=== PATIENT | male | born 1960 | race Caucasian/White ===

== ENCOUNTER 2017-02-09 10:07 | Outpatient (RCR) | payer MEDICARE, OTHER ==
[~2017-02-09 10:07] MED LIST: ABACAVIR300 MG PO; ACETAMINOPHN-B1 EACH PO; AMITIZA24 MCG PO; AMOXICILLIN500 MG PO; ASPIRIN81 M3 PO; ATARAX 25MG25 MG PO; ATORVASTATIN CA20 MG PO; ATRIPLA TABLET1 TAB PO; BENTYL10 MG PO; BUTALB-ACETAMI1 EACH; CIPRO500 MG PO; CLONAZEPAM PO; CLONAZEPAM0.5 MG PO; CLONAZEPAM1 MG PO; DICYCLOMINE HCL20 MG PO; DOCUSATE CALCI240 MG PO; DOXYCYCLINE HY100 MG PO; ECOTRIN81 MG PO; FLEXERIL; FUROSEMIDE20 MG PO; GABAPENTIN600 MG PO; GENVOYA PO; HYDROCODONE AP PO; HYDROXIZINE; KRISTALOSE10 GM PO; L-THYROXINE PO; LAMIVUDINE150 MG PO; LEVOTHYROXINE50 MCG PO; LEXAPRO PO; LEXAPRO20 MG PO; LINZESS PO; LISINOPRIL PO; LISINOPRIL40 MG PO; LYRICA100 MG PO; LYRICA25 MG PO; MAGNESIUM400 MG PO; NEUROTIN; NEXIUM PO; NEXIUM40 MG PO; NORCO 5-325 TA1 EACH PO; NORTRIPTYLINE H10 MG PO; NORVIR100 M1 PO; NORVIR100 MG PO; OMEGA 3 KRILL OIL PO; ONDANSETRON HCL4 MG PO; PANTOPRAZOLE SO40 MG PO; POTASSIUM CHLO10 ME1 PO; PROMETHAZINE HC25 M1 PO; PROPANOL; PROTONIX40 M1 PO; RANITIDINE HCL300 MG PO; REYATAZ300 MG PO; STRIBILD TABLE1 EACH PO; SUCRALFATE1 GM PO; SUMATRIPTAN SUC25 MG PO; TOPIRAMATE100 MG PO; TOPROL PO; ULTRAM 50MG50 MG PO; VICODIN; VYTORIN 10-201 EACH PO; Z.0.BENTYL20 MG PO; Z.0.COLACE100 MG PO; Z.0.FUROSEMIDE20 MG PO; Z.0.GABAPENTIN300 MG PO; Z.0.IMITREX100 MG PO; Z.0.LOMOTIL TABLET1 PO; Z.0.PHENERGAN25 M1 PO; Z.0.PROPRANOLOL HCL1 PO; Z.0.VYTORIN 10-201 E PO; Z.1.TIZANIDINE HCL4 PO; ZOFRAN ODT4 MG PO; [UNRECOGNIZED DRUG - OTHER]; [UNRECOGNIZED DRUG - OTHER]; [UNRECOGNIZED DRUG - OTHER] PO; [UNRECOGNIZED DRUG - OTHER] PO; [UNRECOGNIZED DRUG - OTHER] PO; [UNRECOGNIZED DRUG - OTHER] PO; [UNRECOGNIZED DRUG - OTHER] TOP; movantik PO
[2017-02-09] MEDS ORDERED: LIDOCAINE VISC 2% SOLN 15 ML UDC ONE (11:15)
== END 2017-02-20 ==
LOC: WCC 10:07
PROVIDERS: ATTEND Family Medicine
DX: L89.223 Pressure ulcer of left hip, stage 3 (principal); L89.322 Pressure ulcer of left buttock, stage 2; L89.312 Pressure ulcer of right buttock, stage 2; L89.152 Pressure ulcer of sacral region, stage 2; L89.151 Pressure ulcer of sacral region, stage 1; S31.829A Unspecified open wound of left buttock, initial encounter; B20 Human immunodeficiency virus [HIV] disease; B95.2 Enterococcus as the cause of diseases classified elsewhere; B95.62 Methicillin resistant Staphylococcus aureus infection as the cause of diseases classified elsewhere; B96.5 Pseudomonas (aeruginosa) (mallei) (pseudomallei) as the cause of diseases classified elsewhere; G35 Multiple sclerosis; X58.XXXA Exposure to other specified factors, initial encounter; Z74.01 Bed confinement status
CPT/HCPCS: 17250 ×2; G0463

== ENCOUNTER 2017-02-18 13:27 | Emergency (ER) | payer MEDICARE, OTHER ==
[~2017-02-18] VITALS: Ht 170.2 cm; Wt 68.9 kg
[2017-02-18] MEDS ORDERED: SODIUM CHLORIDE 0.9% 1000ML 1,000 ML IV STA (14:09)
[2017-02-18 14:16] LABS: BASOPHILS % 0.4 % (0.0-1.0); EOSINOPHILS % 0.2 % (0.0-6.0); HEMATOCRIT 43.1 % (38.2-49.6); LYMPHOCYTES # (AUTO) 1.7 (1.0-3.2); LYMPHOCYTES % 30.8 % (18.0-39.1); MEAN CORPUSCULAR HEMOGLOBIN 31.6 pg (28-32); MEAN CORPUSCULAR HGB CONC 32.5 g/dL (31-35); MEAN CORPUSCULAR VOLUME 97.3 fL (81-99); MONOCYTES # (AUTO) 0.7 (0.2-0.8); NEUTROPHILS # (AUTO) 3.2 (2.1-6.9); NEUTROPHILS % 56.4 % (38.7-80.0); PLATELET COUNT 211 x10e3/uL (140-360); RED BLOOD COUNT 4.43 x10e6/uL (4.3-5.7); RED CELL DISTRIBUTION WIDTH 15.5 % (11.7-14.4)
[2017-02-18 14:30] LABS: ALANINE AMINOTRANSFERASE 20 IU/L (0-55); ALBUMIN 3.3 g/dL (3.5-5.0); ALBUMIN/GLOBULIN RATIO 0.7 (0.8-2.0); ALKALINE PHOSPHATASE 213 IU/L (40-150); ANION GAP 15.9 mmol/L (8-16); BLOOD UREA NITROGEN 14 mg/dL (7-26); BUN/CREATININE RATIO 12 (6-25); CALCIUM 9.7 mg/dL (8.4-10.2); CARBON DIOXIDE 26 mmol/L (22-29); CHLORIDE 104 mmol/L (98-107); EST GLOMERULAR FILTRATION RATE > 60 ML/MIN (60-); GLUCOSE 151 mg/dL (74-118); POTASSIUM 3.9 mmol/L (3.5-5.1); SODIUM 142 mmol/L (136-145)
--- NOTE | 2017-02-18 15:09 | Diagnostic Imaging Report ---
PROCEDURE: CHEST SINGLE (PORTABLE) COMPARISON: Chest x-ray 01/11/17 and 01/06/17 INDICATIONS: COUGH FINDINGS: Portable image obtained at 1230 hrs. LUNGS: The lung volumes are persistently low. New linear band of subsegmental atelectasis has developed in the left lung. The left diaphragm is poorly visualized. PLEURA: No large effusions or pneumothorax. HEART \T\ MEDIASTINUM: The heart is within normal size-limits. Calcified right mediastinal and hilar lymph nodes are stable. BONES \T\ SOFT TISSUES: Multiple healed left rib fractures are stable. No new focal osseous lesions. CONCLUSION: Chronic low lung volumes. Subsegmental atelectasis and poor visualization of the left diaphragm suggestive of atelectasis. Infiltrate cannot be excluded. Recommend correlation with PA and lateral chest x-ray when clinically feasible. Dictated by: Jeet Villarreal M.D. on 02/18/2017 at 15:18 Electronically approved by: Jeet Villarreal M.D. on 02/18/2017 at 15:18
[2017-02-18 16:30] LABS: BILIRUBIN,URINE NEGATIVE (NEGATIVE); KETONES,URINE NEGATIVE (NEGATIVE); LEUKOCYTE ESTERASE ,URINE NEGATIVE (NEGATIVE); NITRITE,URINE NEGATIVE (NEGATIVE); URINE UROBILINOGEN 0.2 mg/dL (0.2 - 1)
[2017-02-18 16:32] LABS: PROTEIN,URINE DIPSTICK 1+ (NEGATIVE)
[2017-02-18 16:33] LABS: CLARITY,URINE CLEAR (CLEAR); COLOR,URINE YELLOW (YELLOW)
== END 2017-02-18 18:44 | disposition home or self-care (01) ==
LOC: ER 13:27
DX: R50.9 Fever, unspecified (principal); R05 Cough; J20.9 Acute bronchitis, unspecified; I10 Essential (primary) hypertension; E11.9 Type 2 diabetes mellitus without complications; G80.9 Cerebral palsy, unspecified; B20 Human immunodeficiency virus [HIV] disease
CPT/HCPCS: 36415; 71010; 80053; 81001; 85025; 87040; 87071; 87086; 87205; 87400; 93005; 99284; J7030

== ENCOUNTER 2017-03-03 17:54 | Emergency (ER) | payer MEDICARE, OTHER ==
[~2017-03-03] VITALS: Ht 170.2 cm; Wt 68.9 kg
[2017-03-04] MEDS ORDERED: ONDANSETRON HCL INJ 2 MG/ML VIAL IV STA (00:05)
[2017-03-04] MEDS ORDERED: SODIUM CHLORIDE 0.9% 1000ML 1,000 ML IV SCH (00:15)
[2017-03-04 00:31] LABS: BASOPHILS % 0.6 % (0.0-1.0); EOSINOPHILS % 0.3 % (0.0-6.0); HEMATOCRIT 46.6 % (38.2-49.6); HEMOGLOBIN 15.2 g/dL (14.0-18.0); LYMPHOCYTES # (AUTO) 1.6 (1.0-3.2); LYMPHOCYTES % 24.7 % (18.0-39.1); MEAN CORPUSCULAR HEMOGLOBIN 31.5 pg (28-32); MEAN CORPUSCULAR HGB CONC 32.6 g/dL (31-35); MEAN CORPUSCULAR VOLUME 96.5 fL (81-99); MONOCYTES # (AUTO) 0.7 (0.2-0.8); MONOCYTES % 11.1 % (4.4-11.3); NEUTROPHILS # (AUTO) 4.1 (2.1-6.9); NEUTROPHILS % 62.8 % (38.7-80.0); PLATELET COUNT 241 x10e3/uL (140-360); RED BLOOD COUNT 4.83 x10e6/uL (4.3-5.7); RED CELL DISTRIBUTION WIDTH 15.9 % (11.7-14.4)
[2017-03-04 00:52] LABS: ALANINE AMINOTRANSFERASE 23 IU/L (0-55); ALBUMIN 3.6 g/dL (3.5-5.0); ALBUMIN/GLOBULIN RATIO 0.9 (0.8-2.0); ALKALINE PHOSPHATASE 190 IU/L (40-150); ANION GAP 16.1 mmol/L (8-16); BLOOD UREA NITROGEN 22 mg/dL (7-26); BUN/CREATININE RATIO 20 (6-25); CALCIUM 9.9 mg/dL (8.4-10.2); CARBON DIOXIDE 23 mmol/L (22-29); CHLORIDE 102 mmol/L (98-107); CREATININE, SERUM 1.09 mg/dL (0.72-1.25); EST GLOMERULAR FILTRATION RATE > 60 ML/MIN (60-); GLUCOSE 104 mg/dL (74-118); LIPASE 7 U/L (8-78); POTASSIUM 4.1 mmol/L (3.5-5.1); SODIUM 137 mmol/L (136-145)
[2017-03-04] MEDS ORDERED: DIATRIZOATE MEGL/DIATRIZOA SOD 30 ML BTL PO ONE (01:18)
[2017-03-04] MEDS ORDERED: SODIUM CHLORIDE 0.9% 50ML 50 ML ONE (02:24)
[2017-03-04] MEDS ORDERED: IOPAMIDOL 370 MG/ML 200 ML INFUS..BTL INJ ONE (02:24)
[2017-03-04 02:42] LABS: BILIRUBIN,URINE NEGATIVE (NEGATIVE); KETONES,URINE NEGATIVE (NEGATIVE); LEUKOCYTE ESTERASE ,URINE NEGATIVE (NEGATIVE); NITRITE,URINE NEGATIVE (NEGATIVE); URINE UROBILINOGEN 0.2 mg/dL (0.2 - 1)
[2017-03-04 02:44] LABS: CLARITY,URINE CLEAR (CLEAR); COLOR,URINE YELLOW (YELLOW); PROTEIN,URINE DIPSTICK 1+ (NEGATIVE)
[2017-03-04 02:54] LABS: BACTERIA,URINE FEW /HPF; EPITHELIAL CELLS,URINE FEW /LPF; RBC,URINE 0-5 /HPF (0-5); WBC,URINE (MAN) 0-5 /HPF (0-5)
--- NOTE | 2017-03-04 03:05 | Diagnostic Imaging Report ---
EXAM: CT ABDOMEN AND PELVIS with IV CONTRAST DATE: 03/04/2017 12:05 AM Time stamp on Exam: 0227 hours INDICATION: Right lower quadrant pain COMPARISON: CT of the abdomen and pelvis June 14, 2016 TECHNIQUE: The abdomen and pelvis were scanned using a multidetector helical scanner. Coronal and sagittal reformations were obtained. Routine protocol performed. IV Contrast: 100 cc Isovue-370 Oral Contrast: Gastrografin CTDIvol has been reviewed. It is below the limits set by the Radiation Protocol Committee (RPC). FINDINGS: LOWER THORAX: Bibasilar atelectasis. LIVER: No masses BILIARY: Cholecystectomy. No ductal dilation. SPLEEN: No masses PANCREAS: No masses ADRENALS: No nodules KIDNEYS: Symmetric perfusion. No enhancing masses. No hydronephrosis. Simple cyst right kidney. GI TRACT: Large amount of retained stool within the rectosigmoid colon . No bowel obstruction. Normal appendix. VESSELS: Unremarkable PERITONEUM/RETROPERITONEUM: No free air or fluid LYMPH NODES: No lymphadenopathy REPRODUCTIVE ORGANS: Unremarkable BLADDER: Nonspecific circumferential bladder wall thickening SOFT TISSUES: Left pelvic subcutaneous tissues generator with neurostimulator device. BONES: No suspicious bone lesions. IMPRESSION: Large amount of retained stool predominantly in the rectosigmoid colon without bowel obstruction. Circumferential bladder wall thickening, possibly secondary to neurogenic bladder. Signed by: Dr. Mayelin Jovel M.D. on 03/04/2017 3:01 AM
[2017-03-04 03:43] VITALS: BP 126/71
== END 2017-03-04 04:20 | disposition home or self-care (01) ==
LOC: ER 17:54
DX: R10.33 Periumbilical pain (principal); R11.2 Nausea with vomiting, unspecified; K59.00 Constipation, unspecified; I10 Essential (primary) hypertension; G80.9 Cerebral palsy, unspecified; G35 Multiple sclerosis; B20 Human immunodeficiency virus [HIV] disease
CPT/HCPCS: 36415; 74177; 80053; 81001; 83690; 85025; 87086; 87186; 93005; 99284; J2405; J7030; Q9967

== ENCOUNTER 2017-03-16 09:40 | Outpatient (RCR) | payer MEDICARE, OTHER | END 2017-03-23 | LOC: WCC 09:40 | PROVIDERS: ATTEND Family Medicine | DX: L89.223 Pressure ulcer of left hip, stage 3 (principal); L89.152 Pressure ulcer of sacral region, stage 2; L89.322 Pressure ulcer of left buttock, stage 2; L89.312 Pressure ulcer of right buttock, stage 2; L89.151 Pressure ulcer of sacral region, stage 1; S31.829A Unspecified open wound of left buttock, initial encounter; X58.XXXA Exposure to other specified factors, initial encounter; B20 Human immunodeficiency virus [HIV] disease; G35 Multiple sclerosis; B95.2 Enterococcus as the cause of diseases classified elsewhere; B95.62 Methicillin resistant Staphylococcus aureus infection as the cause of diseases classified elsewhere; B96.5 Pseudomonas (aeruginosa) (mallei) (pseudomallei) as the cause of diseases classified elsewhere; B96.89 Other specified bacterial agents as the cause of diseases classified elsewhere; Z74.01 Bed confinement status | CPT/HCPCS: 17250; G0463 ==

== ENCOUNTER 2017-04-05 11:53 | Inpatient (IN) | payer MEDICARE, OTHER ==
[~2017-04-05] VITALS: Ht 170.2 cm; Wt 68.9 kg
--- OUTSIDE RECORDS SUMMARY | 2017-04-05 11:57 | XMS REPORT | Continuity of Care Document ---
Author Author [facility] Organization [facility] Address [address] [place] [address] Phone Unavailable Care Team Providers Care Fan Blade Truer Name Role Phone NESTOR BENSON MD PCP Insurance Providers Guarantor Elisha Gracia Address [address] [place] [address] Email [email or web address] Payer [facility] [employer] [facility] Policy Number [id number] Subscriber's Name Elisha Gracia Relationship 18 Self / Same As Patient Group Number [id number] Group Name UNEMPLOYED Effective Date 16 Payer Medicare A & B Policy Number [id number] Subscriber's Name Elisha Gracia Relationship 18 Self / Same As Patient Group Name UNEMPLOYED Effective Date 97 Advance Directives Directive Response Recorded Date/Time Does the patient have an advance directive? Yes 01/11/17 6:25pm If yes, is advance directive on file with [facility]? No 01/11/17 6:25pm If not on file with [facility] will patient provide a copy? Yes 01/11/17 6:25pm Do you have a Directive to Physician? No 03/03/17 7:32pm Do you have a Medical Power of Civilian Technician? No 03/03/17 7:32pm Do you have an out of hospital Do Not Resuscitate Order? No 03/03/17 7:32pm Do you have any special needs we should be aware of? No 03/03/17 7:32pm Do you have a support person here with you today? Yes 03/03/17 7:32pm Did patient receive Notice of Privacy Practices? Yes 03/03/17 7:32pm Did patient receive patient rights and responsibilities? Yes 03/03/17 7:32pm Problems Medical Problem Onset Date Status Acute renal failure Unknown Altered mental status Unknown Back pain 05/21/2014 Acute Confusion Unknown Decubitus skin ulcer Unknown Dehydration Unknown Diarrhea Unknown Fever Unknown HIV (human immunodeficiency virus infection) 05/21/2014 Acute HIV (human immunodeficiency virus infection) Unknown Hypokalemia 08/06/2015 Acute Hypokalemia Unknown Pneumonia 05/21/2014 Acute Sepsis 05/21/2014 Acute UTI (urinary tract infection) 08/06/2015 Acute Vomiting Unknown Medications Current Home Medications Medication Dose Units Route Directions Days Qty Instructions Start Date Atorvastatin Calcium 20 Mg Tablet 40 Mg Oral Bedtime 30 Tab Butalb/Acetaminophen/Caffeine (Tewssg-Iideoyba-Ahne 50-325-40) 1 Each Tablet Every 4 Hours as needed for Pain Clonazepam 1 Mg Tablet 2 Tab Oral At Bedtime Dicyclomine Hcl 20 Mg Tablet 20 Mg Oral Three Times A Day Doxycycline Hyclate 100 Mg Capsule 100 Mg Oral Twice A Day Furosemide 20 Mg Tablet 20 Mg Oral Daily Genvoya 1 Tab Oral Daily Levothyroxine Sodium 50 Mcg Tablet 50 Mcg Oral Daily Nortriptyline Hcl 10 Mg Cap 20 Mg Oral At Bedtime Pantoprazole Sodium (Protonix) 40 Mg Tablet.dr 40 Mg Oral Twice A Day Potassium Chloride 10 Meq Tab.er.prt 10 Meq Oral Daily Pregabalin (Lyrica) 100 Mg Capsule 150 Mg Oral Three Times A Day Ranitidine Hcl 300 Mg Tablet 300 Mg Oral Bedtime Sucralfate 1 Gm Tablet 1 Gm Oral Before Meals And At Bedtime Sumatriptan Succinate 25 Mg Tablet 100 Mg Oral Every 12 Hours as needed for Migraine 30 Tab Topiramate 100 Mg Tablet 100 Mg Oral Bedtime 30 Tab Tramadol Hcl (Ultram 50MG*) 50 Mg Tab 50 Mg Oral Every 4 Hours as needed for Pain Past Home Medications Medication Directions Ordered Status Abacavir Sulfate (Abacavir) 300 Mg Tablet, 300 Mg Oral Twice A Day Discontinued Amoxicillin 500 Mg Capsule, 500 Mg Oral Q6hr Prn Dental Work Discontinued Aspirin (Ecotrin) 81 Mg Tablet.dr, 81 Mg Oral Daily Discontinued Atazanavir Sulfate (Reyataz) 300 Mg Capsule, 300 Mg Oral As Needed Discontinued Atripila , 600 Mg Oral Daily Discontinued Butalbital/Acetaminophen (Acetaminophn-Butalbital 325-50) 1 Each Tablet, 1 Oral Every 4 Hours as needed for Pain Discontinued Ciprofloxacin Hcl (Cipro) 500 Mg Tablet, 500 Mg Oral Every 12 Hours Discontinued Clonazepam 0.5 Mg Tablet, 0.5 Mg Oral Twice A Day Discontinued Clonazepam , 1 Mg Oral Bedtime Discontinued Dicyclomine Hcl (Bentyl) 10 Mg Capsule, 20 Mg Oral Three Times A Day Discontinued Dicyclomine Hcl (Bentyl) 20 Mg Tablet, 20 Mg Oral Three Times A Day Discontinued Diphenoxylate Hcl/Atrop Sulf (Lomotil Tablet) 1 Each Tablet, 1 Each Oral Every 4 Hours as needed Discontinued Docusate Calcium 240 Mg Capsule, 200 Mg Oral Daily Discontinued Efavirenz (Atripla Tablet) 1 Tab Tab, 1 Tab Oral Daily Discontinued Elvitegr/Cobicist/Emtric/Tenof (Stribild Tablet) 1 Each Tablet, 600 Mg Oral Daily Discontinued Elvitegr/Cobicist/Emtric/Tenof (Stribild Tablet) 1 Each Tablet, 1 Tab Oral Daily Discontinued Ezetimibe/Simvastatin (Vytorin 10-20 Mg Tablet) 1 Each Tablet, 1 Tab Oral Daily Discontinued Ezetimibe/Simvastatin (Vytorin 10-20 Mg Tablet) 1 Each Tablet, 1 Tab Oral Daily Discontinued Ezetimibe/Simvastatin (Vytorin 10-20 Mg Tablet) 1 Each Tablet, 1 Each Oral Bedtime Discontinued Furosemide 20 Mg Tablet, 20 Mg Oral Daily Discontinued Gabapentin 600 Mg Tablet, 600 Mg Oral Three Times A Day Discontinued Genvoya , 150 Mg Oral Daily Discontinued Hydrocodone Bit/Acetaminophen (Grapevine 5-325 Tablet) 1 Each Tablet, 1 Tab Oral Q6 Hrs Prn Discontinued Hydrocodone Bit/Acetaminophen (Hydrocodone-Apap 7.5-750 Tab) 1 Each Tablet, 1 Each Oral Every 6 Hours as needed Discontinued Hydroxyzine Hcl (Atarax 25MG) 25 Mg Tab, 10 Mg Oral Every 6 Hours as needed Discontinued Krill/[place]-3/Dha/Epa/Lipids ([place]-3 Krill Oil 500 Mg Sfgl) 1 Each Capsule, 300 Mg Oral Daily Discontinued Lactulose (Kristalose) 10 Gm Packet, 10 Gm Oral Daily Discontinued Lamivudine 150 Mg Tablet, 150 Mg Oral Daily Discontinued Lexapro , 20 Mg Oral Daily Discontinued Linzess , 290 Mcg Oral Daily Discontinued Lisinopril 40 Mg Tablet, 40 Mg Oral Daily Discontinued Lisinopril , 20 Mg Oral Twice A Day Discontinued Lubiprostone (Amitiza) 24 Mcg Capsule, 24 Mcg Oral Twice A Day Discontinued Magnesium Oxide (Magnesium) 400 Mg Capsule, 400 Mg Oral Daily Discontinued Movantik , 25 Mg Oral Daily Discontinued Nexium , 40 Mg Oral Daily Discontinued [place]-3 Krill Oil 300 Sfgl 1 Each Capsule, 1 Cap Oral Daily Discontinued Ondansetron (Zofran Odt) 4 Mg Tab.rapdis, 8 Mg Oral Twice A Day Discontinued Ondansetron Hcl 4 Mg Tablet, 4 Mg Oral Q6 Hr Prn Discontinued Pantoprazole Sodium (Protonix) 40 Mg Suspdr.pkt, 40 Mg Oral Daily Discontinued Pregabalin (Lyrica) 25 Mg Cap, 150 Mg Oral Three Times A Day Discontinued Promethazine Hcl 25 Mg Tablet, 25 Mg Oral Q6hrs Prn Discontinued Propranolol Hcl 10 Mg Tablet, 10 Mg Oral Twice A Day Discontinued Ritonavir (Norvir) 100 Mg Tablet, 100 Mg Oral Daily Discontinued Solar Pain , Topically As Needed Discontinued Stridild , 600 Mg Oral Daily Discontinued Sucralfate 1 Gm Tablet, 1 Gm Oral Four Times Daily Discontinued Toprol , 25 Mg Oral Daily Discontinued Social History Social History Problem Response Recorded Date/Time Onset Date Status Hx Psychiatric Problems No 01/11/2017 6:25pm Not Applicable Not Applicable Hx Eating Disorder No 01/11/2017 6:25pm Not Applicable Not Applicable Hx Substance Use Disorder No 01/11/2017 6:25pm Not Applicable Not Applicable Hx Depression No 01/11/2017 6:25pm Not Applicable Not Applicable Hx Alcohol Use No 01/11/2017 6:25pm Not Applicable Not Applicable Hx Substance Use Treatment No 01/11/2017 6:25pm Not Applicable Not Applicable Hx Physical Abuse No 01/11/2017 6:25pm Not Applicable Not Applicable Smoking Status Start Date Stop Date Never Smoker Hospital Discharge Instructions No hospital discharge instruction information available. Plan of Care Discharge Date 03/04/17 4:20am Disposition HOME, SELF-CARE Condition at Discharge Stable Instructions/Education Provided Abdominal Pain - Adult Constipation - Adult Prescriptions See Medication Section Referrals NESTOR BENSON MD Address: [address] [place] [address] [place] [phone] Additional Instructions/Education REST; DRINK PLENTY OF WATER; FOLLOW UP WITH YOUR PCP; TAKE MEDICATIONS PRESCRIBED; Functional Status No functional status information available. Allergies, Adverse Reactions, Alerts Allergen Type Severity Reaction Status Last Updated dextromethorphan HBr Allergy Intermediate itchy Active 02/18/17 Guaifenesin Allergy Intermediate itchy Active 02/18/17 Immunizations No immunization information available. Vital Signs Acute Vital Signs Vital Response Date/Time Temperature (Fahrenheit) 98.9 degrees F (97.6 - 99.5) 03/04/2017 3:43am Pulse Pulse Rate (adult) 74 bpm (60 - 90) 03/04/2017 3:43am Respiratory Rate 16 bpm (12 - 24) 03/04/2017 3:43am Blood Pressure 126/71 mm Hg 03/04/2017 3:43am Height 5 ft 7 in 03/03/2017 6:51pm Weight 152 lb 03/03/2017 6:51pm Body Mass Index 23.8 kg/m^2 03/03/2017 6:51pm Results Laboratory Results Test Name Result Units Flags Reference Collection Date/Time Result Date/ Time Comments Differential Total Cells Counted 100 08/16/2016 5:40am 08/16/2016 7 :42am Neutrophils % (Manual) 46 % 40-74 08/16/2016 5:40am 08/16/2016 7:42am Lymphocytes % (Manual) 25 % 19-48 08/16/2016 5:40am 08/16/2016 7:42am Monocytes % (Manual) 12 % H 3.4-9.0 08/16/2016 5:40am 08/16/2016 7:42am Eosinophils % (Manual) 5 % 0-7 08/16/2016 5:40am 08/16/2016 7:42am Reactive Lymphocytes 12 08/16/2016 5:40am 08/16/2016 7:42am Platelet Estimate ADEQUATE 08/16/2016 5:40am 08/16/2016 7:42am Platelet Morphology Comment NORMAL 08/16/2016 5:40am 08/16/2016 7: 42am Polychromasia G 08/16/2016 5:40am 08/16/2016 7:42am Hypochromasia SLIGHT 08/16/2016 5:40am 08/16/2016 7:42am Anisocytosis SLIGHT 08/16/2016 5:40am 08/16/2016 7:42am Macrocytosis SLIGHT 08/16/2016 5:40am 08/16/2016 7:42am Red Cell Morphology Comment NORMAL 08/16/2016 5:40am 08/16/2016 7: 42am Erythrocyte Sedimentation Rate 37 mm/hr H 0-13 08/09/2016 9:00pm 2016 10:18pm Prothrombin Time 12.9 seconds 11.9-14.5 08/09/2016 11:20am 08/09/2016 12:00pm Prothromb Time International Ratio 0.93 08/09/2016 11:20am 2016 12:00pm Oral Anticoagulant Therapy INR Values: 1. Low Intensity Therapy 1.5 - 2.0 2. Moderate Intensity Therapy 2.0 - 3.0 3. High Intensity Therapy(1) 2.5 - 3.5 4. High Intensity Therapy(2) 3.0 - 4.0 5. Panic Value INR > 5.0 Activated Partial Thromboplast Time 44.7 seconds H 23.8-35.5 08/09/2016 11:20am 08/09/2016 12:00pm Lactic Acid Level 10.2 MG/DL 4.5-19.8 08/09/2016 11:20am 08/09/2016 11: 59am Magnesium Level 1.7 MG/DL 1.3-2.1 08/09/2016 11:20am 08/09/2016 12: 07pm B-Type Natriuretic Peptide 152.9 pg/mL H 0-100 08/09/2016 11:20am 2016 12:22pm Vancomycin Level Trough 30.0 ug/mL *H 5.0-10.0 08/11/2016 3:00pm 2016 4:03pm Results called to AYSHA JACKSONRN at 1602 on 08/11/16 by Luna Virgen. RB OK. C-Reactive Protein 47.0 mg/L H 0.0-4.9 08/09/2016 11:20am 08/10/2016 6: 34am Performed at: - [facility] [address] [id number] Gauge Machine Operator: Bright Escudero MD, Phone: [phone] Urine Mucus MODERATE H RARE 01/12/2017 2:05pm 01/12/2017 2:56pm Bedside Glucose 101 mg/dL 70-120 01/13/2017 11:09am 01/13/2017 11:37am Meter ID: [id number] Direct Bilirubin 0.2 mg/dL 0.0-5.0 01/16/2017 9:40am 01/16/2017 10: 35am Creatine Kinase 21 IU/L L 30-200 01/12/2017 6:33am 01/12/2017 7:47am Creatine Kinase MB 1.10 ng/mL 0.00-5.00 01/12/2017 6:33am 01/12/2017 7: 53am Troponin I < 0.001 ng/mL 0-0.300 01/12/2017 6:33am 01/12/2017 7:53am Amylase Level 17 U/L L 25-125 01/16/2017 9:40am 01/16/2017 10:35am Stool Occult Blood POSITIVE H NEGATIVE 01/14/2017 9:35am 01/14/2017 11 :09am Clostridium Difficile Toxin A & B NEGATIVE NEGATIVE 01/14/2017 9:35am 01/14/2017 1:20pm Testing on stool aspirate specimens is outside scene shifter claims since specimen type not validated on this assay. Influenza Virus Types A,B Antigen NEGATIVE NEGATIVE 02/18/2017 4:18pm 02/18/2017 5:10pm White Blood Count 6.47 x10e3/uL 4.8-10.8 03/04/2017 12:00am 03/04/2017 12:34am Red Blood Count 4.83 x10e6/uL 4.3-5.7 03/04/2017 12:00am 03/04/2017 12: 34am Hemoglobin 15.2 g/dL 14.0-18.0 03/04/2017 12:00am 03/04/2017 12:34am Hematocrit 46.6 % 38.2-49.6 03/04/2017 12:00am 03/04/2017 12:34am Mean Corpuscular Volume 96.5 fL 81-99 03/04/2017 12:0003/04/2017 12: 34am Mean Corpuscular Hemoglobin 31.5 pg 28-32 03/04/2017 12:002017 12:34am Mean Corpuscular Hemoglobin Concent 32.6 g/dL 31-35 03/04/2017 12:0003/04/2017 12:34am Red Cell Distribution Width 15.9 % H 11.7-14.4 03/04/2017 12:002017 12:34am Platelet Count 241 x10e3/uL 140-360 03/04/2017 12:0003/04/2017 12: 34am Neutrophils (%) (Auto) 62.8 % 38.7-80.0 03/04/2017 12:0003/04/2017 12:34am Lymphocytes (%) (Auto) 24.7 % 18.0-39.1 03/04/2017 12:0003/04/2017 12:34am Monocytes (%) (Auto) 11.1 % 4.4-11.3 03/04/2017 12:0003/04/2017 12: 34am Eosinophils (%) (Auto) 0.3 % 0.0-6.0 03/04/2017 12:0003/04/2017 12: 34am Basophils (%) (Auto) 0.6 % 0.0-1.0 03/04/2017 12:0003/04/2017 12: 34am IM GRANULOCYTES % 0.5 % 0.0-1.0 03/04/2017 12:0003/04/2017 12:34am Neutrophils # (Auto) 4.1 2.1-6.9 03/04/2017 12:0003/04/2017 12: 34am Lymphocytes # (Auto) 1.6 1.0-3.2 03/04/2017 12:0003/04/2017 12: 34am Monocytes # (Auto) 0.7 0.2-0.8 03/04/2017 12:00am 03/04/2017 12:34am Eosinophils # (Auto) 0.0 0.0-0.4 03/04/2017 12:00am 03/04/2017 12: 34am Basophils # (Auto) 0.0 0.0-0.1 03/04/2017 12:00am 03/04/2017 12:34am Absolute Immature Granulocyte (auto 0.03 x10e3/uL 0-0.1 03/04/2017 12: 00am 03/04/2017 12:34am Urine Color YELLOW YELLOW 03/04/2017 2:30am 03/04/2017 2:44am Urine Clarity CLEAR CLEAR 03/04/2017 2:30am 03/04/2017 2:44am Urine Specific [place] 1.015 1.010-1.025 03/04/2017 2:30am 2017 2:44am Urine pH 8 H 5 - 7 03/04/2017 2:30am 03/04/2017 2:44am Urine Leukocyte Esterase NEGATIVE NEGATIVE 03/04/2017 2:30am 2017 2:44am Urine Nitrite NEGATIVE NEGATIVE 03/04/2017 2:30am 03/04/2017 2:44am Urine Protein 1+ H NEGATIVE 03/04/2017 2:30am 03/04/2017 2:44am Urine Glucose (UA) TRACE H NEGATIVE 03/04/2017 2:30am 03/04/2017 2: 44am Urine Ketones NEGATIVE NEGATIVE 03/04/2017 2:30am 03/04/2017 2:44am Urine Urobilinogen 0.2 mg/dL 0.2 - 1 03/04/2017 2:30am 03/04/2017 2: 44am Urine Bilirubin NEGATIVE NEGATIVE 03/04/2017 2:30am 03/04/2017 2: 44am Urine Blood NEGATIVE NEGATIVE 03/04/2017 2:30am 03/04/2017 2:44am Urine WBC 0-5 /HPF 0-5 03/04/2017 2:30am 03/04/2017 2:54am Urine RBC 0-5 /HPF 0-5 03/04/2017 2:30am 03/04/2017 2:54am Urine Bacteria FEW /HPF NONE 03/04/2017 2:30am 03/04/2017 2:54am Urine Epithelial Cells FEW /LPF NONE 03/04/2017 2:30am 03/04/2017 2: 54am Sodium Level 137 mmol/L 136-145 03/04/2017 12:00am 03/04/2017 12:54am Potassium Level 4.1 mmol/L 3.5-5.1 03/04/2017 12:00am 03/04/2017 12: 54am Chloride Level 102 mmol/L 98-107 03/04/2017 12:00am 03/04/2017 12:54am Carbon Dioxide Level 23 mmol/L 22-29 03/04/2017 12:00am 03/04/2017 12: 54am Anion Gap 16.1 mmol/L H 8-16 03/04/2017 12:00am 03/04/2017 12:54am Blood Urea Nitrogen 22 mg/dL 7-26 03/04/2017 12:00am 03/04/2017 12: 54am Creatinine 1.09 mg/dL 0.72-1.25 03/04/2017 12:00am 03/04/2017 12:54am BUN/Creatinine Ratio 20 6-25 03/04/2017 12:00am 03/04/2017 12:54am Estimat Glomerular Filtration Rate > 60 ML/MIN 60- 03/04/2017 12:00am 03/04/2017 12:54am Ranges were taken from the National Kidney Disease Education Program and the National Kidney Foundation literature. Reference ranges: 60 or greater: Normal 16-59 (for 3 consecutive months): Chronic kidney disease 15 or less: Kidney failure Glucose Level 104 mg/dL 74-118 03/04/2017 12:00am 03/04/2017 12:54am Calcium Level 9.9 mg/dL 8.4-10.2 03/04/2017 12:00am 03/04/2017 12:54am Total Bilirubin 0.8 mg/dL 0.2-1.2 03/04/2017 12:00am 03/04/2017 12: 54am Aspartate Amino Transf (AST/SGOT) 21 IU/L 5-34 03/04/2017 12:00am 03/04 12:54am Alanine Aminotransferase (ALT/SGPT) 23 IU/L 0-55 03/04/2017 12:00am 01/2018 12:54am Total Protein 7.8 g/dL 6.5-8.1 03/04/2017 12:00am 03/04/2017 12:54am Albumin 3.6 g/dL 3.5-5.0 03/04/2017 12:00am 03/04/2017 12:54am Globulin 4.2 g/dL H 2.3-3.5 03/04/2017 12:00am 03/04/2017 12:54am Albumin/Globulin Ratio 0.9 0.8-2.0 03/04/2017 12:00am 03/04/2017 12: 54am Alkaline Phosphatase 190 IU/L H 40-150 03/04/2017 12:00am 03/04/2017 12: 54am Lipase 7 U/L L 8-78 03/04/2017 12:00am 03/04/2017 12:54am Microbiology Results Procedure Source Organism/Result Collection Date/Time Result Date/Time Result Status Anaerobic Culture Hip, Left PEPTOSTREPTOCOCCUS SPECIES 06/09/2016 10:00am 06/20/2016 9:53am Final Wound Culture Hip, Left ENTEROCOCCUS FAECALIS 12/08/2016 10:00am 2016 12:48pm Final PSEUDOMONAS AERUGINOSA 12/08/2016 10:00am 12/12/2016 12:48pm Final STREP AGALACTIAE GROUP B 12/08/2016 10:00am 12/12/2016 12:48pm Final Blood Culture Blood STAPHYLOCOCCUS SP COAG NEG 02/18/2017 1:42pm 2016 8:36am Final Blood Culture Blood NO GROWTH AFTER 5 DAYS, FINAL REPORT 02/18/2017 1:42pm 02/23/2017 2:12pm Final Urine Culture Urine,Clean Catch PSEUDOMONAS AERUGINOSA 03/04/2017 2:30am 03/06/2017 8:40am Final Procedures Procedure Status Date Provider(s) EXCISION OF LEFT HIP MUSCLE, OPEN APPROACH Completed 06/17/16 DARÍO JULIO MD INSERTION OF INFUSION DEV INTO SUP VENA CAVA, PERC APPROACH Completed REGINALDO JERRY MD Computed tomography of abdomen and pelvis with contrast Active 06/14/16 ELIZABETH INMAN MD X-ray of chest, two views Active 06/14/16 NESTOR BENSON MD Computed tomography of brain without radiopaque contrast Active 08/09/16 REGINALDO JERRY MD X-ray of chest, two views Active 09/20/16 NESTOR BENSON MD X-ray of chest, two views Active 01/06/17 NESTOR BENSON MD Computed tomography of abdomen and pelvis with contrast Active 03/04/17 CHRISTINA MCDANIEL MD Encounters Encounter Location Arrival/Admit Date Discharge/Depart Date Attending Provider Discharged Recurring [facility] 03/16/17 9:40am 03/23/17 11:59pm ERNESTO BEEBE MD Departed Emergency Room [facility] 03/03/17 5:54pm 4:20am CHRISTINA MCDANIEL MD Departed Emergency Room [facility] 02/18/17 1:27pm 6:44pm ELIZABETH INMAN MD Discharged Recurring [facility] 02/02/17 9:25am 02/20/17 11:59pm ERNESTO BEEBE MD Discharged Inpatient [facility] 01/11/17 4:05pm 01/17/17 5:06pm NESTOR BENSON MD Registered Clinic [facility] 01/06/17 1:03pm NESTOR BENSON MD Discharged Recurring [facility] 12/22/16 9:29am 01/20/17 11:59pm ERNESTO BEEBE MD Discharged Recurring [facility] 11/24/16 9:44am 12/21/16 11:59pm ERNESTO BEEBE MD Discharged Recurring [facility] 10/27/16 10:33am 11:59pm ERNESTO BEEBE MD Discharged Recurring [facility] 09/22/16 10:12am 11:59pm ERNESTO BEEBE MD Registered Clinic [facility] 09/20/16 12:48pm NESTOR BENSON MD Discharged Recurring [facility] 08/25/16 8:58am 09/20/16 11:59pm ERNESTO BEEBE MD Discharged Inpatient [facility] 08/09/16 7:03pm 08/17/16 12:46pm NESTOR BENSON MD Discharged Recurring [facility] 07/28/16 9:38am 08/20/16 11:59pm ERNESTO BEEBE MD Discharged Recurring [facility] 07/21/16 9:13am 07/21/16 11:59pm ERNESTO BEEBE MD Discharged Inpatient [facility] 06/18/16 10:52am 3:39pm NESTOR BENSON MD Discharged [facility]urring [facility] 06/09/16 9:24am 06/20/16 11:59pm ERNESTO BEEBE MD
--- OUTSIDE RECORDS SUMMARY | 2017-04-05 11:57 | XMS REPORT ---
Demographics Address [address] [place] [id number] Preferred Language Unknown Marital Status Unknown Judaism Affiliation Unknown Race Unknown Ethnic Group Unknown Author Author [facility] Address Unknown Phone Unavailable Care Team Providers Care Acquisition Analyst Name Role Phone CHRISTINA MCDANIEL Unavailable Unavailable ELIZABETH INMAN Unavailable Unavailable BENSON SOUCHRISTIANO Unavailable Unavailable Problems This patient has no known problems. Allergies, Adverse Reactions, Alerts This patient has no known allergies or adverse reactions. Medications This patient has no known medications. Results Test Description Test Time Test Comments Text Results Atomic Results Result Comments CT ABDOMEN/PELVIS W [place] [address] Patient Name: BRADEN GRACIA MR #: [id number] : 1960 Age/Sex: 56/M Req # : [id number] Adm Physician: Ordered by: CHRISTINA MCDANIEL MD Report #: [id number] Location: ER Room/Bed: Procedure: [id number] CT/CT ABDOMEN/PELVIS W Exam Date: Exam Time: REPORT STATUS: Signed EXAM: CT ABDOMEN AND PELVIS with IV CONTRAST DATE: 03/04/2017 12:05 AM Time stamp on Exam: 0227 hours INDICATION: Right lower quadrant pain COMPARISON: CT of the abdomen and pelvis June 14, 2016 TECHNIQUE: The abdomen and pelvis were scanned using a multidetector helical scanner. Coronal and sagittal reformations were obtained. Routine protocol performed. IV Contrast: 100 cc Isovue-370 Oral Contrast: Gastrografin CTDIvol has been reviewed. It is below the limits set by the Radiation Protocol Committee (RPC). FINDINGS: LOWER THORAX: Bibasilar atelectasis. LIVER: No masses BILIARY: Cholecystectomy. No ductal dilation. SPLEEN: No masses PANCREAS: No masses ADRENALS: No nodules KIDNEYS: Symmetric perfusion. No enhancing masses. No hydronephrosis. Simple cyst right kidney. GI TRACT: Large amount of retained stool within the rectosigmoid colon . No bowel obstruction. Normal appendix. VESSELS: Unremarkable PERITONEUM /RETROPERITONEUM: No free air or fluid LYMPH NODES: No lymphadenopathy REPRODUCTIVE ORGANS: Unremarkable BLADDER: Nonspecific circumferential bladder wall thickening SOFT TISSUES: Left pelvic subcutaneous tissues generator with neurostimulator device. BONES: No suspicious bone lesions. IMPRESSION: Large amount of retained stool predominantly in the rectosigmoid colon without bowel obstruction. Circumferential bladder wall thickening, possibly secondary to neurogenic bladder. Signed by: Dr. Ajith Jovel M.D. on 03/04/2017 3:01 AM Dictated By: AJITH JOVEL MD 0 Transcribed By: CAITIE on 03/04/17300 COPY TO: CHRISTINA MCDANIEL MD CHEST SINGLE (PORTABLE) [place] [address] Patient Name: BRADEN GRACIA MR #: [id number] : 1960 Age/Sex: 56/M Req #: [id number] Adm Physician: Ordered by: ELIZAEBTH INMAN MD Report #: [id number] Location: ER Room/Bed: Procedure: [id number] DX/CHEST SINGLE (PORTABLE) Exam Date: 02/18/17 Exam Time: 1455 REPORT STATUS: Signed PROCEDURE: CHEST SINGLE (PORTABLE) COMPARISON: Chest x-ray 01/11/17 and 01/06/17 INDICATIONS: COUGH FINDINGS: Portable image obtained at 1230 hrs. LUNGS: The lung volumes are persistently low. New linear band of subsegmental atelectasis has developed in the left lung. The left diaphragm is poorly visualized. PLEURA: No large effusions or pneumothorax. HEART T MEDIASTINUM: The heart is within normal size- limits. Calcified right mediastinal and hilar lymph nodes are stable. BONES T SOFT TISSUES: Multiple healed left rib fractures are stable. No new focal osseous lesions. CONCLUSION: Chronic low lung volumes. Subsegmental atelectasis and poor visualization of the left diaphragm suggestive of atelectasis. Infiltrate cannot be excluded. Recommend correlation with PA and lateral chest x-ray when clinically feasible. Dictated by: Nathan Villarreal M.D. on 02/18/2017 at 15:18 Electronically approved by: Nathan Villarreal M.D. on 02/18/2017 at 15:18 Dictated By: NATHAN VILLARREAL MD 1518 Transcribed By: ANNY on 02/18/178 COPY TO: ELIZABETH INMAN MD CHEST SINGLE (PORTABLE) [place] [address] Patient Name: BRADEN GRACIA MR #: [id number] : 1960 Age/Sex: 56/M Req #: [id number] Adm Physician: Ordered by: ELIZABETH INMAN MD Report #: [id number] Location: ER Room/Bed: Procedure: [id number] DX/CHEST SINGLE (PORTABLE) Exam Date: 01/11/17 Exam Time: 1444 REPORT STATUS: Signed PROCEDURE: A single AP view of the chest. COMPARISON: Chest radiograph 01/06/2017 and INDICATIONS: WET COUGH FINDINGS: Exam limited by patient rotation and portable AP technique. Lines/tubes: None. Lungs: The lungs are poorly inflated. Increasing left perihilar and infrahilar opacities. Stable calcified granuloma in the left lung base. Pleura: There is no pleural effusion or pneumothorax. Heart and mediastinum: The heart and the mediastinum are unremarkable. Bones: No acute bony abnormality. IMPRESSION: Exam limited by patient rotation, portable AP technique, and low lung volumes. Increasing left perihilar and infrahilar opacities may represent developing pneumonia in the appropriate clinical context. Dictated by: Dung Diamond M.D. on 2016 at 15:20 Electronically approved by: Dung Diamond M.D. on 2016 at 15:20 Dictated By: DUNG DIAMOND MD 1520 Transcribed By: ANNY on 01/11/17 1520 COPY TO: ELIZABETH INMAN MD CHEST 2 VIEWS [place] [address] Patient Name: BRADEN GRACIA MR #: [id number] : 1960 Age/Sex: 56/M Req #: [id number] Adm Physician: Ordered by: NESTOR BENSON MD Report #: [id number] Location: [facility] Room/Bed: Procedure: [id number] DX/CHEST 2 VIEWS Exam Date: 01/06/17 Exam Time: 1320 REPORT STATUS: Signed PROCEDURE: Frontal and lateral views of the chest. COMPARISON: [facility], DX, CHEST 2 VIEWS, 2016, 12:50. INDICATIONS: CONGESTION, SHORTNESS OF BREATH FINDINGS: Exam limited by patient rotation. Lines/tubes: None. Lungs: Lungs are hypoinflated. Stable left lower lobe and retrosternal space calcified granulomas. Mild perihilar interstitial opacities. No consolidation. Linear opacities in the left lower lung, likely reflect subsegmental atelectasis. Pleura: There is no pleural effusion or pneumothorax. Heart and mediastinum: Central vascular crowding due to low lung volumes. Cardiac silhouette is unremarkable. Bones: No acute bony abnormality. IMPRESSION: 1. Exam limited by low lung volumes and rotation. Findings may represent reactive airway disease versus viral infection. No consolidative pneumonia. Janell Hu M.D. Dictated by: Janell Hu M.D. on 01/06/2017 at 14:30 Electronically approved by: Janell Hu M.D. on 01/06/2017 at 14:30 Dictated By: JANELL HU MD 1430 Transcribed By: ANNY on 01/06/17 1430 COPY TO: NESTOR BENSON MD
[2017-04-05] MEDS ORDERED: SODIUM CHLORIDE 0.9% 1000ML 1,000 ML IV STA (12:04)
[2017-04-05] MEDS ORDERED: VANCOMYCIN 1GM/NS 250 ML 250 ML IV ONE (12:15)
[2017-04-05] MEDS ORDERED: ASPIRIN 81 MG CHEW TAB PO ONE (12:15)
[2017-04-05 12:38] LABS: ABG HCO3 25 mmol/L (23-28); ABG PCO2 38 mmHg (41-51); ABG PH 7.42 (7.31-7.41); ABG PO2 174 mmHg (80-105)
[2017-04-05 12:50] LABS: INR 1.25; PROTHROMBIN TIME 14.8 seconds (11.9-14.5)
[2017-04-05 12:51] LABS: BASOPHILS % 0.4 % (0.0-1.0); HEMOGLOBIN 14.3 g/dL (14.0-18.0); LYMPHOCYTES % 13.4 % (18.0-39.1); MEAN CORPUSCULAR HEMOGLOBIN 31.2 pg (28-32); MEAN CORPUSCULAR HGB CONC 31.8 g/dL (31-35); MEAN CORPUSCULAR VOLUME 98.3 fL (81-99); MONOCYTES # (AUTO) 0.7 (0.2-0.8); MONOCYTES % 9.9 % (4.4-11.3); NEUTROPHILS # (AUTO) 5.4 (2.1-6.9); NEUTROPHILS % 75.6 % (38.7-80.0); PARTIAL THROMBOPLASTIN TIME 45.6 seconds (23.8-35.5); PLATELET COUNT 160 x10e3/uL (140-360); RED BLOOD COUNT 4.58 x10e6/uL (4.3-5.7); RED CELL DISTRIBUTION WIDTH 16.7 % (11.7-14.4)
[2017-04-05 12:58] LABS: BILIRUBIN,URINE NEGATIVE (NEGATIVE); KETONES,URINE NEGATIVE (NEGATIVE); LEUKOCYTE ESTERASE ,URINE NEGATIVE (NEGATIVE); NITRITE,URINE NEGATIVE (NEGATIVE); URINE UROBILINOGEN 0.2 mg/dL (0.2 - 1)
[2017-04-05] MEDS ORDERED: SODIUM CHLORIDE 0.9% 1000ML 2,000 ML IV ONE (13:00)
[2017-04-05] MEDS ORDERED: ALBUTEROL SULF 0.083% NEB SOLN 3 ML NEB NEB ONE (13:00)
[2017-04-05] MEDS ORDERED: IPRATROPIUM BROMIDE 0.02% 2.5 ML NEB NEB ONE (13:00)
[2017-04-05] MEDS ORDERED: CEFEPIME HCL 1 GM VIAL IV ONE (13:00)
[2017-04-05 13:03] LABS: PROTEIN,URINE DIPSTICK TRACE (NEGATIVE)
[2017-04-05 13:05] LABS: ALANINE AMINOTRANSFERASE 19 IU/L (0-55); ALBUMIN 3.4 g/dL (3.5-5.0); ALBUMIN/GLOBULIN RATIO 0.8 (0.8-2.0); ALKALINE PHOSPHATASE 143 IU/L (40-150); ANION GAP 15.5 mmol/L (8-16); BLOOD UREA NITROGEN 22 mg/dL (7-26); BUN/CREATININE RATIO 16 (6-25); CALCIUM 9.1 mg/dL (8.4-10.2); CARBON DIOXIDE 21 mmol/L (22-29); CHLORIDE 105 mmol/L (98-107); CREATINE KINASE 52 IU/L (30-200); CREATININE, SERUM 1.39 mg/dL (0.72-1.25); EST GLOMERULAR FILTRATION RATE 53 ML/MIN (60-); GLUCOSE 93 mg/dL (74-118); MAGNESIUM 2.3 MG/DL (1.3-2.1); POTASSIUM 4.5 mmol/L (3.5-5.1); SODIUM 137 mmol/L (136-145)
--- NOTE | 2017-04-05 13:07 | Diagnostic Imaging Report ---
PROCEDURE: A single AP view of the chest. COMPARISON: Patients [facility], , CHEST SINGLE (PORTABLE), 02/18/2017, 12:38. INDICATIONS: SHORTNESS OF BREATH FINDINGS: Exam limited by patient positioning/marked rotation Lines/tubes: None. Lungs: Lungs are hypoinflated. Mild bibasilar atelectatic changes. Pleura: There is no pleural effusion or pneumothorax. Heart and mediastinum: Cardiac silhouette is stable. Central pulmonary venous congestion with probably mild perihilar interstitial edema Bones: No acute bony abnormality. IMPRESSION: 1. hypoinflated lungs. central pulmonary venous congestion and probably mild perihilar interstitial edema. No consolidation or effusion. Bo Hu M.D. Dictated by: Bo Hu M.D. on 04/05/2017 at 13:17 Electronically approved by: Bo Hu M.D. on 04/05/2017 at 13:17
[2017-04-05 13:15] LABS: LIPASE < 4 U/L (8-78)
[2017-04-05 13:25] LABS: THYROID STIMULATING HORMONE 17.011 uIU/mL (0.350-4.940)
[2017-04-05 14:00] LABS: B-TYPE NATRIURETIC PEPTIDE2 90.5 pg/mL (0-100)
[2017-04-05 14:08] LABS: CLARITY,URINE CLEAR (CLEAR); COLOR,URINE YELLOW (YELLOW)
[2017-04-05 14:11] LABS: WBC,URINE (MAN) 0-5 /HPF (0-5)
[2017-04-05 14:12] LABS: BACTERIA,URINE FEW /HPF; EPITHELIAL CELLS,URINE FEW /LPF
[2017-04-05 14:13] LABS: MUCUS,URINE FEW (RARE)
[2017-04-05] MEDS: ALBUTEROL SULF 0.083% NEB SOLN 3 ML NEB NEB SCH ×3 (15:00→22:50)
[2017-04-05] MEDS: SODIUM CHLORIDE 0.9% 1000ML 1,000 ML IV SCH (15:20)
[2017-04-05 18:08] VITALS: BP 80/47
[2017-04-05] MEDS: IPRATROPIUM BROMIDE 0.02% 2.5 ML NEB NEB SCH (18:40)
[2017-04-05 18:50] VITALS: BP 96/58
[2017-04-05 18:56] VITALS: BP 102/62
[2017-04-05 19:03] VITALS: BP 85/50
[2017-04-05 20:55] VITALS: BP 99/54
[2017-04-05 20:56] VITALS: BP 99/54
[2017-04-05 21:16] LABS: CREATINE KINASE MB 1.1 ng/mL (0.00-5.00)
[2017-04-05] MEDS ORDERED: HYDROMORPHONE 1MG/1ML INJ IV PRN (22:45)
[2017-04-06] VITALS (7 sets, daily range): BP systolic 88–132; BP diastolic 59–74
[2017-04-06] MEDS: ALBUTEROL SULF 0.083% NEB SOLN 3 ML NEB NEB SCH ×5 (02:50→20:48)
[2017-04-06] MEDS: IPRATROPIUM BROMIDE 0.02% 2.5 ML NEB NEB SCH ×4 (02:50→20:48)
[2017-04-06] MEDS: SODIUM CHLORIDE 0.9% 1000ML 1,000 ML IV SCH ×3 (03:31→19:30)
[2017-04-06] MEDS: LEVOTHYROXINE SODIUM 100 MCG TAB PO SCH (05:20)
--- NOTE | 2017-04-06 06:05 | Diagnostic Imaging Report ---
CHEST SINGLE (PORTABLE), 04/06/2017 5:00 AM Technique: CHEST SINGLE (PORTABLE) Comparison: 04/05/2017 Clinical history: Pneumonia Findings: See Impression. Healing bilateral rib deformities/ Impression: 1. Grossly stable cardiomediastinal silhouette. 2. Bibasilar opacities in keeping with pneumonia/aspiration. 3. No significant effusion. Signed by: Dr Susan Parrish MD on 04/06/2017 6:02 AM
[2017-04-06 06:37] LABS: BASOPHILS % 0.2 % (0.0-1.0); EOSINOPHILS % 0.2 % (0.0-6.0); HEMATOCRIT 37.9 % (38.2-49.6); HEMOGLOBIN 11.8 g/dL (14.0-18.0); LYMPHOCYTES # (AUTO) 0.9 (1.0-3.2); LYMPHOCYTES % 13.7 % (18.0-39.1); MEAN CORPUSCULAR HEMOGLOBIN 31.6 pg (28-32); MEAN CORPUSCULAR HGB CONC 31.1 g/dL (31-35); MEAN CORPUSCULAR VOLUME 101.3 fL (81-99); MONOCYTES # (AUTO) 0.7 (0.2-0.8); MONOCYTES % 11.2 % (4.4-11.3); NEUTROPHILS # (AUTO) 4.6 (2.1-6.9); NEUTROPHILS % 74.1 % (38.7-80.0); PLATELET COUNT 124 x10e3/uL (140-360); RED BLOOD COUNT 3.74 x10e6/uL (4.3-5.7); RED CELL DISTRIBUTION WIDTH 16.4 % (11.7-14.4)
[2017-04-06 06:59] LABS: ANION GAP 12.6 mmol/L (8-16); BLOOD UREA NITROGEN 23 mg/dL (7-26); BUN/CREATININE RATIO 22 (6-25); CALCIUM 8.9 mg/dL (8.4-10.2); CARBON DIOXIDE 21 mmol/L (22-29); CHLORIDE 110 mmol/L (98-107); CREATINE KINASE 46 IU/L (30-200); CREATININE, SERUM 1.03 mg/dL (0.72-1.25); EST GLOMERULAR FILTRATION RATE > 60 ML/MIN (60-); GLUCOSE 106 mg/dL (74-118); POTASSIUM 3.6 mmol/L (3.5-5.1); SODIUM 140 mmol/L (136-145)
[2017-04-06 08:19] LABS: BAND NEUTROPHILS % (MANUAL) 2 %; LYMPHOCYTES % (MANUAL) 21 % (19-48); MONOCYTES % (MANUAL) 8 % (3.4-9.0); NEUTROPHILS % (MANUAL) 69 % (40-74)
[2017-04-06 08:20] LABS: ANISOCYTOSIS SLIGHT; PLATELET ESTIMATE SLIGHTLY DECREASED; PLATELET MORPHOLOGY COMMENT FEW LARGE; RBC MORPHOLOGY COMMENT NORMAL
[2017-04-06] MEDS: CEFEPIME HCL 1 GM VIAL IV SCH (08:30)
[2017-04-06] MEDS ORDERED: CLONAZEPAM1 MG PO (09:50)
[2017-04-06] MEDS ORDERED: SUCRALFATE1 GM PO (09:54)
[2017-04-06] MEDS ORDERED: BENZONATATE200 MG PO (09:55)
[2017-04-06] MEDS ORDERED: PANTOPRAZOLE SO40 MG PO (09:56)
[2017-04-06] MEDS ORDERED: ACETAMIN/BUTALBITAL/CAFFEINE TAB PO PRN (11:45)
[2017-04-06] MEDS: VANCOMYCIN 1GM/NS 250 ML 250 ML IV SCH (11:57)
--- NOTE | 2017-04-06 16:02 | Consultation ---
DATE OF CONSULTATION: April 06, 2017 INFECTIOUS DISEASE CONSULTATION REASON FOR CONSULTATION: Pneumonia. HISTORY OF PRESENT ILLNESS: This patient, who is well known to me, a very pleasant 56-year-old who has history of cerebral palsy, history of HIV and AIDS, is taking his home medication and his HIV is well controlled. History of ATN before. The patient also has history of aspiration. He is coming to the emergency room on the with shortness of breath and cough. The patient was evaluated in the emergency room. He was diagnosed with pneumonia, and I was contacted. He was started on vancomycin and cefepime. The patient is feeling better today. He is more alert, not as short of breath, comfortable. PAST MEDICAL HISTORY: Cerebral palsy, HIV, ATN/chronic kidney disease before but seems to be stable. PAST SURGICAL HISTORY: Denies. ALLERGIES: NKA. SOCIAL HISTORY: There is no smoking, drug abuse, alcohol abuse. FAMILY HISTORY: Noncontributory. REVIEW OF SYSTEMS: At the present time HEENT: There is no headache, visual changes, hearing changes. GI: There is no nausea, no vomiting, no diarrhea. CARDIAC: There is no arrhythmia. NEURO: No seizure activity. SKIN: There is no rash. ALL OTHER SYSTEMS: Seem to be within normal limits. PHYSICAL EXAMINATION GENERAL: He is currently alert, oriented, does not seem to be in acute distress. VITAL SIGNS: Stable. Currently afebrile. HEENT: He does not appear icteric. NECK: Supple. CHEST: Clear. HEART: S1 and S2. No S3 or S4, no murmur. ABDOMEN: Soft. Bowel sounds present. No tenderness. EXTREMITIES: No edema. SKIN: No rash. IMPRESSION 1. Pneumonia, community-acquired. Seems to be getting better. He was started on vancomycin and cefepime, clinically getting better. Probably can increase the dose to 1 g q.12 since his kidney function seems to be doing well. 2. Human immunodeficiency virus. Continue with the antiretroviral medication. 3. Cerebral palsy. 4. History of aspiration. Will have Speech to see him again to reevaluate if he aspirates. Still, the last time we did that he was doing good. 5. Other medical problems per Dr. Yossi Cheung. Discussed with the patient. I have reviewed his medication list, reviewed his laboratory data, reviewed his medications at home. Time spent around 60 minutes. Thank you for asking me to see this patient. Job#: [id number] EV
[2017-04-06] MEDS: SUCRALFATE 1 GM TAB PO SCH ×2 (16:39→21:36)
[2017-04-06] MEDS: DICYCLOMINE HCL 20 MG TAB PO SCH ×2 (16:39→21:36)
[2017-04-06] MEDS: BALSAM PERU/CASTOR OIL 60 GM OINT...G. TP SCH (16:39)
[2017-04-06] MEDS: ATORVASTATIN 40 MG TAB PO SCH (21:36)
[2017-04-06] MEDS: NORTRIPTYLINE HCL 10 MG CAP PO SCH (21:36)
[2017-04-06] MEDS: CLONAZEPAM 1 MG TAB PO SCH (21:36)
[2017-04-07] MEDS: SODIUM CHLORIDE 0.9% 1000ML 1,000 ML IV SCH (00:13)
[2017-04-07] MEDS: ALBUTEROL SULF 0.083% NEB SOLN 3 ML NEB NEB SCH ×6 (00:25→19:30)
[2017-04-07] MEDS: IPRATROPIUM BROMIDE 0.02% 2.5 ML NEB NEB SCH ×4 (00:25→19:30)
[2017-04-07 04:58] VITALS: BP 84/48
[2017-04-07] MEDS: LEVOTHYROXINE SODIUM 100 MCG TAB PO SCH (05:46)
[2017-04-07 06:52] VITALS: BP 93/57
[2017-04-07 09:00] VITALS: BP 99/62
[2017-04-07] MEDS: SUCRALFATE 1 GM TAB PO SCH ×3 (09:33→16:50)
[2017-04-07] MEDS: DICYCLOMINE HCL 20 MG TAB PO SCH ×3 (09:33→21:41)
[2017-04-07] MEDS: PANTOPRAZOLE SOD 40 MG TABEC PO SCH (09:33)
[2017-04-07] MEDS: CEFEPIME HCL 1 GM VIAL IV SCH (09:33)
[2017-04-07] MEDS: BALSAM PERU/CASTOR OIL 60 GM OINT...G. TP SCH ×2 (09:33→16:50)
[2017-04-07 10:46] LABS: ALANINE AMINOTRANSFERASE 17 IU/L (0-55); ALBUMIN 2.4 g/dL (3.5-5.0); ALBUMIN/GLOBULIN RATIO 0.7 (0.8-2.0); ALKALINE PHOSPHATASE 100 IU/L (40-150); ANION GAP 11.4 mmol/L (8-16); BLOOD UREA NITROGEN 18 mg/dL (7-26); BUN/CREATININE RATIO 18 (6-25); CALCIUM 9.1 mg/dL (8.4-10.2); CARBON DIOXIDE 22 mmol/L (22-29); CHLORIDE 112 mmol/L (98-107); CREATININE, SERUM 0.98 mg/dL (0.72-1.25); EST GLOMERULAR FILTRATION RATE > 60 ML/MIN (60-); GLUCOSE 93 mg/dL (74-118); POTASSIUM 3.4 mmol/L (3.5-5.1); SODIUM 142 mmol/L (136-145)
[2017-04-07] MEDS: POTASSIUM CHLORIDE 10 MEQ TABCR PO SCH (12:00)
[2017-04-07 12:30] VITALS: BP 99/52
[2017-04-07] MEDS: VANCOMYCIN 1GM/NS 250 ML 250 ML IV SCH (12:30)
[2017-04-07 19:00] VITALS: BP 99/52
[2017-04-07 20:00] VITALS: BP 92/50
[2017-04-07] MEDS: CLONAZEPAM 1 MG TAB PO SCH (21:41)
[2017-04-07] MEDS: ATORVASTATIN 40 MG TAB PO SCH (21:41)
[2017-04-07] MEDS: NORTRIPTYLINE HCL 10 MG CAP PO SCH (21:41)
[2017-04-08] VITALS (7 sets, daily range): BP systolic 85–117; BP diastolic 49–75
[2017-04-08] MEDS: ALBUTEROL SULF 0.083% NEB SOLN 3 ML NEB NEB SCH ×4 (00:24→11:55)
[2017-04-08] MEDS: IPRATROPIUM BROMIDE 0.02% 2.5 ML NEB NEB SCH ×3 (00:24→11:55)
[2017-04-08] MEDS: LEVOTHYROXINE SODIUM 100 MCG TAB PO SCH (05:27)
[2017-04-08] MEDS: SUCRALFATE 1 GM TAB PO SCH ×2 (07:23→11:58)
[2017-04-08] MEDS: BALSAM PERU/CASTOR OIL 60 GM OINT...G. TP SCH (09:15)
[2017-04-08] MEDS: CEFEPIME HCL 1 GM VIAL IV SCH (09:22)
[2017-04-08] MEDS: DICYCLOMINE HCL 20 MG TAB PO SCH (09:23)
[2017-04-08] MEDS: POTASSIUM CHLORIDE 10 MEQ TABCR PO SCH (09:24)
[2017-04-08] MEDS: PANTOPRAZOLE SOD 40 MG TABEC PO SCH (09:25)
[2017-04-08] MEDS: VANCOMYCIN 1GM/NS 250 ML 250 ML IV SCH (11:58)
== END 2017-04-08 14:12 | DRG 974 ==
LOC: ER 11:53 → ERHOLD 15:28 → IMCU 15:32
DX: J18.9 Pneumonia, unspecified organism (principal); J96.01 Acute respiratory failure with hypoxia; B20 Human immunodeficiency virus [HIV] disease; I50.9 Heart failure, unspecified; L89.152 Pressure ulcer of sacral region, stage 2; E03.9 Hypothyroidism, unspecified; G80.9 Cerebral palsy, unspecified; I10 Essential (primary) hypertension
CPT/HCPCS: 36415; 36600; 71045; 80048; 80053; 81001; 82550; 82553; 82805; 83605; 83690; 83735; 83880; 84443; 84484; 85025; 85610; 85730; 87040; 87086; 87400; 93005; 94640; 94660; 99284; J0692; J3370; J7030

== ENCOUNTER → 2017-04-11 | Outpatient (CLI) | payer OTHER ==
[~2017-04-11] MED LIST changes: +BENZONATATE200 MG PO
[2017-04-11 18:24] LABS: ANION GAP 15.3 mmol/L (8-16); BLOOD UREA NITROGEN 15 mg/dL (7-26); BUN/CREATININE RATIO 12 (6-25); CARBON DIOXIDE 22 mmol/L (22-29); CHLORIDE 105 mmol/L (98-107); CREATININE, SERUM 1.21 mg/dL (0.72-1.25); EST GLOMERULAR FILTRATION RATE > 60 ML/MIN (60-); POTASSIUM 4.3 mmol/L (3.5-5.1); SODIUM 138 mmol/L (136-145)
[2017-04-11 18:25] LABS: CALCIUM 9.8 mg/dL (8.4-10.2); GLUCOSE 110 mg/dL (74-118)
== END ==
LOC: NPA 12:00
DX: Z02.89 Encounter for other administrative examinations (principal)
CPT/HCPCS: 36415; 80048

== ENCOUNTER 2017-06-08 12:11 | Emergency (ER) | payer MEDICARE, OTHER ==
[~2017-06-08] VITALS: Ht 170.2 cm; Wt 68.9 kg
--- OUTSIDE RECORDS SUMMARY | 2017-06-08 12:15 | XMS REPORT | Continuity of Care Document ---
Author Author [facility] Organization [facility] Address [address] [place] [address] Phone Unavailable Care Team Providers Care Safety Net Maker Name Role Phone NESTOR BENSON MD PCP Insurance Providers Guarantor Elisha Gracia Address [address] [place] [address] Email [email or web address] [employer] [facility] Policy Number [id number] Subscriber's Name Elisha Gracia Relationship 18 Self / Same As Patient Group Number [id number] Group Name UNEMPLOYED Effective Date 16 Pay Medicare A & B Policy Number [id number] Subscriber's Name Elisha Gracia Relationship 18 Self / Same As Patient Group Name UNEMPLOYED Effective Date 97 Advance Directives Directive Response Recorded Date/Time Does the patient have an advance directive? No 04/05/17 4:01pm If yes, is advance directive on file with [facility]? No 04/05/17 4:01pm If not on file with [facility] will patient provide a copy? Yes 04/05/17 4:01pm Do you have a Directive to Physician? Yes 04/05/17 12:23pm Do you have a Medical Power of Solution Architect? Yes 04/05/17 12:23pm Do you have an out of hospital Do Not Resuscitate Order? No 04/05/17 12:23pm Do you have any special needs we should be aware of? No 04/05/17 12:23pm Do you have a support person here with you today? Yes 04/05/17 12:23pm Did patient receive Notice of Privacy Practices? Yes 04/05/17 12:23pm Did patient receive patient rights and responsibilities? Yes 04/05/17 12:23pm Problems Medical Problem Onset Date Status Acute [...] Tablet 40 Mg Oral Bedtime 30 Tab Benzonatate 200 Mg Capsule 200 Mg Oral Every 8 Hours Butalb/Acetaminophen/Caffeine (Jgjytv-Vwpttkmx-Eiir 50-325-40) 1 Each Tablet Every 4 Hours as needed for Pain Clonazepam 1 Mg Tablet 1 Mg Oral Bedtime Dicyclomine Hcl 20 Mg Tablet 20 Mg Oral Three Times A Day Nortriptyline Hcl 10 Mg Cap 20 Mg Oral At Bedtime Pantoprazole Sodium (Protonix) 40 Mg Tablet.dr 40 Mg Oral Daily Potassium Chloride 10 Meq Tab.er.prt 10 Meq Oral Daily Pregabalin (Lyrica) 100 Mg Capsule 150 Mg Oral Three Times A Day Ranitidine Hcl 300 Mg Tablet 300 Mg Oral Bedtime Sucralfate 1 Gm Tablet 1 Gm Oral Three Times A Day Past Home Medications Medication Directions Ordered Status [...] Mg Oral Every 12 Hours Discontinued Clonazepam 1 Mg Tablet, 2 Tab Oral At Bedtime Discontinued Clonazepam 0.5 Mg Tablet, 0.5 Mg [...] Mg Capsule, 200 Mg Oral Daily Discontinued Doxycycline Hyclate 100 Mg Capsule, 100 Mg Oral Twice A Day Discontinued Efavirenz (Atripla Tablet) 1 Tab Tab, [...] Mg Tablet, 20 Mg Oral Daily Discontinued Furosemide 20 Mg Tablet, 20 Mg Oral Daily Discontinued Gabapentin 600 Mg Tablet, 600 Mg Oral Three Times A Day Discontinued Genvoya , 1 Tab Oral Daily Discontinued Genvoya , 150 Mg Oral Daily Discontinued Hydrocodone Bit/Acetaminophen (Dwarf 5-325 Tablet) 1 Each Tablet, 1 Tab Oral Q6 Hrs Prn Discontinued Hydrocodone Bit/Acetaminophen (Hydrocodone-Apap 7.5-750 Tab) 1 Each Tablet, 1 Each Oral Every 6 Hours as needed Discontinued Hydroxyzine Hcl (Atarax 25MG) 25 Mg Tab, 10 Mg Oral Every 6 Hours as needed Discontinued Krill/Varina-3/Dha/Epa/Lipids (Varina-3 Krill Oil 500 Mg Sfgl) 1 Each Capsule, 300 Mg Oral Daily Discontinued Lactulose (Kristalose) 10 Gm Packet, 10 Gm Oral Daily Discontinued Lamivudine 150 Mg Tablet, 150 Mg Oral Daily Discontinued Levothyroxine Sodium 50 Mcg Tablet, 50 Mcg Oral Daily Discontinued Lexapro , 20 Mg [...] Nexium , 40 Mg Oral Daily Discontinued Varina-3 Krill Oil 300 Sfgl 1 Each Capsule, 1 Cap Oral Daily Discontinued Ondansetron (Zofran Odt) 4 Mg Tab.rapdis, 8 Mg Oral Twice A Day Discontinued Ondansetron Hcl 4 Mg Tablet, 4 Mg Oral Q6 Hr Prn Discontinued Pantoprazole Sodium (Protonix) 40 Mg Tablet.dr, 40 Mg Oral Twice A Day Discontinued Pantoprazole Sodium (Protonix) 40 Mg Suspdr.pkt, [...] Sucralfate 1 Gm Tablet, 1 Gm Oral Before Meals And At Bedtime Discontinued Sucralfate 1 Gm Tablet, 1 Gm Oral Four Times Daily Discontinued Sumatriptan Succinate 25 Mg Tablet, 100 Mg Oral Every 12 Hours as needed for Migraine Discontinued Topiramate 100 Mg Tablet, 100 Mg Oral Bedtime Discontinued Toprol , 25 Mg Oral Daily Discontinued Tramadol Hcl (Ultram 50MG*) 50 Mg Tab, 50 Mg Oral Every 4 Hours as needed for Pain Discontinued Social History Social History Problem Response Recorded Date/Time Onset Date Status Hx Psychiatric Problems No 04/05/2017 4:01pm Not Applicable Not Applicable Hx Eating Disorder No 04/05/2017 4:01pm Not Applicable Not Applicable Hx Substance Use Disorder No 04/05/2017 4:01pm Not Applicable Not Applicable Hx Depression No 04/05/2017 4:01pm Not Applicable Not Applicable Hx Alcohol Use No 04/05/2017 4:01pm Not Applicable Not Applicable Hx Substance Use Treatment No 04/05/2017 4:01pm Not Applicable Not Applicable Hx Physical Abuse No 04/05/2017 4:01pm Not Applicable Not Applicable Hospital Discharge Instructions No hospital discharge instruction information available. Plan of Care Discharge Date 04/08/17 2:12pm Disposition TRANSFER FDC Prescriptions See Medication Section Functional Status Query Response Date Recorded Ambulation Ability Total Assistance April 05, 2017 5:05pm Toileting Ability Total Assistance April 05, 2017 6:25pm Allergies, Adverse Reactions, Alerts Allergen Type Severity Reaction Status Last Updated dextromethorphan HBr Allergy Intermediate itchy Active 02/18/17 Guaifenesin Allergy Intermediate itchy Active 02/18/17 Immunizations No immunization information available. Vital Signs Acute Vital Signs Vital Response Date/Time Temperature (Fahrenheit) 97.1 degrees F (97.6 - 99.5) 04/08/2017 10:35am Pulse Pulse Rate (adult) 72 bpm (60 - 90) 04/08/2017 12:06pm Pulse Pulse Rate (adult) 72 bpm (60 - 90) 04/08/2017 12:06pm Respiratory Rate 11 bpm (12 - 24) 04/08/2017 12:06pm Blood Pressure 93/58 mm Hg 04/08/2017 10:35am Blood Pressure 93/58 mm Hg 04/08/2017 10:35am Height 5 ft 7 in 04/05/2017 11:57am Weight 152 lb 04/05/2017 11:57am Body Mass Index 23.8 kg/m^2 04/05/2017 4:01pm Results Laboratory Results Test Name Result Units Flags Reference Collection Date/Time Result Date/ Time Comments Eosinophils % (Manual) 5 % 0-7 08/16/2016 5:40am 08/16/2016 7:42am Reactive Lymphocytes 12 08/16/2016 5:40am 08/16/2016 7:42am Polychromasia G 08/16/2016 5:40am 08/16/2016 7:42am Hypochromasia SLIGHT 08/16/2016 5:40am 08/16/2016 7:42am Macrocytosis SLIGHT 08/16/2016 5:40am 08/16/2016 7:42am Erythrocyte Sedimentation Rate 37 mm/hr H 0-13 08/09/2016 9:00pm 2016 10:18pm Vancomycin Level Trough 30.0 ug/mL *H 5.0-10.0 08/11/2016 3:00pm 2016 4:03pm Results called to AYSHA JACKSON RN at 1602 on 08/11/16 by Luna Virgen. RB OK. C-Reactive Protein 47.0 mg/L H 0.0-4.9 08/09/2016 11:20am 08/10/2016 6: 34am Performed at: - [facility] [address] [id number] Group Sales Manager: Bright Escudero MD, Phone: [phone] Bedside Glucose 101 mg/dL 70-120 01/13/2017 11:09am 01/13/2017 11:37am Meter ID: [id number] Direct Bilirubin 0.2 mg/dL 0.0-5.0 01/16/2017 9:40am 01/16/2017 10: 35am Amylase Level 17 U/L L 25-125 01/16/2017 9:40am 01/16/2017 10:35am Stool Occult Blood POSITIVE H NEGATIVE 01/14/2017 9:35am 01/14/2017 11 :09am Clostridium Difficile Toxin A & B NEGATIVE NEGATIVE 01/14/2017 9:35am 01/14/2017 1:20pm Testing on stool aspirate specimens is outside ship's [employer] claims since specimen type not validated on this assay. White Blood Count 6.26 x10e3/uL 4.8-10.8 04/06/2017 5:50am 04/06/2017 6 :45am Red Blood Count 3.74 x10e6/uL L 4.3-5.7 04/06/2017 5:50am 04/06/2017 6: 45am Hemoglobin 11.8 g/dL L 14.0-18.0 04/06/2017 5:50am 04/06/2017 6:45am Hematocrit 37.9 % L 38.2-49.6 04/06/2017 5:50am 04/06/2017 6:45am Mean Corpuscular Volume 101.3 fL # H 81-99 04/06/2017 5:50am 04/06/2017 6 :45am Mean Corpuscular Hemoglobin 31.6 pg 28-32 04/06/2017 5:50am 04/06/2017 6:45am Mean Corpuscular Hemoglobin Concent 31.1 g/dL 31-35 04/06/2017 5:50am 04/06/2017 6:45am Red Cell Distribution Width 16.4 % H 11.7-14.4 04/06/2017 5:50am 2017 6:45am Platelet Count 124 x10e3/uL L 140-360 04/06/2017 5:50am 04/06/2017 6: 45am Neutrophils (%) (Auto) 74.1 % 38.7-80.0 04/06/2017 5:50am 04/06/2017 6: 45am Lymphocytes (%) (Auto) 13.7 % L 18.0-39.1 04/06/2017 5:50am 04/06/2017 6 :45am Monocytes (%) (Auto) 11.2 % 4.4-11.3 04/06/2017 5:50am 04/06/2017 6: 45am Eosinophils (%) (Auto) 0.2 % 0.0-6.0 04/06/2017 5:50am 04/06/2017 6: 45am Basophils (%) (Auto) 0.2 % 0.0-1.0 04/06/2017 5:5004/06/2017 6:45am IM GRANULOCYTES % 0.6 % 0.0-1.0 04/06/2017 5:50am 04/06/2017 6:45am Neutrophils # (Auto) 4.6 2.1-6.9 04/06/2017 5:50am 04/06/2017 6:45am Lymphocytes # (Auto) 0.9 L 1.0-3.2 04/06/2017 5:50am 04/06/2017 6: 45am Monocytes # (Auto) 0.7 0.2-0.8 04/06/2017 5:50am 04/06/2017 6:45am Eosinophils # (Auto) 0.0 0.0-0.4 04/06/2017 5:50am 04/06/2017 6:45am Basophils # (Auto) 0.0 0.0-0.1 04/06/2017 5:50am 04/06/2017 6:45am Absolute Immature Granulocyte (auto 0.04 x10e3/uL 0-0.1 04/06/2017 5: 50am 04/06/2017 6:45am Differential Total Cells Counted 100 04/06/2017 5:50am 04/06/2017 8 :20am Neutrophils % (Manual) 69 % 40-74 04/06/2017 5:50am 04/06/2017 8:20am Band Neutrophils % 2 % 04/06/2017 5:50am 04/06/2017 8:20am Lymphocytes % (Manual) 21 % 19-48 04/06/2017 5:50am 04/06/2017 8:20am Monocytes % (Manual) 8 % 3.4-9.0 04/06/2017 5:50am 04/06/2017 8:20am Platelet Estimate SLIGHTLY DECREASED 04/06/2017 5:50am 04/06/2017 8 :20am Platelet Morphology Comment FEW LARGE 04/06/2017 5:50am 04/06/2017 8:20am Anisocytosis SLIGHT 04/06/2017 5:50am 04/06/2017 8:20am Red Cell Morphology Comment NORMAL 04/06/2017 5:50am 04/06/2017 8: 20am Prothrombin Time 14.8 seconds H 11.9-14.5 04/05/2017 12:04pm 04/05/2017 1:14pm Prothromb Time International Ratio 1.25 04/05/2017 12:04pm 2017 1:14pm Oral Anticoagulant Therapy INR Values: 1. Low Intensity Therapy 1.5 - 2.0 2. Moderate Intensity Therapy 2.0 - 3.0 3. High Intensity Therapy(1) 2.5 - 3.5 4. High Intensity Therapy(2) 3.0 - 4.0 5. Panic Value INR > 5.0 Activated Partial Thromboplast Time 45.6 seconds H 23.8-35.5 04/05/2017 12:04pm 04/05/2017 1:14pm Urine Color YELLOW YELLOW 04/05/2017 12:04pm 04/05/2017 2:13pm Urine Clarity CLEAR CLEAR 04/05/2017 12:04pm 04/05/2017 2:13pm Urine Specific [place] 1.020 1.010-1.025 04/05/2017 12:04pm 2017 1:03pm Urine pH 9 H 5 - 7 04/05/2017 12:04pm 04/05/2017 1:03pm Urine Leukocyte Esterase NEGATIVE NEGATIVE 04/05/2017 12:04pm 2017 1:03pm Urine Nitrite NEGATIVE NEGATIVE 04/05/2017 12:04pm 04/05/2017 1:03pm Urine Protein TRACE H NEGATIVE 04/05/2017 12:04pm 04/05/2017 1:03pm Urine Glucose (UA) 1+ H NEGATIVE 04/05/2017 12:04pm 04/05/2017 1:03pm Urine Ketones NEGATIVE NEGATIVE 04/05/2017 12:04pm 04/05/2017 1:03pm Urine Urobilinogen 0.2 mg/dL 0.2 - 1 04/05/2017 12:04pm 04/05/2017 1: 03pm Urine Bilirubin NEGATIVE NEGATIVE 04/05/2017 12:04pm 04/05/2017 1: 03pm Urine Blood NEGATIVE NEGATIVE 04/05/2017 12:04pm 04/05/2017 1:03pm Urine WBC 0-5 /HPF 0-5 04/05/2017 12:04pm 04/05/2017 2:13pm Urine RBC 6-10 /HPF H 0-5 04/05/2017 12:04pm 04/05/2017 2:13pm Urine Bacteria FEW /HPF NONE 04/05/2017 12:04pm 04/05/2017 2:13pm Urine Epithelial Cells FEW /LPF NONE 04/05/2017 12:04pm 04/05/2017 2: 13pm Urine Mucus FEW H RARE 04/05/2017 12:04pm 04/05/2017 2:13pm Sodium Level 142 mmol/L 136-145 04/07/2017 10:10am 04/07/2017 10:48am Potassium Level 3.4 mmol/L L 3.5-5.1 04/07/2017 10:10am 04/07/2017 10: 48am Chloride Level 112 mmol/L H 98-107 04/07/2017 10:10am 04/07/2017 10: 48am Influenza Virus Types A,B Antigen NEGATIVE NEGATIVE 04/05/2017 12: 04pm 04/05/2017 1:19pm Carbon Dioxide Level 22 mmol/L 22-29 04/07/2017 10:04/07/2017 10: 48am Anion Gap 11.4 mmol/L 8-16 04/07/2017 10:04/07/2017 10:48am Blood Urea Nitrogen 18 mg/dL 7-26 04/07/2017 10:04/07/2017 10: 48am Creatinine 0.98 mg/dL 0.72-1.25 04/07/2017 10:04/07/2017 10:48am BUN/Creatinine Ratio 18 6-25 04/07/2017 10:04/07/2017 10:48am Estimat Glomerular Filtration Rate > 60 ML/MIN 60- 04/07/2017 10:04/07/2017 10:48am Ranges were taken from the National Kidney Disease Education Program and the National Kid[employer] Foundation literature. Reference ranges: 60 or greater: Normal 16-59 (for 3 consecutive months): Chronic kidney disease 15 or less: Kidney failure Glucose Level 93 mg/dL 74-118 04/07/2017 10:04/07/2017 10:48am Calcium Level 9.1 mg/dL 8.4-10.2 04/07/2017 10:04/07/2017 10:48am Lactic Acid Level 15.2 MG/DL 4.5-19.8 04/05/2017 12:04pm 04/05/2017 1: 15pm Magnesium Level 2.3 MG/DL H 1.3-2.1 04/05/2017 12:04pm 04/05/2017 1: 15pm Total Bilirubin 0.6 mg/dL 0.2-1.2 04/07/2017 10:04/07/2017 10: 48am Aspartate Amino Transf (AST/SGOT) 19 IU/L 5-34 04/07/2017 10:04/07 10:48am Alanine Aminotransferase (ALT/SGPT) 17 IU/L 0-55 04/07/2017 10: 10:48am Total Protein 5.8 g/dL # L 6.5-8.1 04/07/2017 10:04/07/2017 10:48am Albumin 2.4 g/dL L 3.5-5.0 04/07/2017 10:10am 04/07/2017 10:48am Globulin 3.4 g/dL 2.3-3.5 04/07/2017 10:10am 04/07/2017 10:48am Albumin/Globulin Ratio 0.7 L 0.8-2.0 04/07/2017 10:10am 04/07/2017 10: 48am Alkaline Phosphatase 100 IU/L 40-150 04/07/2017 10:10am 04/07/2017 10: 48am B-Type Natriuretic Peptide 90.5 pg/mL 0-100 04/05/2017 12:04pm 2017 2:07pm Creatine Kinase 46 IU/L 30-200 04/06/2017 5:50am 04/06/2017 7:02am Creatine Kinase MB 1.40 ng/mL 0.00-5.00 04/06/2017 5:50am 04/06/2017 7: 52am Troponin I 0.005 ng/mL 0-0.300 04/06/2017 5:50am 04/06/2017 7:52am Lipase < 4 U/L L 8-78 04/05/2017 12:04pm 04/05/2017 1:15pm Thyroid Stimulating Hormone (TSH) 17.011 uIU/mL H 0.350-4.940 04/05/2017 12:04pm 04/05/2017 1:49pm Arterial Blood pH 7.42 H 7.31-7.41 04/05/2017 12:10pm 04/05/2017 12: 39pm Arterial Blood Partial Pressure CO2 38 mmHg L 41-51 04/05/2017 12:10pm 04/05/2017 12:39pm Arterial Blood Partial Pressure O2 174 mmHg H 80-105 04/05/2017 12:10pm 04/05/2017 12:39pm Arterial Blood HCO3 25 mmol/L 23-28 04/05/2017 12:10pm 04/05/2017 12: 39pm Arterial Blood Base Excess 0.0 mmol/L -2 - 3 04/05/2017 12:10pm 2017 12:39pm Arterial Blood Oxygen Saturation 100.0 % H 95-98 04/05/2017 12:10pm 12:39pm Microbiology Results Procedure Source Organism/Result Collection Date/Time Result Date/Time Result Status Anaerobic Culture Hip, Left PEPTOSTREPTOCOCCUS SPECIES 06/09/2016 10:00am 06/20/2016 9:53am Final Wound Culture Hip, Left ENTEROCOCCUS FAECALIS 12/08/2016 10:00am 2016 12:48pm Final PSEUDOMONAS AERUGINOSA 12/08/2016 10:00am 12/12/2016 12:48pm Final STREP AGALACTIAE GROUP B 12/08/2016 10:00am 12/12/2016 12:48pm Final Blood Culture Blood STAPHYLOCOCCUS SP COAG NEG 02/18/2017 1:42pm 2016 8:36am Final Urine Culture Urine,Clean Catch PSEUDOMONAS AERUGINOSA 03/04/2017 2:30am 03/06/2017 8:40am Final Blood Culture Blood NO GROWTH AFTER 72 HOURS 12:04pm 04/08/2017 12:30pm Preliminary Procedures Procedure Status Date Provider(s) EXCISION OF [...] Arrival/Admit Date Discharge/Depart Date Attending Provider Discharged Inpatient [facility] 04/05/17 3:28pm 04/08/17 2:12pm NESTOR BENSON MD Departed Emergency Room [facility] 03/03/17 5:54pm 4:20am CHRISTINA MCDANIEL MD Discharged Recurring [facility] 03/02/17 9:05am 03/23/17 11:59pm ERNESTO BEEBE MD Departed Emergency Room [facility] 02/18/17 1:27pm 6:44pm ELIZABETH INMAN MD Discharged Recurring [facility] 02/02/17 9:25am 02/20/17 11:59pm ERNESTO BEEBE MD Discharged Inpatient [facility] 01/11/17 4:05pm 01/17/17 5:06pm NESTOR BENSON MD Registered Clinic [facility] 01/06/17 1:03pm NESTOR BENSON MD Discharged [facility]urring [facility] 12/22/16 9:29am 01/20/17 11:59pm ERNESTO BEEBE MD Discharged Recurring [facility] 11/24/16 9:44am 12/21/16 11:59pm ERNESTO BEEBE MD Discharged Recurring [facility] 10/27/16 10:33am 11:59pm ERNESTO BEEBE MD Discharged Recurring [facility] 09/22/16 10:12am 11:59pm ERNESTO BEEBE MD Registered Clinic [facility] 09/20/16 12:48pm NESTOR BENSON MD [...] Discharged Inpatient [facility] 06/18/16 10:52am 3:39pm NESTOR BENSON MD Discharged Recurring [facility] 06/09/16 9:24am 06/20/16 11:59pm ERNESTO BEEBE MD
--- NOTE | 2017-06-08 16:41 | Diagnostic Imaging Report ---
PROCEDURE: Frontal and lateral views of the chest. COMPARISON: Patients [facility], DX, CHEST SINGLE (PORTABLE), 04/06/2017, 5:33. INDICATIONS: DECREASED BREATH SOUND RIGHT CHEST, COUGH FINDINGS: Lines/tubes: None. Lungs: Hypoinflated lungs. Mild right basilar atelectatic changes. No consolidation. Stable calcified granuloma in the left lower lobe. Bilateral interstitial opacities extending from the [place]. Pleura: There is no pleural effusion or pneumothorax. Heart and mediastinum: Mildly prominent cardiac silhouette, which may be part due to the low lung volumes and AP projection. Central pulmonary venous congestion. Bones: No acute bony abnormality. IMPRESSION: 1. hypoinflated lungs. central pulmonary venous congestion and likely mild bilateral perihilar interstitial edema.. Bo Hu M.D. Dictated by: Bo Hu M.D. on 06/08/2017 at 16:42 Electronically approved by: Bo Hu M.D. on 06/08/2017 at 16:42
== END 2017-06-08 17:46 | disposition home or self-care (01) ==
LOC: ER 12:28
DX: R05 Cough (principal); J06.9 Acute upper respiratory infection, unspecified; J02.9 Acute pharyngitis, unspecified; B20 Human immunodeficiency virus [HIV] disease; G35 Multiple sclerosis; G80.9 Cerebral palsy, unspecified
CPT/HCPCS: 71046; 99283

== ENCOUNTER 2017-06-13 08:45 | Inpatient (IN) | payer MEDICARE, OTHER ==
[~2017-06-13] VITALS: Ht 170.2 cm; Wt 80.8 kg
--- OUTSIDE RECORDS SUMMARY | 2017-06-13 08:47 | XMS REPORT | Continuity of Care Document ---
Author Author [facility] Organization [facility] Address [address] [place] [address] Phone Unavailable Care Team Providers Care Special Services Coordinator Name Role Phone NESTOR BENSON MD PCP Insurance Providers Guarantor Elisha Gracia Address [address] [place] [address] Email [email or web address] [facility] [employer] [facility] Policy Number [id number] Subscriber's Name BasilElisha Simmons Relationship 18 Self / Same As Patient Group Number [id number] Group Name UNEMPLOYED Effective Date 16 Payer Medicare A & B Policy Number [id number] Subscriber's Name Brandin Graciaenzo Simmons Relationship 18 Self / Same As Patient Group Name UNEMPLOYED Effective Date 97 Advance Directives Directive Response Recorded Date/Time Does the patient have an advance directive? No 04/05/17 4:01pm If yes, is advance directive on file with [facility]? No 04/05/17 4:01pm If not on file with [facility] will patient provide a copy? Yes 04/05/17 4:01pm Do you have a Directive to Physician? No 06/08/17 2:54pm Do you have a Medical Power of Seismograph Operator? No 06/08/17 2:54pm Do you have an out of hospital Do Not Resuscitate Order? No 06/08/17 2:54pm Do you have any special needs we should be aware of? No 06/08/17 2:54pm Do you have a support person here with you today? Yes 06/08/17 2:54pm Did patient receive Notice of Privacy Practices? Yes 06/08/17 2:54pm Did patient receive patient rights and responsibilities? Yes 06/08/17 2:54pm Problems Medical Problem Onset Date Status Acute [...] 200 Mg Oral Every 8 Hours Butalb/Acetaminophen/Caffeine (Yrebux-Ircopwar-Tjef 50-325-40) 1 Each Tablet Every 4 Hours [...] 150 Mg Oral Daily Discontinued Hydrocodone Bit/Acetaminophen ([place]wyn 5-325 Tablet) 1 Each Tablet, 1 Tab Oral Q6 Hrs Prn Discontinued Hydrocodone Bit/Acetaminophen (Hydrocodone-Apap 7.5-750 Tab) 1 Each Tablet, 1 Each Oral Every 6 Hours as needed Discontinued Hydroxyzine Hcl (Atarax 25MG) 25 Mg Tab, 10 Mg Oral Every 6 Hours as needed Discontinued Krill/[place]-3/Dha/Epa/Lipids ([place]-3 Krill Oil 500 Mg Sfgl) 1 Each [...] Nexium , 40 Mg Oral Daily Discontinued [place]-3 Krill Oil 300 Sfgl 1 Each Capsule, [...] No 04/05/2017 4:01pm Not Applicable Not Applicable Smoking Status Start Date Stop Date Never Smoker Hospital Discharge Instructions No hospital discharge instruction information available. Plan of Care Discharge Date 06/08/17 5:46pm Disposition HOME, SELF-CARE Condition at Discharge Stable Instructions/Education Provided Upper Respiratory Infection - Adult Prescriptions See Medication Section Referrals NESTOR BENSON MD Order Date: Call for an appointment Address: [address] [place] [phone] Note: One week if no resolution of symptoms Additional Instructions/Education Call for follow up appointment to see your medical provider or the referral listed. Take over the counter Motrin or Tylenol medication as needed for comfort. discussed at the bedside, drink fluids, rest and return to the emergency department for any fever, shortness of breath, chest pain, abdominal pain, trouble handling oral secretions or any new concerns. Functional Status No functional status information available. Allergies, Adverse Reactions, Alerts Allergen Type Severity Reaction Status Last Updated dextromethorphan HBr Allergy Intermediate itchy Active 06/08/17 Guaifenesin Allergy Intermediate itchy Active 06/08/17 Immunizations No immunization information available. Vital Signs Acute Vital Signs Vital Response Date/Time Temperature (Fahrenheit) 98.8 degrees F (97.6 - 99.5) 04/08/2017 2:00pm Pulse Pulse Rate (adult) 78 bpm (60 - 90) 04/08/2017 2:00pm Respiratory Rate 20 bpm (12 - 24) 06/08/2017 5:42pm Blood Pressure 117/75 mm Hg 04/08/2017 2:00pm Height 5 ft 7 in 06/08/2017 12:19pm Weight 152 lb 06/08/2017 12:19pm Body Mass Index 23.8 kg/m^2 06/08/2017 12:19pm Results Laboratory Results Test Name Result Units [...] 08/10/2016 6: 34am Performed at: - [facility] [address] [id number] Clinical Team Lead: Bright Escudero MD, Phone: [phone] Bedside Glucose 101 mg/dL 70-120 01/13/2017 11:09am 01/13/2017 11:37am Meter ID: [id number] Direct Bilirubin 0.2 mg/dL 0.0-5.0 01/16/2017 9:40am 01/16/2017 10: 35am Amylase Level 17 U/L L 25-125 01/16/2017 9:40am 01/16/2017 10:35am Stool Occult Blood POSITIVE H NEGATIVE 01/14/2017 9:35am 01/14/2017 11 :09am Clostridium Difficile Toxin A & B NEGATIVE NEGATIVE 01/14/2017 9:35am 01/14/2017 1:20pm Testing on stool aspirate specimens is outside content analyst claims since specimen type not validated on [...] Basophils (%) (Auto) 0.2 % 0.0-1.0 04/06/2017 5:50am 04/06/2017 6:45am IM GRANULOCYTES % 0.6 % 0.0-1.0 [...] CLEAR 04/05/2017 12:04pm 04/05/2017 2:13pm Urine Specific [place] 1.020 1.010-1.025 04/05/2017 12:04pm 2017 1:03pm Urine [...] FEW H RARE 04/05/2017 12:04pm 04/05/2017 2:13pm Influenza Virus Types A,B Antigen NEGATIVE NEGATIVE 04/05/2017 12: 04pm 04/05/2017 1:19pm Lactic Acid Level 15.2 MG/DL 4.5-19.8 04/05/2017 12:04pm 04/05/2017 1: 15pm Magnesium Level 2.3 MG/DL H 1.3-2.1 04/05/2017 12:04pm 04/05/2017 1: 15pm Total Bilirubin 0.6 mg/dL 0.2-1.2 04/07/2017 10:10a04/07/2017 10: 48am Aspartate Amino Transf (AST/SGOT) 19 IU/L 5-34 04/07/2017 10:10a04/07 10:48am Alanine Aminotransferase (ALT/SGPT) 17 IU/L 0-55 04/07/2017 10: 10:48am Total Protein 5.8 g/dL # L 6.5-8.1 04/07/2017 10:10a04/07/2017 10:48am Albumin 2.4 g/dL L 3.5-5.0 04/07/2017 10:10a04/07/2017 10:48am Globulin 3.4 g/dL 2.3-3.5 04/07/2017 10:10a04/07/2017 10:48am Albumin/Globulin Ratio 0.7 L 0.8-2.0 04/07/2017 10:04/07/2017 10: 48am Alkaline Phosphatase 100 IU/L 40-150 04/07/2017 10:10a04/07/2017 10: 48am B-Type Natriuretic Peptide 90.5 pg/mL [...] 100.0 % H 95-98 04/05/2017 12:10pm 12:39pm Sodium Level 138 mmol/L 136-145 04/11/2017 10:04/11/2017 6:25pm Potassium Level 4.3 mmol/L 3.5-5.1 04/11/2017 10:04/11/2017 6: 25pm Chloride Level 105 mmol/L 98-107 04/11/2017 10:04/11/2017 6:25pm Carbon Dioxide Level 22 mmol/L 22-29 04/11/2017 10:04/11/2017 6: 25pm Anion Gap 15.3 mmol/L 8-16 04/11/2017 10:04/11/2017 6:25pm Blood Urea Nitrogen 15 mg/dL 7-04/11/2017 10:04/11/2017 6:25pm Creatinine 1.21 mg/dL 0.72-1.25 04/11/2017 10:04/11/2017 6:25pm BUN/Creatinine Ratio 12 6-25 04/11/2017 10:04/11/2017 6:25pm Estimat Glomerular Filtration Rate > 60 ML/MIN 60- 04/11/2017 10:04/11/2017 6:25pm Ranges were taken from the National Kidney Disease Education Program and the National Kid[employer] Foundation literature. Reference ranges: 60 or greater: Normal 16-59 (for 3 consecutive months): Chronic kidney disease 15 or less: Kidney failure Glucose Level 110 mg/dL 74-118 04/11/2017 10:04/11/2017 6:25pm Calcium Level 9.8 mg/dL 8.4-10.2 04/11/2017 10:04/11/2017 6:25pm Microbiology Results Procedure Source Organism/Result Collection Date/Time Result Date/Time Result Status Wound Culture Hip, Left ENTEROCOCCUS FAECALIS 12/08/2016 10:00am 2016 12:48pm Final PSEUDOMONAS AERUGINOSA 12/08/2016 10:00am 12/12/2016 12:48pm Final STREP AGALACTIAE GROUP B 12/08/2016 10:00am 12/12/2016 12:48pm Final Blood Culture Blood STAPHYLOCOCCUS SP COAG NEG 02/18/2017 1:42pm 2016 8:36am Final Urine Culture Urine,Clean Catch PSEUDOMONAS AERUGINOSA 03/04/2017 2:30am 03/06/2017 8:40am Final Blood Culture Blood NO GROWTH AFTER 5 DAYS, FINAL REPORT 04/05/2017 12: 04pm 04/10/2017 12:30pm Final Procedures Procedure Status Date Provider(s) INSERTION OF INFUSION DEV INTO SUP VENA CAVA, PERC APPROACH Completed REGINALDO JERRY MD Computed tomography of brain without radiopaque contrast Active 08/09/16 REGINALDO JERRY MD X-ray of chest, two views Active 09/20/16 NESTOR BENSON MD X-ray of chest, two views Active 01/06/17 NESTOR BENSON MD Computed tomography of abdomen and pelvis with contrast Active 03/04/17 CHRISTINA MCDANIEL MD X-ray of chest, two views Active 06/08/17 MICHELLE LOAIZA CONE PICKER Encounters Encounter Location Arrival/Admit Date Discharge/Depart Date Attending Provider Departed Emergency Room [facility] 06/08/17 12:28pm 06/08 5:46pm PRANAY TEJADA MD Registered [facility]erred [facility] 04/11/17 5:36pm NESTOR BENSON MD Discharged [facility]patient [facility] 04/05/17 3:28pm 04/08/17 2:12pm NESTOR BENSON [facility] 03/03/17 5:54pm 4:20am CHRISTINA MCDANIEL MD Discharged [facility] 03/02/17 9:05am 03/23/17 11:59pm ERNESTO BEEBE MD Departed Emergency [facility] 02/18/17 1:27pm 6:44pm ELIZABETH INMAN MD Discharged [facility] 02/02/17 9:25am 02/20/17 11:59pm ERNESTO BEEBE MD Discharged Inpatient [facility] 01/11/17 4:05pm 01/17/17 5:06pm NESTOR BENSON MD Registered Clinic [facility] 01/06/17 1:03pm NESTOR BENSON MD Discharged [facility]ring [facility] 12/22/16 9:29am 01/20/17 11:59pm ERNESTO BEEBE MD Discharged [facility]ring [facility] 11/24/16 9:44am 12/21/16 11:59pm ERNESTO BEEBE MD Discharged [facility]ring [facility] 10/27/16 10:33am 11:59pm ERNSETO BEEBE MD Discharged [facility]ring [facility] 09/22/16 10:12am 11:59pm ERNESTO BEEBE MD Registered Clinic [facility] 09/20/16 12:48pm NESTOR BENSON MD Discharged [facility]ring [facility] 08/25/16 8:58am 09/20/16 11:59pm ERNESTO BEEBE MD Discharged Inpatient [facility] 08/09/16 7:03pm 08/17/16 12:46pm NESTOR BENSON MD Discharged [facility]ring [facility] 07/28/16 9:38am 08/20/16 11:59pm ERNESTO BEEBE MD
[2017-06-13 09:13] LABS: BASOPHILS % 0.3 % (0.0-1.0); EOSINOPHILS % 0.1 % (0.0-6.0); HEMATOCRIT 47.1 % (38.2-49.6); HEMOGLOBIN 15.2 g/dL (14.0-18.0); LYMPHOCYTES # (AUTO) 0.6 (1.0-3.2); MEAN CORPUSCULAR HEMOGLOBIN 31.8 pg (28-32); MEAN CORPUSCULAR HGB CONC 32.3 g/dL (31-35); MEAN CORPUSCULAR VOLUME 98.5 fL (81-99); MONOCYTES # (AUTO) 0.5 (0.2-0.8); NEUTROPHILS # (AUTO) 9.5 (2.1-6.9); NEUTROPHILS % 88.3 % (38.7-80.0); PLATELET COUNT 121 x10e3/uL (140-360); RED BLOOD COUNT 4.78 x10e6/uL (4.3-5.7); RED CELL DISTRIBUTION WIDTH 15.4 % (11.7-14.4)
[2017-06-13 09:23] LABS: INR 1.01; PROTHROMBIN TIME 12.5 seconds (11.9-14.5)
[2017-06-13 09:24] LABS: PARTIAL THROMBOPLASTIN TIME 52.5 seconds (23.8-35.5)
[2017-06-13 09:31] LABS: ALANINE AMINOTRANSFERASE 32 IU/L (0-55); ALBUMIN 3.6 g/dL (3.5-5.0); ALBUMIN/GLOBULIN RATIO 0.9 (0.8-2.0); ALKALINE PHOSPHATASE 194 IU/L (40-150); ANION GAP 12.7 mmol/L (8-16); BLOOD UREA NITROGEN 17 mg/dL (7-26); BUN/CREATININE RATIO 13 (6-25); CALCIUM 10.4 mg/dL (8.4-10.2); CARBON DIOXIDE 27 mmol/L (22-29); CHLORIDE 106 mmol/L (98-107); CREATINE KINASE 43 IU/L (30-200); CREATININE, SERUM 1.35 mg/dL (0.72-1.25); EST GLOMERULAR FILTRATION RATE 55 ML/MIN (60-); GLUCOSE 139 mg/dL (74-118); POTASSIUM 3.7 mmol/L (3.5-5.1); SODIUM 142 mmol/L (136-145)
--- NOTE | 2017-06-13 10:02 | Diagnostic Imaging Report ---
PROCEDURE: A single AP view of the chest. COMPARISON: Chest 2 views 06/08/2017. INDICATIONS: RESPIRATORY DISTRESS FINDINGS: Lines/tubes: None. Lungs: Bilateral multifocal airspace opacifications. Pleura: There is no pleural effusion or pneumothorax. Heart and mediastinum: The heart and the mediastinum are unremarkable. Bones: No acute bony abnormality. Multiple healed left lateral rib fractures. IMPRESSION: Bilateral multifocal airspace opacifications may represent a developing pneumonia. Dictated by: Brandon Easley M.D. on 06/13/2017 at 10:03 Electronically approved by: Brandon Easley M.D. on 06/13/2017 at 10:03
--- NOTE | 2017-06-13 10:49 | Diagnostic Imaging Report ---
PROCEDURE: A single AP view of the chest. COMPARISON: Portable chest 06/13/2017 at 0949 hrs. INDICATIONS: RESPIRATORY DISTRESS FINDINGS: See below. IMPRESSION: No change since previous examination. Dictated by: Brandon Easley M.D. on 06/13/2017 at 10:51 Electronically approved by: Brandon Easley M.D. on 06/13/2017 at 10:51
[2017-06-13] MEDS ORDERED: PIPER-TAZ 3.375 GM 50 ML IV STA (11:08)
[2017-06-13] MEDS ORDERED: VANCOMYCIN 1GM/NS 250 ML 250 ML IV STA (11:08)
[2017-06-13] MEDS ORDERED: ALBUTEROL SULF 0.083% NEB SOLN 3 ML NEB NEB SCH (13:15)
[2017-06-13] MEDS: ALBUTEROL SULF 0.083% NEB SOLN 3 ML NEB NEB SCH ×3 (14:38→23:00)
[2017-06-13] MEDS: SODIUM CHLORIDE 0.9% 1000ML 1,000 ML IV SCH (16:34)
[2017-06-13] MEDS ORDERED: PIPER-TAZ 3.375 GM 50 ML IV SCH (18:00)
[2017-06-13] MEDS ORDERED: IPRATROPIUM BROMIDE 0.02% 2.5 ML NEB NEB SCH (18:00)
[2017-06-13] MEDS: ACETAMINOPHEN 325 MG TAB PO PRN (18:17)
[2017-06-13 18:18] VITALS: BP 105/69
[2017-06-13 19:04] LABS: CREATINE KINASE 28 IU/L (30-200)
[2017-06-13 20:00] VITALS: BP 115/69
[2017-06-13] MEDS: IPRATROPIUM BROMIDE 0.02% 2.5 ML NEB NEB SCH (20:10)
[2017-06-13] MEDS ORDERED: VANCOMYCIN HCL 1GM/NS 250 ML BAG IV SCH (21:00)
[2017-06-13] MEDS ORDERED: VANCOMYCIN 1GM/NS 250 ML 250 ML IV SCH (21:00)
--- NOTE | 2017-06-13 21:25 | Consultation ---
DATE OF CONSULTATION: June 13, 2017 Mr. Singh is well known to me. He is coming to the hospital on June 13 with chief complaint of shortness of breath and cough. and fever. The patient is currently laying in bed comfortably,he has no specific complaints his family is not at the bedside at the present time. His mother usually takes good care of him. The patient is known to me, has history of HIV and AIDS. History of chronic kidney disease, stage 3. Patient has history of aspiration and also, he does have history of cerebral palsy. The patient comes in with shortness of breath. and fever Patient is being admitted. PHYSICAL EXAMINATION GENERAL: He is currently alert, oriented, does not seem in acute distress. VITALS: Stable, currently afebrile. He has a temperature of 101.3 on admission. HEENT: Not icteric. Normocephalic. he is not pale PERRLA. NECK: Supple. no JVD no lymphadenopathy no thyromegaly. CHEST: A few crackles.on the right side COR: No S3, S4, murmur. ABDOMEN: Soft. no tenderness no hepatosplenomegaly. joints there is no erythema no edema. Extremities no edema. skin no rash Neuro no new findings. past surgical history past medical history no change from a previous consultation. Social history does not smoke or drug abuse or abuse. Family history noncontributory. Laboratory data still pending monitor the patient but I went back and reviewed the patient that radiated from the ER. IMPRESSIONS 1. Patient has fever. 2. Patient with history of human immunodeficiency virus. 3. History of aspiration. Agree with vancomycin. Agree with Zosyn. Agree with blood cultures. Agree with urine cultures. Will follow with you. 4. Human immunodeficiency virus. Continue with the same medication. 5. History of chronic kidney disease. Will adjust the vancomycin to 1 g q. 24 h following trough. 6. Will adjust the Zosyn at 2.25 IV q.8. 7. Await the blood cultures, urine cultures. 8. Will follow with you. Job#: [id number] CQ MTDD
[2017-06-13 22:10] VITALS: BP 115/69
[2017-06-13] MEDS: LEVALBUTEROL HCL SOLN NEBU 0.63 MG/3 ML NEB INH SCH (23:40)
[2017-06-14] VITALS (11 sets, daily range): BP systolic 92–112; BP diastolic 48–67
[2017-06-14] MEDS: SODIUM CHLORIDE 0.9% 1000ML 1,000 ML IV SCH ×4 (00:54→22:04)
[2017-06-14] MEDS: ALBUTEROL SULF 0.083% NEB SOLN 3 ML NEB NEB SCH ×3 (03:00→11:20)
[2017-06-14] MEDS: PIPER-TAZ 3.375 GM 50 ML IV SCH ×3 (04:25→17:15)
[2017-06-14] MEDS: IPRATROPIUM BROMIDE 0.02% 2.5 ML NEB NEB SCH ×4 (05:05→20:05)
--- NOTE | 2017-06-14 06:30 | Diagnostic Imaging Report ---
EXAMINATION: CHEST SINGLE (PORTABLE) INDICATION: Pneumonia. COMPARISON: 06/13/2017 and 04/06/2017 FINDINGS: TUBES and LINES: None. LUNGS: Lungs are not well inflated. There are bibasilar atelectasis. There is mild prominence of the central pulmonary vasculature, consistent with pulmonary venous congestion. PLEURA: No pleural effusion or pneumothorax. HEART AND MEDIASTINUM: The cardiomediastinal silhouette is unremarkable. BONES AND SOFT TISSUES: No acute osseous lesion. Multiple old left-sided rib fractures. Soft tissues are unremarkable. UPPER ABDOMEN: No free air under the diaphragm. IMPRESSION: No acute thoracic abnormality. Signed by: Dr. Sukhdev Matthew M.D. on 06/14/2017 6:24 AM
[2017-06-14 06:52] LABS: BASOPHILS % 0.1 % (0.0-1.0); HEMATOCRIT 40.3 % (38.2-49.6); HEMOGLOBIN 12.8 g/dL (14.0-18.0); LYMPHOCYTES # (AUTO) 0.7 (1.0-3.2); LYMPHOCYTES % 10.5 % (18.0-39.1); MEAN CORPUSCULAR HEMOGLOBIN 31.4 pg (28-32); MEAN CORPUSCULAR HGB CONC 31.8 g/dL (31-35); MONOCYTES # (AUTO) 0.5 (0.2-0.8); MONOCYTES % 7.4 % (4.4-11.3); NEUTROPHILS # (AUTO) 5.7 (2.1-6.9); NEUTROPHILS % 81.7 % (38.7-80.0); PLATELET COUNT 118 x10e3/uL (140-360); RED BLOOD COUNT 4.07 x10e6/uL (4.3-5.7); RED CELL DISTRIBUTION WIDTH 15.9 % (11.7-14.4)
[2017-06-14 07:21] LABS: CREATINE KINASE 16 IU/L (30-200)
[2017-06-14 07:37] LABS: ANION GAP 13.5 mmol/L (8-16); CALCIUM 9.7 mg/dL (8.4-10.2); CREATININE, SERUM 1.41 mg/dL (0.72-1.25); POTASSIUM 3.5 mmol/L (3.5-5.1)
[2017-06-14 08:07] LABS: ANISOCYTOSIS SLIGHT; BAND NEUTROPHILS % (MANUAL) 2 %; HYPOCHROMASIA SLIGHT; LYMPHOCYTES % (MANUAL) 10 % (19-48); MONOCYTES % (MANUAL) 6 % (3.4-9.0); NEUTROPHILS % (MANUAL) 82 % (40-74); PLATELET ESTIMATE SLIGHTLY DECREASED; PLATELET MORPHOLOGY COMMENT FEW LARGE; RBC MORPHOLOGY COMMENT NORMAL
[2017-06-14] MEDS: ACETAMINOPHEN 325 MG TAB PO PRN (09:55)
[2017-06-14] MEDS: VANCOMYCIN 1GM/NS 250 ML 250 ML IV SCH (12:00)
[2017-06-14 12:11] LABS: CLARITY,URINE CLEAR (CLEAR); COLOR,URINE YELLOW (YELLOW); LEUKOCYTE ESTERASE ,URINE NEGATIVE (NEGATIVE)
[2017-06-14 12:12] LABS: NITRITE,URINE NEGATIVE (NEGATIVE); PROTEIN,URINE DIPSTICK 1+ (NEGATIVE)
[2017-06-14 12:13] LABS: BILIRUBIN,URINE NEGATIVE (NEGATIVE); KETONES,URINE NEGATIVE (NEGATIVE); URINE UROBILINOGEN 0.2 mg/dL (0.2 - 1)
[2017-06-14 12:20] LABS: AMORPHOUS SEDIMENT,URINE MODERATE (FEW); RBC,URINE 0-5 /HPF (0-5); WBC,URINE (MAN) 0-5 /HPF (0-5)
[2017-06-14 12:21] LABS: MUCUS,URINE FEW (RARE)
[2017-06-14] MEDS ORDERED: LEVALBUTEROL HCL SOLN NEBU 0.63 MG/3 ML NEB ONE (13:55)
[2017-06-14] MEDS: LEVALBUTEROL HCL SOLN NEBU 0.63 MG/3 ML NEB INH SCH ×2 (15:55→20:05)
[2017-06-14] MEDS ORDERED: ACETAMIN/BUTALBITAL/CAFFEINE TAB PO PRN (16:30)
[2017-06-14] MEDS: SUCRALFATE 1 GM TAB PO SCH (17:15)
[2017-06-14] MEDS ORDERED: ATORVASTATIN 20 MG TAB PO SCH (21:00)
[2017-06-14] MEDS: CLONAZEPAM 1 MG TAB PO SCH (22:04)
[2017-06-14] MEDS: DICYCLOMINE HCL 20 MG TAB PO SCH (22:04)
[2017-06-14] MEDS: ATORVASTATIN 40 MG TAB PO SCH (22:04)
[2017-06-14] MEDS: NORTRIPTYLINE HCL 10 MG CAP PO SCH (22:04)
[2017-06-15] VITALS: BP 86/45
[2017-06-15] MEDS: IPRATROPIUM BROMIDE 0.02% 2.5 ML NEB NEB SCH ×4 (02:30→19:45)
[2017-06-15] MEDS: LEVALBUTEROL HCL SOLN NEBU 0.63 MG/3 ML NEB INH SCH ×5 (02:30→19:45)
[2017-06-15] MEDS: PIPER-TAZ 3.375 GM 50 ML IV SCH ×3 (03:57→17:41)
[2017-06-15] MEDS: SODIUM CHLORIDE 0.9% 1000ML 1,000 ML IV SCH ×3 (06:43→21:37)
[2017-06-15] MEDS ORDERED: PANTOPRAZOLE SOD 40 MG TABEC PO SCH (07:30)
[2017-06-15] MEDS: SUCRALFATE 1 GM TAB PO SCH ×3 (07:30→16:30)
[2017-06-15 08:38] VITALS: BP 104/54
[2017-06-15] MEDS: DICYCLOMINE HCL 20 MG TAB PO SCH ×3 (09:00→21:37)
[2017-06-15] MEDS ORDERED: POTASSIUM CHLORIDE 10 MEQ TABCR PO SCH (09:00)
[2017-06-15 12:00] VITALS: BP 94/59
[2017-06-15] MEDS: VANCOMYCIN 1GM/NS 250 ML 250 ML IV SCH (12:00)
[2017-06-15 16:00] VITALS: BP 95/47
[2017-06-15 20:00] VITALS: BP 103/57
[2017-06-15 21:34] VITALS: BP 103/57
[2017-06-15] MEDS: NORTRIPTYLINE HCL 10 MG CAP PO SCH (21:37)
[2017-06-15] MEDS: ATORVASTATIN 40 MG TAB PO SCH (21:37)
[2017-06-15] MEDS: CLONAZEPAM 1 MG TAB PO SCH (21:37)
== END 2017-06-15 22:23 | DRG 974 ==
LOC: ER 08:45 → ERHOLD 13:40 → IMCU 16:38
DX: A41.9 Sepsis, unspecified organism (principal); J69.0 Pneumonitis due to inhalation of food and vomit; B20 Human immunodeficiency virus [HIV] disease; N18.3 Chronic kidney disease, stage 3 (moderate); G80.9 Cerebral palsy, unspecified; E11.9 Type 2 diabetes mellitus without complications; G89.4 Chronic pain syndrome
CPT/HCPCS: 31720; 36415; 71045; 80048; 80053; 81001; 82550; 82553; 82948; 83880; 84484; 85025; 85610; 85730; 87040; 87070; 87086; 87205; 93005; 94640; 99285; J2543; J3370; J7030

== ENCOUNTER 2017-07-16 16:58 | Emergency (ER) | payer MEDICARE, OTHER ==
[~2017-07-16] VITALS: Ht 170.2 cm; Wt 80.7 kg
--- OUTSIDE RECORDS SUMMARY | 2017-07-16 17:01 | XMS REPORT | Continuity of Care Document ---
Author Author [facility] Organization [facility] Address [address] [place] [address] Phone Unavailable Care Team Providers Care Deli/Bakery Associate Name Role Phone NESTOR BENSON MD PCP Insurance Providers Guarantor Elisha Gracia Address [address] [place] [address] Email [email or web address] Payer [facility] [employer] [facility] Policy Number [id number] Subscriber's Name FranciscoElisha Relationship 18 Self / Same As Patient Group Number [id number] Group Name UNEMPLOYED Effective Date 16 Pay Medicare A & B Policy Number [id number] Subscriber's Name FranciscoElisha D Relationship 18 Self / Same As Patient Group Name UNEMPLOYED Effective Date 97 Advance Directives Directive Response Recorded Date/Time Does the patient have an advance directive? No 06/13/17 6:46pm If yes, is advance directive on file with [facility]? No 06/13/17 6:46pm If not on file with [facility] will patient provide a copy? No 06/13/17 6:46pm Do you have a Directive to Physician? No 06/13/17 9:07am Do you have a Medical Power of Manager Molecular? No 06/13/17 9:07am Do you have an out of hospital Do Not Resuscitate Order? No 06/13/17 9:07am Do you have any special needs we should be aware of? No 06/13/17 9:07am Do you have a support person here with you today? Yes 06/13/17 9:07am Did patient receive Notice of Privacy Practices? Yes 06/13/17 9:07am Did patient receive patient rights and responsibilities? Yes 06/13/17 9:07am Problems Medical Problem Onset Date Status Acute [...] 200 Mg Oral Every 8 Hours Butalb/Acetaminophen/Caffeine (Ctrzsq-Frnkugbe-Xgal 50-325-40) 1 Each Tablet Every 4 Hours [...] 150 Mg Oral Daily Discontinued Hydrocodone Bit/Acetaminophen ([place] 5-325 Tablet) 1 Each Tablet, 1 Tab Oral Q6 Hrs Prn Discontinued Hydrocodone Bit/Acetaminophen (Hydrocodone-Apap 7.5-750 Tab) 1 Each Tablet, 1 Each Oral Every 6 Hours as needed Discontinued Hydroxyzine Hcl (Atarax 25MG) 25 Mg Tab, 10 Mg Oral Every 6 Hours as needed Discontinued Krill/Max-3/Dha/Epa/Lipids (Max-3 Krill Oil 500 Mg Sfgl) 1 Each [...] Nexium , 40 Mg Oral Daily Discontinued Max-3 Krill Oil 300 Sfgl 1 Each Capsule, [...] Onset Date Status Hx Psychiatric Problems No 06/13/2017 6:46pm Not Applicable Not Applicable Hx Eating Disorder No 06/13/2017 6:46pm Not Applicable Not Applicable Hx Substance Use Disorder No 06/13/2017 6:46pm Not Applicable Not Applicable Hx Depression No 06/13/2017 6:46pm Not Applicable Not Applicable Hx Alcohol Use No 06/13/2017 6:46pm Not Applicable Not Applicable Hx Substance Use Treatment No 06/13/2017 6:46pm Not Applicable Not Applicable Hx Physical Abuse No 06/13/2017 6:46pm Not Applicable Not Applicable Smoking Status Start Date Stop Date Unknown if ever smoked Hospital Discharge Instructions No hospital discharge instruction information available. Plan of Care Discharge Date 06/15/17 10:23pm Disposition [facility] ([facility]) Prescriptions See Medication Section Functional Status Query Response Date Recorded Assistive Devices None June 13, 2017 10:10pm Ambulation Ability Maximum Assistance Total Assistance June 14, 2017 6:28pm Toileting Ability Total Assistance June 14, 2017 6:28pm Allergies, Adverse Reactions, Alerts Allergen Type Severity Reaction Status Last Updated dextromethorphan HBr Allergy Intermediate itchy Active 06/08/17 Guaifenesin Allergy Intermediate itchy Active 06/08/17 Immunizations No immunization information available. Vital Signs Acute Vital Signs Vital Response Date/Time Temperature (Fahrenheit) 98.5 degrees F (97.6 - 99.5) 06/15/2017 9:34pm Pulse Pulse Rate (adult) 82 bpm (60 - 90) 06/15/2017 9:34pm Respiratory Rate 18 bpm (12 - 24) 06/15/2017 9:34pm Blood Pressure 103/57 mm Hg 06/15/2017 9:34pm Height 5 ft 7 in 06/13/2017 8:45am Weight 178.06 lb 06/13/2017 6:46pm Body Mass Index 27.9 kg/m^2 06/13/2017 6:46pm Results Laboratory Results Test Name Result Units Flags Reference Collection Date/Time Result Date/ Time Comments Direct Bilirubin 0.2 mg/dL 0.0-5.0 01/16/2017 9:40am 01/16/2017 10: 35am Amylase Level 17 U/L L 25-125 01/16/2017 9:40am 01/16/2017 10:35am Stool Occult Blood POSITIVE H NEGATIVE 01/14/2017 9:35am 01/14/2017 11 :09am Clostridium Difficile Toxin A & B NEGATIVE NEGATIVE 01/14/2017 9:35am 01/14/2017 1:20pm Testing on stool aspirate specimens is outside physician asst claims since specimen type not validated on this assay. Influenza Virus Types A,B Antigen NEGATIVE NEGATIVE 04/05/2017 12: 04pm 04/05/2017 1:19pm Lactic Acid Level 15.2 MG/DL 4.5-19.8 04/05/2017 12:04pm 04/05/2017 1: 15pm Magnesium Level 2.3 MG/DL H 1.3-2.1 04/05/2017 12:04pm 04/05/2017 1: 15pm Lipase < 4 U/L L 8-78 04/05/2017 [...] 100.0 % H 95-98 04/05/2017 12:10pm 12:39pm White Blood Count 7.02 x10e3/uL 4.8-10.8 06/14/2017 6:00am 06/14/2017 7 :07am Red Blood Count 4.07 x10e6/uL L 4.3-5.7 06/14/2017 6:00am 06/14/2017 7: 07am Hemoglobin 12.8 g/dL L 14.0-18.0 06/14/2017 6:00am 06/14/2017 7:07am Hematocrit 40.3 % 38.2-49.6 06/14/2017 6:00am 06/14/2017 7:07am Mean Corpuscular Volume 99.0 fL 81-99 06/14/2017 6:00am 06/14/2017 7: 07am Mean Corpuscular Hemoglobin 31.4 pg 28-32 06/14/2017 6:00am 06/14/2017 7:07am Mean Corpuscular Hemoglobin Concent 31.8 g/dL 31-35 06/14/2017 6:00am 06/14/2017 7:07am Red Cell Distribution Width 15.9 % H 11.7-14.4 06/14/2017 6:00am 2017 7:07am Platelet Count 118 x10e3/uL L 140-360 06/14/2017 6:00am 06/14/2017 7: 07am Neutrophils (%) (Auto) 81.7 % H 38.7-80.0 06/14/2017 6:00am 06/14/2017 7 :07am Lymphocytes (%) (Auto) 10.5 % L 18.0-39.1 06/14/2017 6:00am 06/14/2017 7 :07am Monocytes (%) (Auto) 7.4 % 4.4-11.3 06/14/2017 6:00am 06/14/2017 7: 07am Eosinophils (%) (Auto) 0.0 % 0.0-6.0 06/14/2017 6:00am 06/14/2017 7: 07am Basophils (%) (Auto) 0.1 % 0.0-1.0 06/14/2017 6:00am 06/14/2017 7:07am IM GRANULOCYTES % 0.3 % 0.0-1.0 06/14/2017 6:00am 06/14/2017 7:07am Neutrophils # (Auto) 5.7 2.1-6.9 06/14/2017 6:00am 06/14/2017 7:07am Lymphocytes # (Auto) 0.7 L 1.0-3.2 06/14/2017 6:00am 06/14/2017 7: 07am Monocytes # (Auto) 0.5 0.2-0.8 06/14/2017 6:00am 06/14/2017 7:07am Eosinophils # (Auto) 0.0 0.0-0.4 06/14/2017 6:00am 06/14/2017 7:07am Basophils # (Auto) 0.0 0.0-0.1 06/14/2017 6:00am 06/14/2017 7:07am Absolute Immature Granulocyte (auto 0.02 x10e3/uL 0-0.1 06/14/2017 6: 00am 06/14/2017 7:07am Differential Total Cells Counted 100 06/14/2017 6:00am 06/14/2017 8 :07am Neutrophils % (Manual) 82 % H 40-74 06/14/2017 6:00am 06/14/2017 8:07am Band Neutrophils % 2 % 06/14/2017 6:00am 06/14/2017 8:07am Lymphocytes % (Manual) 10 % L 19-48 06/14/2017 6:00am 06/14/2017 8:07am Monocytes % (Manual) 6 % 3.4-9.0 06/14/2017 6:00am 06/14/2017 8:07am Platelet Estimate SLIGHTLY DECREASED 06/14/2017 6:00am 06/14/2017 8 :07am Platelet Morphology Comment FEW LARGE 06/14/2017 6:00am 06/14/2017 8:07am Hypochromasia SLIGHT 06/14/2017 6:00am 06/14/2017 8:07am Anisocytosis SLIGHT 06/14/2017 6:00am 06/14/2017 8:07am Red Cell Morphology Comment NORMAL 06/14/2017 6:00am 06/14/2017 8: 07am Prothrombin Time 12.5 seconds 11.9-14.5 06/13/2017 8:57am 06/13/2017 9: 28am Prothromb Time International Ratio 1.01 06/13/2017 8:57am 2017 9:28am Oral Anticoagulant Therapy INR Values: 1. Low Intensity Therapy 1.5 - 2.0 2. Moderate Intensity Therapy 2.0 - 3.0 3. High Intensity Therapy(1) 2.5 - 3.5 4. High Intensity Therapy(2) 3.0 - 4.0 5. Panic Value INR > 5.0 Activated Partial Thromboplast Time 52.5 seconds H 23.8-35.5 06/13/2017 8 :57am 06/13/2017 9:28am Urine Color YELLOW YELLOW 06/14/2017 11:55am 06/14/2017 12:13pm Urine Clarity CLEAR CLEAR 06/14/2017 11:55am 06/14/2017 12:13pm Urine Specific [place] 1.015 1.010-1.025 06/14/2017 11:55am 2017 12:13pm Urine pH 8 H 5 - 7 06/14/2017 11:55am 06/14/2017 12:13pm Urine Leukocyte Esterase NEGATIVE NEGATIVE 06/14/2017 11:55am 2017 12:13pm Urine Nitrite NEGATIVE NEGATIVE 06/14/2017 11:55am 06/14/2017 12: 13pm Urine Protein 1+ H NEGATIVE 06/14/2017 11:55am 06/14/2017 12:13pm Urine Glucose (UA) 1+ H NEGATIVE 06/14/2017 11:55am 06/14/2017 12: 13pm Urine Ketones NEGATIVE NEGATIVE 06/14/2017 11:55am 06/14/2017 12: 13pm Urine Urobilinogen 0.2 mg/dL 0.2 - 1 06/14/2017 11:55am 06/14/2017 12: 13pm Urine Bilirubin NEGATIVE NEGATIVE 06/14/2017 11:55am 06/14/2017 12: 13pm Urine Blood NEGATIVE NEGATIVE 06/14/2017 11:55am 06/14/2017 12:13pm Urine WBC 0-5 /HPF 0-5 06/14/2017 11:55am 06/14/2017 12:21pm Urine RBC 0-5 /HPF 0-5 06/14/2017 11:55am 06/14/2017 12:21pm Urine Bacteria NONE /HPF NONE 06/14/2017 11:55am 06/14/2017 12:21pm Urine Epithelial Cells NONE /LPF NONE 06/14/2017 11:55am 06/14/2017 12: 21pm Urine Amorphous Sediment MODERATE H FEW 06/14/2017 11:55am 06/14/2017 12:21pm Urine Mucus FEW H RARE 06/14/2017 11:55am 06/14/2017 12:21pm Sodium Level 144 mmol/L 136-145 06/14/2017 6:00am 06/14/2017 7:37am Potassium Level 3.5 mmol/L 3.5-5.1 06/14/2017 6:00am 06/14/2017 7:37am Chloride Level 113 mmol/L H 98-107 06/14/2017 6:00am 06/14/2017 7:37am Carbon Dioxide Level 21 mmol/L L 22-29 06/14/2017 6:00am 06/14/2017 7: 37am Anion Gap 13.5 mmol/L 8-16 06/14/2017 6:00am 06/14/2017 7:37am Blood Urea Nitrogen 22 mg/dL 7-06/14/2017 6:00am 06/14/2017 7:37am Creatinine 1.41 mg/dL H 0.72-1.25 06/14/2017 6:00am 06/14/2017 7:37am BUN/Creatinine Ratio 16 6-06/14/2017 6:00am 06/14/2017 7:37am Estimat Glomerular Filtration Rate 52 ML/MIN L 60- 06/14/2017 6:00am 7:37am Ranges were taken from the National Kidney Disease Education Program and the National Kid[employer] Foundation literature. Reference ranges: 60 or greater: Normal 16-59 (for 3 consecutive months): Chronic kidney disease 15 or less: Kidney failure Glucose Level 84 mg/dL 74-118 06/14/2017 6:00am 06/14/2017 7:37am Calcium Level 9.7 mg/dL 8.4-10.2 06/14/2017 6:00am 06/14/2017 7:37am Bedside Glucose 109 mg/dL 70-120 06/14/2017 5:07pm 06/14/2017 5:15pm Meter ID: [id number] Total Bilirubin 0.4 mg/dL 0.2-1.2 06/13/2017 8:57am 06/13/2017 9:34am Aspartate Amino Transf (AST/SGOT) 28 IU/L 5-34 06/13/2017 8:57am 2017 9:34am Alanine Aminotransferase (ALT/SGPT) 32 IU/L 0-55 06/13/2017 8:57am 9:34am Total Protein 7.8 g/dL 6.5-8.1 06/13/2017 8:57am 06/13/2017 9:34am Albumin 3.6 g/dL 3.5-5.0 06/13/2017 8:57am 06/13/2017 9:34am Globulin 4.2 g/dL H 2.3-3.5 06/13/2017 8:57am 06/13/2017 9:34am Albumin/Globulin Ratio 0.9 0.8-2.0 06/13/2017 8:57am 06/13/2017 9: 34am Alkaline Phosphatase 194 IU/L H 40-150 06/13/2017 8:57am 06/13/2017 9: 34am B-Type Natriuretic Peptide 27.6 pg/mL 0-100 06/13/2017 8:57am 2017 9:45am Creatine Kinase 16 IU/L L 30-200 06/14/2017 6:00am 06/14/2017 7:23am Creatine Kinase MB 1.50 ng/mL 0-5.0 06/14/2017 6:00am 06/14/2017 7: 23am Troponin I < 0.001 ng/mL 0-0.300 06/14/2017 6:00am 06/14/2017 7:23am Microbiology Results Procedure Source Organism/Result Collection Date/Time [...] Final Blood Culture Blood NO GROWTH AFTER 48 HOURS 8:57am 06/15/2017 9:08am Preliminary Procedures Procedure Status Date Provider(s) X-ray of chest, two views Active 09/20/16 NESTOR BENSON MD X-ray of chest, two views Active 01/06/17 NESTOR BENSON MD Computed tomography of abdomen and pelvis with contrast Active 03/04/17 CHRISTINA MCDANIEL MD X-ray of chest, two views Active 06/08/17 MICHELLE LOAIZA PATCH DRILLER Encounters Encounter Location Arrival/Admit Date Discharge/Depart Date Attending Provider Discharged Inpatient [facility] 06/13/17 1:40pm 06/15/17 10:23pm NESTOR BENSON MD Departed Emergency Room [facility] 06/08/17 12:28pm 06/08 5:46pm PRANAY TEJADA MD Registered Referred [facility] 04/11/17 5:36pm NESTOR BENSON MD Discharged Inpatient [facility] 04/05/17 3:28pm 04/08/17 2:12pm NESTOR BENSON MD Departed Emergency Room [facility] 03/03/17 5:54pm 4:20am CHRISTINA MCDANIEL MD Discharged Recurring [facility] 03/02/17 9:05am 03/23/17 11:59pm ERNESTO BEEBE MD Departed Emergency Room [facility] 02/18/17 1:27pm 6:44pm ELIZABETH INMAN MD Discharged Recurring [facility] 02/02/17 9:25am 02/20/17 11:59pm ERNESTO BEEBE MD Discharged Inpatient [facility] 01/11/17 4:05pm 01/17/17 5:06pm NESTOR BENSON MD Registered Clinic [facility] 01/06/17 1:03pm NESTOR BENSON MD Discharged [...] BEEBE MD Registered Clinic [facility] 09/20/16 12:48pm NESTOR BENSON MD Discharged Recurring [facility] 08/25/16 8:58am 09/20/16 11:59pm ERNESTO BEEBE MD Discharged Recurring [facility] 07/28/16 9:38am 08/20/16 11:59pm ERNESTO BEEBE MD
[2017-07-16] MEDS ORDERED: SOD PHOSPHATE/SOD BIPHOSPHATE ENEMA 132 ML BTL PR ONE (18:30)
--- NOTE | 2017-07-16 18:40 | Diagnostic Imaging Report ---
EXAM: ABDOMEN COMP INCL UPR or DECUB, DATE: 07/16/2017 5:13 PM INDICATION: Constipation COMPARISON: None FINDINGS: Motion artifacts and body habitus limit evaluation. LINES/TUBES: Stimulator device projects over the left abdomen. BOWEL PATTERN: No evidence for obstruction. Large amount of formed stool in the distal left colon. SOFT TISSUES: No radiographically apparent free air. No abnormal calcifications. No mass effect. LUNG BASES: Bibasilar atelectasis. BONES: Right-sided rib fractures. IMPRESSION: Limited exam secondary to body habitus and motion Large amount of formed stool in the distal left colon. Signed by: DR. Dung Abebe MD on 07/16/2017 6:37 PM
[2017-07-16 18:44] VITALS: BP 121/81
== END 2017-07-16 18:40 | disposition home or self-care (01) ==
LOC: ER 16:58
DX: R11.2 Nausea with vomiting, unspecified (principal); K59.00 Constipation, unspecified; G35 Multiple sclerosis; G80.9 Cerebral palsy, unspecified; B20 Human immunodeficiency virus [HIV] disease
CPT/HCPCS: 99284

== ENCOUNTER 2017-08-30 07:42 | Inpatient (IN) | payer MEDICARE, OTHER ==
[~2017-08-30] VITALS: Ht 170.2 cm; Wt 80.7 kg
[2017-08-30] MEDS ORDERED: IPRATROPIUM BROMIDE 0.02% 2.5 ML NEB NEB STA (07:47)
[2017-08-30] MEDS ORDERED: METHYLPREDNISOLONE SOD SUCC 125 MG/2ML VIAL IV STA (07:47)
[2017-08-30] MEDS ORDERED: VANCOMYCIN 1GM/NS 250 ML 250 ML IV ONE (08:00)
[2017-08-30] MEDS ORDERED: PIPER-TAZ 3.375 GM 50 ML IV ONE (08:00)
[2017-08-30] MEDS ORDERED: LEVALBUTEROL HCL SOLN NEBU 1.25 MG/3 ML NEB INH ONE (08:00)
[2017-08-30 08:04] LABS: BASOPHILS % 0.4 % (0.0-1.0); EOSINOPHILS % 0.4 % (0.0-6.0); HEMATOCRIT 47.7 % (38.2-49.6); HEMOGLOBIN 15.2 g/dL (14.0-18.0); LYMPHOCYTES # (AUTO) 0.7 (1.0-3.2); LYMPHOCYTES % 14.9 % (18.0-39.1); MEAN CORPUSCULAR HEMOGLOBIN 31.1 pg (28-32); MEAN CORPUSCULAR HGB CONC 31.9 g/dL (31-35); MEAN CORPUSCULAR VOLUME 97.7 fL (81-99); MONOCYTES # (AUTO) 0.3 (0.2-0.8); MONOCYTES % 7.1 % (4.4-11.3); NEUTROPHILS # (AUTO) 3.6 (2.1-6.9); PLATELET COUNT 54 x10e3/uL (140-360); RED BLOOD COUNT 4.88 x10e6/uL (4.3-5.7); RED CELL DISTRIBUTION WIDTH 16.4 % (11.7-14.4)
[2017-08-30] MEDS ORDERED: ALLERGY RELIEF25 M1 PO (08:09)
[2017-08-30] MEDS ORDERED: STOOL SOFTENER100 MG PO (08:09)
[2017-08-30] MEDS ORDERED: TOPIRAMATE100 MG PO (08:09)
[2017-08-30] MEDS ORDERED: LASIX20 MG PO (08:09)
[2017-08-30] MEDS ORDERED: ASPIR 8181 MG PO (08:09)
[2017-08-30] MEDS ORDERED: JULUCA PO (08:09)
[2017-08-30] MEDS ORDERED: ZINC SULFATE220 MG PO (08:09)
[2017-08-30] MEDS ORDERED: LEVOTHYROXINE50 MCG PO (08:09)
[2017-08-30] MEDS ORDERED: CVS OMEGA-3 KR1 EACH PO (08:09)
[2017-08-30] MEDS ORDERED: VITAMIN C1000 MG PO (08:09)
[2017-08-30] MEDS ORDERED: SODIUM CHLORIDE 0.9% 1000ML 1,000 ML IV ONE ×2 (08:15→21:45)
[2017-08-30 08:23] LABS: ALANINE AMINOTRANSFERASE 34 IU/L (0-55); ALBUMIN 4.6 g/dL (3.5-5.0); ALKALINE PHOSPHATASE 249 IU/L (40-150); BLOOD UREA NITROGEN 21 mg/dL (7-26); BUN/CREATININE RATIO 14 (6-25); CARBON DIOXIDE 27 mmol/L (22-29); CHLORIDE 103 mmol/L (98-107); CREATINE KINASE 47 IU/L (30-200); CREATININE, SERUM 1.53 mg/dL (0.72-1.25); EST GLOMERULAR FILTRATION RATE 47 ML/MIN (60-); GLUCOSE 130 mg/dL (74-118); MAGNESIUM 2.4 MG/DL (1.3-2.1); SODIUM 143 mmol/L (136-145)
--- NOTE | 2017-08-30 08:24 | Diagnostic Imaging Report ---
PROCEDURE: CHEST SINGLE (PORTABLE) COMPARISON: 06/14/2017. INDICATIONS: SHORTNESS OF BREATH FINDINGS: Lung volumes remain low. No gross consolidation, pleural effusion, or pneumothorax. Stable cardiomediastinal contour. Mild prominence of the central pulmonary vasculature. No acute osseous abnormalities. Multiple healed left-sided rib fracture deformities and a right clavicular fracture deformity unchanged. CONCLUSION: Low lung volumes with central venous congestion. Dictated by: Stevie Elizondo M.D. on 08/30/2017 at 8:27 Electronically approved by: Stevei Elizondo M.D. on 08/30/2017 at 8:27
[2017-08-30] MEDS ORDERED: FUROSEMIDE INJ 10 MG/ML 4 ML VIAL IV ONE (08:30)
[2017-08-30 08:35] LABS: BILIRUBIN,URINE NEGATIVE (NEGATIVE); CLARITY,URINE CLEAR (CLEAR); COLOR,URINE YELLOW (YELLOW); KETONES,URINE NEGATIVE (NEGATIVE); LEUKOCYTE ESTERASE ,URINE NEGATIVE (NEGATIVE); NITRITE,URINE NEGATIVE (NEGATIVE); PROTEIN,URINE DIPSTICK NEGATIVE (NEGATIVE); URINE UROBILINOGEN 0.2 mg/dL (0.2 - 1)
[2017-08-30] MEDS ORDERED: SODIUM CHLORIDE FLUSH 10 ML SYR INJ PRN (08:45)
[2017-08-30 08:48] LABS: EPITHELIAL CELLS,URINE RARE /LPF; RBC,URINE 0-5 /HPF (0-5)
[2017-08-30] MEDS ORDERED: ENOXAPARIN INJ 80 MG/0.8 ML SYR SC STA (09:00)
[2017-08-30 09:06] LABS: ABG HCO3 23 mmol/L (23-28); ABG PCO2 46 mmHg (41-51); ABG PH 7.31 (7.31-7.41); ABG PO2 63 mmHg (80-105)
[2017-08-30 09:11] LABS: INR 1.06
[2017-08-30 09:12] LABS: PARTIAL THROMBOPLASTIN TIME 40.7 seconds (23.8-35.5)
[2017-08-30 09:22] LABS: B-TYPE NATRIURETIC PEPTIDE2 17.4 pg/mL (0-100)
[2017-08-30] MEDS: ALBUTEROL SULF 0.083% NEB SOLN 3 ML NEB NEB SCH ×3 (11:00→19:30)
[2017-08-30] MEDS: IPRATROPIUM BROMIDE 0.02% 2.5 ML NEB NEB SCH ×2 (11:53→19:30)
[2017-08-30 12:42] VITALS: BP 101/64
[2017-08-30 12:43] VITALS: BP 101/64
[2017-08-30] MEDS: PIPERACILLIN/TAZO 2.25 GM 50 ML IV SCH ×2 (14:00→20:11)
[2017-08-30] MEDS ORDERED: SODIUM CHLORIDE 0.9% 250ML 250 ML ONE (14:13)
[2017-08-30 16:04] VITALS: BP 95/56
[2017-08-30] MEDS ORDERED: ACETAMINOPHEN 1000 MG/100 ML IV PRN (16:05)
--- NOTE | 2017-08-30 16:57 | Consultation ---
DATE OF CONSULTATION: August 30, 2017 INFECTIOUS DISEASE CONSULTATION REASON FOR CONSULTATION 1. Pneumonia. 2. HIV. 3. Recommendation of antibiotic. HISTORY OF PRESENT ILLNESS: This is a well-known patient to me, very pleasant gentleman, history of cerebral palsy, history of HIV and AIDS for several years. His HIV is under control. Recently he has been having issues with recurrent pneumonia, probably aspiration. The patient comes in again with fever and chills, shortness of breath for 2 days, not doing well. Came to the emergency room. He was quite hypoxemic. Patient was started on IV antibiotic, namely Zosyn and vancomycin. Patient is being admitted. The patient is currently lying in bed comfortably but on oxygen. He stated that he has been sick for 2 days with fever and chills, shortness of breath and cough. The patient has history of HIV and AIDS, and his CD4 cell count is more than 200. His viral load has been undetectable. Cerebral palsy. History of chronic kidney disease with worsening kidney function occasionally. SOCIAL HISTORY: There is no smoking, drug abuse, alcohol abuse. FAMILY HISTORY: Hypertension. REVIEW OF SYSTEMS GENERAL: At the present time, he has had the fever, the cough and shortness of breath. He denies any. There is no nausea, vomiting, diarrhea, urgency or fay. SKIN: No rash. ALL OTHERWISE: Unremarkable. LAB: White count 4.6, hemoglobin 15.2, hematocrit 47. Sodium 143, potassium 4.0, creatinine 1.53, glucose 130. Liver enzymes: AST 130, ALT 134. CHEST X-RAY: Showed lung volume low. There was no gross consolidation that could be seen. PHYSICAL EXAMINATION GENERAL: He is currently alert, does not seem to be in any acute distress. VITAL SIGNS: Temperature 102.0, heart rate 130, blood pressure 95/56. HEENT: He is normocephalic. NECK: Supple. No JVD, no lymphadenopathy, no thyromegaly. CHEST: A few rhonchi. HEART: S1 and S2. No S3 or S4, no murmur. ABDOMEN: Soft. Bowel sounds present. No tenderness. No hepatosplenomegaly. EXTREMITIES: No edema. IMPRESSION 1. Sepsis on admission present, source probably pneumonia. Agree with vancomycin. Agree with Zosyn. Will adjust for his kidney function. 2. Acute kidney injury over chronic kidney disease. 3. Human immunodeficiency virus. Continue with his home medication. 4. Cerebral palsy. Will follow. Job#: [id number] EV
--- NOTE | 2017-08-30 17:05 | Diagnostic Imaging Report ---
Ventilation/perfusion lung scan Clinical Information: 57 M with CHF and dyspnea. History of PE. Comparison: Chest radiograph 08/30/2017 Discussion: Xenon-133 gas 11.6 mCi was administered via inhalation. Dynamic images of the lungs in the posterior projection were obtained through single breath, equilibrium, and washout phases. Distribution of tracer activity is irregular throughout the lungs. There are no segmental ventilatory defects. Washout of tracer is diffusely delayed with no air trapping. Perfusion images of the lungs were obtained in multiple projections following intravenous administration of approximately 6.3 mCi of Tc-99m MAA. Distribution of tracer is irregular throughout the lungs. There are no segmental perfusion defects of any size. The cardiomediastinal silhouette is unremarkable. Impression: Scan findings represent a VERY LOW probability for acute pulmonary embolic disease based on the PIOPED II criteria. Scan findings represent diffuse parenchymal and/or obstructive lung disease. Signed by: Dr. Yesy Kaye M.D. on 08/30/2017 5:02 PM
--- NOTE | 2017-08-30 18:03 | Diagnostic Imaging Report ---
PROCEDURE:X-RAY MODIFIED BARIUM SWALLOW COMPARISON:None. INDICATIONS:Not provided. DISCUSSION:Fluoroscopic examination was performed in conjunction with speech pathology, during swallowing of a variety of thin and thick liquid consistencies. Examination shows premature spillage. The vallecula with all consistencies. Premature spillage. The piriform sinus with thin liquids only. No aspiration or laryngeal penetration was noted. Moderate piriform sinus residue was noted following swallows of thick, pure, and mild following swallows of all other consistencies. Trace pharyngeal wall and base of tongue residue was noted following swallows of all consistencies. CONCLUSION:Mild pharyngeal dysphagia consistent with immature spillage to the level of the vallecula and consistent pharyngeal residue after the swallow. No penetration or aspiration. Please see the report from speech pathology for complete details. Bo Hu M.D. Dictated by: Bo Hu M.D. on 08/30/2017 at 18:08 Electronically approved by: Bo Hu M.D. on 08/30/2017 at 18:08
[2017-08-30 18:17] LABS: CREATINE KINASE MB 1.3 ng/mL (0-5.0)
[2017-08-30 20:34] VITALS: BP 85/58
[2017-08-30 20:40] VITALS: BP 85/58
[2017-08-30] MEDS ORDERED: ACETAMINOPHEN 325 MG TAB PO PRN (21:15)
[2017-08-30] MEDS ORDERED: ACETAMINOPHEN 325 MG TAB PO ONE (21:30)
[2017-08-31] VITALS (9 sets, daily range): BP systolic 79–101; BP diastolic 45–60
[2017-08-31] MEDS: SODIUM CHLORIDE 0.9% 1000ML 1,000 ML IV SCH ×5 (00:05→17:43)
[2017-08-31] MEDS: ALBUTEROL SULF 0.083% NEB SOLN 3 ML NEB NEB SCH ×7 (00:05→23:15)
[2017-08-31] MEDS: IPRATROPIUM BROMIDE 0.02% 2.5 ML NEB NEB SCH ×5 (00:05→23:15)
[2017-08-31] MEDS: PIPERACILLIN/TAZO 2.25 GM 50 ML IV SCH ×4 (02:15→21:25)
[2017-08-31 04:51] LABS: BASOPHILS % 0.4 % (0.0-1.0); EOSINOPHILS % 0.3 % (0.0-6.0); HEMATOCRIT 36.2 % (38.2-49.6); HEMOGLOBIN 11.5 g/dL (14.0-18.0); LYMPHOCYTES # (AUTO) 1.2 (1.0-3.2); LYMPHOCYTES % 15.1 % (18.0-39.1); MEAN CORPUSCULAR HEMOGLOBIN 31.2 pg (28-32); MEAN CORPUSCULAR HGB CONC 31.8 g/dL (31-35); MEAN CORPUSCULAR VOLUME 98.1 fL (81-99); MONOCYTES # (AUTO) 0.9 (0.2-0.8); MONOCYTES % 11.7 % (4.4-11.3); NEUTROPHILS # (AUTO) 5.7 (2.1-6.9); PLATELET COUNT 93 x10e3/uL (140-360); RED BLOOD COUNT 3.69 x10e6/uL (4.3-5.7); RED CELL DISTRIBUTION WIDTH 17.1 % (11.7-14.4)
[2017-08-31] MEDS ORDERED: SODIUM CHLORIDE 0.9% 1000ML 2,000 ML ONE (05:05)
[2017-08-31] MEDS ORDERED: SODIUM CHLORIDE 0.9% 1000ML 1,000 ML IV SCH (05:15)
[2017-08-31 05:17] LABS: ALBUMIN 2.9 g/dL (3.5-5.0); ALBUMIN/GLOBULIN RATIO 0.9 (0.8-2.0); ANION GAP 10.7 mmol/L (8-16); CREATININE, SERUM 2.11 mg/dL (0.72-1.25); POTASSIUM 3.7 mmol/L (3.5-5.1)
[2017-08-31 05:31] LABS: CALCIUM 9.1 mg/dL (8.4-10.2)
--- NOTE | 2017-08-31 06:36 | Diagnostic Imaging Report ---
CHEST SINGLE (PORTABLE), 08/31/2017 5:00 AM Technique: CHEST SINGLE (PORTABLE) Comparison: 08/30/2017 Clinical history: Pneumonia Findings: See Impression. Healing bilateral rib deformities. Impression: 1. Stable cardiomediastinal silhouette. 2. Unchanged multifocal opacities in keeping with provided history of pneumonia. Signed by: Dr Susan Parrish MD on 08/31/2017 6:33 AM
[2017-08-31 06:44] LABS: BAND NEUTROPHILS % (MANUAL) 5 %; BLAST CELLS % MANUAL 1; LYMPHOCYTES % (MANUAL) 12 % (19-48); MONOCYTES % (MANUAL) 8 % (3.4-9.0); NEUTROPHILS % (MANUAL) 71 % (40-74)
[2017-08-31 06:45] LABS: ANISOCYTOSIS SLIGHT; PLATELET ESTIMATE SLIGHTLY DECREASED; PLATELET MORPHOLOGY COMMENT FEW LARGE; RBC MORPHOLOGY COMMENT NORMAL
[2017-08-31] MEDS: VANCOMYCIN 1GM/NS 250 ML 250 ML IV SCH (09:28)
[2017-09-01] VITALS (8 sets, daily range): BP systolic 84–122; BP diastolic 58–73
[2017-09-01] MEDS: IPRATROPIUM BROMIDE 0.02% 2.5 ML NEB NEB SCH ×3 (02:30→19:15)
[2017-09-01] MEDS: PIPERACILLIN/TAZO 2.25 GM 50 ML IV SCH ×4 (02:36→21:16)
[2017-09-01] MEDS: ALBUTEROL SULF 0.083% NEB SOLN 3 ML NEB NEB SCH ×6 (03:30→23:00)
[2017-09-01] MEDS: SODIUM CHLORIDE 0.9% 1000ML 1,000 ML IV SCH ×6 (04:57→23:52)
[2017-09-01 05:37] LABS: CREATINE KINASE MB 2.6 ng/mL (0-5.0)
[2017-09-01] MEDS ORDERED: SODIUM CHLORIDE 0.9% 1000ML 1,000 ML ONE (09:22)
[2017-09-01] MEDS: VANCOMYCIN 1GM/NS 250 ML 250 ML IV SCH (10:03)
[2017-09-01] MEDS: PREGABALIN 75 MG CAP PO SCH ×2 (15:11→21:16)
[2017-09-01] MEDS: DICYCLOMINE HCL 20 MG TAB PO SCH ×2 (15:11→21:16)
[2017-09-01] MEDS: SUCRALFATE 1 GM TAB PO SCH (16:45)
[2017-09-01] MEDS: RANITIDINE HCL 150 MG PO SCH (21:00)
[2017-09-01] MEDS: CLONAZEPAM 1 MG TAB PO SCH (21:16)
[2017-09-01] MEDS: ATORVASTATIN 40 MG TAB PO SCH (21:16)
[2017-09-01] MEDS: TOPIRAMATE 100 MG TAB PO SCH (21:17)
[2017-09-02] VITALS (8 sets, daily range): BP systolic 102–123; BP diastolic 59–68
[2017-09-02] MEDS: IPRATROPIUM BROMIDE 0.02% 2.5 ML NEB NEB SCH ×4 (02:30→19:00)
[2017-09-02] MEDS: ALBUTEROL SULF 0.083% NEB SOLN 3 ML NEB NEB SCH ×5 (02:30→19:00)
[2017-09-02] MEDS: PIPERACILLIN/TAZO 2.25 GM 50 ML IV SCH ×4 (02:45→20:14)
[2017-09-02] MEDS ORDERED: LEVOTHYROXINE SODIUM 50 MCG TAB PO SCH ×2 (06:00→09:00)
[2017-09-02] MEDS ORDERED: PANTOPRAZOLE SOD 40 MG TABEC PO SCH (07:30)
[2017-09-02] MEDS: SUCRALFATE 1 GM TAB PO SCH ×3 (07:49→17:46)
[2017-09-02] MEDS ORDERED: ASPIRIN 81 MG CHEW TAB PO SCH (09:00)
[2017-09-02] MEDS ORDERED: DOCUSATE SODIUM 100 MG CAP PO PRN (09:00)
[2017-09-02] MEDS ORDERED: ZINC SULFATE 220 MG CAP PO SCH (09:00)
[2017-09-02] MEDS ORDERED: JULUCA PO SCH (09:00)
[2017-09-02] MEDS ORDERED: NORTRIPTYLINE HCL 10 MG CAP PO SCH (09:00)
[2017-09-02] MEDS ORDERED: FUROSEMIDE 20 MG TAB PO SCH (09:00)
[2017-09-02] MEDS ORDERED: POTASSIUM CHLORIDE 10 MEQ TABCR PO SCH (09:00)
[2017-09-02] MEDS: VANCOMYCIN 1GM/NS 250 ML 250 ML IV SCH (09:25)
[2017-09-02] MEDS: DICYCLOMINE HCL 20 MG TAB PO SCH ×3 (09:25→20:14)
[2017-09-02] MEDS: SODIUM CHLORIDE 0.9% 1000ML 1,000 ML IV SCH ×2 (09:26)
[2017-09-02] MEDS: PREGABALIN 75 MG CAP PO SCH ×3 (09:26→20:14)
[2017-09-02] MEDS: ATORVASTATIN 40 MG TAB PO SCH (20:14)
[2017-09-02] MEDS: CLONAZEPAM 1 MG TAB PO SCH (20:14)
[2017-09-02] MEDS: TOPIRAMATE 100 MG TAB PO SCH (20:14)
[2017-09-02] MEDS: RANITIDINE HCL 150 MG PO SCH (20:16)
== END 2017-09-02 21:15 | DRG 974 ==
LOC: ER 07:42 → ERHOLD 08:48 → MED/SURG2 11:24
DX: A41.9 Sepsis, unspecified organism (principal); J69.0 Pneumonitis due to inhalation of food and vomit; B20 Human immunodeficiency virus [HIV] disease; R65.21 Severe sepsis with septic shock; N17.9 Acute kidney failure, unspecified; E11.8 Type 2 diabetes mellitus with unspecified complications; R09.02 Hypoxemia; E11.9 Type 2 diabetes mellitus without complications; N18.9 Chronic kidney disease, unspecified
CPT/HCPCS: 36415; 36600; 51700; 71045; 74230; 78582; 80053; 81001; 82550; 82553; 82805; 82948; 83605; 83735; 83880; 84484; 85025; 85610; 85730; 87040; 87070; 87086; 87205; 93005; 94640; 96361; 99284; A9540; A9558; J1650; J1940; J2543; J3370; J7030; J7050

== ENCOUNTER → 2017-10-10 | Day surgery (SDC) | payer MEDICARE, OTHER ==
[~2017-10-10] MED LIST changes: +ALLERGY RELIEF25 M1 PO; +ASPIR 8181 MG PO; +BENADRYL25 M1 PO; +BUTALBIT-ACETA1 EACH PO; +COMBIVENT RESPIM4 GM IH; +CVS OMEGA-3 KR1 EACH PO; +JULUCA PO; +LASIX20 MG PO; +LEVOTHYROXINE75 MCG PO; +PROPOFOL IV EMULSION 10 MG/ML 50 ML VIAL ONE; +STOOL SOFTENER100 MG PO; +VITAMIN C1000 MG PO; +VOLTAREN100 GM TOP; +ZINC SULFATE220 MG PO
--- NOTE | 2017-10-10 12:31 | Operative Report ---
DATE OF PROCEDURE: October 10, 2017 REFERRING PHYSICIAN: Dr. Flex Besnon PROCEDURE PERFORMED: Esophagogastroduodenoscopy with esophageal dilatation and biopsies. INDICATIONS FOR EGD: Dysphagia to solids. MEDICATION: Patient was done under MAC. Please see anesthesiologist's note. PROCEDURE: With the patient in the left lateral decubitus position, the flexible fiberoptic Olympus gastroscope was introduced into the esophagus under direct visualization without any difficulty. There was a minute tongue of velvety red mucosa noted to extend proximally from the GE junction that was biopsied to rule out Herman's. The esophagus was then dilated to a size 52-Tajik Kat. The scope was then advanced with ease into the stomach. Mucosa overlying the antrum and the body revealed some diffuse erythema and low-grade edema, and biopsies were obtained and sent to stain for H. pylori. The pylorus was of normal contour and shape. It was intubated with ease, and the scope was advanced all the way to the 2nd portion of the duodenum. The scope was then withdrawn slowly. Mucosa overlying the proximal 2nd portion and the duodenal bulb appeared to be within normal limits. The scope was then withdrawn back into the stomach and retroflexed. The mucosa overlying the fundus and the cardia appeared to be within normal limits. The scope was then straightened out. The stomach was decompressed. Scope was subsequently withdrawn. Patient tolerated the procedure well. IMPRESSION 1. Rule out Herman's esophagus. 2. Esophagus dilated to a size 52-Tajik Kat. 3. Gastritis, biopsied. Biopsies sent to stain for H. pylori. PLAN: Follow up histology. Continue Protonix 40 mg 1 p.o. a.c. b.i.d. and Carafate 1 gram p.o. a.c. t.i.d. and nightly. Job#: [id number] cc:FLEX BENSON MD
== END | disposition home or self-care (01) ==
LOC: OR 08:47
PROVIDERS: ATTEND Internal Medicine Gastroenterology
DX: R13.10 Dysphagia, unspecified (principal); K29.70 Gastritis, unspecified, without bleeding; K31.89 Other diseases of stomach and duodenum; K21.9 Gastro-esophageal reflux disease without esophagitis; K22.8 Other specified diseases of esophagus; K59.00 Constipation, unspecified; R05 Cough; I10 Essential (primary) hypertension; G80.9 Cerebral palsy, unspecified; E03.9 Hypothyroidism, unspecified; Z21 Asymptomatic human immunodeficiency virus [HIV] infection status; E78.00 Pure hypercholesterolemia, unspecified; Z88.8 Allergy status to other drugs, medicaments and biological substances; Z01.810 Encounter for preprocedural cardiovascular examination
CPT/HCPCS: 43239; 43450; 88305; 88312; 93005

== ENCOUNTER 2017-11-28 13:27 | Emergency (ER) | payer MEDICARE, OTHER ==
[~2017-11-28] VITALS: Ht 170.2 cm; Wt 80.7 kg
[~2017-11-28 13:27] MED LIST changes: -PROPOFOL IV EMULSION 10 MG/ML 50 ML VIAL ONE
[2017-11-28 15:06] LABS: BASOPHILS % 0.4 % (0.0-1.0); EOSINOPHILS # (AUTO) 0.1 (0.0-0.4); EOSINOPHILS % 1.3 % (0.0-6.0); HEMATOCRIT 43.7 % (38.2-49.6); HEMOGLOBIN 13.7 g/dL (14.0-18.0); LYMPHOCYTES # (AUTO) 0.9 (1.0-3.2); LYMPHOCYTES % 16.7 % (18.0-39.1); MEAN CORPUSCULAR HEMOGLOBIN 29.7 pg (28-32); MEAN CORPUSCULAR HGB CONC 31.4 g/dL (31-35); MEAN CORPUSCULAR VOLUME 94.8 fL (81-99); MONOCYTES # (AUTO) 0.5 (0.2-0.8); MONOCYTES % 10.2 % (4.4-11.3); NEUTROPHILS # (AUTO) 3.7 (2.1-6.9); NEUTROPHILS % 71.2 % (38.7-80.0); PLATELET COUNT 110 x10e3/uL (140-360); RED BLOOD COUNT 4.61 x10e6/uL (4.3-5.7); RED CELL DISTRIBUTION WIDTH 14.9 % (11.7-14.4)
[2017-11-28 15:21] LABS: ALBUMIN 4.1 g/dL (3.5-5.0); ALBUMIN/GLOBULIN RATIO 1.3 (0.8-2.0); CALCIUM 9.7 mg/dL (8.4-10.2); CREATININE, SERUM 1.56 mg/dL (0.72-1.25); POTASSIUM 3.5 mmol/L (3.5-5.1)
--- NOTE | 2017-11-28 15:29 | Diagnostic Imaging Report ---
Examination: Single AP view of the chest. COMPARISON: 08/31/2017 INDICATION: Shortness of breath, possible pneumonia DISCUSSION: Examination is limited by patient rotation. The lungs show no focal airspace consolidation, pleural effusion, or pneumothorax. Opacity over the right midlung likely represent superimposition of the scapula with the posterior ribs. Cardiomediastinal contour is unchanged. No overt pulmonary edema. Multiple healed left rib fracture deformities. IMPRESSION: No consolidative pneumonia. Signed by: Dr. Stevie Elizondo M.D. on 11/28/2017 3:26 PM
[2017-11-28 15:52] LABS: ANION GAP 10.5 mmol/L (8-16)
[2017-11-28] MEDS ORDERED: SODIUM CHLORIDE 0.9% 1000ML 1,000 ML IV STA (16:06)
[2017-11-28 18:01] LABS: BILIRUBIN,URINE NEGATIVE (NEGATIVE); CLARITY,URINE SL CLOUDY (CLEAR); COLOR,URINE YELLOW (YELLOW); KETONES,URINE NEGATIVE (NEGATIVE); LEUKOCYTE ESTERASE ,URINE NEGATIVE (NEGATIVE); NITRITE,URINE NEGATIVE (NEGATIVE); PROTEIN,URINE DIPSTICK NEGATIVE (NEGATIVE); URINE UROBILINOGEN 0.2 mg/dL (0.2 - 1)
[2017-11-28] MEDS ORDERED: SODIUM CHLORIDE 0.9% 1000ML 1,000 ML IV SCH (19:00)
[2017-11-28 21:07] VITALS: BP 138/100
--- OUTSIDE RECORDS SUMMARY | 2017-12-06 12:05 | XMS REPORT | Continuity of Care Document ---
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 Tato Vergaraer Chronic pain syndrome Active Problem 05/05/2017 Tato Vergaraer Multiple sclerosis Active Problem 05/05/2017 Tato Almanza Spondylosis without myelopathy or radiculopathy, lumbosacral region Active Problem 05/05/2017 Tato Vergaraer Radiculopathy, lumbar region Active Problem 05/05/2017 Tato Archie Sacrococcygeal disorders, not elsewhere classified Active Problem 05/05/2017 Tato Vergaraer Multiple sclerosis Active Problem 11/05/2016 Tato Almanza Disorders of sacrum Active Problem 11/05/2016 Tato Almanza Lumbosacral spondylosis without myelopathy Active Problem 11/05/2016 Tato Almanza Chronic pain syndrome Active Problem 11/05/2016 Tato Almanza Long-term use of other medications - High Risk Active Problem 11/05/2016 Tato Almanza Other symptoms involving nervous and musculoskeletal systems Active Problem 11/05/2016 Tato Almanza Abnormal posture Active Problem 11/05/2016 Tato Almanza Medications Medication Details Route Status Patient Instructions Ordering Provider Order Date Source Kristalose 1 packet mixed with 4 ounces of water Orally Active 10 GM Orally Once a day Sharri Almanza Levothyroxine Sodium 1 tablet Orally Active 0.05 Orally Once a day [facility] Tato Almanza Pantoprazole Sodium 1 tablet Orally Active 40 MG Orally Once a day Sharri Tato Almanza Namlgjyklwb-AESN-Cqkkgzu Prod as directed Orally Active 10-325 MG Orally [facility] Tato Almanza Lyrica 1 capsule Orally Active 150 MG Orally Three times a day Sharri Almanza Dicyclomine HCl 1 tablet Orally Active 20 MG Orally Four times a day Sharri Tato Almanza Furosemide 1 tablet Orally Active 20 MG Orally Once a day Sharri Tato Almanza Vytorin 1 tablet Orally Active 10-20 MG Orally Once a day [facility] Tato Almanza Linzess 1 capsule Orally Active 290 MCG Orally Once a day [facility] Tato Almanza Genvoya as directed Orally Active 108-124-492-10 MG Orally [facility] Tato Almanza Butalbital-Acetaminophen 1 tablet as needed Orally Active 50- 325 MG Orally every 4 hrs [facility] Tato Almanza Clonazepam 1 tablet Orally Active 0.5 MG Orally Twice a day [facility] Tato Almanza Allergies, Adverse Reactions, Alerts Substance Category Reaction Severity Reaction type Status Date Reported Comments Source Immunizations Immunization Date Given Site Status Last Updated Comments Source Results Order Name Results Value Reference Range Date Interpretation Comments Source Vital Signs Vital Sign Value Date Comments Source Weight 175 10/30/2016 Tato Almanza Height 57 10/30/2016 Tato Almanza Temperature Oral (F) 95 F 10/30/2016 Tato Almanza Heart Rate 78 10/30/2016 Tato Vergaraer Diastolic (mm Hg) 82 10/30/2016 Tato Almanza Systolic (mm Hg) 120 10/30/2016 Tato Almanza Temperature Oral (F) 95.0 F 08/04/2016 Tato Almanza Heart Rate 78 08/04/2016 Tato Almanza Height 57 08/04/2016 Tato Almanza Diastolic (mm Hg) 60 08/04/2016 Tato Almanza Systolic (mm Hg) 142 08/04/2016 Tato Almanza Weight 175 08/04/2016 Tato Almanza Encounters Location Location Details Encounter Type Encounter Number Reason For Visit Attending Provider ADM Date DC Date Status Source Procedures Procedure Code Date Perfomer Comments Source
== END 2017-11-28 21:10 | disposition home or self-care (01) ==
LOC: ER 13:27
DX: R05 Cough (principal); G80.9 Cerebral palsy, unspecified
CPT/HCPCS: 36415; 71045; 80053; 81001; 83880; 85025; 86361; 87015; 87040; 99284; J7030

== ENCOUNTER 2017-11-30 10:02 | Inpatient (IN) | payer MEDICARE, OTHER ==
[~2017-11-30] VITALS: Ht 170.2 cm; Wt 79.6 kg
[2017-11-30] VITALS (32 sets, daily range): BP systolic 83–120; BP diastolic 51–107
[2017-11-30] MEDS ORDERED: PIPER-TAZ 3.375 GM 50 ML IV STA (10:21)
[2017-11-30] MEDS ORDERED: VANCOMYCIN 1GM/NS 250 ML 250 ML IV STA (10:21)
[2017-11-30] MEDS ORDERED: SODIUM CHLORIDE 0.9% 1000ML 1,000 ML ONE ×2 (10:49→11:45)
[2017-11-30 11:04] LABS: BASOPHILS # (AUTO) 0.1 (0.0-0.1); BASOPHILS % 0.7 % (0.0-1.0); HEMATOCRIT 51.6 % (38.2-49.6); HEMOGLOBIN 16.3 g/dL (14.0-18.0); LYMPHOCYTES # (AUTO) 1.7 (1.0-3.2); LYMPHOCYTES % 23.4 % (18.0-39.1); MEAN CORPUSCULAR HEMOGLOBIN 29.6 pg (28-32); MEAN CORPUSCULAR HGB CONC 31.6 g/dL (31-35); MEAN CORPUSCULAR VOLUME 93.6 fL (81-99); MONOCYTES # (AUTO) 0.7 (0.2-0.8); MONOCYTES % 9.6 % (4.4-11.3); NEUTROPHILS # (AUTO) 4.9 (2.1-6.9); NEUTROPHILS % 65.9 % (38.7-80.0); PLATELET COUNT 119 x10e3/uL (140-360); RED BLOOD COUNT 5.51 x10e6/uL (4.3-5.7); RED CELL DISTRIBUTION WIDTH 15.4 % (11.7-14.4)
[2017-11-30 11:21] LABS: ALBUMIN 3.8 g/dL (3.5-5.0); ALBUMIN/GLOBULIN RATIO 0.8 (0.8-2.0); CALCIUM 10.3 mg/dL (8.4-10.2); CREATININE, SERUM 2.3 mg/dL (0.72-1.25)
[2017-11-30] MEDS ORDERED: PROPOFOL IV EMULSION 10MG/ML 100 ML ONE (11:26)
[2017-11-30 11:28] LABS: CREATINE KINASE MB 3.1 ng/mL (0-5.0)
[2017-11-30] MEDS ORDERED: PROPOFOL IV EMULSION 10 MG/ML 20 ML VIAL IV ONE (11:30)
[2017-11-30] MEDS: FENTANYL CITRATE INJ 2,000 MCG in SODIUM CHLORIDE 0.9% 250ML 210 ML IV PRN (11:50)
[2017-11-30] MEDS: MIDAZOLAM HCL 25 MG in SODIUM CHLORIDE 0.9% 50ML 45 ML IV PRN ×2 (11:50→17:23)
--- NOTE | 2017-11-30 12:34 | Diagnostic Imaging Report ---
EXAM: XR CHEST 1 VIEW DATE: 11/30/2017 10:21 AM INDICATION: Intubation COMPARISON: 11/28/2017 FINDINGS: Lines and Tubes: Body habitus and underpenetration limit evaluation. No definite ET tube identified. Heart and Mediastinum: No acute cardiomediastinal findings. Lungs and Pleura: Low lung volumes, body habitus, underpenetration limit. Moderate scattered airspace opacities, more conspicuous. Bones and Soft Tissues: Healed rib fractures. IMPRESSION: 1. No ET tube visualized, possibly technical. 2. Worsening bilateral airspace opacities suggest worsening edema and/or pneumonia. Signed by: Dr. Manohar Cotto MD on 11/30/2017 12:31 PM
[2017-11-30 12:51] LABS: BILIRUBIN,URINE NEGATIVE (NEGATIVE); CLARITY,URINE SL CLOUDY (CLEAR); COLOR,URINE YELLOW (YELLOW); KETONES,URINE NEGATIVE (NEGATIVE); LEUKOCYTE ESTERASE ,URINE NEGATIVE (NEGATIVE); NITRITE,URINE NEGATIVE (NEGATIVE); PROTEIN,URINE DIPSTICK TRACE (NEGATIVE); URINE UROBILINOGEN 0.2 mg/dL (0.2 - 1)
[2017-11-30 12:55] LABS: LYMPHOCYTES % (MANUAL) 36 % (19-48); MONOCYTES % (MANUAL) 17 % (3.4-9.0); NEUTROPHILS % (MANUAL) 38 % (40-74)
[2017-11-30 12:56] LABS: PLATELET ESTIMATE SLIGHTLY DECREASED; PLATELET MORPHOLOGY COMMENT NORMAL; RBC MORPHOLOGY COMMENT NORMAL
[2017-11-30 13:01] LABS: AMORPHOUS SEDIMENT,URINE FEW (FEW); BACTERIA,URINE MANY /HPF; HYALINE CASTS 0-1 (0-1)
[2017-11-30] MEDS: SODIUM CHLORIDE 0.9% 1000ML 1,000 ML IV SCH ×2 (13:28→21:37)
[2017-11-30 13:37] LABS: ABG HCO3 20 mmol/L (23-28); ABG PCO2 39 mmHg (41-51); ABG PH 7.31 (7.31-7.41); ABG PO2 60 mmHg (80-105)
[2017-11-30] MEDS ORDERED: MIDAZOLAM HCL 2 MG/2 ML VIAL ONE (14:30)
[2017-11-30] MEDS ORDERED: FENTANYL CITRATE/PF 100MCG/2 ML INJ ONE (14:31)
[2017-11-30] MEDS ORDERED: MIDAZOLAM HCL 2 MG/2 ML VIAL IV STA (14:39)
[2017-11-30] MEDS ORDERED: FENTANYL CITRATE/PF 100MCG/2 ML INJ IV ONE (14:45)
--- NOTE | 2017-11-30 15:21 | Diagnostic Imaging Report ---
ADDENDUM #1 Addendum: Underpenetration and rotation again significantly degraded image quality. There is questionable tubing overlying the right neck, presumably right IJ catheter. Tip not adequately assessed. Signed by: Dr. Manohar Cotto MD on 11/30/2017 3:37 PM ORIGINAL REPORT EXAM: XR CHEST 1 VIEW DATE: 11/30/2017 2:39 PM INDICATION: Central line placement COMPARISON: Same day at 1152 FINDINGS: Lines and Tubes: ET tube present with tip above arnaldo. Heart and Mediastinum: Accentuated by low lung volumes. Lungs and Pleura: Underpenetration, exclusion right costophrenic angle, body habitus, and rotation limit evaluation. Scattered airspace opacities. Bones and Soft Tissues: Healed rib fractures. IMPRESSION: 1. Intubation. 2. Scattered airspace opacities poorly evaluated due to suboptimal technique. Signed by: Dr. Manohar Cotto MD on 11/30/2017 3:18 PM
[2017-11-30] MEDS ORDERED: VANCOMYCIN HCL 1GM/NS 250 ML BAG IV SCH (15:30)
[2017-11-30] MEDS: NOREPINEPHRINE 8 MG/D5W 250 ML 250 ML IV SCH (15:34)
[2017-11-30] MEDS ORDERED: VANCOMYCIN 1GM/NS 250 ML 250 ML IV SCH (15:45)
[2017-11-30 16:08] LABS: ABG PH 7.31 (7.31-7.41)
[2017-11-30 16:09] LABS: ABG HCO3 19 mmol/L (23-28); ABG PCO2 39 mmHg (41-51); ABG PO2 217 mmHg (80-105)
[2017-11-30] MEDS: CEFEPIME HCL 1 GM VIAL IV SCH (18:15)
[2017-12-01] VITALS (81 sets, daily range): BP systolic 81–136; BP diastolic 44–79
[2017-12-01] MEDS: CEFEPIME HCL 1 GM VIAL IV SCH ×2 (04:30→15:13)
[2017-12-01] MEDS: SODIUM CHLORIDE 0.9% 1000ML 1,000 ML IV SCH ×3 (04:30→21:29)
[2017-12-01 07:07] LABS: BASOPHILS % 0.3 % (0.0-1.0); HEMATOCRIT 37.5 % (38.2-49.6); HEMOGLOBIN 11.6 g/dL (14.0-18.0); LYMPHOCYTES # (AUTO) 1.4 (1.0-3.2); LYMPHOCYTES % 19.3 % (18.0-39.1); MEAN CORPUSCULAR HEMOGLOBIN 29.5 pg (28-32); MEAN CORPUSCULAR HGB CONC 30.9 g/dL (31-35); MEAN CORPUSCULAR VOLUME 95.4 fL (81-99); MONOCYTES % 13.8 % (4.4-11.3); NEUTROPHILS # (AUTO) 4.8 (2.1-6.9); NEUTROPHILS % 66.2 % (38.7-80.0); PLATELET COUNT 107 x10e3/uL (140-360); RED BLOOD COUNT 3.93 x10e6/uL (4.3-5.7); RED CELL DISTRIBUTION WIDTH 15.8 % (11.7-14.4)
[2017-12-01 07:17] LABS: ANION GAP 17.1 mmol/L (8-16); CREATININE, SERUM 1.98 mg/dL (0.72-1.25); POTASSIUM 3.1 mmol/L (3.5-5.1)
[2017-12-01] MEDS: VANCOMYCIN 1GM/NS 250 ML 250 ML IV SCH (08:07)
[2017-12-01] MEDS ORDERED: POTASSIUM CHLORIDE 20MEQ/100ML 200 ML IV ONE (09:00)
--- NOTE | 2017-12-01 09:44 | Diagnostic Imaging Report ---
PROCEDURE: A single AP view of the chest. COMPARISON: Chest radiograph 11/30/17. INDICATIONS: PNEUMONIA FINDINGS: Exam limited by portable technique and rotation. Lines/tubes: ET Tube terminates 5.2 cm above the arnaldo. Right IJ central line with tip near the expected location of the cavoatrial unction. Lungs: Low lung volumes. Left retrocardiac and bibasilar patchy opacities persistent. Perihilar and interstitial opacities. Pleura: Possible small left pleural effusion. No evidence of pneumothorax. Heart and mediastinum: The cardiomediastinal silhouette is unchanged. Bones: No acute bony abnormality. Healed rib fractures are again noted. IMPRESSION: Lines and tubes as above. No evidence of pneumothorax. Exam limited by portable technique and rotation. Lower lung zone predominant opacities, consistent with clinical history of pneumonia. Mild perihilar and interstitial opacities could reflect pulmonary interstitial edema. Dictated by: ANIKET WAYNE M.D. on 12/01/2017 at 9:51 Electronically approved by: ANIKET WAYNE M.D. on 12/01/2017 at 9:51
[2017-12-01 10:12] LABS: BAND NEUTROPHILS % (MANUAL) 4 %; LYMPHOCYTES % (MANUAL) 19 % (19-48); MONOCYTES % (MANUAL) 9 % (3.4-9.0); NEUTROPHILS % (MANUAL) 68 % (40-74); PLATELET ESTIMATE SLIGHTLY DECREASED; PLATELET MORPHOLOGY COMMENT NORMAL; RBC MORPHOLOGY COMMENT NORMAL
[2017-12-01] MEDS: NOREPINEPHRINE 8 MG/D5W 250 ML 250 ML IV SCH (14:33)
--- NOTE | 2017-12-01 14:41 | Consultation ---
DATE OF CONSULTATION: December 01, 2017 REASON FOR CONSULTATION: Sepsis. HISTORY OF PRESENT ILLNESS: This patient who is well known to me very pleasant and unfortunate gentleman who is a 57, who has history of cerebral palsy, history of HIV and AIDS for several years, well suppressed, recurrent aspiration, recurrent sepsis. He was seen in the emergency room few days ago with not feeling well. Apparently, he was having nausea. Lab was done, sent home, and the patient presented again with shortness of breath, not doing well. Patient is currently intubated in the intensive care unit. Mother is at the bedside. The patient who is currently comfortable, sedative at the present time, review of systems could not be obtained. According to the mother, there is only the nausea and shortness of breath and just not feeling well in general. No specific fever or chills that she could think off. He has history of HIV, history aids, but his viral load is undetectable. He is very compliant of his medication. PAST MEDICAL HISTORY: As above. PAST SURGICAL HISTORY: Denies. ALLERGIES: GUAIPHENESIN. SOCIAL HISTORY: No smoking, drug abuse, or alcohol use. REVIEW OF SYSTEMS: Could not be obtained at the present time except as mentioned above. LABORATORY DATA: White count 7.26, hemoglobin 11, and hematocrit 37. Sodium 139, potassium 4.0, creatinine 2.30. Lactic acid 24.3. Cultures are still pending. Chest x-ray showed mild perihilar increased opacities, pulmonary interstitial edema. PHYSICAL EXAMINATION GENERAL: He is intubated and sedated. VITAL SIGNS: Stable. No fevers since admission. HEENT: Normocephalic. NECK: Supple. CHEST: Clear. COR: S1 and S2 with no murmur. ABDOMEN: Soft. IMPRESSION: Sepsis on admission, source is unclear. PLAN 1. We will obtain ultrasound of the abdomen. Agree with antibiotic. 2. ATN/underlying chronic kidney disease. I think it is worse because of sepsis. We will get CT of abdomen and pelvis. 3. HIV and AIDS. Continue his medication as ordered. We will follow with you. Job#: [id number] CARIDAD
[2017-12-01 16:58] LABS: ABG HCO3 -12 mmol/L (23-28); ABG PCO2 45 mmHg (41-51); ABG PH 7.16 (7.31-7.41); ABG PO2 103 mmHg (80-105)
[2017-12-01 16:59] LABS: ABG BASE EXCESS 16.4 mmol/L (-2 - 3)
[2017-12-01] MEDS: PANTOPRAZOLE SOD 40 MG TABEC PO SCH (17:00)
[2017-12-01] MEDS: MIDAZOLAM HCL 25 MG in SODIUM CHLORIDE 0.9% 50ML 45 ML IV PRN (17:13)
[2017-12-01] MEDS: ENOXAPARIN 30 MG/0.3 ML SYR SC SCH (17:17)
--- NOTE | 2017-12-01 17:35 | Diagnostic Imaging Report ---
EXAMINATION: CT of the abdomen and pelvis without contrast. TECHNIQUE: Helical CT images of the abdomen and pelvis were performed from the lung bases to the lesser trochanters. No intravenous contrast was given per renal stone protocol. Coronal and sagittal reformatted images were obtained. COMPARISON: None. CLINICAL HISTORY:Evaluate for infection DISCUSSION: ABSENCE OF INTRAVENOUS CONTRAST DECREASES SENSITIVITY FOR DETECTION OF FOCAL LESIONS AND VASCULAR PATHOLOGY. ABDOMEN/PELVIS: LOWER THORAX: Atelectasis/pneumonia in the lower lobes, greater on the left. HEPATOBILIARY:No focal hepatic lesions. Cholecystectomy clips. SPLEEN: Splenic granuloma. PANCREAS: No focal masses or ductal dilatation. ADRENALS: No adrenal nodules. KIDNEYS/URETERS: 2.2 cm simple cyst right kidney. Left kidney unremarkable. PELVIC ORGANS/BLADDER: Quiroz catheter within the decompressed bladder. PERITONEUM/RETROPERITONEUM: No free air or fluid. LYMPH NODES: No intra-abdominal,retroperitoneal, pelvic or inguinal lymphadenopathy. VESSELS: Limited evaluation GI TRACT: Large amount of retained stool throughout the colon. BONES AND SOFT TISSUES: No bony destructive lesions. No soft tissue abnormalities. IMPRESSION: Left greater than right lower lobe atelectasis versus pneumonia. Large amount of retained stool throughout the colon. Signed by: Dr. Paras Soares M.D. on 12/01/2017 5:31 PM
--- NOTE | 2017-12-01 18:05 | Consultation ---
DATE OF CONSULTATION: December 01, 2017 PULMONARY/CRITICAL CARE CONSULTATION REFERRING PHYSICIAN: Dr. Shannon Cheung. CHIEF COMPLAINT: respiratory failure, low blood pressure and elevated creatinine. HISTORY OF PRESENT ILLNESS: The patient is a 57-year-old man. He has a history of HIV and AIDS. He has been on antiretroviral therapy for several years. He is very compliant with his medications. According to his infectious disease physician, his most recent viral load was undetectable. The patient also has a history of chronic neurological problems. He has recurrent aspiration and has difficulty ambulating. He has been hospitalized several times with aspiration pneumonia as well as once with a decubitus ulcer. [facility] He came to the emergency department on the with worsening congestion and some malaise but had a normal chest x-ray and normal labs. He subsequently returned to the SNF but became worse. He came to the emergency department last night with congestion and difficulty breathing. He also had a low blood pressure. He required intubation in the emergency department and was admitted to the intensive care unit. He was given intravenous fluids and started on Levophed. He was placed on a spontaneous breathing trial this morning but did not do well and had to remain on the ventilator. PAST MEDICAL HISTORY: 1. Chronic neurological disease. 2. Recurrent aspiration. 3. HIV that is well controlled. 4. Thyroid disease. PAST SURGICAL HISTORY: Noncontributory. ALLERGIES: GUAIFENESIN. SOCIAL HISTORY: [facility]. He is not an active smoker or a drinker. REVIEW OF SYSTEMS: He did not have a fever according to the emergency department and the nursing staff. He did not complain of headache or neck pain. He did have some congestion and cough. He did not have chest pain. There is no report of nausea or vomiting. There is no report of leg pain or erythema. PHYSICAL EXAMINATION: VITAL SIGNS: The patient is now afebrile. His blood pressure is 99/56 with a mean of 70 on low-dose Levophed and normal saline at 125 mL an hour. He is on a PRVC mode of ventilation at a rate of 16 with a tidal volume of 450. His PEEP is set at 5. He has a right IJ line in place. The site looks clean. There is no drainage. CARDIAC: Exam reveals a regular rate and rhythm with a normal S1 and S2. LUNGS: Auscultation reveals rhonchorous breath sounds bilaterally. There is no wheezing. ABDOMEN: Soft, nontender. There is no rebound or guarding. EXTREMITIES: Examination shows no leg edema or calf tenderness. There are SCDs in place. NEUROLOGIC: Exam shows no focal abnormalities. LABORATORY DATA: The white blood cell count is 7.26 with a hemoglobin of 11.6 and a platelet count of 107. He has 68% neutrophils and 4% bands. His BUN to creatinine ratio is 40 to 1.98 with a bicarbonate of 16 and a chloride of 111. His anion gap is 14. His calcium is 10.3, and his total bilirubin is 1.3. His lactic acid yesterday was 24.3. RADIOGRAPHIC DATA: Chest x-ray shows a new endotracheal tube in place. There are some opacities in the lower lung curtis. IMPRESSION: 1. Aspiration pneumonia with septic shock and hypotension. 2. Acute respiratory failure. 3. Thrombocytopenia. 4. Chronic neurological impairment. 5. Human immunodeficiency virus that is well controlled with an undetectable viral load. 6. Thyroid disease. 7. Acute kidney injury. PLAN: 1. Continue IV hydration. 2. Wean Levophed. 3. Continue IV antibiotics; Infectious Disease is adjusting the vancomycin. 4. Patient has been pancultured. 5. Begin enteral feedings. 6. Repeat creatinine and electrolytes in the morning. 7. Monitor urine output. 8. DVT prophylaxis. Job#: [id number] DARCIE
[2017-12-01] MEDS ORDERED: NON-FORMULARY MEDICATION (Pregabalin (Lyrica) 150 MG) PO SCH (21:00)
[2017-12-01] MEDS: TOPIRAMATE 100 MG TAB PO SCH (21:30)
[2017-12-01] MEDS: FENTANYL CITRATE INJ 2,000 MCG in SODIUM CHLORIDE 0.9% 250ML 210 ML IV PRN (21:30)
[2017-12-01] MEDS: PREGABALIN 75 MG CAP PO SCH (21:30)
[2017-12-02] VITALS (81 sets, daily range): BP systolic 73–144; BP diastolic 36–85
[2017-12-02] MEDS: CEFEPIME HCL 1 GM VIAL IV SCH ×2 (03:15→15:47)
[2017-12-02 04:45] LABS: BASOPHILS % 0.5 % (0.0-1.0); EOSINOPHILS % 0.2 % (0.0-6.0); HEMATOCRIT 40.8 % (38.2-49.6); HEMOGLOBIN 12.4 g/dL (14.0-18.0); LYMPHOCYTES # (AUTO) 0.6 (1.0-3.2); MEAN CORPUSCULAR HEMOGLOBIN 29.9 pg (28-32); MEAN CORPUSCULAR HGB CONC 30.4 g/dL (31-35); MEAN CORPUSCULAR VOLUME 98.3 fL (81-99); MONOCYTES # (AUTO) 0.4 (0.2-0.8); MONOCYTES % 5.9 % (4.4-11.3); NEUTROPHILS # (AUTO) 5.4 (2.1-6.9); NEUTROPHILS % 80.5 % (38.7-80.0); RED BLOOD COUNT 4.15 x10e6/uL (4.3-5.7); RED CELL DISTRIBUTION WIDTH 15.6 % (11.7-14.4)
[2017-12-02 04:55] LABS: ALBUMIN/GLOBULIN RATIO 0.8 (0.8-2.0); ANION GAP 20.2 mmol/L (8-16); CALCIUM 9.7 mg/dL (8.4-10.2); CREATININE, SERUM 1.92 mg/dL (0.72-1.25); POTASSIUM 3.2 mmol/L (3.5-5.1)
[2017-12-02 05:05] LABS: PLATELET COUNT 94 x10e3/uL (140-360)
[2017-12-02] MEDS: SODIUM CHLORIDE 0.9% 1000ML 1,000 ML IV SCH (05:22)
[2017-12-02] MEDS: LEVOTHYROXINE SODIUM 75 MCG TAB PO SCH (05:23)
[2017-12-02] MEDS: PANTOPRAZOLE SOD 40 MG TABEC PO SCH ×2 (07:07→15:40)
--- NOTE | 2017-12-02 07:56 | Diagnostic Imaging Report ---
EXAM: XR CHEST 1 VIEW DATE: 12/02/2017 6:00 AM INDICATION: Respiratory failure. COMPARISON: Chest radiograph 12/01/17. FINDINGS: Exam substantially limited by portable technique, rotation, and underpenetration. Lines and Tubes: ET tube present with tip above arnaldo. Right IJ non tunneled central line tip terminates in the expected location of the mid SVC. Enteric tube terminates in the stomach. Lungs and Pleura: Low lung volumes. New consolidation in the right upper lung. Patchy opacities at the lung bases. No evidence of pneumothorax or pleural effusion. Heart and Mediastinum: Unchanged cardiomediastinal silhouette. Bones and Soft Tissues: Healed rib fractures. IMPRESSION: New consolidation in the right upper lung and persistent opacities at the lung bases which could represent atelectasis or pneumonia. Lines and tubes as above. No evidence of pneumothorax. Signed by: Dr. Janusz Cohn MD on 12/02/2017 7:53 AM
[2017-12-02] MEDS ORDERED: SODIUM CHLORIDE 0.45% 1,000 ML IV ONE (08:00)
[2017-12-02 08:51] LABS: ALBUMIN 2.9 g/dL (3.5-5.0); ALBUMIN/GLOBULIN RATIO 0.8 (0.8-2.0); ANION GAP 21.1 mmol/L (8-16); CALCIUM 9.7 mg/dL (8.4-10.2); CREATININE, SERUM 1.97 mg/dL (0.72-1.25); MAGNESIUM 1.9 MG/DL (1.3-2.1); POTASSIUM 3.1 mmol/L (3.5-5.1)
--- NOTE | 2017-12-02 08:59 | Progress Note ---
DATE: December 02, 2017 PULMONARY/CRITICAL CARE PROGRESS NOTE SUBJECTIVE: The patient has remained on assist-control mode of ventilation overnight. He remains on Levophed at 5 mcg. His urine output is good. OBJECTIVE: VITAL SIGNS: The blood pressure is 131/73 and the pulse is 76. He is afebrile. He has 2 liters of urine output yesterday with a positive balance of 525 mL. He is placed on a pressure support of 8 with a CPAP of 3. He is breathing about 14 times a minute with tidal volumes of 500 to 600 mL. HEENT: Shows no facial swelling or erythema. There is an oral endotracheal tube. LYMPHATIC: Normal. NECK: He has a right IJ line in place. CARDIAC: Reveals a regular rate and rhythm with a normal S1 and S2. LUNGS: Auscultation of the lungs reveals decreased breath sounds at the bases. There is no wheezing. ABDOMEN: Soft and nontender. There is no rebound or guarding. EXTREMITIES: Reveals no leg edema or calf tenderness. LABORATORY DATA: The sodium is 144, the potassium is 3.2, and the BUN to creatinine ratio is 35 to 1.92. The total protein is 6.8 and the albumin is 3. The liver function tests are normal. White blood cell count is 6.6 with a hemoglobin of 12.4 and a platelet count of 94,000. RADIOGRAPHIC DATA: Abdominal and pelvic CT scan shows left greater than right basilar infiltrates and large amount of retained stool. IMPRESSION: 1. Aspiration pneumonia with septic shock. 2. Respiratory failure. 3. Acute kidney injury. 4. Mixed anion gap and non-anion gap metabolic acidosis. 5. Human immunodeficiency virus with an undetectable viral load. PLAN: 1. Patient was placed on a spontaneous breathing trial; we will repeat ABG and work towards extubation. 2. Wean Levophed as tolerated. 3. Change fluids from normal saline to half-normal saline because of worsening metabolic acidosis. 4. Hold enteral feedings prior to extubation. 5. Continue to monitor renal function and electrolytes. 6. Continue current antibiotics and discuss with infectious disease. 7. Repeat chest x-ray in a.m. 8. Greater than 35 minutes in direct critical care time. Job#: [id number]
[2017-12-02] MEDS: VANCOMYCIN 1GM/NS 250 ML 250 ML IV SCH (10:00)
[2017-12-02] MEDS: ZINC SULFATE 220 MG CAP PO SCH (10:05)
[2017-12-02] MEDS: PREGABALIN 75 MG CAP PO SCH ×3 (10:05→20:47)
[2017-12-02 10:13] LABS: ANISOCYTOSIS SLIGHT; BAND NEUTROPHILS % (MANUAL) 9 %; LYMPHOCYTES % (MANUAL) 12 % (19-48); METAMYELOCYTES % (MANUAL) 2 % (0-0); MONOCYTES % (MANUAL) 4 % (3.4-9.0); MYELOCYTES % (MANUAL) 2 % (0-0); NEUTROPHILS % (MANUAL) 71 % (40-74); PLATELET ESTIMATE SLIGHTLY DECREASED; PLATELET MORPHOLOGY COMMENT FEW LARGE; RBC MORPHOLOGY COMMENT NORMAL
[2017-12-02] MEDS: NOREPINEPHRINE 8 MG/D5W 250 ML 250 ML IV SCH (10:50)
[2017-12-02] MEDS ORDERED: POTASSIUM CHLORIDE 20MEQ/15ML UDC NG NR (11:00)
[2017-12-02 13:51] LABS: ABG HCO3 16 mmol/L (23-28); ABG PCO2 43 mmHg (41-51); ABG PH 7.19 (7.31-7.41); ABG PO2 110 mmHg (80-105)
[2017-12-02 16:32] LABS: ANION GAP 17.2 mmol/L (8-16); CALCIUM 8.9 mg/dL (8.4-10.2); CREATININE, SERUM 1.92 mg/dL (0.72-1.25); POTASSIUM 3.2 mmol/L (3.5-5.1)
[2017-12-02] MEDS: ENOXAPARIN 30 MG/0.3 ML SYR SC SCH (17:30)
[2017-12-02] MEDS ORDERED: ETOMIDATE 40 MG/ 20ML VIAL IV ONE (19:17)
[2017-12-02] MEDS ORDERED: MIDAZOLAM HCL 2 MG/2 ML VIAL ONE (19:17)
[2017-12-02] MEDS ORDERED: SUCCINYLCHOLINE 200 MG/10 ML SYR ONE (19:17)
[2017-12-02] MEDS: TOPIRAMATE 100 MG TAB PO SCH (20:47)
[2017-12-03] VITALS (60 sets, daily range): BP systolic 75–141; BP diastolic 34–79
[2017-12-03] MEDS: NOREPINEPHRINE 8 MG/D5W 250 ML 250 ML IV SCH (00:25)
[2017-12-03] MEDS: CEFEPIME HCL 1 GM VIAL IV SCH (03:23)
[2017-12-03 04:39] LABS: BASOPHILS % 0.3 % (0.0-1.0); EOSINOPHILS % 0.3 % (0.0-6.0); HEMATOCRIT 37.6 % (38.2-49.6); HEMOGLOBIN 11.7 g/dL (14.0-18.0); LYMPHOCYTES # (AUTO) 0.7 (1.0-3.2); LYMPHOCYTES % 7.3 % (18.0-39.1); MEAN CORPUSCULAR HEMOGLOBIN 29.5 pg (28-32); MEAN CORPUSCULAR HGB CONC 31.1 g/dL (31-35); MEAN CORPUSCULAR VOLUME 94.9 fL (81-99); MONOCYTES # (AUTO) 0.9 (0.2-0.8); MONOCYTES % 8.8 % (4.4-11.3); NEUTROPHILS # (AUTO) 8.2 (2.1-6.9); NEUTROPHILS % 82.2 % (38.7-80.0); PLATELET COUNT 124 x10e3/uL (140-360); RED BLOOD COUNT 3.96 x10e6/uL (4.3-5.7); RED CELL DISTRIBUTION WIDTH 15.3 % (11.7-14.4)
[2017-12-03 05:08] LABS: ALBUMIN 2.8 g/dL (3.5-5.0); ALBUMIN/GLOBULIN RATIO 0.7 (0.8-2.0); ANION GAP 16.1 mmol/L (8-16); CALCIUM 9.9 mg/dL (8.4-10.2); CREATININE, SERUM 1.81 mg/dL (0.72-1.25); POTASSIUM 3.1 mmol/L (3.5-5.1)
[2017-12-03] MEDS: LEVOTHYROXINE SODIUM 75 MCG TAB PO SCH (05:24)
[2017-12-03] MEDS: PANTOPRAZOLE SOD 40 MG TABEC PO SCH (07:18)
--- NOTE | 2017-12-03 07:19 | Diagnostic Imaging Report ---
EXAMINATION: CHEST SINGLE (PORTABLE) INDICATION: \S\Aspiration Pneumonia COMPARISON: 12/02/2017 FINDINGS: AP view TUBES and LINES: Stable nasogastric tube, endotracheal tube, and right internal jugular central line. LUNGS: Very limited study due to rotation and low lung volumes. Bilateral perihilar opacities. Retrocardiac opacification. PLEURA: No pleural effusion or pneumothorax. HEART AND MEDIASTINUM: The cardiomediastinal silhouette is unremarkable. BONES AND SOFT TISSUES: No acute osseous lesion. Soft tissues are unremarkable. UPPER ABDOMEN: No free air under the diaphragm. IMPRESSION: Very limited study as above. Bilateral perihilar and retrocardiac opacities, representing atelectasis and/or pneumonia. Signed by: Dr. Olivier Arreaga MD on 12/03/2017 7:16 AM
[2017-12-03] MEDS ORDERED: POTASSIUM CHLORIDE 20MEQ/15ML UDC NG STA (07:37)
[2017-12-03] MEDS ORDERED: SOD CHL 0.45%/POT CHL 20MEQ 1,000 ML IV ONE (07:45)
[2017-12-03] MEDS: ZINC SULFATE 220 MG CAP PO SCH (09:09)
[2017-12-03] MEDS: PREGABALIN 75 MG CAP PO SCH (09:09)
--- NOTE | 2017-12-03 09:54 | Progress Note ---
DATE: December 03, 2017 PULMONARY/CRITICAL CARE PROGRESS NOTE SUBJECTIVE: The patient was placed on a spontaneous breathing trial this morning. His respiratory rate and tidal volumes were in the acceptable range, but he developed a respiratory acidosis with an elevated carbon dioxide. He was subsequently switched back to PRVC. He remains on Levophed at 9.5 mcg. OBJECTIVE VITAL SIGNS: The blood pressure is 121/64 and the pulse is 53. The saturation is 98%. He is on a PRVC mode of ventilation with a rate of 15 and tidal volume of 650. HEENT: Shows no facial swelling or erythema. The patient has an oroendotracheal tube in and a feeding tube in. CARDIAC: Reveals regular rate and rhythm with a normal S1 and S2. LUNGS: Auscultation of the lungs reveals clear breath sounds bilaterally. There is no wheezing. ABDOMEN: Soft, nontender. There is no rebound or guarding. EXTREMITIES: Shows no leg edema or calf tenderness. There is no cyanosis or clubbing. LABORATORY DATA: White blood cell count is 9.9 and hemoglobin is 11.7, platelet count is 124. The KQI-yz-xyuxfyhqdd ratio is 25 to 1.8 with the potassium of 3.1. MICROBIOLOGICAL DATA: Sputum is growing out pseudomonas. RADIOGRAPHIC DATA: Chest x-ray is a poor study, which is relatively unchanged. IMPRESSION 1. Acute respiratory failure. 2. Aspiration pneumonia secondary to pseudomonas with septic shock. 3. Thrombocytopenia. 4. Chronic neurological impairment. 5. Human immunodeficiency virus, that is well controlled. 6. Thyroid disease. 7. Acute kidney injury. PLAN 1. Patient will be continued on IV antibiotics. I will discuss regimen with ID. 2. Continue PRVC ventilation and reattempt spontaneous breathing trial tomorrow. 3. Wean Levophed as tolerated. 4. Repeat chemistries and blood counts tomorrow. 5. Continue enteral feedings. 6. Case discussed with patient, nursing, and respiratory. Greater than 35 minutes of direct critical care time. Job#: [id number] BOB
[2017-12-03] MEDS: VANCOMYCIN 1GM/NS 250 ML 250 ML IV SCH (10:00)
[2017-12-03] MEDS ORDERED: MEROPENEM 1GRAM 1 GM in SODIUM CHLORIDE 0.9% 100 ML 100 ML IV SCH (21:00)
[2017-12-03] MEDS ORDERED: MEROPENEM 1 GM VIAL IV SCH (21:00)
--- NOTE | 2018-01-31 02:40 | Discharge Summary ---
CHIEF COMPLAINT: Respiratory failure, acute and pneumonia. FINAL DIAGNOSES 1. Aspiration pneumonia. 2. Respiratory failure. 3. Human immunodeficiency virus. 4. Diabetes type 2. DISPOSITION: [facility]. HOSPITAL COURSE: A 57-year-old male, known history of cerebral palsy, HIV, diabetes type 2, brought to the ER with a several-day history of progressive chest congestion, frequent cough and lethargy. Underwent review and evaluation in the emergency room. Found to be septic and in a state of respiratory failure requiring intubation and mechanical vent. His chest was revealing diffuse inspiratory crackles. Heart rate and rhythm strip was tachy coverage. Admission was made to ICU for continued vent management for care regarding progressive shortness of breath, congestion, cough, respiratory failure due to aspiration pneumonia, sepsis, HIV, cerebral palsy diabetes type 2. He will continue on the vent management per pulmonary. Will be yarbrough culturing the patient. Start IV antibiotics. Be monitoring his blood sugars as well. In ICU, he was resting comfortably. He was on conscious sedation. He was awake and responsive. He was receiving norepinephrine for BP support. He had been started on vancomycin as well as cefepime. His initial labs were showing potassium of 3.1. Kidney functions--BUN 40, creatinine 1.98, glucose 101. CBC was showing normal white count, hemoglobin was 11.6. His pulmonary status was regressing. Orders were being written to extubate the patient if possible. Blood cultures were negative. Sputum was showing evidence of gram-negative rods. He was continued on the vancomycin and the cefepime. Followup chest x-rays were showing consolidation findings in the right upper lung. Extubation was put on hold. Continuing vent support. Continue his medications. Patient will be requiring further long-term management of his medications as well as management of his respiratory status. Arrangements were being made with case management's assistance to be discharged to [facility], and on 12/03/2017, patient was transferred there in guarded condition, still on vent. EKGs on the patient were showing sinus tachycardia and right-zapata axis. Echocardiogram--ejection fraction of 55% to 60%. The patient was transferred to [facility] to ICU, being maintained on vent support. He will continue on nutrition through his nasogastric tube. His MAR sheet will be copied and continued. I will be following this patient's care at that facility on a daily basis. Adjustments will be made as needed. Requesting continuation of pulmonary follow and infectious disease follow. Dictated By: TRAVIS Reece. Job#: [id number] DANIELLE
== END 2017-12-03 15:35 | DRG 974 ==
LOC: ER 10:02 → ERHOLD 17:00 → ICU 17:03
PROC: 0BH17EZ Insertion of Endotracheal Airway into Trachea, Via Natural or Artificial Opening (ICD-10-PCS; principal; 2017-11-30)
PROC: 5A1945Z Respiratory Ventilation, 24-96 Consecutive Hours (ICD-10-PCS; 2017-11-30)
PROC: 02HV33Z Insertion of Infusion Device into Superior Vena Cava, Percutaneous Approach (ICD-10-PCS; 2017-11-30)
DX: A41.9 Sepsis, unspecified organism (principal); J96.00 Acute respiratory failure, unspecified whether with hypoxia or hypercapnia; B20 Human immunodeficiency virus [HIV] disease; N17.0 Acute kidney failure with tubular necrosis; J69.0 Pneumonitis due to inhalation of food and vomit; R65.21 Severe sepsis with septic shock; E87.2 Acidosis; G96.9 Disorder of central nervous system, unspecified; D69.59 Other secondary thrombocytopenia; B96.5 Pseudomonas (aeruginosa) (mallei) (pseudomallei) as the cause of diseases classified elsewhere; E11.9 Type 2 diabetes mellitus without complications; I12.9 Hypertensive chronic kidney disease with stage 1 through stage 4 chronic kidney disease, or unspecified chronic kidney disease; E11.22 Type 2 diabetes mellitus with diabetic chronic kidney disease; N18.9 Chronic kidney disease, unspecified
CPT/HCPCS: 31500; 36415; 36600; 71045; 74176; 80048; 80053; 80202; 81001; 82550; 82553; 82805; 82948; 83605; 83690; 83735; 83880; 84484; 85025; 86361; 87015; 87040; 87070; 87186; 87205; 93005; 93306; 94002; 94003; 99284; 99285; J0692; J1650; J2250; J2543; J3370; J3480; J7030; J7050

== ENCOUNTER 2018-02-16 08:22 | Inpatient (IN) | payer MEDICARE, OTHER ==
[~2018-02-16] VITALS: Ht 165.1 cm; Wt 83.1 kg
[2018-02-16 09:03] LABS: BASOPHILS % 0.6 % (0.0-1.0); EOSINOPHILS % 0.6 % (0.0-6.0); HEMATOCRIT 43.3 % (38.2-49.6); HEMOGLOBIN 13.5 g/dL (14.0-18.0); LYMPHOCYTES # (AUTO) 0.8 (1.0-3.2); MEAN CORPUSCULAR HGB CONC 31.2 g/dL (31-35); MEAN CORPUSCULAR VOLUME 93.1 fL (81-99); MONOCYTES # (AUTO) 0.5 (0.2-0.8); MONOCYTES % 7.2 % (4.4-11.3); NEUTROPHILS # (AUTO) 5.5 (2.1-6.9); NEUTROPHILS % 80.3 % (38.7-80.0); PLATELET COUNT 167 x10e3/uL (140-360); RED BLOOD COUNT 4.65 x10e6/uL (4.3-5.7); RED CELL DISTRIBUTION WIDTH 16.6 % (11.7-14.4)
[2018-02-16 09:12] LABS: INR 0.86; PROTHROMBIN TIME 12.5 seconds (11.9-14.5)
[2018-02-16 09:14] LABS: STREPTOCOCCUS GRP A ANTIGEN NEGATIVE (NEGATIVE)
[2018-02-16 09:19] LABS: BILIRUBIN,URINE NEGATIVE (NEGATIVE); CLARITY,URINE CLEAR (CLEAR); COLOR,URINE YELLOW (YELLOW); KETONES,URINE NEGATIVE (NEGATIVE); LEUKOCYTE ESTERASE ,URINE NEGATIVE (NEGATIVE); NITRITE,URINE NEGATIVE (NEGATIVE); PROTEIN,URINE DIPSTICK 1+ (NEGATIVE); URINE UROBILINOGEN 0.2 mg/dL (0.2 - 1)
[2018-02-16 09:22] LABS: ALBUMIN 3.5 g/dL (3.5-5.0); ANION GAP 13.4 mmol/L (8-16); BACTERIA,URINE FEW /HPF; CALCIUM 9.4 mg/dL (8.4-10.2); CREATININE, SERUM 1.51 mg/dL (0.72-1.25); EPITHELIAL CELLS,URINE FEW /LPF; MAGNESIUM 2.3 MG/DL (1.3-2.1); POTASSIUM 4.4 mmol/L (3.5-5.1); RBC,URINE 0-5 /HPF (0-5); WBC,URINE (MAN) 0-5 /HPF (0-5)
[2018-02-16 09:28] LABS: CREATINE KINASE MB 2.7 ng/mL (0-5.0)
[2018-02-16 09:30] LABS: B-TYPE NATRIURETIC PEPTIDE2 54.7 pg/mL (0-100)
--- NOTE | 2018-02-16 09:31 | Diagnostic Imaging Report ---
PROCEDURE: CHEST SINGLE (PORTABLE) COMPARISON: Patients [facility], DX, CHEST SINGLE (PORTABLE), 12/03/2017, 5:39. INDICATIONS: COUGH, FEVER FINDINGS: LUNGS: Patchy bilateral pulmonary opacities appear unchanged. PLEURA: No effusions or pneumothorax. HEART & MEDIASTINUM: The heart is enlarged. BONES & SOFT TISSUES: Multiple old rib fractures bilaterally. CONCLUSION: Patchy bilateral pulmonary opacities appear unchanged. Preston Raymundo D.O. Dictated by: Preston Raymundo D.O. on 02/16/2018 at 9:43 Electronically approved by: Preston Raymundo D.O. on 02/16/2018 at 9:43
[2018-02-16] MEDS ORDERED: VANCOMYCIN 1GM/NS 250 ML 250 ML IV ONE (10:00)
[2018-02-16] MEDS ORDERED: CEFEPIME HCL 2 GM VIAL IV SCH (10:00)
--- NOTE | 2018-02-16 10:20 | NUR ---
pt c/o nausea no vomiting and general illness denies being around anyone who's been sick
--- NOTE | 2018-02-16 10:25 | NUR ---
pt states allergy to robotussin
[2018-02-16 11:09] LABS: INFLUENZAE A&B ANTIGEN (RAPID) NEGATIVE (NEGATIVE)
[2018-02-16] MEDS ORDERED: SODIUM CHLORIDE 0.9% 1000ML 1,000 ML IV STA (11:25)
[2018-02-16] MEDS ORDERED: SODIUM CHLORIDE 0.9% 1000ML 1,000 ML ONE (11:29)
--- NOTE | 2018-02-16 11:50 | NUR ---
pt on arrival was wearing briefs and needed to be cleaned up
--- NOTE | 2018-02-16 12:00 | NUR ---
Received report from Jaswinder in the ER. Patient is being admitted with diagnosis of PNA and coming to room 215.
--- NOTE | 2018-02-16 12:30 | NUR ---
Patient arrived to the floor from ER via stretcher. Patient is awake and oriented to self. He is a paraplegic. Patient was moved from stretcher to hospital bed, patient has a diaper on with small BM present. IV infusing to the left arm. The patient was oriented to the call light, he nodded his head yes in understanding and denies needing anything. Patient has call light in hand, bed alarm on. Will continue with admission and to monitor the patient.
[2018-02-16 12:37] VITALS: BP 98/54
--- NOTE | 2018-02-16 13:16 | Consultation ---
DATE OF CONSULTATION: February 16, 2018 Mr. Tello is well known to me. He is a 57 year old with a history of HIV, history of cerebral palsy, multiple admissions for pneumonia recently even though we have done studies to rule out aspiration. at least this drop aspiration. He is up to date on his vaccinations. His HIV seems to be doing well. His CD4 is higher than 200. He is compliant with his medications. He is coming back with shortness of breath, cough, fever, and chills. Chest x-ray does show pneumonia. Patient is being admitted. Infectious disease was consulted. He was recently in the hospital as mentioned above with similar problems. PAST MEDICAL HISTORY: Significant for HIV, cerebral palsy. PAST SURGICAL HISTORY: Denies. ALLERGIES: NKA. SOCIAL HISTORY: There is no smoking, drug abuse or alcohol abuse. FAMILY HISTORY: Otherwise unremarkable. REVIEW OF SYSTEMS HEENT: Negative. PULMONARY: Negative. CARDIAC: Negative. : Negative. SKIN: There is no rash. Review of systems is unremarkable. PHYSICAL EXAMINATION GENERAL: He is currently alert and oriented. Does not seem to be in acute distress. VITALS: Stable. Currently afebrile. HEENT: Anicteric. NECK: Supple. CHEST: Clear. HEART: S1 and S2. No murmurs. ABDOMEN: Soft. Bowel sounds present. No tenderness. EXTREMITIES: No edema. LABORATORY DATA: Reviewed. Chart reviewed. IMPRESSION 1. Pneumonia, healthcare-associated: Will put him on vancomycin and cefepime. Obtain blood cultures. 2. Human immunodeficiency virus: Continue his medications. 3. Recheck CBC. 4. Recheck Chem panel. Will follow with you. Job#: [id number] [place]
[2018-02-16] MEDS: CEFEPIME 2 GM/NS 0.9% 100 ML 100 ML IV SCH ×2 (13:30→22:08)
[2018-02-16] MEDS ORDERED: IPRATROPIUM/ALBUTEROL SULFATE 4 GM INH INH SCH (15:45)
[2018-02-16] MEDS ORDERED: TRAMADOL HCL 50 MG TAB PO SCH (15:45)
[2018-02-16] MEDS ORDERED: DOCUSATE SODIUM 100 MG CAP PO PRN (15:45)
[2018-02-16] MEDS ORDERED: DIPHENHYDRAMINE HCL 25 MG CAP PO SCH (15:45)
[2018-02-16] MEDS ORDERED: ONDANSETRON HCL 4 MG ORAL DISINTEGRATING TAB PO SCH (15:45)
[2018-02-16] MEDS ORDERED: IPRATROPIUM/ALBUTEROL SULFATE 4 GM INH INH PRN (16:00)
[2018-02-16 16:33] VITALS: BP 107/56
[2018-02-16 17:49] LABS: CREATINE KINASE MB 1.9 ng/mL (0-5.0)
[2018-02-16] MEDS: SUCRALFATE 1 GM TAB PO SCH ×2 (18:26→22:08)
[2018-02-16] MEDS: PANTOPRAZOLE SOD 40 MG TABEC PO SCH (18:26)
[2018-02-16 18:37] VITALS: BP 107/56
[2018-02-16 20:00] VITALS: BP 102/59
[2018-02-16 21:00] VITALS: BP 102/59
[2018-02-16] MEDS: POTASSIUM CHLORIDE 10MEQ EA PO SCH (22:08)
[2018-02-16] MEDS: TOPIRAMATE 100 MG TAB PO SCH (22:08)
[2018-02-16] MEDS: ATORVASTATIN 20 MG TAB PO SCH (22:08)
[2018-02-16] MEDS: CLONAZEPAM 1 MG TAB PO SCH (22:08)
[2018-02-17] VITALS (8 sets, daily range): BP systolic 90–110; BP diastolic 49–65
[2018-02-17 05:06] LABS: BASOPHILS % 0.5 % (0.0-1.0); EOSINOPHILS # (AUTO) 0.1 (0.0-0.4); EOSINOPHILS % 2.6 % (0.0-6.0); HEMATOCRIT 39.4 % (38.2-49.6); LYMPHOCYTES # (AUTO) 0.8 (1.0-3.2); LYMPHOCYTES % 20.9 % (18.0-39.1); MEAN CORPUSCULAR HEMOGLOBIN 29.2 pg (28-32); MEAN CORPUSCULAR HGB CONC 30.5 g/dL (31-35); MEAN CORPUSCULAR VOLUME 95.9 fL (81-99); MONOCYTES # (AUTO) 0.4 (0.2-0.8); MONOCYTES % 10.1 % (4.4-11.3); NEUTROPHILS # (AUTO) 2.5 (2.1-6.9); NEUTROPHILS % 65.6 % (38.7-80.0); PLATELET COUNT 135 x10e3/uL (140-360); RED BLOOD COUNT 4.11 x10e6/uL (4.3-5.7); RED CELL DISTRIBUTION WIDTH 16.7 % (11.7-14.4)
[2018-02-17 05:41] LABS: ALBUMIN 2.9 g/dL (3.5-5.0); ALBUMIN/GLOBULIN RATIO 0.9 (0.8-2.0); ANION GAP 16.2 mmol/L (8-16); CHOL/HDL RATIO 2.7 (3.9-4.7); CREATININE, SERUM 1.53 mg/dL (0.72-1.25); POTASSIUM 4.2 mmol/L (3.5-5.1)
--- NOTE | 2018-02-17 05:42 | NUR ---
BS 56 from blood draw this morning, patient is awake and oriented, can swallow po, 2 cups of apple juice given, patient tolerated
[2018-02-17 05:44] LABS: CREATINE KINASE MB 1.1 ng/mL (0-5.0)
[2018-02-17] MEDS: LEVOTHYROXINE SODIUM 75 MCG TAB PO SCH (05:54)
--- NOTE | 2018-02-17 07:00 | NUR ---
BS rechecked 118. communicated with oncoming nurse
--- NOTE | 2018-02-17 07:13 | NUR ---
pt asleep, resp even and unlabored at this time no distress noted. pt arousal to touch, pt able to make needs known, call light in reach will cont to monitor.
[2018-02-17] MEDS ORDERED: ZINC SULFATE 220 MG CAP PO SCH (09:00)
[2018-02-17] MEDS ORDERED: LEVOTHYROXINE SODIUM 75 MCG TAB PO SCH (09:00)
[2018-02-17] MEDS: ZINC SULFATE 220 MG CAP PO SCH (09:30)
[2018-02-17] MEDS: PANTOPRAZOLE SOD 40 MG TABEC PO SCH ×2 (09:30→18:44)
[2018-02-17] MEDS: CEFEPIME 2 GM/NS 0.9% 100 ML 100 ML IV SCH ×2 (09:30→21:25)
[2018-02-17] MEDS: SUCRALFATE 1 GM TAB PO SCH ×4 (09:30→21:25)
[2018-02-17] MEDS: FUROSEMIDE 20 MG TAB PO SCH (09:30)
[2018-02-17] MEDS: ONDANSETRON HCL INJ 2MG/ML 2ML 2 MG/ML VIAL IV PRN (10:48)
--- NOTE | 2018-02-17 12:04 | NUR ---
Complaints Coordinator to bedside to discuss plan of care with patient/family. CM/SW role and care transitions discussed. Anticipated discharge plan discussed along with duration of care. CM/SW discussed patients right to make decisions in care. CM/SW work hours given. CM spoke with pt and his mother at bedside Patient lives: alone, but has a provider that stays with him during the day and checks in with him at night Admit/Transfer: thru ED, from home POA/Emergency contact: mom Danii Singh [phone] Current/Previous Home Health: [facility] PCP/Follow-up Care: Dr. Radhames Cheung Current/Previous DME: powerchair, wheelchair, hospital bed Other Services: provider Employment Status: unemployed Areas of Concerns: n/a Referral Needs: resume home health Education Needs: n/a IMM/POTTS given and signed (if applicable): none at this time Goal for discharge: home with current home health; pt's mom stated that pt might need an ambulance for discharge, but if pt is doing well and able to assist with transfers, then she will be able to take him home. CM/SW left business card at the bedside with contact information. Name and number was also written on the patients whiteboard. Patient verbalized understanding of discussion. CM will follow-up with ongoing discharge and transition of care needs.
--- NOTE | 2018-02-17 12:30 | NUR ---
PT DECLINE HEEL PROTECTORS, PT ALSO DECLINE PILLOW UNDER HIS LEGS.
[2018-02-17] MEDS: VANCOMYCIN 1GM/NS 250 ML 250 ML IV SCH (13:51)
[2018-02-17] MEDS: TRAMADOL HCL 50 MG TAB PO PRN ×2 (15:04→21:51)
[2018-02-17 15:38] LABS: CREATINE KINASE MB 1.4 ng/mL (0-5.0)
--- NOTE | 2018-02-17 19:44 | NUR ---
REPORT GIVEN TO ONCOMING NURSE, FOR CONTINUED CARE.
--- NOTE | 2018-02-17 19:46 | NUR ---
Patient received lying in bed. AAO x 2. Patient had no complaints of pain. No signs of respiratory distress. Bed locked and in lowest position. Bed rails up x 2. Patient instructed to call for assistance when needed. Call light within reach.
[2018-02-17] MEDS: POTASSIUM CHLORIDE 10MEQ EA PO SCH (21:25)
[2018-02-17] MEDS: CLONAZEPAM 1 MG TAB PO SCH (21:25)
[2018-02-17] MEDS: ATORVASTATIN 20 MG TAB PO SCH (21:25)
[2018-02-17] MEDS: TOPIRAMATE 100 MG TAB PO SCH (21:25)
[2018-02-18] VITALS (7 sets, daily range): BP systolic 97–114; BP diastolic 56–65
[2018-02-18] MEDS: LEVOTHYROXINE SODIUM 75 MCG TAB PO SCH (06:13)
--- NOTE | 2018-02-18 07:15 | NUR ---
Shift report given to oncoming nurse. Patient in stable condition.
[2018-02-18] MEDS: SUCRALFATE 1 GM TAB PO SCH ×4 (08:50→21:56)
[2018-02-18] MEDS: ZINC SULFATE 220 MG CAP PO SCH (08:50)
[2018-02-18] MEDS: PANTOPRAZOLE SOD 40 MG TABEC PO SCH ×2 (08:50→16:56)
[2018-02-18] MEDS: FUROSEMIDE 20 MG TAB PO SCH (08:50)
[2018-02-18] MEDS: CEFEPIME 2 GM/NS 0.9% 100 ML 100 ML IV SCH ×2 (08:50→21:56)
--- NOTE | 2018-02-18 08:50 | NUR ---
PT RECEIVED LYING IN BED, AA/O X3. ASSESSMENT COMPLETE, VSS. IN NO APPARENT RESP DISTRESS, CONTINUES IVABT. INCONT OF B/B, PERICARE PROVIDED.
[2018-02-18] MEDS: VANCOMYCIN 1GM/NS 250 ML 250 ML IV SCH (11:00)
[2018-02-18] MEDS: ONDANSETRON HCL INJ 2MG/ML 2ML 2 MG/ML VIAL IV PRN (11:00)
--- NOTE | 2018-02-18 16:40 | Progress Note ---
DATE: INTERNAL MEDICINE PROGRESS NOTE SUBJECTIVE: Patient is doing well. No significant complaints. PHYSICAL EXAMINATION VITAL SIGNS: Blood pressure 114/65, temperature 97.7, heart rate 90 per minute, respiratory rate 18 per minute, oxygen saturation 93%. HEART: Showed regular rhythm. Normal S1, S2 sounds. LUNGS: Clear bilaterally. ABDOMEN: Soft. EXTREMITIES: Show no evidence of cyanosis, edema or trauma. LABORATORY DATA: On the BMP, sodium 139, potassium 4.2, chloride 107, CO2 20, BUN 19, creatinine 1.53, glucose 56. On the CBC, white blood count 3.78, hemoglobin 12.0, hematocrit 39.4, platelet count 135,000, PT 12.5, PTT 43.0, INR 0.86, AST 20, ALT 28, total bilirubin 0.7, alkaline phosphatase 102. FINAL IMPRESSION 1. Lobar pneumonia. 2. Chronic renal failure, stage 3. 3. Acquired immunodeficiency syndrome. 4. Hypertension. 5. Acquired hypothyroidism. 6. Gastroesophageal reflux disease. 7. Pancytopenia. PLAN OF TREATMENT: We are going to continue with the current medication regimen which includes cefepime 2 grams IV twice a day, vancomycin 1 gram IV once a day, Lipitor 40 mg daily, clonazepam 1 mg at bedtime, Benadryl 25 mg as needed, Colace 600 mg daily, furosemide 20 mg daily, albuterol and Atrovent daily, levothyroxine 75 mcg p.o. daily, Zofran 4 mg IV q.4 hours as needed for nausea and vomiting, Protonix 40 mg twice a day, potassium 10 mEq daily. Continue Topamax 100 mg at bedtime, Carafate 1 gram before meals and at bedtime, Ultram 50 mg q.6 hours as needed, zinc sulfate 220 mg daily. Job#: [id number] LPA
[2018-02-18] MEDS: TOPIRAMATE 100 MG TAB PO SCH (21:57)
[2018-02-18] MEDS: CLONAZEPAM 1 MG TAB PO SCH (21:57)
[2018-02-18] MEDS: POTASSIUM CHLORIDE 10MEQ EA PO SCH (21:57)
[2018-02-18] MEDS: ATORVASTATIN 20 MG TAB PO SCH (21:57)
[2018-02-19] VITALS (8 sets, daily range): BP systolic 85–106; BP diastolic 50–58
[2018-02-19] MEDS: LEVOTHYROXINE SODIUM 75 MCG TAB PO SCH (05:44)
--- NOTE | 2018-02-19 07:35 | NUR ---
RECEIVED PATIENT RESTING IN BED. NO S/S OF DISTRESS NOTED. DENIES PAIN AT THIS TIME. CALL LIGHT WITHIN REACH. BED IN THE LOWEST POSITION. BED ALARM ON.
[2018-02-19] MEDS: SUCRALFATE 1 GM TAB PO SCH ×4 (09:04→21:00)
[2018-02-19] MEDS: CEFEPIME 2 GM/NS 0.9% 100 ML 100 ML IV SCH ×2 (09:04→21:00)
[2018-02-19] MEDS: ZINC SULFATE 220 MG CAP PO SCH (09:04)
[2018-02-19] MEDS: PANTOPRAZOLE SOD 40 MG TABEC PO SCH ×2 (09:04→16:55)
[2018-02-19] MEDS: FUROSEMIDE 20 MG TAB PO SCH (09:04)
[2018-02-19] MEDS: VANCOMYCIN 1GM/NS 250 ML 250 ML IV SCH (10:12)
[2018-02-19] MEDS: ONDANSETRON HCL INJ 2MG/ML 2ML 2 MG/ML VIAL IV PRN (10:12)
[2018-02-19] MEDS: TRAMADOL HCL 50 MG TAB PO PRN (12:20)
--- NOTE | 2018-02-19 16:06 | Progress Note ---
DATE: INTERNAL MEDICINE PROGRESS NOTE SUBJECTIVE: The patient is complaining of back pain today. PHYSICAL EXAM VITAL SIGNS: Blood pressure 92/51, temperature 97.3, heart rate 58 per minute, respiratory rate 18 per minute, oxygen saturation 97%. HEART: Regular rhythm. Normal S1, S2 sounds. LUNGS: Clear bilaterally. ABDOMEN: Soft. EXTREMITIES: Show no evidence of cyanosis, edema, or trauma. LABS: On the BMP; sodium 139, potassium 4.2, chloride 107, CO2 20, BUN 18, creatinine 1.53, and glucose 86. On the CBC; white blood count 3.78, hemoglobin 12.0, hematocrit 39.4, and platelet count 135,000. PT 12.5, INR 0.86, PTT 43.0. AST 20, ALT 28, total bilirubin 0.7, and alkaline phosphatase 102. FINAL IMPRESSION 1. Hospital-acquired pneumonia. 2. Pancytopenia. 3. Physical deconditioning. 4. Back pain. PLAN OF TREATMENT: Continue cefepime 1 gram IV twice a day, vancomycin 1 gram IV once a day, Zofran 4 mg IV q.4 hours as needed, Lipitor 40 mg daily, furosemide 20 mg daily, levothyroxine 75 mcg daily, tramadol 50 mg q.6 hours as needed, lorazepam 1 mg at bedtime as needed, Carafate 1 gram before meals, potassium chloride 10 mEq daily, Colace 100 mg daily, Protonix 40 mg twice a day, Topamax 400 mg daily, Benadryl 25 mg as needed, albuterol and Atrovent q.4 hours, and zinc sulfate 220 mg daily. Job#: [id number] CARIDAD
--- NOTE | 2018-02-19 19:47 | NUR ---
REPORT GIVEN TO ONCOMING NURSE, PATIENT IS RESTING IN BED. NO ACUTE DISTRESS NOTED. CALL LIGHT WITHIN REACH. BED IN THE LOWEST POSITION. BED ALARM ON.
[2018-02-19] MEDS: ATORVASTATIN 20 MG TAB PO SCH (21:00)
[2018-02-19] MEDS: TOPIRAMATE 100 MG TAB PO SCH (21:00)
[2018-02-19] MEDS: CLONAZEPAM 1 MG TAB PO SCH (21:00)
[2018-02-19] MEDS: POTASSIUM CHLORIDE 10MEQ EA PO SCH (21:00)
[2018-02-19] MEDS ORDERED: SODIUM CHLORIDE 0.9% 250ML 250 ML ONE (21:37)
[2018-02-20] VITALS (7 sets, daily range): BP systolic 90–104; BP diastolic 50–59
[2018-02-20] MEDS: LEVOTHYROXINE SODIUM 75 MCG TAB PO SCH (05:57)
--- NOTE | 2018-02-20 07:00 | NUR ---
RCD PT AT BED PT IS ALERT AND ORIENTED PT RESTING ON BED FAMILY AT BED SIDE BED LOW AND LOCKED CALL LIGHT IN REACH
[2018-02-20] MEDS: PANTOPRAZOLE SOD 40 MG TABEC PO SCH ×2 (07:30→16:30)
[2018-02-20] MEDS: SUCRALFATE 1 GM TAB PO SCH ×4 (07:30→21:00)
[2018-02-20] MEDS: FUROSEMIDE 20 MG TAB PO SCH (09:00)
[2018-02-20] MEDS: ZINC SULFATE 220 MG CAP PO SCH (09:00)
[2018-02-20] MEDS: CEFEPIME 2 GM/NS 0.9% 100 ML 100 ML IV SCH ×2 (09:00→21:00)
[2018-02-20] MEDS: VANCOMYCIN 1GM/NS 250 ML 250 ML IV SCH (10:31)
[2018-02-20] MEDS: ONDANSETRON HCL INJ 2MG/ML 2ML 2 MG/ML VIAL IV PRN (12:05)
--- NOTE | 2018-02-20 16:20 | Diagnostic Imaging Report ---
EXAMINATION: CHEST 2 VIEWS INDICATION: ^PNA ^[id number] ^[id number] COMPARISON: 02/16/2018 FINDINGS: PA and lateral views Limited by rotation, low lung volumes, and body habitus. TUBES and LINES: None. LUNGS: Central vascular congestion, accentuated by low lung volumes. Mild retrocardiac opacification. PLEURA: No significant pleural effusion or pneumothorax. HEART AND MEDIASTINUM: The cardiomediastinal silhouette is unremarkable. BONES AND SOFT TISSUES: No acute osseous lesion. Soft tissues are unremarkable. UPPER ABDOMEN: No free air under the diaphragm. IMPRESSION: Limited study as above. Mild retrocardiac opacification, representing atelectasis and/or pneumonia. Central vascular congestion, accentuated by low lung volumes. Signed by: Dr. Olivier Arreaga MD on 02/20/2018 4:16 PM
--- NOTE | 2018-02-20 18:41 | NUR ---
PT RESTING ON BED BED SIDE REPORT GIVEN TO ONCOMING NURSE
--- NOTE | 2018-02-20 19:00 | NUR ---
Received change of shift report from AM nurse. Walking rounds completed.
[2018-02-20] MEDS: CLONAZEPAM 1 MG TAB PO SCH (21:00)
[2018-02-20] MEDS: ATORVASTATIN 20 MG TAB PO SCH (21:00)
[2018-02-20] MEDS: POTASSIUM CHLORIDE 10MEQ EA PO SCH (21:00)
[2018-02-20] MEDS: TOPIRAMATE 100 MG TAB PO SCH (21:00)
--- NOTE | 2018-02-21 | NUR ---
Patient in bed. Denies pain at this time. Repositioned in bed q2 hours. Patient states I am going home today. IV intact to right hand.
[2018-02-21] MEDS: LEVOTHYROXINE SODIUM 75 MCG TAB PO SCH (05:54)
[2018-02-21 06:10] VITALS: BP 101/54
--- NOTE | 2018-02-21 06:41 | NUR ---
Patient resting quitly at this time. Continue montor.
--- NOTE | 2018-02-21 07:00 | NUR ---
RCD PT AT BED PT IS ALERT AND ORIENTED PT RESTING ON BED FAMILY AT BED SIDE BED LOW AND LOCKED CALL LIGHT IN REACH
[2018-02-21] MEDS: SUCRALFATE 1 GM TAB PO SCH ×4 (07:30→21:19)
[2018-02-21] MEDS: PANTOPRAZOLE SOD 40 MG TABEC PO SCH ×2 (07:30→16:29)
[2018-02-21 08:27] VITALS: BP 92/51
[2018-02-21 09:00] VITALS: BP 92/51
[2018-02-21] MEDS: ZINC SULFATE 220 MG CAP PO SCH (09:00)
[2018-02-21] MEDS: FUROSEMIDE 20 MG TAB PO SCH (09:00)
[2018-02-21] MEDS: CEFEPIME 2 GM/NS 0.9% 100 ML 100 ML IV SCH ×2 (09:00→21:19)
--- NOTE | 2018-02-21 10:00 | NUR ---
PAGED DR [address]RE[address] TO NOTIFY THE [facility] TROUGH
[2018-02-21 12:23] VITALS: BP 94/55
--- NOTE | 2018-02-21 14:09 | NUR ---
PT SIGNED CHOICE FOR [facility] WILL FAX CLINICALS TO [phone] PER PARMJIT. FILED CHOICE IN CHART.
[2018-02-21] MEDS: ONDANSETRON HCL INJ 2MG/ML 2ML 2 MG/ML VIAL IV PRN (15:48)
[2018-02-21 16:16] VITALS: BP 95/50
--- NOTE | 2018-02-21 18:00 | NUR ---
PT DID NOT PASS ANY URINE FOR ALL MY SHIFT BLADDER SCAN DONE 800 ML URINE IN THE BLADDER SO PAGED DR Radhames BENSON TO NOTIFY THAT
--- NOTE | 2018-02-21 18:43 | NUR ---
PT RESTING ON BED BED SIDE REPORT GIVEN TO ONCOMING NURSE
[2018-02-21 20:00] VITALS: BP_SYST 114; BP_SYST 123; BP_DIAS 59; BP_DIAS 71
[2018-02-21] MEDS: POTASSIUM CHLORIDE 10MEQ EA PO SCH (21:19)
[2018-02-21] MEDS: CLONAZEPAM 1 MG TAB PO SCH (21:19)
[2018-02-21] MEDS: ATORVASTATIN 20 MG TAB PO SCH (21:19)
[2018-02-21] MEDS: TOPIRAMATE 100 MG TAB PO SCH (21:19)
[2018-02-22] VITALS (7 sets, daily range): BP systolic 100–133; BP diastolic 52–69
[2018-02-22] MEDS: LEVOTHYROXINE SODIUM 75 MCG TAB PO SCH (05:25)
[2018-02-22] MEDS: ONDANSETRON HCL INJ 2MG/ML 2ML 2 MG/ML VIAL IV PRN (07:15)
--- NOTE | 2018-02-22 07:15 | NUR ---
RCD PT AT BED PT IS ALERT AND ORIENTED PT RESTING ON BED FAMILY AT BED SIDE BED LOW AND LOCKED CALL LIGHT IN REACH
[2018-02-22] MEDS: PANTOPRAZOLE SOD 40 MG TABEC PO SCH ×2 (07:30→16:18)
[2018-02-22] MEDS: SUCRALFATE 1 GM TAB PO SCH ×4 (07:30→19:46)
[2018-02-22] MEDS: CEFEPIME 2 GM/NS 0.9% 100 ML 100 ML IV SCH ×2 (08:38→19:46)
[2018-02-22] MEDS: ZINC SULFATE 220 MG CAP PO SCH (08:39)
[2018-02-22] MEDS: FUROSEMIDE 20 MG TAB PO SCH (08:39)
[2018-02-22] MEDS ORDERED: VANCOMYCIN 750MG/NS 150ML IVPB 150 ML IV SCH (09:00)
--- NOTE | 2018-02-22 12:00 | NUR ---
Per Reyna with [facility], pt is good to admit. [facility] is waiting on discharges for beds. Should have bed around 1500. CM spoke to Dr. Cheung and updated him.
--- NOTE | 2018-02-22 14:50 | NUR ---
[facility] [address] [place] [address] 221 Call report to [phone] Please send after 1600 Accepting admin Roland Andre, [employer] MOT information received from Reyna Freire. MOT placed in envelope at nurse's station. DELONTE Soares informed.
--- NOTE | 2018-02-22 18:53 | NUR ---
REPORT GIVEN TO KEN MARTEL AND NOTIFIED THE CAMPAIGN MANAGEMENT SENIOR MANAGER
[2018-02-22] MEDS: POTASSIUM CHLORIDE 10MEQ EA PO SCH (19:46)
[2018-02-22] MEDS: TOPIRAMATE 100 MG TAB PO SCH (19:46)
[2018-02-22] MEDS: ATORVASTATIN 20 MG TAB PO SCH (19:46)
[2018-02-22] MEDS: CLONAZEPAM 1 MG TAB PO SCH (19:46)
== END 2018-02-22 21:17 | DRG 975 ==
LOC: ER 08:27 → ERHOLD 10:52 → MED/SURG2 12:36
DX: B20 Human immunodeficiency virus [HIV] disease (principal); J15.9 Unspecified bacterial pneumonia; I13.0 Hypertensive heart and chronic kidney disease with heart failure and stage 1 through stage 4 chronic kidney disease, or unspecified chronic kidney disease; D61.818 Other pancytopenia; I50.9 Heart failure, unspecified; Z88.0 Allergy status to penicillin; Z88.8 Allergy status to other drugs, medicaments and biological substances; G89.29 Other chronic pain; G80.9 Cerebral palsy, unspecified; R53.81 Other malaise; N28.9 Disorder of kidney and ureter, unspecified; E11.22 Type 2 diabetes mellitus with diabetic chronic kidney disease; N18.3 Chronic kidney disease, stage 3 (moderate); E03.9 Hypothyroidism, unspecified; K21.9 Gastro-esophageal reflux disease without esophagitis
CPT/HCPCS: 36415; 71045; 71046; 80053; 80061; 80202; 81001; 82550; 82553; 82948; 83518; 83605; 83735; 83880; 84484; 85025; 85610; 85730; 87040; 87070; 87086; 87400; 93005; 99284; J2405; J3370; J7030; J7050

== ENCOUNTER → 2018-04-20 | Day surgery (SDC) | payer MEDICARE, OTHER ==
[~2018-04-20] MED LIST changes: +BIKTARVY PO; +PROPOFOL IV EMULSION 10 MG/ML 50 ML VIAL ONE
[2018-04-20 15:20] VITALS: BP 105/75
--- NOTE | 2018-04-20 23:45 | Operative Report ---
DATE OF PROCEDURE: 04/20/2018 SURGEON: Burt Cheung MD REFERRING PHYSICIAN: Dr. Yossi Cheung. PROCEDURE: EGD with biopsies and esophageal dilatation. INDICATIONS FOR EGD: Dysphagia to solids and liquids. MEDICATION: The patient was done under MAC. Please see anesthesiologist's note. PROCEDURE IN DETAIL: With the patient in the left lateral decubitus position, a flexible fiberoptic Olympus gastroscope was introduced into the esophagus under direct visualization without any difficulty. There were some patchy erythema noted in the distal esophagus. The esophagus was dilated to size 54-Honduran Kat. The scope was then advanced with ease into the stomach traversing a small hiatal hernia. Mucosa overlying the antrum and the body revealed some diffuse erythema and moderate edema, and biopsies were obtained. Pylorus was of normal contour and shape, was intubated with ease and the scope was advanced all the way to the 2nd portion of the duodenum. The scope was then withdrawn slowly. Mucosa overlying the proximal 2nd portion and duodenal bulb appeared to be within normal limits. The scope was then withdrawn back into the stomach and retroflexed. Previously described hiatal hernia was also noted in the retroflexed position. The fundus overall appeared to be within normal limits. The scope was then straightened out. It was subsequently withdrawn. The patient tolerated the procedure well. IMPRESSION: 1. Distal esophagitis, mild. 2. Esophagus dilated to size 54-Honduran Kat. 3. Hiatal hernia. 4. Gastritis, biopsied. Biopsies sent to stain for H pylori. PLAN: Follow up pathology. Continue Protonix 40 mg 1 p.o. a.c. b.i.d. and Carafate 1 g p.o. a.c. t.i.d. and at bedtime. Burt Cheung MD [facility]/MODL /[id number] cc: Yossi Cheung MD
== END | disposition home or self-care (01) ==
LOC: OR 09:40
PROVIDERS: ATTEND Internal Medicine Gastroenterology
DX: Z12.11 Encounter for screening for malignant neoplasm of colon (principal); Z86.010 Personal history of colon polyps; R13.14 Dysphagia, pharyngoesophageal phase; K59.00 Constipation, unspecified; E03.9 Hypothyroidism, unspecified; E78.5 Hyperlipidemia, unspecified; K58.1 Irritable bowel syndrome with constipation; K22.2 Esophageal obstruction; K21.0 Gastro-esophageal reflux disease with esophagitis; I10 Essential (primary) hypertension; Z21 Asymptomatic human immunodeficiency virus [HIV] infection status; K44.9 Diaphragmatic hernia without obstruction or gangrene; K29.70 Gastritis, unspecified, without bleeding
CPT/HCPCS: 43239; 43450; 88305; 88312; 93005; J2704

== ENCOUNTER 2018-06-05 09:08 | Inpatient (IN) | payer MEDICARE, OTHER ==
[~2018-06-05] VITALS: Ht 165.1 cm; Wt 81.3 kg
[~2018-06-05 09:08] MED LIST changes: -PROPOFOL IV EMULSION 10 MG/ML 50 ML VIAL ONE
[2018-06-05] MEDS ORDERED: SODIUM CHLORIDE 0.9% 1000ML 1,000 ML IV ONE ×3 (09:30→11:00)
[2018-06-05 09:49] LABS: BASOPHILS % 0.4 % (0.0-1.0); HEMATOCRIT 48.2 % (38.2-49.6); HEMOGLOBIN 15.4 g/dL (14.0-18.0); LYMPHOCYTES # (AUTO) 0.7 (1.0-3.2); LYMPHOCYTES % 14.1 % (18.0-39.1); MEAN CORPUSCULAR HEMOGLOBIN 29.8 pg (28-32); MEAN CORPUSCULAR VOLUME 93.4 fL (81-99); MONOCYTES # (AUTO) 0.5 (0.2-0.8); MONOCYTES % 10.2 % (4.4-11.3); NEUTROPHILS # (AUTO) 3.9 (2.1-6.9); NEUTROPHILS % 75.1 % (38.7-80.0); RED BLOOD COUNT 5.16 x10e6/uL (4.3-5.7); RED CELL DISTRIBUTION WIDTH 17.3 % (11.7-14.4)
[2018-06-05 10:00] LABS: PLATELET COUNT 99 x10e3/uL (140-360)
[2018-06-05] MEDS ORDERED: ASPIRIN 81 MG CHEW TAB PO ONE (10:00)
[2018-06-05] MEDS ORDERED: ACETAMINOPHEN 1000 MG/100 ML IV ONE ×2 (10:00→13:45)
[2018-06-05 10:01] LABS: ALBUMIN 3.3 g/dL (3.5-5.0); ALBUMIN/GLOBULIN RATIO 0.8 (0.8-2.0); ANION GAP 11.9 mmol/L (8-16); CALCIUM 9.9 mg/dL (8.4-10.2); CREATININE, SERUM 1.36 mg/dL (0.72-1.25); INR 0.95; PARTIAL THROMBOPLASTIN TIME 38.9 seconds (23.8-35.5); POTASSIUM 3.9 mmol/L (3.5-5.1); PROTHROMBIN TIME 13.2 seconds (11.9-14.5)
[2018-06-05 10:09] LABS: CREATINE KINASE MB 0.7 ng/mL (0-5.0)
[2018-06-05 10:09] LABS: CLARITY,URINE SL CLOUDY (CLEAR); COLOR,URINE YELLOW (YELLOW); LEUKOCYTE ESTERASE ,URINE NEGATIVE (NEGATIVE); NITRITE,URINE NEGATIVE (NEGATIVE); PROTEIN,URINE DIPSTICK 1+ (NEGATIVE)
[2018-06-05 10:10] LABS: BILIRUBIN,URINE NEGATIVE (NEGATIVE); KETONES,URINE NEGATIVE (NEGATIVE); URINE UROBILINOGEN 0.2 mg/dL (0.2 - 1)
[2018-06-05 10:39] LABS: EPITHELIAL CELLS,URINE RARE /LPF
--- NOTE | 2018-06-05 10:39 | Diagnostic Imaging Report ---
EXAMINATION: CHEST SINGLE (PORTABLE) INDICATION: Shortness of breath. COMPARISON: Chest radiograph 02/20/2018. FINDINGS Limited by rotation and low lung volumes. TUBES and LINES: None. LUNGS: Low lung volumes which decreases sensitivity and specificity for pathology. There is perihilar fullness and indistinctness of the pulmonary vasculature. Increased multifocal patchy opacities, most confluent in the left mid and lower lung zones. Mild patchy opacities at the right lung base. There is central vascular congestion. PLEURA: No significant pleural effusion or pneumothorax. HEART AND MEDIASTINUM: The cardiomediastinal silhouette is unremarkable. BONES AND SOFT TISSUES: No acute osseous abnormality. There are multiple healed rib fractures. UPPER ABDOMEN: No free air under the diaphragm. IMPRESSION: Low lung volumes with increased multifocal patchy opacities, which may represent pneumonia and/or edema in the appropriate clinical setting. Suggest follow-up chest radiograph in 6-8 weeks to assess for resolution. Signed by: Dr. Janusz Cohn MD on 06/05/2018 10:35 AM
[2018-06-05] MEDS ORDERED: SODIUM CHLORIDE 0.9% 1000ML 2,000 ML ONE (10:46)
--- NOTE | 2018-06-05 11:09 | NUR ---
Walking rounds with DELONTE Mcfadden. Patient in no distress at this time.
--- NOTE | 2018-06-05 11:09 | NUR ---
rec'd report in walking rounds with merced rhodes
[2018-06-05] MEDS: CEFEPIME 1GM/NS 0.9% 50 ML 50 ML IV SCH ×2 (11:51→23:51)
[2018-06-05] MEDS: SODIUM CHLORIDE 0.9% 1000ML 1,000 ML IV SCH ×2 (11:52→22:24)
[2018-06-05] MEDS ORDERED: HYDROCORTISONE SOD SUCCINATE 100 MG VIAL IV ONE (12:00)
[2018-06-05] MEDS: HYDROCORTISONE SOD SUCCINATE 100 MG VIAL IV SCH ×3 (12:00→23:51)
[2018-06-05] MEDS: VANCOMYCIN 750MG/NS 150ML IVPB 150 ML IV SCH ×2 (12:59→23:45)
[2018-06-05 14:30] VITALS: BP 93/61
[2018-06-05 14:45] VITALS: BP 93/61
[2018-06-05] MEDS: ALBUTEROL SULF 0.083% NEB SOLN 3 ML NEB NEB SCH ×3 (15:05→23:00)
[2018-06-05] MEDS: IPRATROPIUM BROMIDE 0.02% 2.5 ML NEB NEB SCH ×2 (15:05→19:35)
[2018-06-05 15:31] VITALS: BP 93/61
[2018-06-05 18:00] VITALS: BP 91/56
--- NOTE | 2018-06-05 18:00 | NUR ---
PATIENTS FAMILY MEMEBER TO BRING IN MEDICATION LIST FROM HOME UNABLE TO VERIFY MEDICATIONS AT THIS TIME
[2018-06-05 19:48] VITALS: BP 93/55
[2018-06-06] VITALS (9 sets, daily range): BP systolic 105–126; BP diastolic 61–70
[2018-06-06] MEDS ORDERED: SODIUM CHLORIDE 0.9% 250ML 250 ML ONE (00:08)
[2018-06-06] MEDS ORDERED: VANCOMYCIN 1GM/NS 250 ML 250 ML ONE (00:09)
[2018-06-06] MEDS: IPRATROPIUM BROMIDE 0.02% 2.5 ML NEB NEB SCH ×5 (01:00→23:55)
[2018-06-06] MEDS: ALBUTEROL SULF 0.083% NEB SOLN 3 ML NEB NEB SCH ×6 (01:40→23:55)
[2018-06-06] MEDS: SODIUM CHLORIDE 0.9% 1000ML 1,000 ML IV SCH ×3 (03:44→18:10)
[2018-06-06 05:15] LABS: BASOPHILS % 0.1 % (0.0-1.0); HEMATOCRIT 38.7 % (38.2-49.6); HEMOGLOBIN 12.3 g/dL (14.0-18.0); LYMPHOCYTES # (AUTO) 0.7 (1.0-3.2); LYMPHOCYTES % 9.5 % (18.0-39.1); MEAN CORPUSCULAR HEMOGLOBIN 29.8 pg (28-32); MEAN CORPUSCULAR HGB CONC 31.8 g/dL (31-35); MEAN CORPUSCULAR VOLUME 93.7 fL (81-99); MONOCYTES # (AUTO) 0.5 (0.2-0.8); MONOCYTES % 6.3 % (4.4-11.3); NEUTROPHILS # (AUTO) 6.3 (2.1-6.9); NEUTROPHILS % 83.6 % (38.7-80.0); PLATELET COUNT 106 x10e3/uL (140-360); RED BLOOD COUNT 4.13 x10e6/uL (4.3-5.7); RED CELL DISTRIBUTION WIDTH 17.4 % (11.7-14.4)
[2018-06-06] MEDS: HYDROCORTISONE SOD SUCCINATE 100 MG VIAL IV SCH ×3 (05:21→18:33)
[2018-06-06 05:36] LABS: ANION GAP 11.2 mmol/L (8-16); BLOOD UREA NITROGEN 21 mg/dL (7-26); BUN/CREATININE RATIO 18 (6-25); CALCIUM 9.3 mg/dL (8.4-10.2); CARBON DIOXIDE 17 mmol/L (22-29); CHLORIDE 115 mmol/L (98-107); CREATININE, SERUM 1.19 mg/dL (0.72-1.25); EST GLOMERULAR FILTRATION RATE > 60 ML/MIN (60-); GLUCOSE 144 mg/dL (74-118); POTASSIUM 3.2 mmol/L (3.5-5.1); SODIUM 140 mmol/L (136-145)
[2018-06-06 07:07] LABS: BAND NEUTROPHILS % (MANUAL) 2 %; LYMPHOCYTES % (MANUAL) 6 % (19-48); MONOCYTES % (MANUAL) 9 % (3.4-9.0); NEUTROPHILS % (MANUAL) 83 % (40-74); PLATELET ESTIMATE ADEQUATE; RBC MORPHOLOGY COMMENT NORMAL
--- NOTE | 2018-06-06 07:26 | Diagnostic Imaging Report ---
EXAM: CHEST SINGLE (PORTABLE), AP Portable DATE: 06/06/2018 Time stamp on exam: 6:09 AM INDICATION: Pneumonia COMPARISON: 06/05/2018 FINDINGS: LINES/TUBES: None LUNGS: Multifocal left pulmonary opacities. PLEURA: Small left pleural effusion. HEART AND MEDIASTINUM: Normal size and contour. BONES AND SOFT TISSUES: Multiple old rib fractures. IMPRESSION: Left multifocal pneumonia not significantly changed Signed by: Dr. Preston Raymundo DO on 06/06/2018 7:23 AM
[2018-06-06] MEDS ORDERED: RANITIDINE HCL300 MG (09:46)
[2018-06-06] MEDS ORDERED: FAMOTIDINE20 MG PO (09:46)
[2018-06-06] MEDS ORDERED: LACTULOSE20 GM/30 M PO (09:46)
[2018-06-06] MEDS ORDERED: NORTRIPTYLINE H10 MG (09:46)
[2018-06-06] MEDS ORDERED: DICYCLOMINE HCL20 MG PO (09:46)
[2018-06-06] MEDS ORDERED: AMITIZA24 MCG PO (09:46)
--- NOTE | 2018-06-06 09:59 | NUR ---
pt family brought in home meds, updated in system. pt takes HIV medication, placed in pt bin
[2018-06-06] MEDS: CEFEPIME 1GM/NS 0.9% 50 ML 50 ML IV SCH ×2 (10:17→22:50)
[2018-06-06] MEDS ORDERED: BISACODYL 10 MG SUPP PR ONE (11:00)
[2018-06-06] MEDS ORDERED: ONDANSETRON HCL 4 MG ORAL DISINTEGRATING TAB PO SCH (11:00)
[2018-06-06] MEDS ORDERED: DOCUSATE SODIUM 100 MG CAP PO SCH (11:00)
[2018-06-06] MEDS ORDERED: DIPHENHYDRAMINE HCL 25 MG CAP PO SCH (11:00)
[2018-06-06] MEDS ORDERED: ONDANSETRON HCL 4 MG ORAL DISINTEGRATING TAB PO PRN (11:30)
[2018-06-06] MEDS ORDERED: DOCUSATE SODIUM 100 MG CAP PO PRN (11:30)
[2018-06-06] MEDS ORDERED: DIPHENHYDRAMINE HCL 25 MG CAP PO PRN (11:30)
[2018-06-06] MEDS: VANCOMYCIN 750MG/NS 150ML IVPB 150 ML IV SCH ×2 (12:11→23:38)
[2018-06-06] MEDS: PREGABALIN 75 MG CAP PO SCH ×2 (14:37→21:11)
[2018-06-06] MEDS: SUCRALFATE 1 GM TAB PO SCH ×3 (14:37→21:10)
[2018-06-06] MEDS: DICYCLOMINE HCL 20 MG TAB PO SCH ×2 (14:37→21:10)
[2018-06-06] MEDS ORDERED: NON-FORMULARY MEDICATION (Pregabalin (Lyrica) 150 MG) PO SCH (15:00)
--- NOTE | 2018-06-06 15:35 | NUR ---
Visit made by the Spiritual Care Department Pastoral Visitor, Sravanthi Wang. Pt sleeping soundly and no family present. Pastoral Visitor left a card describing availability of ski base trimmer and instructions on how to contact a ski base trimmer. URBANO QUINTERO Auto Slip Cover Installer Spiritual Care Department O: [phone] Pager: [phone] ([phone] calling from)
--- NOTE | 2018-06-06 15:58 | NUR ---
pt has not urinated during shift, bladder scan shows >999ml in bladder. per night nurse, pt has small urine output. notified MD, orders to place FC.
--- NOTE | 2018-06-06 17:20 | NUR ---
ed pt he has not urinated and bladder scan showed retention, ed would place a FC. pt refused and stated 'ill pee", pt continued to urinate, saturated all bedding and self. rescan showed ua WNL. ed pt would not place FC at this time but if continues to have retention then FC orders are in place. pt verbalized understanding. kit to bedside.
[2018-06-06] MEDS: PANTOPRAZOLE SOD 40 MG TABEC PO SCH (18:33)
--- NOTE | 2018-06-06 20:45 | Consultation ---
DATE OF CONSULTATION: REASON FOR CONSULTATION: Fever, chills, shortness of breath, and aspiration pneumonia. Thank you so much for asking me to see this patient. HISTORY OF PRESENT ILLNESS: This patient is well known to me. He is a 58-year-old white male with history of cerebral palsy, history of HIV and AIDS, recurrent aspiration pneumonia, history of acute kidney injury on several occasions, underlying chronic kidney disease. The patient is well known to me from before and from an outpatient setting, comes into the emergency room with fever, chills, not feeling well. I was contacted by emergency room physician and we discussed the case. The patient is being admitted and started on IV antibiotics. He is currently lying in bed. He feels better, but he is slightly lethargic. He has no specific complaints, but to me, he looks weaker than before. The patient does have underlying history of HIV and AIDS, history of chronic kidney disease, history of thrombocytopenia, history of recurrent aspiration pneumonia, although we have done extensive workup for him and the patient is up to date on his vaccination, but is coming with sudden onset of fever, chills, and not feeling well. The patient was short of breath. Blood pressure was on the low side when he first came to emergency room. He is being admitted. I recommend starting him on vancomycin and cefepime at renal dose since the patient has been in the hospital recently. When he first came, he had a temperature of 102.5. He had a heart rate in the 100s, blood pressure 98/77, but now it went up. His laboratory data is reviewed, his chart is reviewed. PHYSICAL EXAMINATION: GENERAL: He is currently alert, oriented, does not seem to be in acute distress at present time. VITAL SIGNS: Stable, afebrile. HEENT: Normocephalic, not icteric. NECK: Supple. No JVD. No lymphadenopathy. No thyromegaly. CHEST: Clear bilaterally. HEART: S1 and S2. No S3, S4, or murmur. ABDOMEN: Soft. Bowel sounds present. No tenderness. No hepatosplenomegaly. EXTREMITIES: No edema. SKIN: There is no rash. PAST MEDICAL HISTORY: HIV, AIDS, chronic kidney disease with worsening condition, acute kidney injury several times, history of debility, history of congestive heart failure, and history of cerebral palsy. PAST SURGICAL HISTORY: Denies. ALLERGIES: PENICILLIN, BUT HE DID WELL WITH CEPHALOSPORIN. SOCIAL HISTORY: There is no smoking, drug abuse, or alcohol abuse. He lives with his family. His mother takes good care of him. HOME MEDICATIONS: He is on Proventil, Lipitor, cefepime started with this visit, Bentyl, Benadryl, Colace, Lasix, lactulose, levothyroxine, and Synthroid. LABORATORY DATA: White count 5.12, hemoglobin 15.4. Sodium 136, potassium 3.9, creatinine 1.36 on admission, today is 1.19. Blood cultures, no growth in 24 hours. IMAGING: Chest x-ray which was done, I reviewed the film myself. There are some multiple infiltrates noted on the left. IMPRESSION: 1. Pneumonia, aspiration. The patient was recently in the hospital, slowly getting progressively worse with time. I agree with vancomycin and cefepime. We will just watch kidney function. 2. Chronic kidney disease. Acute kidney injury, probably dehydration and sepsis. Agree with IV fluids. 3. Hypokalemia, to be corrected. Internal Medicine orders noted. 4. Aspiration pneumonia. It gets worse when he gets sick. 5. Human immunodeficiency virus. 6. Continue his home medication. 7. Anemia of chronic disease. 8. Thrombocytopenia, probably related to his human immunodeficiency virus. We will follow. MD LULI Gates/DENISEL /[id number]
[2018-06-06] MEDS ORDERED: ATORVASTATIN 20 MG TAB PO SCH (21:00)
[2018-06-06] MEDS ORDERED: NORTRIPTYLINE HCL 10 MG CAP PO SCH (21:00)
[2018-06-06] MEDS ORDERED: FAMOTIDINE 20 MG TAB PO SCH ×2 (21:00)
[2018-06-06] MEDS ORDERED: TOPIRAMATE 100 MG TAB PO SCH (21:00)
[2018-06-06] MEDS ORDERED: POTASSIUM CHLORIDE 10MEQ EA PO SCH (21:00)
[2018-06-06] MEDS ORDERED: CLONAZEPAM 1 MG TAB PO SCH (21:00)
[2018-06-06] MEDS ORDERED: LACTULOSE SYRUP 20 GM/30 ML UDC PO SCH (21:00)
[2018-06-06] MEDS ORDERED: ATORVASTATIN 40 MG TAB PO SCH (21:00)
[2018-06-07] MEDS: HYDROCORTISONE SOD SUCCINATE 100 MG VIAL IV SCH ×3 (00:11→12:56)
[2018-06-07 00:15] VITALS: BP 104/55
--- NOTE | 2018-06-07 02:02 | NUR ---
patient refused a bed bath, incontinent care given.
[2018-06-07] MEDS: ALBUTEROL SULF 0.083% NEB SOLN 3 ML NEB NEB SCH ×3 (03:07→11:10)
[2018-06-07] MEDS: SODIUM CHLORIDE 0.9% 1000ML 1,000 ML IV SCH (04:00)
[2018-06-07 04:13] VITALS: BP 117/75
[2018-06-07] MEDS: IPRATROPIUM BROMIDE 0.02% 2.5 ML NEB NEB SCH ×2 (07:00→11:10)
[2018-06-07 08:04] VITALS: BP 110/63
[2018-06-07 09:00] VITALS: BP 110/63
[2018-06-07] MEDS: PANTOPRAZOLE SOD 40 MG TABEC PO SCH ×2 (09:00→09:45)
[2018-06-07] MEDS ORDERED: LEVOTHYROXINE SODIUM 75 MCG TAB PO SCH (09:00)
[2018-06-07] MEDS ORDERED: FUROSEMIDE 20 MG TAB PO SCH (09:00)
[2018-06-07] MEDS ORDERED: BIKTARVY PO SCH ×2 (09:00)
[2018-06-07] MEDS ORDERED: LUBIPROSTONE 24 MCG CAP PO SCH (09:00)
[2018-06-07] MEDS: PREGABALIN 75 MG CAP PO SCH (09:45)
[2018-06-07] MEDS: DICYCLOMINE HCL 20 MG TAB PO SCH (09:46)
[2018-06-07] MEDS: SUCRALFATE 1 GM TAB PO SCH ×2 (09:46→13:09)
--- NOTE | 2018-06-07 10:53 | NUR ---
patient refused insertion of Quiroz catheter
[2018-06-07] MEDS: VANCOMYCIN 750MG/NS 150ML IVPB 150 ML IV SCH (11:15)
[2018-06-07 11:29] VITALS: BP 106/60
[2018-06-07] MEDS: CEFEPIME 1GM/NS 0.9% 50 ML 50 ML IV SCH (11:54)
--- NOTE | 2018-06-07 12:38 | NUR ---
Called Dr. Guevara, to make him aware patent had critical vancomycin trough 11.6 received orders to hold vancomycin, chemistry in am.
--- NOTE | 2018-06-07 14:45 | NUR ---
WOUND CARE CONSULTATION - INITIAL EVALUATION Patient admitted from Home to ER with Fever, Chills, SOB, Asp PNA. DX: Sepsis, Multifocal PNA, Hypotension, HIV. HX: Cerebral Palsy, HIV, AIDS, Recurrent Asp. PNA, ALBERT, CAD. Wound Care Consulted for Evaluation of Sacral Area. Rule out Stage II Pressure Ulcer PATIENT VISIT: Patient in bed resting on Left Side. Srinath Score 12 Alternating Pressure Air Mattress in place. AAOX4 and in good spirits. Diapered No Pressure Ulcers Identified. Sacral Area pink dry and intact. No Redness, No Swelling, No Induration. Warmness to touch consistent throughout back. IMPRESSION: NO PRESSURE ULCERS IDENTIFIED RECOMMENDATION: Start STRICT PUP PROTOCOL Addendum: 06/07/18 at 1451 by Shaggy Ferrera RN Amended: Links added.
--- NOTE | 2018-06-07 15:00 | NUR ---
Patient discharged to [facility] discharge summary sent with EMS, and taken off unit via stretcher.
== END 2018-06-07 15:05 | DRG 974 ==
LOC: ER 09:08 → ERHOLD 13:16 → IMCU 14:18
DX: A41.9 Sepsis, unspecified organism (principal); J69.0 Pneumonitis due to inhalation of food and vomit; B20 Human immunodeficiency virus [HIV] disease; N17.9 Acute kidney failure, unspecified; R65.20 Severe sepsis without septic shock; E87.6 Hypokalemia; E03.9 Hypothyroidism, unspecified; J44.9 Chronic obstructive pulmonary disease, unspecified; G89.29 Other chronic pain; Z88.0 Allergy status to penicillin; Z88.8 Allergy status to other drugs, medicaments and biological substances; G80.9 Cerebral palsy, unspecified; E11.22 Type 2 diabetes mellitus with diabetic chronic kidney disease; I12.9 Hypertensive chronic kidney disease with stage 1 through stage 4 chronic kidney disease, or unspecified chronic kidney disease; N18.9 Chronic kidney disease, unspecified; D63.8 Anemia in other chronic diseases classified elsewhere; D69.59 Other secondary thrombocytopenia
CPT/HCPCS: 36415; 71045; 80048; 80053; 80202; 81001; 82550; 82553; 83605; 84484; 85025; 85610; 85730; 87040; 87400; 93005; 94640; 99284; J0692; J1720; J3370; J7030; J7050

== ENCOUNTER 2018-07-15 23:01 | Inpatient (IN) | payer MEDICARE, OTHER ==
[~2018-07-15] VITALS: Ht 165.1 cm; Wt 81.0 kg
[~2018-07-15 23:01] MED LIST changes: +FAMOTIDINE20 MG PO; +LACTULOSE20 GM/30 M PO; +NORTRIPTYLINE H10 MG; +RANITIDINE HCL300 MG
[2018-07-15] MEDS ORDERED: ACETAMINOPHEN 1000 MG/100 ML IV STA (23:18)
[2018-07-15] MEDS ORDERED: SODIUM CHLORIDE 0.9% 1000ML 1,000 ML IV ONE (23:30)
[2018-07-15 23:47] LABS: BASOPHILS % 0.3 % (0.0-1.0); EOSINOPHILS # (AUTO) 0.1 (0.0-0.4); HEMATOCRIT 47.2 % (38.2-49.6); HEMOGLOBIN 15.6 g/dL (14.0-18.0); LYMPHOCYTES % 9.3 % (18.0-39.1); MEAN CORPUSCULAR HEMOGLOBIN 30.6 pg (28-32); MEAN CORPUSCULAR HGB CONC 33.1 g/dL (31-35); MEAN CORPUSCULAR VOLUME 92.5 fL (81-99); MONOCYTES # (AUTO) 1.1 (0.2-0.8); MONOCYTES % 10.9 % (4.4-11.3); NEUTROPHILS % 77.8 % (38.7-80.0); PLATELET COUNT 364 x10e3/uL (140-360); RED CELL DISTRIBUTION WIDTH 16.1 % (11.7-14.4)
[2018-07-16] VITALS (8 sets, daily range): BP systolic 111–131; BP diastolic 61–80
[2018-07-16 00:02] LABS: ALBUMIN 3.6 g/dL (3.5-5.0); CALCIUM 10.1 mg/dL (8.4-10.2); CREATININE, SERUM 1.51 mg/dL (0.72-1.25)
--- NOTE | 2018-07-16 00:13 | Diagnostic Imaging Report ---
Examination: Single AP view of the chest. COMPARISON: June 06, 2018 INDICATION: Fever DISCUSSION: Patient rotated. Lines/tubes: None. Lungs: Low lung volume with vascular crowding. Left midlung consolidation. Improved aeration of the left lower lung. Pleura: No pleural effusion or pneumothorax. Heart and mediastinum: The heart and the mediastinum are unremarkable. Bones and soft tissues: No acute bony abnormalities. IMPRESSION: Limited low volume radiograph. Left midlung consolidation. Signed by: Dr. Paras Soares M.D. on 07/16/2018 12:09 AM
--- NOTE | 2018-07-16 00:25 | NUR ---
STRAIGHT CATH PERFORMED, 800CC TOTAL FROM BLADDER removed, ASEPTIC TECHNIQUE USED. No complications in procedure noted. has ordered a méndez cath due to acute urinary retention. After urine removal patients pulse decreased from 130 to 108.
[2018-07-16] MEDS: CEFEPIME 2 GM/NS 0.9% 100 ML 100 ML IV SCH ×3 (00:28→22:40)
[2018-07-16 00:29] LABS: BILIRUBIN,URINE NEGATIVE (NEGATIVE); CLARITY,URINE CLEAR (CLEAR); COLOR,URINE YELLOW (YELLOW); KETONES,URINE TRACE (NEGATIVE); LEUKOCYTE ESTERASE ,URINE NEGATIVE (NEGATIVE); NITRITE,URINE NEGATIVE (NEGATIVE); PROTEIN,URINE DIPSTICK 1+ (NEGATIVE); URINE UROBILINOGEN 0.2 mg/dL (0.2 - 1)
[2018-07-16 00:38] LABS: BACTERIA,URINE RARE /HPF; EPITHELIAL CELLS,URINE RARE /LPF; RBC,URINE 0-5 /HPF (0-5); WBC,URINE (MAN) 0-5 /HPF (0-5)
[2018-07-16] MEDS: ALBUTEROL SULF 0.083% NEB SOLN 3 ML NEB NEB SCH ×6 (00:51→20:01)
[2018-07-16] MEDS ORDERED: ONDANSETRON HCL INJ 2MG/ML 2ML 2 MG/ML VIAL IV PRN (01:00)
[2018-07-16] MEDS ORDERED: ACETAMINOPHEN 1000 MG/100 ML IV PRN (01:00)
[2018-07-16] MEDS: VANCOMYCIN 1GM/NS 250 ML 250 ML IV SCH ×2 (01:08→11:40)
--- NOTE | 2018-07-16 01:49 | NUR ---
1900CC OUTPUT ONCE ARORA CATH INSERTED, OUTPUT REPORTED TO DR JAMES, INSTRUCTED TO CLAMP CATH FOR 30 MINUTES TO PREVENT POST OBSTRUCTIVE DIURESIS. ARORA HAS BEEN CLAMPED
[2018-07-16] MEDS: SODIUM CHLORIDE 0.9% 1000ML 1,000 ML IV SCH ×2 (02:17→13:00)
--- NOTE | 2018-07-16 02:30 | NUR ---
MAITE UNCLAMPTED, PATIENT ONLY OUTPUTED 60CC, DR JAMES INFORMED. NO FURTHER ORDERS, PATIENT CLEAR TO GO TO FLOOR
--- NOTE | 2018-07-16 04:00 | NUR ---
Patient received via stretcher. AAO x 2. Admission history obtained partly from patient and partly from chart. Initial physical assessment conducted. Vital signs WNL. Baclofen pump noted on LLQ. Patient able to make needs known. Patient had no complaints of pain. Respirations even and unlabored on 2L NC. Telemetry in place. IVF infusing at 100 cc/ hr. Patient oriented to room, call light and plan of care. Fall precautions implemented. Patient instructed to call for assistance when needed. Call light within reach.
--- NOTE | 2018-07-16 04:15 | NUR ---
Blood specimen sent to lab for analysis of cardiac enzymes.
[2018-07-16 04:42] LABS: CREATINE KINASE 24 IU/L (30-200)
--- NOTE | 2018-07-16 07:20 | NUR ---
Patient resting comfortably. Walking rounds done. Shift report given to oncoming nurse about patient status.
[2018-07-16] MEDS: IPRATROPIUM BROMIDE 0.02% 2.5 ML NEB NEB SCH ×3 (07:45→20:01)
[2018-07-16] MEDS ORDERED: DIPHENHYDRAMINE HCL 25 MG CAP PO SCH (12:15)
[2018-07-16] MEDS ORDERED: TRAMADOL HCL 50 MG TAB PO PRN (12:15)
[2018-07-16] MEDS ORDERED: ONDANSETRON HCL 4 MG ORAL DISINTEGRATING TAB PO SCH (12:15)
[2018-07-16] MEDS ORDERED: DOCUSATE SODIUM 100 MG CAP PO SCH (12:15)
[2018-07-16 12:50] LABS: CREATINE KINASE 22 IU/L (30-200)
[2018-07-16] MEDS ORDERED: DOCUSATE SODIUM 100 MG CAP PO PRN (13:45)
[2018-07-16] MEDS ORDERED: DIPHENHYDRAMINE HCL 25 MG CAP PO PRN (13:45)
[2018-07-16] MEDS: DICYCLOMINE HCL 20 MG TAB PO SCH ×2 (16:30→21:52)
[2018-07-16] MEDS: PANTOPRAZOLE SOD 40 MG TABEC PO SCH (16:30)
[2018-07-16] MEDS: PREGABALIN 75 MG CAP PO SCH ×2 (16:30→21:53)
[2018-07-16] MEDS: SUCRALFATE 1 GM TAB PO SCH ×2 (16:30→21:52)
--- NOTE | 2018-07-16 19:04 | NUR ---
Report given to oncoming nurse of patient's status. No s/s of acute distress noted. side rails upx2, bed alarm on,call light within reach.
[2018-07-16] MEDS: LACTULOSE SYRUP 20 GM/30 ML UDC PO SCH (21:00)
[2018-07-16] MEDS: POTASSIUM CHLORIDE 10MEQ EA PO SCH (21:52)
[2018-07-16] MEDS: CLONAZEPAM 1 MG TAB PO SCH (21:52)
[2018-07-16] MEDS: TOPIRAMATE 100 MG TAB PO SCH (21:53)
[2018-07-16] MEDS: NORTRIPTYLINE HCL 10 MG CAP PO SCH (21:53)
[2018-07-16] MEDS: ATORVASTATIN 20 MG TAB PO SCH (21:53)
[2018-07-16] MEDS: FAMOTIDINE 20 MG TAB PO SCH (21:53)
--- NOTE | 2018-07-16 22:30 | History and Physical ---
HISTORY OF PRESENT ILLNESS: He is a 58-year-old male with past medical history positive for AIDS, history of hypertension, chronic renal insufficiency, history of hypothyroidism, hyperlipidemia, chronic back pain, hypotension, cerebral palsy, and multiple sclerosis, came to here because of fever pneumonia, admitted to the hospital. REVIEW OF SYSTEMS: He cannot give me too much information. PAST MEDICAL HISTORY: Positive for AIDS, chronic renal failure, hypothyroidism, COPD, chronic pain syndrome, chronic renal insufficiency, and hypothyroidism. PHYSICAL EXAMINATION: VITAL SIGNS: Blood pressure 113/67, temperature 99.5, heart rate 103 per minute, respiratory rate 16 per minute, and oxygen saturation 94%. HEART: Showed regular rhythm. No murmur or added sound. LUNGS: Clear bilaterally. ABDOMEN: Soft. EXTREMITIES: Show no evidence of cyanosis or hematoma. LABORATORY DATA: On the BMP; sodium 138, potassium 4.0, chloride 106, CO2 of 21, BUN 15, creatinine 1.51, and glucose 152. On CBC, white count 8200, hemoglobin 15.6, hematocrit 47.2, and platelet count . AST 16, ALT 22, total bilirubin 0.7, and alkaline phosphatase 165. IMPRESSION: 1. Possible aspiration pneumonia. 2. AIDS. 3. Chronic obstructive pulmonary disease exacerbation. 4. Hypothyroidism. 5. Hyperlipidemia. 6. Chronic renal failure, stage 3. 7. Cerebral palsy. 8. . PLAN OF TREATMENT: Continue albuterol q.4 hours, Atrovent q.6 hours, cefepime 1 g IV twice a day, vancomycin 1 g IV twice a day, Lipitor 40 mg daily, clonazepam 1 mg at bedtime, normal saline 100 mL an hour, Zofran 4 mg IV q.4 hours as needed, Tylenol 1000 mg q.6 hours. Resume home medications. I am going to consult . blood culture has been done, reports are pending. MD ISAIAH Kilpatrick/TRUONG /[id number]
[2018-07-17] VITALS (9 sets, daily range): BP systolic 90–105; BP diastolic 50–58
[2018-07-17] MEDS: IPRATROPIUM BROMIDE 0.02% 2.5 ML NEB NEB SCH ×5 (00:51→23:15)
[2018-07-17] MEDS: SODIUM CHLORIDE 0.9% 1000ML 1,000 ML IV SCH (00:54)
[2018-07-17] MEDS: VANCOMYCIN 1GM/NS 250 ML 250 ML IV SCH ×2 (00:54→16:49)
[2018-07-17] MEDS: ALBUTEROL SULF 0.083% NEB SOLN 3 ML NEB NEB SCH ×6 (04:47→23:15)
[2018-07-17] MEDS: LEVOTHYROXINE SODIUM 75 MCG TAB PO SCH (05:52)
--- NOTE | 2018-07-17 07:30 | NUR ---
REC'D PT AAOX3, NO S/S OF DISTRESS, PT ON NC RUNNING AT 2L/MIN. IV TO RIGHT AC 20 GAUGE AND LEFT HAND 20 GAUGE WITHOUT ANY COMPLICATIONS TO IV SITES. [address] WITH URINE DRAINING. SIDE RAILS UP X2, BED IN LOWEST POSITION, AND CALL CONTRERAS WITHIN REACH.
[2018-07-17 07:45] LABS: BASOPHILS % 0.5 % (0.0-1.0); EOSINOPHILS % 0.3 % (0.0-6.0); HEMATOCRIT 38.7 % (38.2-49.6); HEMOGLOBIN 12.2 g/dL (14.0-18.0); LYMPHOCYTES # (AUTO) 1.1 (1.0-3.2); LYMPHOCYTES % 16.7 % (18.0-39.1); MEAN CORPUSCULAR HEMOGLOBIN 30.7 pg (28-32); MEAN CORPUSCULAR HGB CONC 31.5 g/dL (31-35); MEAN CORPUSCULAR VOLUME 97.5 fL (81-99); MONOCYTES % 16.2 % (4.4-11.3); NEUTROPHILS # (AUTO) 4.1 (2.1-6.9); NEUTROPHILS % 65.5 % (38.7-80.0); PLATELET COUNT 244 x10e3/uL (140-360); RED BLOOD COUNT 3.97 x10e6/uL (4.3-5.7); RED CELL DISTRIBUTION WIDTH 16.4 % (11.7-14.4)
[2018-07-17 08:02] LABS: CREATINE KINASE 21 IU/L (30-200)
[2018-07-17 08:37] LABS: ALANINE AMINOTRANSFERASE 15 IU/L (0-55); ALBUMIN 2.5 g/dL (3.5-5.0); ALBUMIN/GLOBULIN RATIO 0.8 (0.8-2.0); ALKALINE PHOSPHATASE 103 IU/L (40-150); ANION GAP 12.6 mmol/L (8-16); BLOOD UREA NITROGEN 21 mg/dL (7-26); BUN/CREATININE RATIO 18 (6-25); CALCIUM 8.9 mg/dL (8.4-10.2); CARBON DIOXIDE 18 mmol/L (22-29); CHLORIDE 112 mmol/L (98-107); CREATININE, SERUM 1.19 mg/dL (0.72-1.25); EST GLOMERULAR FILTRATION RATE > 60 ML/MIN (60-); GLUCOSE 74 mg/dL (74-118); POTASSIUM 3.6 mmol/L (3.5-5.1); SODIUM 139 mmol/L (136-145)
[2018-07-17] MEDS: BIKTARVY PO SCH (09:00)
[2018-07-17] MEDS: SUCRALFATE 1 GM TAB PO SCH ×4 (09:21→22:26)
[2018-07-17] MEDS: LUBIPROSTONE 24 MCG CAP PO SCH (09:22)
[2018-07-17] MEDS: FUROSEMIDE 20 MG TAB PO SCH (09:22)
[2018-07-17] MEDS: PREGABALIN 75 MG CAP PO SCH ×3 (09:22→22:27)
[2018-07-17] MEDS: PANTOPRAZOLE SOD 40 MG TABEC PO SCH ×2 (09:22→16:49)
[2018-07-17] MEDS: DICYCLOMINE HCL 20 MG TAB PO SCH ×3 (09:22→22:26)
--- NOTE | 2018-07-17 10:10 | NUR ---
EDUCATED ABOUT IMM, SIGNED, FILED IN CHART, WITH COPY LEFT WITH FAMILY AT BEDSIDE.
--- NOTE | 2018-07-17 11:34 | NUR ---
Hand Sprayer to bedside to discuss plan of care with patient/family. CM/SW role and care transitions discussed. Anticipated discharge plan discussed along with duration of care. CM/SW discussed patients right to make decisions in care. CM/SW work hours given. CM spoke with pt and his mother at bedside Patient lives: alone, but has a provider that stays with him during the day and checks in with him at night Admit/Transfer: thru ED, from home POA/Emergency contact: mom Danii Singh [phone] Current/Previous Home Health: [facility] PCP/Follow-up Care: Dr. Radhames Cheung Current/Previous DME: powerchair, wheelchair, hospital bed Other Services: provider Employment Status: unemployed Areas of Concerns: n/a Referral Needs: resume home health Education Needs: n/a IMM/POTTS given and signed (if applicable): none at this time Goal for discharge: home with current home health; pt's mom stated that pt might need an ambulance for discharge, but if pt is doing well and able to assist with transfers, then she will be able to take him home. CM/SW left business card at the bedside with contact information. Name and number was also written on the patients whiteboard. Patient verbalized understanding of discussion. CM will follow-up with ongoing discharge and transition of care needs.
[2018-07-17] MEDS ORDERED: SODIUM CHLORIDE 0.9% 250ML 0 ML ONE (12:13)
[2018-07-17] MEDS: CEFEPIME 2 GM/NS 0.9% 100 ML 100 ML IV SCH ×2 (12:56→23:37)
[2018-07-17] MEDS: ONDANSETRON HCL 4 MG ORAL DISINTEGRATING TAB PO PRN (13:05)
--- NOTE | 2018-07-17 14:20 | NUR ---
paged dr. escobar concerning vanc trough of 18.4.
--- NOTE | 2018-07-17 14:21 | NUR ---
Lab called and reported a critical vanco trough of 18.4. Call placed to BRENNEN Machado for dr. escobar and informed. Will await a call back
--- NOTE | 2018-07-17 16:32 | NUR ---
Spoke with Dr. escobar and mohit to continue same dose. Call placed to pharmacy and nurse to inform.
--- NOTE | 2018-07-17 18:45 | NUR ---
PT IS LAYING IN HIGH-FOWLERS POSITION, BED IN LOWEST POSITION, SIDE RAILS UP X3, AND CALL CONTRERAS WITHIN REACH. NO S/S OF DISTRESS.
--- NOTE | 2018-07-17 19:14 | Consultation ---
DATE OF CONSULTATION: 07/17/2018 REASON FOR CONSULTATION: Fever and chills, recommendation of antibiotic. HISTORY OF PRESENT ILLNESS: This patient is a very pleasant 58-year-old gentleman with history of HIV, history of AIDS, very compliant with medication, history of chronic kidney disease, history of hypertension, history of hyperlipidemia, chronic back pain, and cerebral palsy. The patient comes into the hospital with fever, chills, shortness of breath, and cough. The patient does have history of recurrent aspiration. The patient was admitted and started on IV antibiotic. Today, he is doing much better. REVIEW OF SYSTEMS: At the present time: HEENT: Negative. PULMONARY: Negative. CARDIAC: Negative. : Negative. GI: Negative. JOINT: Negative. SKIN: There is no rash. NEURO: No seizure activity. All systems at present time are within normal limits. LABORATORY DATA: White count 10.29, hemoglobin 15, and hematocrit 47. Sodium 139, potassium 3.6, creatinine 1.9. His cultures negative for 24 hours. His chest x-ray showed left mid lung consolidation. MEDICATIONS: The patient was started on: 1. Vancomycin. 2. Lyrica. 3. Carafate. 4. Protonix. 5. Bentyl. 6. Atrovent. 7. Zofran. 8. Cefepime. 9. K-Dur. 10. Lactulose. REVIEW OF SYSTEMS: A 14-point reviewed, all negative. MEDICATIONS: Reviewed. ALLERGIES: PENICILLIN, BUT HE DID WELL WITH CEPHALOSPORIN. SOCIAL HISTORY: There is no smoking, drug abuse, or alcohol abuse. FAMILY HISTORY: Otherwise noncontributory. PHYSICAL EXAMINATION: GENERAL: He is currently alert, oriented, does not seem to be in acute distress. VITAL SIGNS: Stable, currently afebrile. HEENT: Normocephalic. Does not appear icteric. NECK: Supple. CHEST: Clear. HEART: S1 and S2. ABDOMEN: Soft. Possible tenderness. EXTREMITIES: No edema. IMPRESSION: I think the patient has aspiration pneumonia. Clinically, he is doing well. Continue vancomycin and cefepime. Since I am concerned about healthcare associated pneumonia, we will treat him for one more day. He is clinically doing much better. Can probably discontinue antibiotic sooner, plan 5 days total. In terms of HIV, continue all his home medication as ordered. MD JOSE Gates /[id number]
[2018-07-17] MEDS: LACTULOSE SYRUP 20 GM/30 ML UDC PO SCH (21:00)
[2018-07-17] MEDS: ATORVASTATIN 20 MG TAB PO SCH (22:27)
[2018-07-17] MEDS: NORTRIPTYLINE HCL 10 MG CAP PO SCH (22:27)
[2018-07-17] MEDS: CLONAZEPAM 1 MG TAB PO SCH (22:27)
[2018-07-17] MEDS: FAMOTIDINE 20 MG TAB PO SCH (22:27)
[2018-07-17] MEDS: TOPIRAMATE 100 MG TAB PO SCH (22:27)
[2018-07-17] MEDS: POTASSIUM CHLORIDE 10MEQ EA PO SCH (22:27)
[2018-07-18] VITALS (8 sets, daily range): BP systolic 95–119; BP diastolic 51–64
[2018-07-18] MEDS: ALBUTEROL SULF 0.083% NEB SOLN 3 ML NEB NEB SCH ×6 (03:05→23:00)
[2018-07-18] MEDS: VANCOMYCIN 1GM/NS 250 ML 250 ML IV SCH ×2 (05:19→17:06)
[2018-07-18] MEDS: SODIUM CHLORIDE 0.9% 1000ML 1,000 ML IV SCH ×4 (05:19→22:46)
[2018-07-18] MEDS: LEVOTHYROXINE SODIUM 75 MCG TAB PO SCH (05:50)
--- NOTE | 2018-07-18 07:10 | NUR ---
REC'D PT SLEEPING WITHOUT ANY S/S OF DISTRESS. O2 RUNNING AT 2L/MIN VIA NC. CHEST IS RISING UP AND DOWN EFFORTLESSLY WITH UNLABORED BREATHING. ARORA 16 F IS INTACT WITH URINE DRAINING. IVs ARE DRY AND INTACT. SIDE RAILS UP X3, BED IN LOWEST POSITION, AND CALL CONTRERAS WITHIN REACH.
[2018-07-18] MEDS: IPRATROPIUM BROMIDE 0.02% 2.5 ML NEB NEB SCH ×4 (07:25→22:44)
--- NOTE | 2018-07-18 08:50 | NUR ---
SPEECH THERAPIST AND X-RAY IN PT ROOM TO PERFORM MODIFIED BARIUM SWALLOW TEST.
[2018-07-18] MEDS: PANTOPRAZOLE SOD 40 MG TABEC PO SCH ×2 (09:15→17:06)
[2018-07-18] MEDS: LUBIPROSTONE 24 MCG CAP PO SCH (09:15)
[2018-07-18] MEDS: BIKTARVY PO SCH (09:15)
[2018-07-18] MEDS: DICYCLOMINE HCL 20 MG TAB PO SCH ×3 (09:15→21:00)
[2018-07-18] MEDS: SUCRALFATE 1 GM TAB PO SCH ×4 (09:15→21:00)
[2018-07-18] MEDS: FUROSEMIDE 20 MG TAB PO SCH (09:16)
[2018-07-18] MEDS: PREGABALIN 75 MG CAP PO SCH ×3 (09:20→21:00)
--- NOTE | 2018-07-18 10:20 | NUR ---
SPEECH THERAPY RECOMMENDED NMES AND NECTAR THICKENED LIQUIDS. WILL NOTIFY DR. BENSON FOR ORDER.
--- NOTE | 2018-07-18 10:20 | NUR ---
PATIENT REFUSED PHYSICAL THERAPY
[2018-07-18] MEDS: CEFEPIME 2 GM/NS 0.9% 100 ML 100 ML IV SCH ×2 (12:20→23:30)
[2018-07-18] MEDS ORDERED: SODIUM CHLORIDE 0.9% 1000ML 1,000 ML ONE (17:02)
[2018-07-18] MEDS: LACTULOSE SYRUP 20 GM/30 ML UDC PO SCH (21:00)
[2018-07-18] MEDS: TOPIRAMATE 100 MG TAB PO SCH (21:00)
[2018-07-18] MEDS: ATORVASTATIN 20 MG TAB PO SCH (21:00)
[2018-07-18] MEDS: POTASSIUM CHLORIDE 10MEQ EA PO SCH (21:00)
[2018-07-18] MEDS: NORTRIPTYLINE HCL 10 MG CAP PO SCH (21:00)
[2018-07-18] MEDS: FAMOTIDINE 20 MG TAB PO SCH (21:00)
[2018-07-18] MEDS: CLONAZEPAM 1 MG TAB PO SCH (21:00)
--- NOTE | 2018-07-18 21:11 | NUR ---
attempted to give pt 2100 meds and pt agitated and yelling stated "your giving me too much medicine yall are making me sick, quit your shit", asked pt if he would just like to take his clonazepam and pt stated "did you hear what i said quit giving me that shit" this nurse stated ok, call light in reach and asked pt to call if he needs any assistance
[2018-07-19] VITALS (7 sets, daily range): BP systolic 95–132; BP diastolic 53–71
--- NOTE | 2018-07-19 00:23 | NUR ---
went to hang pt antibiotic and pt refused antibiotic continues to state "yall are giving me too much medicine, stop it, stop everything", pt started yelling "stop it" several times, informed pt i would not hang antibiotic if he didnt want it, call light in reach and informed pt to call if anything is needed
[2018-07-19] MEDS: CLONAZEPAM 1 MG TAB PO SCH ×2 (03:35→21:49)
[2018-07-19] MEDS: ALBUTEROL SULF 0.083% NEB SOLN 3 ML NEB NEB SCH ×6 (04:00→23:00)
[2018-07-19] MEDS: IPRATROPIUM BROMIDE 0.02% 2.5 ML NEB NEB SCH ×4 (04:00→20:29)
[2018-07-19] MEDS: VANCOMYCIN 1GM/NS 250 ML 250 ML IV SCH (04:45)
[2018-07-19] MEDS: LEVOTHYROXINE SODIUM 75 MCG TAB PO SCH (05:02)
[2018-07-19] MEDS: SODIUM CHLORIDE 0.9% 1000ML 1,000 ML IV SCH ×2 (08:46→18:46)
[2018-07-19] MEDS: LUBIPROSTONE 24 MCG CAP PO SCH (10:13)
[2018-07-19] MEDS: SUCRALFATE 1 GM TAB PO SCH ×4 (10:13→21:49)
[2018-07-19] MEDS: FUROSEMIDE 20 MG TAB PO SCH (10:13)
[2018-07-19] MEDS: PANTOPRAZOLE SOD 40 MG TABEC PO SCH ×2 (10:13→17:28)
[2018-07-19] MEDS: DICYCLOMINE HCL 20 MG TAB PO SCH ×3 (10:13→21:49)
[2018-07-19] MEDS: BIKTARVY PO SCH (10:13)
[2018-07-19] MEDS: PREGABALIN 75 MG CAP PO SCH ×3 (10:14→21:49)
[2018-07-19] MEDS: LACTULOSE SYRUP 20 GM/30 ML UDC PO SCH (20:24)
[2018-07-19] MEDS: ATORVASTATIN 20 MG TAB PO SCH (21:49)
[2018-07-19] MEDS: POTASSIUM CHLORIDE 10MEQ EA PO SCH (21:49)
[2018-07-19] MEDS: TOPIRAMATE 100 MG TAB PO SCH (21:49)
[2018-07-19] MEDS: NORTRIPTYLINE HCL 10 MG CAP PO SCH (21:49)
[2018-07-19] MEDS: FAMOTIDINE 20 MG TAB PO SCH (21:49)
[2018-07-20] VITALS (7 sets, daily range): BP systolic 102–110; BP diastolic 55–66
[2018-07-20] MEDS: IPRATROPIUM BROMIDE 0.02% 2.5 ML NEB NEB SCH ×6 (04:05→22:51)
[2018-07-20] MEDS: ALBUTEROL SULF 0.083% NEB SOLN 3 ML NEB NEB SCH ×6 (04:05→22:51)
[2018-07-20] MEDS: LEVOTHYROXINE SODIUM 75 MCG TAB PO SCH (05:30)
[2018-07-20] MEDS: SODIUM CHLORIDE 0.9% 1000ML 1,000 ML IV SCH ×2 (05:30→16:15)
[2018-07-20] MEDS: PANTOPRAZOLE SOD 40 MG TABEC PO SCH ×2 (09:22→16:15)
[2018-07-20] MEDS: LUBIPROSTONE 24 MCG CAP PO SCH (09:22)
[2018-07-20] MEDS: DICYCLOMINE HCL 20 MG TAB PO SCH ×3 (09:22→20:45)
[2018-07-20] MEDS: PREGABALIN 75 MG CAP PO SCH ×3 (09:22→20:46)
[2018-07-20] MEDS: FUROSEMIDE 20 MG TAB PO SCH (09:22)
[2018-07-20] MEDS: BIKTARVY PO SCH (09:22)
[2018-07-20] MEDS: SUCRALFATE 1 GM TAB PO SCH ×4 (09:22→20:45)
--- NOTE | 2018-07-20 15:09 | NUR ---
PT ACCEPTED TO RETURN TO [facility] [address] , [facility] [address], CALL REPORT TO [phone] ROSARIO CARE
--- NOTE | 2018-07-20 15:30 | NUR ---
DISREGARD PREVIOUS NOT WRONG PT
--- NOTE | 2018-07-20 17:09 | Diagnostic Imaging Report ---
PROCEDURE: X-RAY MODIFIED BARIUM SWALLOW COMPARISON: None. INDICATION: History of aspiration pneumonia. Radiation Details: Fluoroscopy time: 124 seconds Cumulative dose: 7.9 mGy Dose area product: 281.9 cGycm2 DISCUSSION: Fluoroscopic examination was performed in conjunction with speech pathology during swallowing a variety of thin and thick liquid consistencies. Provided images demonstrate laryngeal penetration without aspiration. There is mild vallecular and pyriform sinus residue. CONCLUSION: Modified barium swallow demonstrating laryngeal penetration without aspiration. Please refer to the speech pathology report for further details. Signed by: Dr. Janusz Cohn MD on 07/20/2018 5:06 PM
--- NOTE | 2018-07-20 19:20 | NUR ---
PATIENT RESTING IN BED. RESP EVEN AND UNLABORED. NO ACUTE DISTRESS NOTED. PATIENT DENIES OF ANY PAIN OR DISCOMFORT. ARORA IN PLACE. TELE IN PLACE. BED LOW/LOCKED. CONTINUE TO MONITOR CLOSELY
[2018-07-20] MEDS: POTASSIUM CHLORIDE 10MEQ EA PO SCH (20:45)
[2018-07-20] MEDS: NORTRIPTYLINE HCL 10 MG CAP PO SCH (20:46)
[2018-07-20] MEDS: FAMOTIDINE 20 MG TAB PO SCH (20:46)
[2018-07-20] MEDS: ATORVASTATIN 20 MG TAB PO SCH (20:46)
[2018-07-20] MEDS: CLONAZEPAM 1 MG TAB PO SCH (20:46)
[2018-07-20] MEDS: TOPIRAMATE 100 MG TAB PO SCH (20:47)
[2018-07-20] MEDS: LACTULOSE SYRUP 20 GM/30 ML UDC PO SCH ×2 (20:47→21:00)
[2018-07-21] VITALS (7 sets, daily range): BP systolic 99–114; BP diastolic 51–94
[2018-07-21] MEDS: SODIUM CHLORIDE 0.9% 1000ML 1,000 ML IV SCH ×3 (00:46→20:46)
[2018-07-21] MEDS: ALBUTEROL SULF 0.083% NEB SOLN 3 ML NEB NEB SCH ×6 (03:00→23:15)
[2018-07-21 05:04] LABS: BASOPHILS % 1.1 % (0.0-1.0); EOSINOPHILS # (AUTO) 0.1 (0.0-0.4); EOSINOPHILS % 2.2 % (0.0-6.0); HEMATOCRIT 34.2 % (38.2-49.6); HEMOGLOBIN 10.9 g/dL (14.0-18.0); LYMPHOCYTES # (AUTO) 1.2 (1.0-3.2); MEAN CORPUSCULAR HEMOGLOBIN 30.6 pg (28-32); MEAN CORPUSCULAR HGB CONC 31.9 g/dL (31-35); MEAN CORPUSCULAR VOLUME 96.1 fL (81-99); MONOCYTES # (AUTO) 0.4 (0.2-0.8); NEUTROPHILS % 34.9 % (38.7-80.0); PLATELET COUNT 182 x10e3/uL (140-360); RED BLOOD COUNT 3.56 x10e6/uL (4.3-5.7); RED CELL DISTRIBUTION WIDTH 15.6 % (11.7-14.4)
[2018-07-21 05:31] LABS: BLOOD UREA NITROGEN 11 mg/dL (7-26); BUN/CREATININE RATIO 11 (6-25); CALCIUM 8.7 mg/dL (8.4-10.2); CARBON DIOXIDE 29 mmol/L (22-29); CHLORIDE 107 mmol/L (98-107); CREATININE, SERUM 1.04 mg/dL (0.72-1.25); EST GLOMERULAR FILTRATION RATE > 60 ML/MIN (60-); GLUCOSE 160 mg/dL (74-118); SODIUM 140 mmol/L (136-145)
[2018-07-21] MEDS: LEVOTHYROXINE SODIUM 75 MCG TAB PO SCH (05:53)
--- NOTE | 2018-07-21 06:05 | NUR ---
LOW TEMP 94.7 NOTED, PAGED DR BENSON, AWAITING FOR MD TO CALL BACK
[2018-07-21] MEDS: IPRATROPIUM BROMIDE 0.02% 2.5 ML NEB NEB SCH ×3 (06:30→19:15)
--- NOTE | 2018-07-21 07:00 | NUR ---
BEDSIDE SHIFT REPORT RECEIVED FROM DIGITAL MEDIA MANAGER RN. PT DENIES NEEDS AT THIS TIME.
[2018-07-21] MEDS ORDERED: POTASSIUM CHLORIDE 20 MEQ TAB CR PO STA (07:08)
--- NOTE | 2018-07-21 07:11 | NUR ---
DR BENSON CALLED BACK, NOTIFIED PATIENT'S TEMP IS LOW AND K-3.0, PATIENT IS ASYMPTOMATIC. NEW ORDER FOR POTASSIUM NOW AND IN 2 HRS
--- NOTE | 2018-07-21 09:26 | Diagnostic Imaging Report ---
EXAMINATION: PA and lateral views of the chest. COMPARISON: 07/15/2018 CLINICAL HISTORY: Pneumonia DISCUSSION: Lung volumes remain low. Interval improvement in aeration of the left lung base relative to 07/15/2018. No new consolidation. Stable cardiomediastinal contour. Lucencies under the right hemidiaphragm are felt to represent bowel interposition between the liver and right hemidiaphragm. No acute osseous abnormality. IMPRESSION: Persistent low lung volumes with interval improvement in aeration of the left lung base relative to 07/15/2018. Signed by: Dr. Stevie Elizondo M.D. on 07/21/2018 9:23 AM
[2018-07-21] MEDS ORDERED: POTASSIUM CHLORIDE 20 MEQ TAB CR PO ONE (09:30)
[2018-07-21] MEDS: BIKTARVY PO SCH (09:33)
[2018-07-21] MEDS: DICYCLOMINE HCL 20 MG TAB PO SCH ×3 (09:33→21:11)
[2018-07-21] MEDS: SUCRALFATE 1 GM TAB PO SCH ×4 (09:33→21:11)
[2018-07-21] MEDS: PANTOPRAZOLE SOD 40 MG TABEC PO SCH ×2 (09:33→16:37)
[2018-07-21] MEDS: LUBIPROSTONE 24 MCG CAP PO SCH (09:33)
[2018-07-21] MEDS: PREGABALIN 75 MG CAP PO SCH ×3 (09:34→21:12)
[2018-07-21] MEDS: FUROSEMIDE 20 MG TAB PO SCH (09:34)
--- NOTE | 2018-07-21 10:18 | NUR ---
IMM letter delivered and explained to pt's mother Danii Singh at bedside. Pt's provider also at bedside. Pt currently confused. Pt's mother verbalized understanding. Signed copy placed in chart. Copy given to Ms. Singh.
--- NOTE | 2018-07-21 14:05 | NUR ---
ST NOTE: Family deferred Speech Therapy due to pt fatigue. Will resume treatment Tuesday. Should pt d/c over the weekend please order home health care with Speech therapy to treat dysphagia with NMES
[2018-07-21] MEDS: CEFTRIAXONE SOD 1 GM/NS 50 ML 50 ML IV SCH (15:05)
--- NOTE | 2018-07-21 17:41 | NUR ---
Nutrition Screen Note RD Recommendation for Physician: -Continue current diet as ordered; diet texture per CAM SPECIALIST Plan of Care: RD following, monitoring for tolerance and adequacy Nutrition reason for involvement: LOS Primary Diagnose(s): Aspiration PNA PMH: AIDS, history of hypertension, chronic renal insufficiency, hypothyroidism, hyperlipidemia, chronic back pain, hypotension, cerebral palsy, and multiple sclerosis Ht: 65in Wt: 173.5lb BMI: 28.9kg/m2 IBW: 136lb RD Assessment: (07/21) Chart reviewed. Labs and meds reviewed. 58yo M, who was admitted for AMS. Pt was discussed during AM rounds. K was repleted. CAM SPECIALIST was following for aspiration PNA. Visited pt in the room. Per mother, pt was tolerating current diet texture. No complains of nausea or vomiting. Appetite has been good. Weight has been stable. Will continue to monitor and follow. Current Diet: regular diet with mechanical soft, nectar thick Malnutrition Evaluation (07/21) The patient does not meet criteria for a specified degree of malnutrition at this time. Will re-evaluate at follow-up as appropriate. Diet Education Needs Assessment: Diet education not indicated. Nutrition Care Level: low Signed: Julee Donald, MS, RD, LD
--- NOTE | 2018-07-21 19:15 | NUR ---
Rounding done & report received. Patient is resting in bed comfortably receiving neb treatments, respirations even & unlabored, no distress noted. IV fluids running to R AC, patent & no infiltration noted. Patient also has a L FA 20g SL, patent & no infiltration noted. Tele in place. Quiroz in place, draining clear yellow urine. Call light within reach, side rails x2 raised & bed set to lowest position.
[2018-07-21] MEDS: NORTRIPTYLINE HCL 10 MG CAP PO SCH (21:12)
[2018-07-21] MEDS: CLONAZEPAM 1 MG TAB PO SCH (21:12)
[2018-07-21] MEDS: ATORVASTATIN 20 MG TAB PO SCH (21:12)
[2018-07-21] MEDS: LACTULOSE SYRUP 20 GM/30 ML UDC PO SCH (21:12)
[2018-07-21] MEDS: POTASSIUM CHLORIDE 10MEQ EA PO SCH (21:12)
[2018-07-21] MEDS: TOPIRAMATE 100 MG TAB PO SCH (21:13)
[2018-07-21] MEDS: FAMOTIDINE 20 MG TAB PO SCH (21:13)
[2018-07-22] VITALS (10 sets, daily range): BP systolic 90–117; BP diastolic 52–88
[2018-07-22] MEDS: ALBUTEROL SULF 0.083% NEB SOLN 3 ML NEB NEB SCH ×5 (02:25→19:35)
[2018-07-22] MEDS: IPRATROPIUM BROMIDE 0.02% 2.5 ML NEB NEB SCH ×4 (02:25→19:35)
[2018-07-22] MEDS: LEVOTHYROXINE SODIUM 75 MCG TAB PO SCH (06:30)
[2018-07-22] MEDS: SODIUM CHLORIDE 0.9% 1000ML 1,000 ML IV SCH ×2 (06:31→16:19)
--- NOTE | 2018-07-22 07:00 | NUR ---
BEDSIDE SHIFT REPORT RECEIVED FROM BLASTING ENTRY SPECIALIST RN. PT DENIES NEEDS AT THIS TIME.
[2018-07-22] MEDS: PANTOPRAZOLE SOD 40 MG TABEC PO SCH ×2 (08:45→16:19)
[2018-07-22] MEDS: SUCRALFATE 1 GM TAB PO SCH ×4 (08:45→21:57)
[2018-07-22] MEDS: PREGABALIN 75 MG CAP PO SCH ×3 (08:46→21:59)
[2018-07-22] MEDS: DICYCLOMINE HCL 20 MG TAB PO SCH ×3 (08:46→21:57)
[2018-07-22] MEDS: FUROSEMIDE 20 MG TAB PO SCH (09:38)
[2018-07-22] MEDS: LUBIPROSTONE 24 MCG CAP PO SCH (09:38)
[2018-07-22] MEDS: BIKTARVY PO SCH (09:38)
--- NOTE | 2018-07-22 10:35 | NUR ---
PT POTASSIUM LEVEL 3.0. CALLED AND INFORMED DR. BENSON OFFICE. NO NEW ORDERS RECEIVED.
--- NOTE | 2018-07-22 11:00 | NUR ---
PT AT BEDSIDE.
[2018-07-22] MEDS: CEFTRIAXONE SOD 1 GM/NS 50 ML 50 ML IV SCH (15:30)
[2018-07-22] MEDS: ONDANSETRON HCL 4 MG ORAL DISINTEGRATING TAB PO PRN (16:25)
--- NOTE | 2018-07-22 17:00 | NUR ---
DR STREET AT BEDSIDE TO SEE THE PT. RECEIVED NEW ORDER.
[2018-07-22] MEDS ORDERED: POTASSIUM CHLORIDE 20 MEQ TAB CR PO NR (17:17)
[2018-07-22] MEDS ORDERED: FILGRASTIM 480 MCG/0.8 ML SYRINGE SQ NR (17:30)
[2018-07-22 17:56] LABS: HEMATOCRIT 39.4 % (38.2-49.6); HEMOGLOBIN 12.1 g/dL (14.0-18.0); MEAN CORPUSCULAR HEMOGLOBIN 30.3 pg (28-32); MEAN CORPUSCULAR HGB CONC 30.7 g/dL (31-35); MEAN CORPUSCULAR VOLUME 98.5 fL (81-99); PLATELET COUNT 173 x10e3/uL (140-360); RED CELL DISTRIBUTION WIDTH 15.6 % (11.7-14.4)
[2018-07-22 18:52] LABS: BAND NEUTROPHILS % (MANUAL) 1 %; EOSINOPHILS % (MANUAL) 1 % (0-7); LYMPHOCYTES % (MANUAL) 35 % (19-48); MONOCYTES % (MANUAL) 8 % (3.4-9.0); NEUTROPHILS % (MANUAL) 55 % (40-74); RBC MORPHOLOGY COMMENT NORMAL
[2018-07-22 18:54] LABS: PLATELET ESTIMATE ADEQUATE; PLATELET MORPHOLOGY COMMENT NORMAL
--- NOTE | 2018-07-22 19:00 | NUR ---
BEDSIDE SHIFT REPORT GIVEN TO ELECTROLYSIS NEEDLE OPERATOR RN. PT DENIED FURTHER NEEDS.
--- NOTE | 2018-07-22 20:16 | NUR ---
RECEIVED PT IN BED AOX3 .RESPIRATIONS ARE EVEN AND UNLABORED ..PT HAS TELE SHOWS SR ..PT HAS ARORA DRAINING CLEAR YELLOW URINE .CALL LIGHT WITH IN REACH .CONTINUE TO MONITOR
[2018-07-22] MEDS ORDERED: POTASSIUM CHLORIDE 10MEQ EA PO SCH (21:00)
[2018-07-22] MEDS: POTASSIUM CHLORIDE 10MEQ EA PO SCH (21:57)
[2018-07-22] MEDS: CLONAZEPAM 1 MG TAB PO SCH (21:59)
[2018-07-22] MEDS: LACTULOSE SYRUP 20 GM/30 ML UDC PO SCH (21:59)
[2018-07-22] MEDS: ATORVASTATIN 20 MG TAB PO SCH (21:59)
[2018-07-22] MEDS: FAMOTIDINE 20 MG TAB PO SCH (22:00)
[2018-07-22] MEDS: NORTRIPTYLINE HCL 10 MG CAP PO SCH (22:00)
[2018-07-22] MEDS: TOPIRAMATE 100 MG TAB PO SCH (22:00)
[2018-07-23] VITALS (8 sets, daily range): BP systolic 87–121; BP diastolic 55–62
[2018-07-23] MEDS: IPRATROPIUM BROMIDE 0.02% 2.5 ML NEB NEB SCH ×4 (00:02→19:30)
[2018-07-23] MEDS: ALBUTEROL SULF 0.083% NEB SOLN 3 ML NEB NEB SCH ×6 (00:02→19:30)
[2018-07-23] MEDS: SODIUM CHLORIDE 0.9% 1000ML 1,000 ML IV SCH ×3 (03:08→22:46)
[2018-07-23 05:31] LABS: BLOOD UREA NITROGEN 9 mg/dL (7-26); BUN/CREATININE RATIO 8 (6-25); CALCIUM 9.2 mg/dL (8.4-10.2); CARBON DIOXIDE 28 mmol/L (22-29); CHLORIDE 107 mmol/L (98-107); CREATININE, SERUM 1.09 mg/dL (0.72-1.25); EST GLOMERULAR FILTRATION RATE > 60 ML/MIN (60-); GLUCOSE 144 mg/dL (74-118); SODIUM 140 mmol/L (136-145)
[2018-07-23] MEDS: LEVOTHYROXINE SODIUM 75 MCG TAB PO SCH (05:49)
[2018-07-23] MEDS ORDERED: POTASSIUM CHLORIDE 20 MEQ TAB CR PO NR (06:00)
--- NOTE | 2018-07-23 06:37 | NUR ---
PT RESTED DURING THE NIGHT .TURNED PT Q2HRS .NO ACUTE DISTRESS NOTED .CALL LIGHT WITH IN REACH CONTINUE TO MONITOR
--- NOTE | 2018-07-23 06:56 | NUR ---
BEDSIDE REPORT GIVEN TO THE ONCOMING NURSE
--- NOTE | 2018-07-23 07:00 | NUR ---
BEDSIDE SHIFT REPORT RECEIVED FROM PRACTICE ADVISOR RN. PT DENIES NEEDS AT THIS TIME.
[2018-07-23] MEDS: SUCRALFATE 1 GM TAB PO SCH ×5 (09:39→20:55)
[2018-07-23] MEDS: PANTOPRAZOLE SOD 40 MG TABEC PO SCH ×2 (09:39→15:36)
[2018-07-23] MEDS: DICYCLOMINE HCL 20 MG TAB PO SCH ×3 (09:42→20:55)
[2018-07-23] MEDS: FUROSEMIDE 20 MG TAB PO SCH (09:45)
[2018-07-23] MEDS: BIKTARVY PO SCH (09:50)
[2018-07-23] MEDS: LUBIPROSTONE 24 MCG CAP PO SCH (09:50)
[2018-07-23] MEDS: PREGABALIN 75 MG CAP PO SCH ×3 (09:50→20:55)
[2018-07-23] MEDS: CEFTRIAXONE SOD 1 GM/NS 50 ML 50 ML IV SCH (15:27)
--- NOTE | 2018-07-23 19:00 | NUR ---
BEDSIDE SHIFT REPORT GIVEN TO THE SIGN OUT CLERK RN. PT DENIED FURTHER NEEDS.
[2018-07-23] MEDS: FAMOTIDINE 20 MG TAB PO SCH (20:55)
[2018-07-23] MEDS: POTASSIUM CHLORIDE 10MEQ EA PO SCH (20:55)
[2018-07-23] MEDS: TOPIRAMATE 100 MG TAB PO SCH (20:55)
[2018-07-23] MEDS: NORTRIPTYLINE HCL 10 MG CAP PO SCH (20:55)
[2018-07-23] MEDS: ATORVASTATIN 20 MG TAB PO SCH (20:55)
[2018-07-23] MEDS: LACTULOSE SYRUP 20 GM/30 ML UDC PO SCH (21:00)
[2018-07-24] MEDS: ALBUTEROL SULF 0.083% NEB SOLN 3 ML NEB NEB SCH ×5 (00:15→15:00)
[2018-07-24] MEDS: IPRATROPIUM BROMIDE 0.02% 2.5 ML NEB NEB SCH ×3 (00:15→13:00)
[2018-07-24 00:30] VITALS: BP 97/62
[2018-07-24] MEDS: SODIUM CHLORIDE 0.9% 1000ML 1,000 ML IV SCH (00:32)
[2018-07-24 05:00] VITALS: BP 112/57
[2018-07-24] MEDS: LEVOTHYROXINE SODIUM 75 MCG TAB PO SCH (06:22)
--- NOTE | 2018-07-24 07:36 | NUR ---
REPORT GIVEN TO ONCOMING NURSE.WALKING ROUNDS MADE.PT RESTING IN BED WITH NO S/S OF DISTRESS.
[2018-07-24 08:51] VITALS: BP 101/63
--- NOTE | 2018-07-24 09:31 | NUR ---
Dr. Cheung here to see the patient. Discussed possibility of transfer to [facility] pending approval.
[2018-07-24] MEDS: LUBIPROSTONE 24 MCG CAP PO SCH (10:07)
[2018-07-24] MEDS: DICYCLOMINE HCL 20 MG TAB PO SCH ×2 (10:07→15:42)
[2018-07-24] MEDS: SUCRALFATE 1 GM TAB PO SCH ×3 (10:07→16:06)
[2018-07-24] MEDS: PANTOPRAZOLE SOD 40 MG TABEC PO SCH ×2 (10:07→16:06)
[2018-07-24] MEDS: FUROSEMIDE 20 MG TAB PO SCH (10:09)
[2018-07-24] MEDS: PREGABALIN 75 MG CAP PO SCH ×2 (10:09→15:42)
[2018-07-24 10:13] VITALS: BP 101/63
[2018-07-24] MEDS: BIKTARVY PO SCH (10:13)
--- NOTE | 2018-07-24 10:43 | Diagnostic Imaging Report ---
EXAMINATION: CHEST 2 VIEWS INDICATION: PNU COMPARISON: Chest radiograph 07/21/2018. FINDINGS: TUBES and LINES: None. LUNGS: Limited secondary to low lung volumes. There is perihilar and interstitial opacity. Increased left mid and lower lung zone opacities. PLEURA: No pleural effusion or pneumothorax. HEART AND MEDIASTINUM: The cardiomediastinal silhouette is unremarkable. There is elevation of the right hemidiaphragm. BONES AND SOFT TISSUES: No acute osseous abnormality. Multiple healed rib fractures. Healed right midclavicular fracture. UPPER ABDOMEN: Lucency under the right hemidiaphragm likely represents bowel. IMPRESSION: Interval decrease in lung volumes, cannot exclude pulmonary interstitial edema. Increased left mid and lower lung zone opacities may represent atelectasis or pneumonia in the appropriate clinical setting. Signed by: Dr. Janusz Cohn MD on 07/24/2018 10:39 AM
[2018-07-24 12:34] VITALS: BP 105/55
--- NOTE | 2018-07-24 13:05 | NUR ---
Spoke to Dr. Cheung and gave him pt's CXR results from today. He gave order for LTAC eval and transfer once accepted. CM spoke to pt at bedside and informed him of LTAC order. Pt is now alert and oriented. States he has been to [facility] previously. Pt gave choice for [facility]. Requesting a room on the third floor. Choice letter signed and placed in chart. Copy of choice letter placed in pt's transition of care folder. CM notified Reyna Freire, liaison with [facility], of referral and informed her of pt's request.
--- NOTE | 2018-07-24 14:15 | NUR ---
Patient refusing PT today stating, "I'm going to [facility] and I don't want to do anything until I get there." Encouraged patient to work with PT, he still said no.
--- NOTE | 2018-07-24 15:40 | NUR ---
MOT initiated and placed with pt's packet at nurse's station. Pending acceptance and room assignment. [place] [address] [place], [place] [id number]
[2018-07-24] MEDS: CEFTRIAXONE SOD 1 GM/NS 50 ML 50 ML IV SCH (15:42)
[2018-07-24 15:53] VITALS: BP 101/73
--- NOTE | 2018-07-24 17:23 | NUR ---
Called report to DELONTE Knapp at [facility]. MOT taken to elma Kendrickwarehouse logistics manager. Awaiting arrival of ambulance for transfer.
--- NOTE | 2018-07-24 19:20 | NUR ---
Patient received lying in bed. AAO x 3. Patient had no complaints of pain. Respirations even and non-labored; on 2L NC. Telemetry box in place. Quiroz catheter draining pale clear yellow urine. Fall precautions implemented. Patient instructed to call for assistance when needed. Call light within reach.
--- NOTE | 2018-07-24 20:15 | NUR ---
Patient discharged to [facility] by EMS via stretcher. Telemetry leads removed. Patient in stable condition. Vital signs WNL.
--- NOTE | 2018-07-26 11:09 | Consultation ---
DATE OF CONSULTATION: 07/23/2018 HISTORY OF PRESENT ILLNESS: Mr. Singh is a 58-year-old white male referred to me for evaluation of anemia. No history of hematochezia, melena, hematuria, hematemesis, or hemoptysis. The patient was brought in because of confusion. The patient also had shown some rales at the left lung base, consistent with bronchopneumonia with absolute neutrophil count of this patient yesterday was less than 1000. Dr. Guevara had called me to see this patient. I had advised him to give him "one dose of Neupogen 480 mcg." Since this was not an emergency that I will see the patient the following day. Subsequently, I had seen the patient the following day. SOCIAL HISTORY: Noncontributory. FAMILY HISTORY: Noncontributory. ALLERGIES: 1. PENICILLIN. 2. DEXTROMETHORPHAN. MEDICATIONS: At this time: 1. Albuterol. 2. Sodium chloride. 3. Pepcid. 4. Carafate. 5. Docusate. 6. Lipitor. 7. Lasix. 8. Pregabalin. 9. Topiramate. 10. Tramadol. 11. Ceftriaxone. 12. Clonazepam. 13. Lactulose. 14. Protonix. 15. Ondansetron. 16. Dicyclomine. 17. Levothyroxine. 18. Nortriptyline. 19. Diphenhydramine. 20. Potassium chloride. REVIEW OF SYSTEMS: HEENT: Normal. CARDIAC: History of hyperlipidemia. RESPIRATORY: Now bronchopneumonia. GI: Normal. : Normal. MUSCULOSKELETAL: Normal. SKIN AND BREASTS: Normal. NEUROENDOCRINE: History of hypothyroidism. HEMATOLOGICAL: History of HIV being treated actively by Dr. Guevara. PHYSICAL EXAMINATION: GENERAL: A large built male, fairly confused. No adenopathy. HEART: Within normal limits. LUNGS: Diminished breath sounds at the left base. ABDOMEN: Obese. RECTAL: Deferred. CENTRAL NERVOUS SYSTEM: Could not be examined. LAB: Shows today a hemoglobin of 12.1, hematocrit 39.4, white count of 4400, and platelets of 173,000. Sodium 140, potassium 4.0, chloride 107, CO2 28, BUN 9, and creatinine 1.0. Liver functions are essentially normal. Bilirubin 0.5, SGOT 15, SGPT 13, and alkaline phosphatase 103. IMPRESSION: 1. Transient neutropenia responsive to Neupogen. 2. Left lung pneumonia. 3. History of HIV. 4. Hypoproteinemia of 5.7. 5. Hypoalbuminemia of 2.5. PLAN, COMMENTS, AND SUGGESTIONS: Will confine myself to Hematology. Will watch the CBC. If needed, I will give him Neupogen again. Thank you very much for allowing me to participate in management of this patient. Kathy Donohue MD MAQ/MODL /[id number] cc: MD Yossi Gates MD
== END 2018-07-24 20:15 | DRG 177 ==
LOC: ER 23:01 → ERHOLD 07-16 00:57 → MED/SURG2 07-16 04:04
DX: J69.0 Pneumonitis due to inhalation of food and vomit (principal); G93.41 Metabolic encephalopathy; B20 Human immunodeficiency virus [HIV] disease; J44.1 Chronic obstructive pulmonary disease with (acute) exacerbation; N39.0 Urinary tract infection, site not specified; N17.9 Acute kidney failure, unspecified; E03.9 Hypothyroidism, unspecified; E78.5 Hyperlipidemia, unspecified; N18.3 Chronic kidney disease, stage 3 (moderate); G80.9 Cerebral palsy, unspecified; D64.9 Anemia, unspecified; N40.0 Benign prostatic hyperplasia without lower urinary tract symptoms; E77.8 Other disorders of glycoprotein metabolism; E88.09 Other disorders of plasma-protein metabolism, not elsewhere classified; D70.9 Neutropenia, unspecified; Z88.0 Allergy status to penicillin; Z88.8 Allergy status to other drugs, medicaments and biological substances; G89.4 Chronic pain syndrome; K59.00 Constipation, unspecified
CPT/HCPCS: 36415; 71045; 71046; 74230; 80048; 80053; 80202; 81001; 82550; 82553; 82948; 83605; 84484; 85007; 85025; 85027; 87040; 87086; 94640; 96361; 97139; 99284; J0696; J1442; J3370; J7030; J7050

== ENCOUNTER 2018-10-29 12:30 | Inpatient (IN) | payer MEDICARE, OTHER ==
[~2018-10-29] VITALS: Ht 165.1 cm; Wt 77.1 kg
--- OUTSIDE RECORDS SUMMARY | 2018-10-29 12:34 | XMS REPORT | Continuity of Care Document ---
Author Author delicious Address Unknown Phone Unavailable Care Team Providers Care Brick Burner Name Role Phone [employer] [facility] Unavailable Unavailable Problems Problem Status Onset Date Classification Date Reported Comments Source Multiple sclerosis Active Problem 11/05/2016 Tato Almanza Disorders of sacrum Active Problem 11/05/2016 Tato Almanza Lumbosacral spondylosis without myelopathy Active Problem 11/05/2016 Tato Almanza Radiculopathy, lumbar region Active Problem 05/05/2017 Tato Vergaraer Chronic pain syndrome Active Problem 05/05/2017 Tato Vergaraer Multiple sclerosis Active Problem 05/05/2017 Tato Almanza Spondylosis without myelopathy or radiculopathy, lumbosacral region Active Problem 05/05/2017 Tato Vergaraer Chronic pain syndrome Active Problem 11/05/2016 Tato Archie 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 Tato Almanza Sacrococcygeal disorders, not elsewhere classified Active Problem 05/05/2017 Tato Almanza Long-term (current) use of other medications - High Risk Active Problem 11/05/2016 Tato Almanza Other symptoms involving nervous and musculoskeletal systems Active Problem 11/05/2016 Tato Almanza Abnormal posture Active Problem 11/05/2016 Tato Almanza Medications Medication Details Route Status Patient Instructions Ordering Provider Order Date Source Levothyroxine Sodium 1 tablet Orally Active 0.05 Orally Once a day Sharri Almanza Furosemide 1 tablet Orally Active 20 MG Orally Once a day Sharriesthela Almanza Lyrica 1 capsule Orally Active 150 MG Orally Three times a day Sharri Almanza Genvoya as directed Orally Active [phone] MG Orally Sharri Almanza Butalbital-Acetaminophen 1 tablet as needed Orally Active 50- 325 MG Orally every 4 hrs Sharri Almanza Dicyclomine HCl 1 tablet Orally Active 20 MG Orally Four times a day Sharriesthela Almanza Vytorin 1 tablet Orally Active 10-20 MG Orally Once a day [facility] Tato Almanza Pantoprazole Sodium 1 tablet Orally Active 40 MG Orally Once a day [facility] Tato Almanza Bnmcpevmyik-[id number]-Xwkfoja Prod as directed Orally Active 10-325 MG Orally [facility] Taot Almanza Linzess 1 capsule Orally Active 290 MCG Orally Once a day [facility] Tato Vergaraer Clonazepam 1 tablet Orally Active 0.5 MG Orally Twice a day [facility] Tato Vergaraer Kristalose 1 packet mixed with 4 ounces of water Orally Active 10 GM Orally Once a day [facility] Tato Almanza Allergies, Adverse Reactions, Alerts No Known Medication Allergies Immunizations No Data Provided for This Section Results No Data Provided for This Section Pathology Reports No Data Provided for This Section Diagnostic Reports No Data Provided for This Section Consultation Notes No Data Provided for This Section Discharge Summaries No Data Provided for This Section History and Physicals No Data Provided for This Section Vital Signs Vital Sign Value Date Comments Source Weight 175 10/30/2016 Tato Almanza Height 57 10/30/2016 Tato Almanza Temperature Oral (F) 95 F 10/30/2016 Tato Almanza Heart Rate 78 10/30/2016 Tato Almanza Diastolic (mm Hg) 82 10/30/2016 Tato Almanza Systolic (mm Hg) 120 10/30/2016 Tato Almanza Temperature Oral (F) 95.0 F 08/04/2016 Tato Almanza Heart Rate 78 08/04/2016 Tato Almanza Height 57 08/04/2016 Tato Almanza Diastolic (mm Hg) 60 08/04/2016 Tato Almanza Systolic (mm Hg) 142 08/04/2016 Tato Almanza Weight 175 08/04/2016 Tato Almanza Encounters No Data Provided for This Section Procedures No Data Provided for This Section Assessment and Plan No Data Provided for This Section Plan of Care No Data Provided for This Section Social History No Data Provided for This Section Family History No Data Provided for This Section Advance Directives No Data Provided for This Section Functional Status No Data Provided for This Section
[2018-10-29] MEDS ORDERED: SODIUM CHLORIDE 0.9% 1000ML 1,000 ML IV STA (12:54)
[2018-10-29] MEDS ORDERED: VANCOMYCIN 1GM/NS 250 ML 250 ML IV ONE (13:00)
--- NOTE | 2018-10-29 13:42 | Diagnostic Imaging Report ---
EXAMINATION: CHEST SINGLE (PORTABLE) INDICATION: Query aspiration pneumonia. COMPARISON: Chest radiograph 07/15/2018. FINDINGS: TUBES and LINES: None. LUNGS: Limited secondary to low lung volumes. There are patchy opacities in the left mid and lower lungs. Central vascular congestion without definite pulmonary edema. PLEURA: No pleural effusion or pneumothorax. HEART AND MEDIASTINUM: The cardiomediastinal silhouette is unremarkable. BONES AND SOFT TISSUES: No acute osseous abnormality. Multiple healed rib fractures. Healed right midclavicular fracture. UPPER ABDOMEN: Lucency under the right hemidiaphragm likely represents bowel. IMPRESSION: Low lung volumes with patchy left mid and lower lung zone opacities, which may reflect atelectasis or pneumonia in the appropriate clinical setting. Suggest follow-up chest radiograph in 6-8 weeks to assess for resolution. Signed by: Dr. Janusz Cohn MD on 10/29/2018 1:38 PM
[2018-10-29 13:52] LABS: BASOPHILS # (AUTO) 0.1 (0.0-0.1); BASOPHILS % 0.9 % (0.0-1.0); EOSINOPHILS # (AUTO) 0.1 (0.0-0.4); EOSINOPHILS % 2.2 % (0.0-6.0); HEMATOCRIT 45.9 % (38.2-49.6); HEMOGLOBIN 14.4 g/dL (14.0-18.0); LYMPHOCYTES # (AUTO) 0.8 (1.0-3.2); LYMPHOCYTES % 13.9 % (18.0-39.1); MEAN CORPUSCULAR HEMOGLOBIN 30.5 pg (28-32); MEAN CORPUSCULAR HGB CONC 31.4 g/dL (31-35); MEAN CORPUSCULAR VOLUME 97.2 fL (81-99); MONOCYTES # (AUTO) 0.5 (0.2-0.8); NEUTROPHILS # (AUTO) 4.4 (2.1-6.9); NEUTROPHILS % 74.7 % (38.7-80.0); PLATELET COUNT 172 x10e3/uL (140-360); RED BLOOD COUNT 4.72 x10e6/uL (4.3-5.7); RED CELL DISTRIBUTION WIDTH 16.4 % (11.7-14.4)
[2018-10-29 14:11] LABS: INR 0.92; PROTHROMBIN TIME 12.8 seconds (11.9-14.5)
[2018-10-29 14:13] LABS: PARTIAL THROMBOPLASTIN TIME 45.3 seconds (23.8-35.5)
[2018-10-29 14:19] LABS: ALBUMIN 3.3 g/dL (3.5-5.0); ALBUMIN/GLOBULIN RATIO 0.8 (0.8-2.0); ANION GAP 13.8 mmol/L (8-16); B-TYPE NATRIURETIC PEPTIDE2 79.2 pg/mL (0-100); CREATININE, SERUM 1.41 mg/dL (0.72-1.25); MAGNESIUM 2.2 MG/DL (1.3-2.1); POTASSIUM 3.8 mmol/L (3.5-5.1)
[2018-10-29] MEDS: MEROPENEM 1GM 100 ML IV SCH ×2 (14:25→21:44)
[2018-10-29] MEDS ORDERED: TRAMADOL HCL 50 MG TAB PO PRN (14:30)
[2018-10-29] MEDS ORDERED: DIPHENHYDRAMINE HCL 25 MG CAP PO SCH (14:30)
[2018-10-29] MEDS ORDERED: DOCUSATE SODIUM 100 MG CAP PO PRN (14:30)
[2018-10-29] MEDS ORDERED: ONDANSETRON HCL 4 MG ORAL DISINTEGRATING TAB PO PRN (14:30)
[2018-10-29 15:04] LABS: BILIRUBIN,URINE NEGATIVE (NEGATIVE); CLARITY,URINE CLEAR (CLEAR); COLOR,URINE YELLOW (YELLOW); KETONES,URINE NEGATIVE (NEGATIVE); LEUKOCYTE ESTERASE ,URINE NEGATIVE (NEGATIVE); NITRITE,URINE NEGATIVE (NEGATIVE); PROTEIN,URINE DIPSTICK TRACE (NEGATIVE); URINE UROBILINOGEN 0.2 mg/dL (0.2 - 1)
[2018-10-29] MEDS ORDERED: SODIUM CHLORIDE 0.9% 1000ML 1,000 ML IV ONE (15:30)
[2018-10-29 15:33] LABS: BACTERIA,URINE FEW /HPF; EPITHELIAL CELLS,URINE FEW /LPF; WBC,URINE (MAN) 0-5 /HPF (0-5)
[2018-10-29] MEDS: PANTOPRAZOLE SOD 40 MG TABEC PO SCH (16:03)
[2018-10-29] MEDS: DICYCLOMINE HCL 20 MG TAB PO SCH ×2 (16:03→21:44)
[2018-10-29] MEDS: SUCRALFATE 1 GM TAB PO SCH ×2 (16:03→21:44)
--- OUTSIDE RECORDS SUMMARY | 2018-10-29 16:04 | XMS REPORT | Continuity of Care Document ---
Author Author Tugg Address Unknown Phone Unavailable Care Team Providers Care Web Weaver Name Role Phone [employer] Information [employer] Unavailable Unavailable Problems Problem Status Onset Date [...] Sharri Almanza Genvoya as directed Orally Active [phone] MG Orally Sharri Almanza Butalbital-Acetaminophen 1 tablet as needed Orally Active 50- 325 MG Orally every 4 hrs Sharri Almanza Dicyclomine HCl 1 tablet Orally Active 20 MG Orally Four times a day Sharriesthela Almanza Vytorin 1 tablet Orally Active 10-20 MG Orally Once a day [facility] Tato Almanza Pantoprazole Sodium 1 tablet Orally Active 40 MG Orally Once a day [facility] Tato Almanza Krtvlcyqvtr-RKVZ-Pnjhvwz Prod as directed Orally Active 10-325 MG Orally [facility] Tato Almanza Linzess 1 capsule Orally Active 290 MCG Orally Once a day [facility] Tato Vergaraer Clonazepam 1 tablet Orally Active 0.5 MG Orally Twice a day [facility] Tato Vergaraer Kristalose 1 packet mixed with 4 ounces of water Orally Active 10 GM Orally Once a day [facility] Tato Almanza Allergies, Adverse Reactions, Alerts No [...] Temperature Oral (F) 95.0 F 08/04/2016 Tato Almanaz Heart Rate 78 08/04/2016 Tato Almanza Height [...]
[2018-10-29 18:32] VITALS: BP 135/82
--- NOTE | 2018-10-29 18:34 | NUR ---
Just received patient from ER, 58 year old male, with extensive medical history alert and responsive to verbal prompts, mostly responds by shaking his head, in bed, non-ambulatory per account from mother. Patient admitted this time after having been discharged to home on hospice last time he was here per mother and diagnosis of aspiration PNA, urinary retention. VSS- 135/82, P98, Temp-96.6, RR18, [id number], call light within reach, mother in room with patient , will monitor.
[2018-10-29 19:00] VITALS: BP 123/79
--- NOTE | 2018-10-29 19:00 | NUR ---
Called and spoke with Dr. Guevara about consult for patient.
--- NOTE | 2018-10-29 19:04 | NUR ---
Report given to on coming nurse
[2018-10-29] MEDS: ALBUTEROL SULF 0.083% NEB SOLN 3 ML NEB NEB SCH (19:22)
[2018-10-29] MEDS: IPRATROPIUM BROMIDE 0.02% 2.5 ML NEB NEB SCH (19:22)
[2018-10-29 19:40] VITALS: BP 123/79
--- NOTE | 2018-10-29 19:43 | History and Physical ---
HISTORY OF PRESENT ILLNESS: The patient is a 58-year-old male with past medical history positive for cerebral palsy and AIDS, came here with pneumonia. REVIEW OF SYSTEMS: The patient is unable to give me too much information due to his mental status. ALLERGIES: ALLERGIC TO PENICILLIN, DEXTROMETHORPHAN AND GUAIFENESIN. SOCIAL HISTORY: He does not smoke. He does not drink. PAST MEDICAL HISTORY: Positive for AIDS. PHYSICAL EXAMINATION: VITAL SIGNS: Blood pressure 149/85, temperature 98.2, heart rate 94 per minute, respiratory rate 12 per minute, oxygen saturation 95%. HEART: Showed regular rhythm. Normal S1, S2 sound. LUNGS: Clear bilaterally. ABDOMEN: Soft. EXTREMITIES: Show no evidence of cyanosis or hematoma. LABORATORY DATA: On the blood work, we have CBC; white blood count 5.88, hemoglobin 14.4, hematocrit 45.9, platelet count of 172,000. CMP is pending . He has a lactic acid of 6.3. Coagulation showed PT 12.8, INR 0.92, PTT 45.3. Blood culture and urine culture are still pending. IMPRESSION: The patient has been started on Zithromax 500 mg IV daily, meropenem 1 g IV q.8 hours. We are going to consult Dr. Guevara from Infectious Diseases since the patient has AIDS. Continue Lipitor 40 mg daily, clonazepam 1 mg at bedtime, Bentyl 20 mg three times a day, Benadryl 25 mg as needed for itching, Colace 100 mg daily as needed for constipation, Pepcid 40 mg daily, furosemide 20 mg daily, lactulose 15 mL at bedtime, levothyroxine 75 mcg daily, Amitiza 24 mcg daily, nortriptyline 20 mg at bedtime, Zofran 4 mg as needed for nausea and vomiting, Protonix 40 mg twice a day, potassium 10 mEq at bedtime, Carafate 1 g 3 to 4 times a day, Topamax 100 mg at bedtime, tramadol 50 mg as needed for pain. Dr. Friend will resume the care tomorrow. MD ISAIAH Kilpatrick/TRUONG /[id number]
[2018-10-29] MEDS: AZITHROMYCIN 500MG/NS 250 ML 250 ML IV SCH (20:25)
[2018-10-29] MEDS: ATORVASTATIN 20 MG TAB PO SCH (21:44)
[2018-10-29] MEDS: CLONAZEPAM 1 MG TAB PO SCH (21:44)
[2018-10-29] MEDS: TOPIRAMATE 100 MG TAB PO SCH (21:44)
[2018-10-29] MEDS: LACTULOSE SYRUP 20 GM/30 ML UDC PO SCH (21:44)
[2018-10-29] MEDS: NORTRIPTYLINE HCL 10 MG CAP PO SCH (21:44)
[2018-10-29] MEDS: POTASSIUM CHLORIDE 10MEQ EA PO SCH (21:44)
[2018-10-29] MEDS: FAMOTIDINE 20 MG TAB PO SCH (21:44)
[2018-10-29 21:46] VITALS: BP 123/79
[2018-10-30] VITALS (9 sets, daily range): BP systolic 94–125; BP diastolic 53–86
[2018-10-30] MEDS: IPRATROPIUM BROMIDE 0.02% 2.5 ML NEB NEB SCH ×4 (00:25→19:50)
[2018-10-30] MEDS: ALBUTEROL SULF 0.083% NEB SOLN 3 ML NEB NEB SCH ×5 (00:25→19:50)
[2018-10-30] MEDS: LEVOTHYROXINE SODIUM 75 MCG TAB PO SCH (05:27)
[2018-10-30] MEDS: MEROPENEM 1GM 100 ML IV SCH ×3 (05:27→21:17)
[2018-10-30 05:36] LABS: BASOPHILS % 0.4 % (0.0-1.0); EOSINOPHILS # (AUTO) 0.1 (0.0-0.4); EOSINOPHILS % 2.6 % (0.0-6.0); HEMATOCRIT 37.3 % (38.2-49.6); HEMOGLOBIN 11.6 g/dL (14.0-18.0); LYMPHOCYTES # (AUTO) 1.2 (1.0-3.2); MEAN CORPUSCULAR HEMOGLOBIN 30.5 pg (28-32); MEAN CORPUSCULAR HGB CONC 31.1 g/dL (31-35); MEAN CORPUSCULAR VOLUME 98.2 fL (81-99); MONOCYTES # (AUTO) 0.5 (0.2-0.8); MONOCYTES % 9.6 % (4.4-11.3); NEUTROPHILS # (AUTO) 3.1 (2.1-6.9); NEUTROPHILS % 63.2 % (38.7-80.0); PLATELET COUNT 150 x10e3/uL (140-360); RED CELL DISTRIBUTION WIDTH 16.6 % (11.7-14.4)
[2018-10-30 06:00] LABS: ALANINE AMINOTRANSFERASE 15 IU/L (0-55); ALBUMIN 2.4 g/dL (3.5-5.0); ALBUMIN/GLOBULIN RATIO 0.8 (0.8-2.0); ALKALINE PHOSPHATASE 94 IU/L (40-150); ANION GAP 12.8 mmol/L (8-16); BLOOD UREA NITROGEN 13 mg/dL (7-26); BUN/CREATININE RATIO 11 (6-25); CALCIUM 8.8 mg/dL (8.4-10.2); CARBON DIOXIDE 26 mmol/L (22-29); CHLORIDE 107 mmol/L (98-107); CREATININE, SERUM 1.16 mg/dL (0.72-1.25); EST GLOMERULAR FILTRATION RATE > 60 ML/MIN (60-); GLUCOSE 68 mg/dL (74-118); POTASSIUM 3.8 mmol/L (3.5-5.1); SODIUM 142 mmol/L (136-145)
--- NOTE | 2018-10-30 07:02 | Diagnostic Imaging Report ---
Portable chest x-ray INDICATION: Pneumonia COMPARISON: Chest x-ray 10/29/2018 FINDINGS: Frontal view of the chest obtained at 0616 hours. There is a skinfold over the right hemithorax. The patient is rotated. Lung volumes are low. The cardiac silhouette is poorly visualized due to left basilar infiltrate. The pulmonary vascular markings are grossly normal. Left pleural effusion cannot be excluded. No evidence of right pleural effusion. No pneumothorax. The osseous structures are stable. IMPRESSION: New retrocardiac airspace opacity suggestive of pneumonia or atelectasis. This is superimposed on lung volumes. Signed by: Dr. Jeet Villarreal MD on 10/30/2018 6:58 AM
[2018-10-30] MEDS: PANTOPRAZOLE SOD 40 MG TABEC PO SCH ×2 (09:20→17:39)
[2018-10-30] MEDS: DICYCLOMINE HCL 20 MG TAB PO SCH ×3 (09:20→20:51)
[2018-10-30] MEDS: SUCRALFATE 1 GM TAB PO SCH ×4 (09:20→20:51)
[2018-10-30] MEDS: LUBIPROSTONE 24 MCG CAP PO SCH (09:20)
[2018-10-30] MEDS: AZITHROMYCIN 500MG/NS 250 ML 250 ML IV SCH (09:20)
[2018-10-30] MEDS: FUROSEMIDE 20 MG TAB PO SCH (09:20)
--- NOTE | 2018-10-30 12:09 | NUR ---
EDUCATED ABOUT IMM, SIGNED, FILED IN CHART, WITH COPY LEFT WITH FAMILY AT BEDSIDE.
--- NOTE | 2018-10-30 12:28 | NUR ---
SPOKE WITH FAMILY THEY ARE UNHAPPY WITH [facility], WANT TO SPEAK WITH THE DOCTOR AND THEN WILL PICK ANOTHER HOSPICE, WILL PROVIDE NEW LIFESTYLES FOR CHOICE SELECTION.
--- NOTE | 2018-10-30 13:23 | NUR ---
58 YO Male Patient HIV+ ,Pneumonia,urinary retention Woundcare consult for Rt heel DTI Labs : WBC 4.91, Glucose 68, Alb. 2.4 Urine and Blood culture pending Assessment findings : 1cmx1.3cm Dark reddish unopened area noted to Rt heel with pink blanckable surrounding tissue Recommendations as follows: Nursing to continue bilateral heel protectors with pillow suspension of heels Nursing to continue assist with positioning and offloading and Q shift skin assessment Nursing to continue alternating air mattress Nursing to administer Daily venelex ointment to Rt heel leave open to air with heel protector in place Addendum: 10/30/18 at 1342 by Terry Andre RN Amended: Links added.
--- NOTE | 2018-10-30 16:18 | NUR ---
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 Pt evaluated today for MST screen. Pt sleeping at time of visit, attempted to wake x 2. Pt discussed during am rounds. Per RN pt ate well for lunch, no GI distress. Pt wt stable per prior admit 07/21 with wt of 173#. Chart reviewed. Labs and meds reviewed. Will monitor and continue to follow. Current Diet: Cardiac, mechanical soft with nectar thick liquids Malnutrition Evaluation (10/30/18) The patient does not meet criteria for a specified degree of malnutrition at this time. Will re-evaluate at follow-up as appropriate. Diet Education Needs Assessment: Diet education not indicated. 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 Continue current diet. OSMANY Damico RD, [facility]
--- NOTE | 2018-10-30 18:05 | NUR ---
SPOKE WITH PT AND MOTHER ABOUT HOSPICE ORDER, MOTHER STATES DOES NOT WANT TO RETURN TO [facility], SHE STATES WILL SPEAK WITH MD AND LOOK AT OTHER OPTIONS AND SIGN CHOICE TOMORROW
[2018-10-30] MEDS: CLONAZEPAM 1 MG TAB PO SCH (20:51)
[2018-10-30] MEDS: TOPIRAMATE 100 MG TAB PO SCH (20:51)
[2018-10-30] MEDS: POTASSIUM CHLORIDE 10MEQ EA PO SCH (20:51)
[2018-10-30] MEDS: ATORVASTATIN 20 MG TAB PO SCH (20:51)
[2018-10-30] MEDS: NORTRIPTYLINE HCL 10 MG CAP PO SCH (20:51)
[2018-10-30] MEDS: FAMOTIDINE 20 MG TAB PO SCH (20:51)
[2018-10-30] MEDS: LACTULOSE SYRUP 20 GM/30 ML UDC PO SCH (20:52)
[2018-10-31] MEDS: IPRATROPIUM BROMIDE 0.02% 2.5 ML NEB NEB SCH ×2 (00:05→06:45)
[2018-10-31] MEDS: ALBUTEROL SULF 0.083% NEB SOLN 3 ML NEB NEB SCH ×4 (00:05→10:21)
--- NOTE | 2018-10-31 01:11 | Consultation ---
DATE OF CONSULTATION: REASON FOR CONSULTATION: History of HIV and AIDS. HISTORY OF PRESENT ILLNESS: Thank you so much for seeing this patient. This patient, who is known to me from before. He is 58-year-old, who have cerebral palsy, history of HIV. The patient had been having recurrent pneumonia and the last time he was here we talked with the family and the patient about hospice. He was discharged home with hospice. Apparently, they never showed up. The patient comes back with shortness of breath and cough, which was typical for him. He is on antibiotic. He is currently doing much better. He is more alert, has no complaints at present time. His mother is not at the bedside. LABORATORY DATA: Reviewed. His chart reviewed. White count 4.09, hemoglobin 11. His sodium 142, potassium 3.8, creatinine 1.16. MEDICATION LIST: He is on Bentyl, meropenem, Carafate, Lasix, Synthroid, lorazepam. REVIEW OF SYSTEMS: At the present time, he is doing good. HEENT: Negative. PULMONARY: Negative. CARDIAC: Negative. : Negative. SKIN: There are no other rash. PULMONARY: Better. PHYSICAL EXAMINATION: GENERAL: He is currently alert, oriented, does not seem to be in acute distress. VITAL SIGNS: Stable. Currently afebrile. HEENT: He is not icteric. NECK: Supple. CHEST: Clear. HEART: S1, S2. No murmur. ABDOMEN: Soft. Bowel sounds present. No tenderness. EXTREMITIES: No edema. SKIN: No rash. IMPRESSION: 1. Pneumonia, present on admission, healthcare associated, clinically seems to be better with meropenem. 2. History of HIV and AIDS, history of cerebral palsy, history of recurrent pneumonia, history of acute kidney injuries before with likely chronic kidney disease. Clinically, he seems to be stable and would need to talk with his mother and caregiver again in terms of discharge planning and what are their wishes at the present time. He was doing well with the anti-retroviral medication, but the patient's CT came back with pneumonia. Currently, the patient is very pleasant with no complaints and discussed with nursing team. Discussed with medical team. We will follow. MD LULI Gates/TRUONG /[id number]
[2018-10-31 02:03] VITALS: BP 100/64
[2018-10-31 03:50] VITALS: BP 92/66
[2018-10-31 05:14] LABS: BASOPHILS % 0.5 % (0.0-1.0); EOSINOPHILS # (AUTO) 0.2 (0.0-0.4); EOSINOPHILS % 3.4 % (0.0-6.0); HEMATOCRIT 38.1 % (38.2-49.6); HEMOGLOBIN 11.6 g/dL (14.0-18.0); LYMPHOCYTES # (AUTO) 1.1 (1.0-3.2); LYMPHOCYTES % 18.9 % (18.0-39.1); MEAN CORPUSCULAR HEMOGLOBIN 30.1 pg (28-32); MEAN CORPUSCULAR HGB CONC 30.4 g/dL (31-35); MONOCYTES # (AUTO) 0.4 (0.2-0.8); MONOCYTES % 7.9 % (4.4-11.3); NEUTROPHILS # (AUTO) 3.8 (2.1-6.9); NEUTROPHILS % 68.8 % (38.7-80.0); PLATELET COUNT 137 x10e3/uL (140-360); RED BLOOD COUNT 3.85 x10e6/uL (4.3-5.7); RED CELL DISTRIBUTION WIDTH 16.4 % (11.7-14.4)
[2018-10-31 05:45] LABS: ALANINE AMINOTRANSFERASE 16 IU/L (0-55); ALBUMIN 2.5 g/dL (3.5-5.0); ALBUMIN/GLOBULIN RATIO 0.8 (0.8-2.0); ALKALINE PHOSPHATASE 96 IU/L (40-150); ANION GAP 11.8 mmol/L (8-16); BLOOD UREA NITROGEN 13 mg/dL (7-26); BUN/CREATININE RATIO 11 (6-25); CALCIUM 9.3 mg/dL (8.4-10.2); CARBON DIOXIDE 25 mmol/L (22-29); CHLORIDE 106 mmol/L (98-107); CREATININE, SERUM 1.21 mg/dL (0.72-1.25); EST GLOMERULAR FILTRATION RATE > 60 ML/MIN (60-); GLUCOSE 104 mg/dL (74-118); POTASSIUM 3.8 mmol/L (3.5-5.1); SODIUM 139 mmol/L (136-145)
[2018-10-31] MEDS: LEVOTHYROXINE SODIUM 75 MCG TAB PO SCH (05:59)
[2018-10-31] MEDS: MEROPENEM 1GM 100 ML IV SCH (05:59)
[2018-10-31 06:28] LABS: PLATELET ESTIMATE MODERATELY DECREASED
[2018-10-31 07:57] VITALS: BP 92/66
[2018-10-31 08:00] VITALS: BP 98/61
--- NOTE | 2018-10-31 08:14 | NUR ---
SPOKE WITH PT AND MOTHER AND GOT CHOICE FOR [facility]. LET REP KNOW PLAN IS TO RETURN HOME TODAY.
[2018-10-31] MEDS ORDERED: BALSAM PERU/CASTOR OIL 60 GM OINT...G. TP SCH (09:00)
[2018-10-31] MEDS: FUROSEMIDE 20 MG TAB PO SCH (09:20)
[2018-10-31] MEDS: PANTOPRAZOLE SOD 40 MG TABEC PO SCH (09:20)
[2018-10-31] MEDS: LUBIPROSTONE 24 MCG CAP PO SCH (09:20)
[2018-10-31] MEDS: DICYCLOMINE HCL 20 MG TAB PO SCH (09:20)
[2018-10-31] MEDS: SUCRALFATE 1 GM TAB PO SCH (09:20)
[2018-10-31] MEDS: AZITHROMYCIN 500MG/NS 250 ML 250 ML IV SCH (09:20)
[2018-10-31 12:00] VITALS: BP 89/71
[2018-10-31] MEDS ORDERED: CEFUROXIME250 MG PO (12:55)
--- NOTE | 2018-10-31 13:16 | NUR ---
Hospice arranged ambulance is here to transport patient home. Patient's mom is present. Discharge paperwork given to the patient's mother. She verbalized understanding. Patient to dc with dev per MD order.
--- NOTE | 2018-10-31 13:44 | NUR ---
Dictated DC summary: [id number]
--- NOTE | 2018-10-31 14:15 | Discharge Summary ---
ADMIT DIAGNOSES: 1. Left lower lobe pneumonia. 2. Cerebral palsy (paraplegia). 3. Multiple sclerosis. 4. Human immunodeficiency virus positive. 5. Acute on chronic renal failure. DISCHARGE DIAGNOSES: 1. Left lower lobe gram-negative shanda, pneumonia. 2. Human immunodeficiency virus infection. 3. Cerebral palsy (paraplegia). 4. Multiple sclerosis. 5. Acute on chronic renal failure, resolved. 6. Stage 2 chronic kidney disease. HOSPITAL COURSE: This is a 58-year-old white man, who was initially admitted to [facility] with diagnoses of a left lower lobe pneumonia and acute on chronic renal insufficiency. The patient's renal failure did improve with intravenous fluids. The patient was diagnosed with left lower lobe gram- negative shanda pneumonia during this hospitalization. The patient was treated with intravenous meropenem for his pneumonia. During this hospital stay, the patient was made a do not resuscitate code status by his mother. The patient was actually on hospice services just prior to this admission. The mother states that she revoked hospice because she was not happy with that hospice company services. The patient's hospitalization was unremarkable. His condition on discharge was stable. During this hospital stay, the mother made the patient [id number] code status. Moreover, the mother asked that the patient be re-enrolled in hospice, but with a different company. DISCHARGE MEDICATIONS: 1. Furosemide 20 mg daily. 2. Levothyroxine 75 mcg daily. 3. Nortriptyline 10 mg at bedtime. 4. Famotidine 40 mg at bedtime. 5. Clonazepam 1 mg at bedtime p.r.n. insomnia. 6. Lactulose 10 g daily as needed for constipation. 7. Tramadol 50 mg b.i.d. p.r.n. pain. 8. Colace 100 mg b.i.d. 9. Diphenhydramine 25 mg every 4 hours p.r.n. itching. 10. Biktarvy one tab daily (this is a highly active anti-retroviral therapy for his HIV infection). 11. Cefuroxime 250 mg twice a day for 10 days. 12. Ondansetron 4 mg once daily as needed for nausea and vomiting. FOLLOWUP INSTRUCTIONS: As previously stated, the patient will be discharged home under hospice care. MD WATSON Guerra/TRUONG /[id number] MTD[place]
== END 2018-10-31 13:16 | disposition hospice, home (50) | DRG 975 ==
LOC: ER 12:30 → ERHOLD 15:57 → MED/SURG2 18:24
PROVIDERS: ADMIT Internal Medicine; ATTEND Internal Medicine
DX: J15.6 Pneumonia due to other Gram-negative bacteria (principal); B20 Human immunodeficiency virus [HIV] disease; N17.9 Acute kidney failure, unspecified; J18.1 Lobar pneumonia, unspecified organism; G80.9 Cerebral palsy, unspecified; G35 Multiple sclerosis; Z66 Do not resuscitate; Y95 Nosocomial condition; N18.2 Chronic kidney disease, stage 2 (mild)
CPT/HCPCS: 36415; 51700; 71045; 80053; 81001; 82550; 82553; 83605; 83735; 83880; 84484; 85025; 85610; 85730; 86361; 87040; 87086; 93005; 94640; 99284; J0456; J3370; J7030

== ENCOUNTER 2019-03-26 05:46 | Emergency (ER) | payer MEDICARE, OTHER ==
[~2019-03-26] VITALS: Ht 170.2 cm; Wt 72.6 kg
[~2019-03-26 05:46] MED LIST changes: +CEFUROXIME250 MG PO
--- NOTE | 2019-03-26 07:04 | NUR ---
RADIOLOGY AT BEDSIDE FOR XRAY.
--- NOTE | 2019-03-26 07:26 | Diagnostic Imaging Report ---
Foot complete CPT code: 96482 Indication: ^R/O FRACTURE TO RT 2ND TOE ^[id number] ^0655 Technique: A.P., oblique and lateral views of the right foot obtained. Comparison: None Findings: The bones are diffusely demineralized. Calcaneus is intact with a small plantar spur. The midfoot is intact. Arthrodesis of the first MTP has been performed. The visualized hardware is intact without surrounding lucency to suggest loosening. There is acute fracture of the neck of the proximal phalanx of the second digit. No evidence of intra-articular extension. There are subacute/healing fractures of the proximal phalanges of the third and fourth digits. No radiopaque foreign bodies in the soft tissues. IMPRESSION: Acute fractures of proximal phalanx of the second digit. Subacute/healed fractures of the third and fourth digits. Postoperative changes of the first MTP as described above.. Signed by: Dr. Jeet Villarreal MD on 03/26/2019 7:23 AM
--- NOTE | 2019-03-26 08:30 | NUR ---
CLIENT RESTING IN BED AT THIS TIME. AWAITING EMS TRANSPORT.
== END 2019-03-26 08:52 | disposition home or self-care (01) ==
LOC: ER 05:46
DX: S91.104A Unspecified open wound of right lesser toe(s) without damage to nail, initial encounter (principal); W22.03XA Walked into furniture, initial encounter; Y92.003 Bedroom of unspecified non-institutional (private) residence as the place of occurrence of the external cause
CPT/HCPCS: 99283

== ENCOUNTER 2019-11-15 11:32 | Inpatient (IN) | payer MEDICARE, OTHER ==
[~2019-11-15] VITALS: Ht 170.2 cm; Wt 73.5 kg
[2019-11-15] MEDS: ALBUTEROL SULF 0.083% NEB SOLN 3 ML NEB NEB SCH ×3 (02:20→20:00)
--- NOTE | 2019-11-15 11:38 | NUR ---
rec'd pt in rm 1 via ems from home with c/o fever/cough since last nite. placed on the monitor. iv access obtained ekg done. dr. ozuna in to see the pt.
[2019-11-15] MEDS ORDERED: SODIUM CHLORIDE 0.9% 1000ML 1,000 ML IV STA ×3 (11:56→13:44)
[2019-11-15] MEDS ORDERED: CEFEPIME HCL 1 GM VIAL IV STA (12:01)
[2019-11-15] MEDS ORDERED: TOPIRAMATE100 MG PO (12:03)
[2019-11-15] MEDS ORDERED: LYRICA150 MG PO (12:03)
[2019-11-15] MEDS ORDERED: SUCRALFATE1 GM PO (12:03)
[2019-11-15] MEDS ORDERED: LIPITOR20 MG PO (12:03)
[2019-11-15] MEDS ORDERED: POTASSIUM CHLO10 ME1 PO (12:03)
[2019-11-15] MEDS ORDERED: PROTONIX20 MG PO (12:03)
[2019-11-15 12:11] LABS: BASOPHILS % 0.4 % (0.0-1.0); HEMATOCRIT 41.9 % (38.2-49.6); HEMOGLOBIN 13.9 g/dL (14.0-18.0); LYMPHOCYTES # (AUTO) 0.9 (1.0-3.2); LYMPHOCYTES % 19.5 % (18.0-39.1); MEAN CORPUSCULAR HEMOGLOBIN 33.2 pg (28-32); MEAN CORPUSCULAR HGB CONC 33.2 g/dL (31-35); MONOCYTES # (AUTO) 0.7 (0.2-0.8); MONOCYTES % 15.5 % (4.4-11.3); NEUTROPHILS % 63.6 % (38.7-80.0); PLATELET COUNT 112 x10e3/uL (140-360); RED BLOOD COUNT 4.19 x10e6/uL (4.3-5.7); RED CELL DISTRIBUTION WIDTH 12.9 % (11.7-14.4)
[2019-11-15 12:13] LABS: INR 0.99; PROTHROMBIN TIME 13.6 seconds (11.9-14.5)
[2019-11-15] MEDS ORDERED: ALBUTEROL/IPRATROPIUM 3 ML NEB NEB ONE (12:15)
[2019-11-15] MEDS ORDERED: METHYLPREDNISOLONE SOD SUCC 125 MG/2ML VIAL IV ONE (12:15)
[2019-11-15] MEDS ORDERED: CEFEPIME 1GM/NS 0.9% 50 ML 50 ML IV ONE (12:15)
[2019-11-15 12:23] LABS: ALBUMIN/GLOBULIN RATIO 1.2 (0.8-2.0); ANION GAP 16.2 mmol/L (8-16); CALCIUM 9.2 mg/dL (8.4-10.2); CREATININE, SERUM 1.94 mg/dL (0.72-1.25); POTASSIUM 3.2 mmol/L (3.5-5.1)
[2019-11-15 12:30] LABS: CREATINE KINASE MB 6.1 ng/mL (0-5.0)
--- NOTE | 2019-11-15 12:54 | Diagnostic Imaging Report ---
TECHNIQUE: Frontal view of the chest. INDICATION: ^Y ^cough/fever ^[id number] ^1225 ^Y COMPARISON: 02/17/2019 DISCUSSION: Limited evaluation due to portable technique, patient positioning and low lung volumes. Lines and hardware: Overlying EKG leads are noted Heart and mediastinum: Stable. Lungs and pleura: There are patchy basilar airspace opacities. Negative for large effusion or pneumothorax. Soft tissues and bones: No acute abnormality. IMPRESSION: Patchy airspace opacities at the lung bases could relate to atelectasis from hypoexpansion versus multifocal infection/aspiration. Signed by: Fabian Denney MD on 11/15/2019 12:51 PM
[2019-11-15] MEDS ORDERED: AZITHROMYCIN 500MG/NS 250 ML 250 ML IV ONE (13:00)
[2019-11-15] MEDS ORDERED: VANCOMYCIN 1GM/NS 250 ML 250 ML IV STA (13:30)
--- NOTE | 2019-11-15 13:44 | Emergency Department Note ---
History of Present Illnes History of Present Illness Chief Complaint: fever/cough/sob/wheezing History of Present Illness This is a 59 year old male. was doing well prior to this. h/o hiv and multiple sclerosis. 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 Arrival Mode: [place] History limited by: condition of the patient (normal) Operator Command Support Systems Required: No Onset (how long ago): day(s) (1) Location: n/a Quality: n/a Radiation: Reports non-radiation Severity: moderate Onset quality: gradual Duration (how long): day(s) (1) Timing of current episode: intermittent Progression: worsening Chronicity: new Context: Denies recent illness, Denies recent surgery, Denies recent immobilization, Denies recent travel, Denies trauma/injury, Denies new medications, Denies hx of DVT/PE, Denies non-compliance w/ medications Relieving factors: none Exacerbating factors: none Associated symptoms: Reports cough, Reports fever/chills, Reports shortness of breath Treatments prior to arrival: none Past Medical/Family History Physician Review I have reviewed the patient's past medical and family history. Any updates have been documented here. Past Medical History Recent Fever: Yes Clinical Suspicion of Infectio: Yes New/Unexplained Change in Ment: No Past Medical History: COPD, Hypothyroidism, HIV, Anemia, Anxiety, Hyperlipedemia, Chronic Kidney Disease, Chronic Back Pain Other Medical History: MS Past Surgical History: Cholecysctectomy, T&A Other Surgery: FEET SURGERY Social History Physically hurt or threatened: No Other Last Tetanus: UNKNOWN Review of Systems Review of Systems Constitutional: Reports as per HPI EENTM: Reports no symptoms Cardiovascular: Reports no symptoms Respiratory: Reports as per HPI Gastrointestinal: Reports no symptoms Genitourinary: Reports no symptoms Musculoskeletal: Reports no symptoms Integumentary: Reports no symptoms Neurological: Reports no symptoms Psychological: Reports no symptoms Endocrine: Reports no symptoms Hematological/Lymphatic: Reports no symptoms Review of other systems: All other systems negative Physical Exam Related Data Allergies: Coded Allergies: dextromethorphan HBr (Verified Allergy, Intermediate, itchy, 08/30/17) guaifenesin (Verified Allergy, Intermediate, itchy, 06/08/17) Penicillins (Verified Allergy, Unknown, 02/21/18) Triage Vital Signs Vital Signs Date Time Temp Pulse Resp B/P (MAP) Pulse Ox O2 Delivery O2 Flow Rate FiO2 11/15/19 11:38 99.6 94 16 105/67 95 Nasal Cannula 2.0 Vital signs reviewed: Yes Physical Exam CONSTITUTIONAL Constitutional: Present well-developed, Present well-nourished HENT HENT: Present normocephalic, Present atraumatic, Present mucosae dry, Present nose normal HENT L/R: Present left ext ear normal, Present right ext ear normal EYES Eyes: Reports PERRL, Reports conjunctivae normal NECK Neck: Present ROM normal, Present supple PULMONARY Pulmonary: Present effort normal, Present other (bilateral wheezes) CARDIOVASCULAR Cardiovascular: Present regular rhythm, Present heart sounds normal, Present capillary refill normal, Present normal rate GASTROINTESTINAL Abdominal: Present soft, Present nontender, Present bowel sounds normal GENITOURINARY Genitourinary: Present exam deferred SKIN Skin: Present warm, Present dry MUSCULOSKELETAL Musculoskeletal: Present ROM normal NEUROLOGICAL Neurological: Present alert, Present oriented x 3, Present no gross motor or sensory deficits PSYCHOLOGICAL Psychological: Present mood/affect normal, Present judgement normal Results Laboratory Result Diagram: 11/15/19 1140 11/15/19 1140 Laboratory Laboratory Tests Test 11/15/19 12:15 11/15/19 11:40 White Blood Count 4.77 x10e3/uL (4.8-10.8) Red Blood Count 4.19 x10e6/uL (4.3-5.7) Hemoglobin 13.9 g/dL (14.0-18.0) Hematocrit 41.9 % (38.2-49.6) Mean Corpuscular Volume 100.0 fL (81-99) Mean Corpuscular Hemoglobin 33.2 pg (28-32) Mean Corpuscular Hemoglobin Concent 33.2 g/dL (31-35) Red Cell Distribution Width 12.9 % (11.7-14.4) Platelet Count 112 x10e3/uL (140-360) Neutrophils (%) (Auto) 63.6 % (38.7-80.0) Lymphocytes (%) (Auto) 19.5 % (18.0-39.1) Monocytes (%) (Auto) 15.5 % (4.4-11.3) Eosinophils (%) (Auto) 0.0 % (0.0-6.0) Basophils (%) (Auto) 0.4 % (0.0-1.0) Neutrophils # (Auto) 3.0 (2.1-6.9) Lymphocytes # (Auto) 0.9 (1.0-3.2) Monocytes # (Auto) 0.7 (0.2-0.8) Eosinophils # (Auto) 0.0 (0.0-0.4) Basophils # (Auto) 0.0 (0.0-0.1) Absolute Immature Granulocyte (auto 0.05 x10e3/uL (0-0.1) Prothrombin Time 13.6 seconds (11.9-14.5) Prothromb Time International Ratio 0.99 Activated Partial Thromboplast Time 39.3 seconds (23.8-35.5) D-Dimer Quantitative (PE/DVT) 1.88 ug/mLFEU (0.00-0.45) Sodium Level 137 mmol/L (136-145) Potassium Level 3.2 mmol/L (3.5-5.1) Chloride Level 104 mmol/L (98-107) Carbon Dioxide Level 20 mmol/L (22-29) Anion Gap 16.2 mmol/L (8-16) Blood Urea Nitrogen 21 mg/dL (7-26) Creatinine 1.94 mg/dL (0.72-1.25) Estimat Glomerular Filtration Rate 36 ML/MIN (60-) BUN/Creatinine Ratio 11 (6-25) Glucose Level 147 mg/dL (74-118) Lactic Acid Level 0.6 mmol/L (0.5-2.0) Calcium Level 9.2 mg/dL (8.4-10.2) Total Bilirubin 0.5 mg/dL (0.2-1.2) Aspartate Amino Transf (AST/SGOT) 14 IU/L (5-34) Alanine Aminotransferase (ALT/SGPT) 14 IU/L (0-55) Alkaline Phosphatase 82 IU/L (40-150) Creatine Kinase 153 IU/L (30-200) Creatine Kinase MB 6.10 ng/mL (0-5.0) Troponin I 0.010 ng/mL (0-0.300) Total Protein 7.3 g/dL (6.5-8.1) Albumin 4.0 g/dL (3.5-5.0) Globulin 3.3 g/dL (2.3-3.5) Albumin/Globulin Ratio 1.2 (0.8-2.0) Lab results reviewed: Yes Imaging Imaging results reviewed: Yes Impressions [place] [id number] Patient Name: BRADEN GRACIA MR #: [id number] : 1960 Age/Sex: 59/M Req #: [id number] Adm Physician: Ordered by: KOJO BANUELOS Report #: [id number] Location: ER Room/Bed: Procedure: [id number] DX/CHEST SINGLE (PORTABLE) Exam Date: 11/15/19 Exam Time: 1225 REPORT STATUS: Signed TECHNIQUE: Frontal view of the chest. INDICATION: ^Y ^cough/fever ^[id number] ^1225 ^Y COMPARISON: 02/17/2019 DISCUSSION: Limited evaluation due to portable technique, patient positioning and low lung volumes. Lines and hardware: Overlying EKG leads are noted Heart and mediastinum: Stable. Lungs and pleura: There are patchy basilar airspace opacities. Negative for large effusion or pneumothorax. Soft tissues and bones: No acute abnormality. IMPRESSION: Patchy airspace opacities at the lung bases could relate to atelectasis from hypoexpansion versus multifocal infection/aspiration. Signed by: Emely Denney MD on 11/15/2019 12:51 PM Dictated By: EMELY DENNEY MD 1251 Transcribed By: CAITIE on 11/15/19 1251 COPY TO: KOJO BANUELOS~ Procedures 12 Lead ECG Interpretation ECG Interpretation : ECG: ECG 1 Operator Command Support Systems: Interpreted by ED physician Date: Nov 15, 2019 Time: 11:40 Prior ECG tracings: reviewed Rhythm: sinus rhythm Rate: normal BPM: 87 QRS axis: indeterminate (POOR R WAVE PROGRESSION ANTERIOR LEADS) ST segments normal: Yes T waves normal: Yes Critical Care Time Subsequent provider SPOKE TO DR Tan BENSON AT 1355HRS AND ACCEPTS ADMISSION ON OF PT Assessment & Plan Medical Decision Making MDM pneumonia, rad, Reassessment Reassessment time: 14:00 Reassessment pt feels much better Assessment & Plan Final Impression: (1) Multifocal pneumonia (2) Renal failure (3) Hypokalemia (4) Dehydration Last Vital Signs Date Time Temp Pulse Resp B/P (MAP) Pulse Ox O2 Delivery O2 Flow Rate FiO2 11/15/19 12:34 82 18 107/62 95 Nasal Cannula 2.5 11/15/19 11:38 99.6 Home Meds Reported Medications Sucralfate (SUCRALFATE) 1 Gm Tablet, 1 GM PO PCHS, TAB 11/15/19 Atorvastatin Calcium (LIPITOR) 20 Mg Tablet, 40 MG PO DAILY, TAB 11/15/19 Potassium Chloride (POTASSIUM CHLORIDE) 10 Meq Tab.er.prt, 10 MEQ PO DAILY, TAB 11/15/19 Topiramate (TOPIRAMATE) 100 Mg Tablet, 100 MG PO HS, #30 TAB 11/15/19 Pantoprazole Sodium (PROTONIX) 20 Mg Tablet.dr, 40 MG PO BID, #30 TAB 11/15/19 Pregabalin (LYRICA) 150 Mg Capsule, 150 MG PO 3 times a day, CAP 11/15/19 Cefuroxime Axetil (CEFUROXIME) 250 Mg Tablet, 250 MG PO BID for 10 Days, TAB 10/31/18 Lactulose (LACTULOSE) 20 Gm/30 Ml Solution, 15 ML PO HS, EACH 06/06/18 Nortriptyline Hcl (NORTRIPTYLINE HCL) 10 Mg Cap, 20 HS 06/06/18 Famotidine (FAMOTIDINE) 20 Mg Tab, 40 MG PO HS, #30 TAB 06/06/18 [Biktarvy] No Conflict Check, 1 TAB PO DAILY for HIV 04/14/18 Tramadol Hcl* (ULTRAM 50MG*) 50 Mg Tab, 50 MG PO PRN, TAB 10/07/17 Levothyroxine Sodium (LEVOTHYROXINE SODIUM) 75 Mcg Tablet, 75 MCG PO DAILY, #30 TAB 10/07/17 Ondansetron (ZOFRAN ODT) 4 Mg Tab.rapdis, 4 MG PO PRN, TAB 10/07/17 Diphenhydramine Hcl (BENADRYL) 25 Mg Capsule, 25 MG PO PRN 10/07/17 Docusate Sodium (STOOL SOFTENER) 100 Mg Capsule, MG PO PRN 08/30/17 Furosemide (LASIX) 20 Mg Tablet, 20 MG PO DAILY, #30 TAB 08/30/17 Clonazepam (CLONAZEPAM) 1 Mg Tablet, 1 MG PO HS, TAB 04/06/17 Medications in the ED Sodium Chloride 1,000 ml @ 0 mls/hr Q0M STAT IV Last administered on 11/15/19at 12:00; Admin Dose 999 MLS/HR; Start 11/15/19 at 11:56; Stop 11/15/19 at 12:02; Status DC Cefepime HCl 1 gm ONCE STAT IV ; Start 11/15/19 at 12:01; Stop 11/15/19 at 12:02; Status UNV Azithromycin 250 ml @ 200 mls/hr ONCE ONCE IV ; Start 11/15/19 at 13:00; Stop 11/15/19 at 14:14 Methylprednisolone Sodium Succinate 125 mg ONCE ONCE IV Last administered on 11/15/19at 12:35; Admin Dose 125 MG; Start 11/15/19 at 12:15; Stop 11/15/19 at 12:16; Status DC Albuterol/ Ipratropium 6 ml ONCE ONCE NEB ; Start 11/15/19 at 12:15; Stop 11/15/19 at 12:16; Status DC Cefepime HCl 50 ml @ 100 mls/hr ONCE ONCE IV Last administered on 11/15/19at 12:35; Admin Dose 100 MLS/HR; Start 11/15/19 at 12:15; Stop 11/15/19 at 12:44; Status DC Vancomycin HCl 250 ml @ 166.667 mls/hr NOW STAT IV ; Start 11/15/19 at 13:30; Stop 11/15/19 at 14:59 Sodium Chloride 1,000 ml @ 1,000 mls/hr Q1H STAT IV ; Start 11/15/19 at 13:37; Stop 11/15/19 at 14:36 KOJO BANUELOS Nov 15, 2019 13:44
[2019-11-15] MEDS ORDERED: POTASSIUM CHLORIDE 10MEQ/100ML 100 ML IV ONE (13:45)
[2019-11-15] MEDS: IPRATROPIUM BROMIDE 0.02% 2.5 ML NEB NEB SCH ×2 (16:35→20:00)
[2019-11-15 19:25] VITALS: BP 97/61
--- NOTE | 2019-11-15 19:30 | NUR ---
Visited pt in room during nursing rounds. Patient is currently asleep and quite difficult to wake up. V/S stable (BP = 97/61, HR = 61, R = 18, T= 97.4,). Patient appear comfortable at this time and still wearing street clothes. Will attempt to wake up patient later when repositioned in bed and gown placed on patient. Pt on 2L NC and 96%O2 sat. Will monitor pt closely. Call greene within reach. Bed alarm active.
[2019-11-15 20:48] VITALS: BP 97/61
[2019-11-15 21:24] LABS: CREATINE KINASE 103 IU/L (30-200)
--- NOTE | 2019-11-15 21:42 | NUR ---
Patient was woken up. Patient alert and oriented x3. Pt in stable condition. Patient clothes changed to hospital gown and diaper was changed and pt cleaned due to bowel movement. Patient then repositioned in bed and HOB was elevated for comfort. Patient drinking a can of diet soda per request and watching t.v. Healed wound ulcer noted on left buttock and allevyn foam was placed on site for skin protection. Pt interviewed and assessed by nurse for admission.
[2019-11-15 21:45] VITALS: BP 97/61
[2019-11-15 22:00] VITALS: BP 97/61
--- NOTE | 2019-11-15 22:48 | Consultation ---
DATE OF CONSULTATION: Infectious Disease Consultation The patient is seen and evaluated, available labs and notes reviewed. Discussed with Dr. Guevara. The patient is currently in the ER, room #1. HISTORY OF PRESENT ILLNESS: This is a pleasant 59-year-old gentleman, who is well known to our service with a history of HIV, had multiple admissions for aspiration pneumonia, who started having a cough for couple days. He was brought in by EMS. He denied any fever, chills, body ache, headache, or diarrhea, nothing other than the cough, progressively getting worse. Therefore, he came to the hospital for evaluation. PAST MEDICAL HISTORY: Including HIV, electrolyte abnormalities, multiple treatment for pneumonia including aspiration, UTIs, acute respiratory failure, urinary retention, multifocal pneumonia or dehydration, and acute renal insufficiency. PAST SURGICAL HISTORY: Denied. ALLERGIES: PENICILLIN. SOCIAL HISTORY: The patient has no history of tobacco, alcohol or illicit drugs. REVIEW OF SYSTEMS: Cough without shortness of breath. No headaches. No rash. No sweats. No body ache. LABORATORY STUDIES: White count of 4.77, hemoglobin 13.9, and platelet 112. Sodium 137, potassium 3.2, and creatinine 1.94. Serology, COVID-19 PCR pending. Microbiology; blood culture pending. Chest x-ray showed patchy airspace opacities at the lung bases, could relate to atelectasis from hyperexpansion versus multifocal infection/aspiration. PHYSICAL EXAMINATION: VITAL SIGNS: Temperature 99.6, pulse 73, respirations 18, and blood pressure 133/84. GENERAL: Alert and oriented, very pleasant, in no acute distress. CV: S1 and S2. CHEST: Equal expansion. Few crackles bilateral. ABDOMEN: Soft and nontender. No distention. HEENT: Moist. No pallor. No JVD. EXTREMITIES: No significant edema. ASSESSMENT AND PLAN: There is a pleasant 59-year-old gentleman admitted with a concern of progressive cough with multiple history last aspiration pneumonia in the past. The patient is being evaluated for COVID-19 also blood culture in progress. The patient is status post vancomycin IV, one dose stat today, also Zithromax 1 dose and cefepime one dose, all today and also had a dose of methylprednisone 125, IV push. Other medical history is including as mentioned above including HIV, multiple bouts of pneumonia, aspiration pneumonia, debility, renal insufficiency, and acute respiratory failure in the past. We will start the patient on Rocephin 2 g daily. Follow with culture. Further management of this patient is based on daily findings on laboratory and physical examination. MD LULI Gaets/MODL /[id number]
[2019-11-16] VITALS (8 sets, daily range): BP systolic 108–133; BP diastolic 68–77
[2019-11-16] MEDS: ALBUTEROL SULF 0.083% NEB SOLN 3 ML NEB NEB SCH ×6 (00:40→22:17)
[2019-11-16] MEDS: IPRATROPIUM BROMIDE 0.02% 2.5 ML NEB NEB SCH ×4 (02:15→19:26)
[2019-11-16 05:39] LABS: BASOPHILS % 0.7 % (0.0-1.0); HEMATOCRIT 40.1 % (38.2-49.6); LYMPHOCYTES # (AUTO) 0.5 (1.0-3.2); LYMPHOCYTES % 19.4 % (18.0-39.1); MEAN CORPUSCULAR HEMOGLOBIN 33.7 pg (28-32); MEAN CORPUSCULAR HGB CONC 32.4 g/dL (31-35); MEAN CORPUSCULAR VOLUME 103.9 fL (81-99); MONOCYTES # (AUTO) 0.3 (0.2-0.8); MONOCYTES % 11.9 % (4.4-11.3); NEUTROPHILS # (AUTO) 1.7 (2.1-6.9); PLATELET COUNT 123 x10e3/uL (140-360); RED BLOOD COUNT 3.86 x10e6/uL (4.3-5.7); RED CELL DISTRIBUTION WIDTH 13.2 % (11.7-14.4)
[2019-11-16 06:02] LABS: ANION GAP 14.6 mmol/L (8-16); BLOOD UREA NITROGEN 22 mg/dL (7-26); BUN/CREATININE RATIO 15 (6-25); CALCIUM 8.6 mg/dL (8.4-10.2); CARBON DIOXIDE 20 mmol/L (22-29); CHLORIDE 115 mmol/L (98-107); CREATINE KINASE 52 IU/L (30-200); CREATININE, SERUM 1.48 mg/dL (0.72-1.25); EST GLOMERULAR FILTRATION RATE 49 ML/MIN (60-); GLUCOSE 115 mg/dL (74-118); POTASSIUM 3.6 mmol/L (3.5-5.1); SODIUM 146 mmol/L (136-145)
[2019-11-16] MEDS ORDERED: SODIUM CHLORIDE 0.9% 250ML 250 ML ONE (08:27)
[2019-11-16] MEDS: CEFTRIAXONE SOD 2 GM/NS 100 ML 100 ML IV SCH (09:04)
--- NOTE | 2019-11-16 18:08 | NUR ---
dr Radhames Cheung called , text , voice messaged regarding home medication restart order , no call back . no text respond
--- NOTE | 2019-11-16 20:11 | Progress Note ---
DATE: SUBJECTIVE: The patient is seen and evaluated. Available labs and notes reviewed. Discussed with the patient. The patient does not feel like talking much, however, responds that he is doing better and the cough has improved. PHYSICAL EXAMINATION: VITAL SIGNS: Temperature 97.7, pulse 64, respirations 18, and blood pressure 110/71. GENERAL: Awake and alert, pleasant, no acute distress. CV: S1 and S2. CHEST: Equal expansion. Clear to auscultation with decreased breath sounds and few crackles at the bottom posteriorly. HEENT: Moist. No pallor. No JVD. EXTREMITIES: Weak. MEDICATIONS: Reviewed. From ID point of view, the patient is on Rocephin. LABORATORY STUDIES: White count of 2.68, hemoglobin 13, and platelet 123. Sodium 146, potassium 3.6, and creatinine 1.48. Serology; coronavirus PCR not detected, 11/14. MICROBIOLOGY: Blood culture negative 24 hours. RADIOLOGY STUDIES: Patchy airspace opacities at the lung bases, could relate to atelectasis from hyperexpansion versus multifocal infection/aspiration. ASSESSMENT AND PLAN: 1. Multifocal pneumonia, on admission. 2. Human immunodeficiency virus. 3. Debility. 4. Continue with antibiotics and neb treatment. Monitor the patient clinically and follow with the labs, PT/OT and increase protein calorie intake. Further management of this patient is based on daily findings on laboratory and physical examination. Discussed with Dr. Guevara in details. Dictated by Duy Cavanaugh PA-C (Al) Dana Guevara MD /MODL /[id number]
--- NOTE | 2019-11-16 21:58 | NUR ---
RECEIVED REPORT FROM RN. PATIENT ALERT AND ORIENTED. RESTING IN BED. NO SIGNS IV INFILTRATION. BED LOCKED AND IN LOW POSITION. SR UP. CALL LIGHT WITHIN REACH. BED ALARM ACTIVATED.
[2019-11-17] VITALS (9 sets, daily range): BP systolic 124–137; BP diastolic 73–82
[2019-11-17] MEDS: ALBUTEROL SULF 0.083% NEB SOLN 3 ML NEB NEB SCH ×4 (00:40→15:20)
--- NOTE | 2019-11-17 07:04 | NUR ---
REPORT GIVEN TO DAYSHIFT NURSE. ALERT AND RESTING IN BED. NO SIGNS IV INFILTRATION. BED LOCKED AND IN LOW POSITION. CALL LIGHT WITHIN REACH. SR UPX2. BED ALARM ACTIVATED.
[2019-11-17] MEDS: CEFTRIAXONE SOD 2 GM/NS 100 ML 100 ML IV SCH (09:00)
[2019-11-17] MEDS: IPRATROPIUM BROMIDE 0.02% 2.5 ML NEB NEB SCH ×3 (09:40→19:09)
--- NOTE | 2019-11-17 17:45 | Progress Note ---
DATE: SUBJECTIVE: The patient is seen and evaluated. Available labs and notes reviewed. Discussed with the nurse. REVIEW OF SYSTEMS: The patient is easily awakened, responds and states that he is doing fine. Discussed with the nurse. The patient is not much of a talker, but no new complaints from nursing staff. PHYSICAL EXAMINATION: VITAL SIGNS: Temperature 98.8, pulse 83, respirations 20, blood pressure 118/86. The patient is currently on 2 L of nasal cannula. On recheck vital signs, temperature 98.8, pulse 100, blood pressure 132/81, respirations 20. GENERAL: Awake and alert. No acute distress. Responds appropriately on 2 L/minute of nasal cannula. CV: S1, S2. CHEST: Equal expansion. Decreased breath sounds. No acute distress. ABDOMEN: Soft, nontender. No distention. HEENT: Moist. No pallor. No JVD. EXTREMITIES: Weak. MEDICATIONS: List reviewed. From Infectious Disease point of view, the patient is on Rocephin. LABORATORY STUDIES: No new CBC or BMP. Serology: Coronavirus PCR not detected. MICROBIOLOGY: Blood culture negative. RADIOLOGY: Chest x-ray, no new chest x-ray available. ASSESSMENT AND PLAN: 1. Aspiration pneumonia. 2. Multifocal pneumonia. 3. Human immunodeficiency virus infection. 4. Debility. 5. Poor appetite. 6. Currently on 2 L/minute of nasal cannula. 7. Continue with Rocephin at this point and monitor the patient clinically. Follow up with the labs. Discussed with Dr. Guevara in details. Dictated by Duy Cavanaugh PA-C (Al) Dana Guevara MD /MODL /[id number]
[2019-11-17] MEDS ORDERED: ACETAMINOPHEN 325 MG TAB PO PRN (18:30)
--- NOTE | 2019-11-17 19:09 | NUR ---
SBAR REPORT RECEIVED AT BEDSIDE, PATIENT SEEN RESTING NO DISTRESS NOTED, RESUME CARE
[2019-11-18] VITALS (10 sets, daily range): BP systolic 123–132; BP diastolic 80–89
[2019-11-18] MEDS: IPRATROPIUM BROMIDE 0.02% 2.5 ML NEB NEB SCH ×4 (01:00→19:00)
[2019-11-18] MEDS: ALBUTEROL SULF 0.083% NEB SOLN 3 ML NEB NEB SCH ×7 (02:15→22:40)
--- NOTE | 2019-11-18 06:52 | NUR ---
WALKING ROUNDS COMPLETED WITH ONCOMING SHIFT, PATIENT SLEEPING NO DISTRESS NOTED
[2019-11-18] MEDS: CEFTRIAXONE SOD 2 GM/NS 100 ML 100 ML IV SCH (09:06)
--- NOTE | 2019-11-18 11:42 | NUR ---
INFECTIOUS DISEASE PROGRESS NOTE DR. [address] CC: aspiration PNA ROS: + weakness ALL 14 POINT ROS NEG UNLESS OTHERWISE NOTED PHYSICAL EXAM: GENERAL: awake, alert, frail HEENT: normocephalic atraumatic CV: s1, s2, no s3, s4 CHEST: symmetric expansion, CLAB ABD: soft, non-tender EXT: moves all, no joint swelling PSYCH: intact, no anxiety, slow to response at baseline LABS: reviewed RADIOLOGY: reviewed IMPRESSION: Aspiration PNA HIV (undectable) PLAN: doing well on Rocephin can d.c ABT can d/c home from ID standpoint without ABT Noa John MSN, PURCHASING SUPERVISOR, AGACNP-BC [address] M.D.
[2019-11-18] MEDS ORDERED: DIPHENHYDRAMINE HCL 25 MG CAP PO PRN (14:00)
[2019-11-18] MEDS ORDERED: DOCUSATE SODIUM 100 MG CAP PO PRN (14:00)
[2019-11-18] MEDS ORDERED: TRAMADOL HCL 50 MG TAB PO PRN (14:00)
[2019-11-18] MEDS ORDERED: ONDANSETRON HCL 4 MG ORAL DISINTEGRATING TAB PO SCH (14:00)
--- OUTSIDE RECORDS SUMMARY | 2019-11-18 15:54 | XMS REPORT | Continuity of Care Document ---
Author Author Puma Zulahoo, BRADEN Simmons Organization [email or web address] Address Unknown Phone Unavailable Care Team Providers Care Paint Line Supervisor Name Role Phone [employer] Unavailable Un available Problems Problem Status Onset Date Classification Date Reported Comments Source Multiple sclerosis Active Problem 11/05/2016 Tato Almanza Disorders of sacrum Active Problem 11/05/2016 Tato Almanza Lumbosacral spondylosis without myelopathy Active Problem 11/05/2016 Tato Almanza Radiculopathy, lumbar region A ctive Problem Tato Vergaraer Chronic pain syndrome Active Problem 05/05/2017 Tato Almanza Multiple sclerosis Active Problem 05/05/2017 Tato Almanza Spondylosis without myelopathy or radicu lopathy, lumbosacral region Active Prob johnnie 05/05/2017 Tato Vergaraer Chronic pain syndrome Active Problem 11/05/2016 Tato Almanza Spastic diplegic cerebral palsy Active Problem Tato Almanza Sacrococcygeal disorders, not elsewhere classified Active Problem 05/05/2017 Tato Almanza Long-term (current) use of other medicat ions - High Risk Active Prob johnnie 11/05/2016 Tato Almanza Other symptoms involving nervous and mus culoskeletal systems Active Prob johnnie 11/05/2016 Tato Almanza Abnormal posture Active Problem 11/05/2016 Tato Almanza Medications Medication Details Route Status Patient Instructions Ordering Provider Order Date Source Kristalose 1 packet mixed with 4 ounces of water Orally Active 10 GM Orally Once a day Sharri Almanza Levothyroxine Sodium 1 tablet Orally Active 0.05 Orally Once a day Sharri Almanza Pantoprazole Sodium 1 tablet Orally Active 40 MG Orally Once a day Sharri Almanza Unmbatyflft-YBFK-Nnpwccn Prod as directed Orally Active 10-325 MG Orally Sharri Almanza Lyrica 1 capsule Orally Active 150 MG Orally Three brook es a day Sharri Almanza Dicyclomine HCl 1 tablet Orally Active 20 MG Orally Four times a day Sharri Tato Almanza Furosemide 1 tablet Orally Active 20 MG Orally Once a day [facility] Keyshawn Almanza Vytorin 1 tablet Orally Active 10-20 MG Orally Once a day [facility] Keyshawn Almanza Linzess 1 capsule Orally Active 290 MCG Orally Once a d ay [facility] Keyshawn Almanza Genvoya as directed Orally Active [phone] MG Orall y [facility] Keyshawn Almanza Butalbital-Acetaminophen 1 tab let as needed Orally Active 50-325 MG Orally every 4 hrs [facility] Tato Almanza Clonazepam 1 tablet Orally Active 0.5 MG Orally Twice a d ay [facility] Tato Almanza Allergies, Adverse Reactions, Alerts No [...] Weight 175 10/30/2016 Tato Almanza Height 57 0 10/30/2016 Tato Almanza Temperature Oral (F) 95 F 10/30/2016 Tato Almanza Heart Rate 78 10/30/2016 Tato Almanza Diastolic (mm Hg) 82 10/30/2016 Tato Almanza Systolic (mm Hg) 120 10/30/2016 Tato Almanza Temperature Oral (F) 95.0 F 08/04/2016 Tato Almanza Heart Rate 78 08/04/2016 Tato Vergaraer Height 57 0 08/04/2016 Tato Almanza Diastolic (mm Hg) 60 08/04/2016 Tato Almanza Systolic (mm Hg) 142 08/04/2016 Tato Vergaraer Weight 175 08/04/2016 Tato Almanza Encounters No [...]
--- OUTSIDE RECORDS SUMMARY | 2019-11-18 15:55 | XMS REPORT | Continuity of Care Document ---
Author Author Puma [employer], BRADEN Simmons Organization [id number] Address Unknown Phone Unavailable Care Team Providers Care Telephone Collector Name Role Phone [employer] Information [employer] Unavailable Un available Problems Problem Status Onset [...] MG Orally Once a day Sharri Almanza Hpgblthvdpt-QYGU-Twsiaoc Prod as directed Orally Active 10-325 MG Orally Sharri Almanza Lyrica 1 capsule Orally Active 150 MG Orally Three brook es a day Sharri Almanza Dicyclomine HCl 1 tablet Orally Active 20 MG Orally Four times a day Sharri Tato Almanza Furosemide 1 tablet Orally Active 20 MG Orally Once a day [facility] Keyshawn Almanza Vytorin 1 tablet Orally Active 10-20 MG Orally Once a day [facility] Keyshawn Almanza Linzess 1 capsule Orally Active 290 MCG Orally Once a d ay [facility] Keyshawn Almanza Genvoya as directed Orally Active [phone] [facility] Keyshawn Almanza Butalbital-Acetaminophen 1 tab let as needed Orally Active 50-325 MG Orally every [address] [facility] Tato Almanza Clonazepam 1 tablet Orally Active 0.5 MG Orally Twice a d ay [facility] Tato Almanza Allergies, Adverse Reactions, Alerts [...]
[2019-11-18] MEDS: PANTOPRAZOLE SOD 40 MG TABEC PO SCH (16:53)
[2019-11-18] MEDS: PREGABALIN 75 MG CAP PO SCH ×2 (16:53→21:00)
[2019-11-18] MEDS: SUCRALFATE 1 GM TAB PO SCH ×2 (16:53→21:46)
[2019-11-18] MEDS: LACTULOSE SYRUP 20 GM/30 ML UDC PO SCH ×2 (21:00→21:46)
[2019-11-18] MEDS ORDERED: NORTRIPTYLINE HCL 10 MG CAP PO SCH (21:00)
[2019-11-18] MEDS ORDERED: CLONAZEPAM 1 MG TAB PO SCH (21:00)
[2019-11-18] MEDS ORDERED: FAMOTIDINE 20 MG TAB PO SCH (21:00)
[2019-11-18] MEDS ORDERED: TOPIRAMATE 100 MG TAB PO SCH (21:00)
[2019-11-18] MEDS ORDERED: ATORVASTATIN 20 MG TAB PO SCH (21:00)
[2019-11-19] VITALS: BP 130/81
[2019-11-19] MEDS: IPRATROPIUM BROMIDE 0.02% 2.5 ML NEB NEB SCH ×3 (02:15→13:52)
[2019-11-19] MEDS: ALBUTEROL SULF 0.083% NEB SOLN 3 ML NEB NEB SCH ×4 (02:15→15:41)
[2019-11-19 04:00] VITALS: BP 125/79
[2019-11-19] MEDS ORDERED: LEVOTHYROXINE SODIUM 75 MCG TAB PO SCH (06:30)
--- NOTE | 2019-11-19 07:39 | NUR ---
PATIENT SITTING UP IN BED RECEIVING NEB TREATMENT, NO DISTRESS NOTED. BED IN LOWER POSITION, CALL LIGHT AT REACH.
[2019-11-19 08:00] VITALS: BP 119/89
[2019-11-19] MEDS: PANTOPRAZOLE SOD 40 MG TABEC PO SCH ×2 (08:00→16:35)
[2019-11-19] MEDS: SUCRALFATE 1 GM TAB PO SCH ×3 (08:00→16:35)
[2019-11-19 08:55] VITALS: BP 119/89
[2019-11-19] MEDS ORDERED: POTASSIUM CHLORIDE 10MEQ EA PO SCH (09:00)
[2019-11-19] MEDS ORDERED: FUROSEMIDE 20 MG TAB PO SCH (09:00)
[2019-11-19] MEDS: PREGABALIN 75 MG CAP PO SCH ×2 (09:41→15:30)
--- NOTE | 2019-11-19 11:32 | NUR ---
MD IN TO SEE PATIENT, NEW ORDER RECEIVED.
[2019-11-19 12:09] VITALS: BP 103/76
--- NOTE | 2019-11-19 15:43 | NUR ---
PATIENT PULL OUT HIS IV BY ACCIDENT. NEW IV 20 GAUGE INSERTED TO RIGHT HAND, PATIENT TOLERATED PROCEDURE WELL. IN BED WITH CALL LIGHT AT REACH.
[2019-11-19 17:04] VITALS: BP 102/82
--- NOTE | 2019-11-19 17:08 | NUR ---
LTACH ORDER RECEIVED. CM REVIEWED EMR. PT DOES NOT MEET LTACH CRITERIA. ID HAD DC'D ABX. DR. BENSON NOTIFIED. PT TO BE DC'D HOME.
--- NOTE | 2019-11-19 17:37 | NUR ---
INFECTIOUS DISEASE PROGRESS NOTE DR. [address] CC: aspiration PNA ROS: + weakness ALL 14 POINT ROS NEG UNLESS OTHERWISE NOTED PHYSICAL EXAM: GENERAL: awake, alert, frail HEENT: normocephalic atraumatic CV: s1, s2, no s3, s4 CHEST: symmetric expansion, CLAB ABD: soft, non-tender EXT: moves all, no joint swelling PSYCH: intact, no anxiety, slow to response at baseline LABS: reviewed RADIOLOGY: reviewed IMPRESSION: Aspiration PNA HIV (undectable) PLAN: doing well on Rocephin can d.c ABT can d/c home from ID standpoint without ABT Noa John MSN, MATERIAL LOADER, AGACNP-BC [address] M.D.
--- NOTE | 2019-11-19 19:20 | NUR ---
Pt discharged home per MD orders. Pt alert, awake, and oriented x 3. Discharge paperwork completed and explained to pt prior to my arrival. Pt verbalized understanding of discharge instructions and had no further questions. Pt transported to discharge area via wheelchair. IV and electronics assembler removed prior to my arrival. Pt transported home with female friend via private vehicle.
[2019-11-20] MEDS ORDERED: [UNRECOGNIZED DRUG - OTHER] PO SCH (09:00)
== END 2019-11-19 19:31 | disposition home or self-care (01) | DRG 178 ==
LOC: ER 11:45 → ERHOLD 14:01 → MED/SURG3 18:51
DX: J69.0 Pneumonitis due to inhalation of food and vomit (principal); N17.9 Acute kidney failure, unspecified; Z21 Asymptomatic human immunodeficiency virus [HIV] infection status; G35 Multiple sclerosis; J44.9 Chronic obstructive pulmonary disease, unspecified; E03.9 Hypothyroidism, unspecified; D64.9 Anemia, unspecified; F41.9 Anxiety disorder, unspecified; E78.5 Hyperlipidemia, unspecified; N18.9 Chronic kidney disease, unspecified; E87.6 Hypokalemia; E86.0 Dehydration; R53.81 Other malaise; J18.9 Pneumonia, unspecified organism; G80.9 Cerebral palsy, unspecified; Z90.49 Acquired absence of other specified parts of digestive tract; Z88.0 Allergy status to penicillin; Z88.8 Allergy status to other drugs, medicaments and biological substances; Z11.59 Encounter for screening for other viral diseases
CPT/HCPCS: 36415; 71045; 80048; 80053; 82550; 82553; 83605; 83735; 84145; 84484; 85025; 85379; 85610; 85730; 87040; 93005; 94640; 99284; J0456; J0692; J0696; J2930; J3370; J3480; J7030; J7050

== ENCOUNTER 2020-09-30 00:12 | Inpatient (IN) | payer MEDICARE, OTHER ==
[~2020-09-30] VITALS: Ht 182.9 cm; Wt 93.0 kg
[2020-09-30] VITALS (7 sets, daily range): BP systolic 120–162; BP diastolic 74–99
[~2020-09-30 00:12] MED LIST changes: +LIPITOR20 MG PO; +LYRICA150 MG PO; +PROTONIX20 MG PO
[2020-09-30] MEDS ORDERED: SODIUM CHLORIDE 0.9% 1000ML 1,000 ML IV ONE (01:00)
[2020-09-30] MEDS ORDERED: CEFTRIAXONE 2 GM in SODIUM CHLORIDE 0.9% 100 ML IV ONE (01:00)
[2020-09-30] MEDS ORDERED: ACETAMINOPHEN 325 MG TAB PO ONE (01:00)
[2020-09-30] MEDS ORDERED: ACETAMINOPHEN 325 MG SUPP ONE (01:03)
[2020-09-30] MEDS ORDERED: ACETAMINOPHEN 650 MG SUPP PR ONE (01:04)
[2020-09-30] MEDS ORDERED: HALOPERIDOL LACTATE 5 MG/ML VIAL ONE (01:18)
[2020-09-30 01:54] LABS: BASOPHILS % 0.2 % (0.0-1.0); HEMATOCRIT 56.1 % (38.2-49.6); HEMOGLOBIN 17.9 g/dL (14.0-18.0); LYMPHOCYTES % 9.5 % (18.0-39.1); MEAN CORPUSCULAR HEMOGLOBIN 32.3 pg (28-32); MEAN CORPUSCULAR HGB CONC 31.9 g/dL (31-35); MEAN CORPUSCULAR VOLUME 101.3 fL (81-99); MONOCYTES # (AUTO) 1.2 (0.2-0.8); MONOCYTES % 11.7 % (4.4-11.3); NEUTROPHILS # (AUTO) 8.1 (2.1-6.9); NEUTROPHILS % 77.8 % (38.7-80.0); PLATELET COUNT 131 x10e3/uL (140-360); RED BLOOD COUNT 5.54 x10e6/uL (4.3-5.7); RED CELL DISTRIBUTION WIDTH 13.2 % (11.7-14.4)
[2020-09-30 01:58] LABS: CLARITY,URINE CLOUDY (CLEAR); COLOR,URINE YELLOW (YELLOW); KETONES,URINE 2+ (NEGATIVE); LEUKOCYTE ESTERASE ,URINE NEGATIVE (NEGATIVE); NITRITE,URINE NEGATIVE (NEGATIVE); PROTEIN,URINE DIPSTICK 2+ (NEGATIVE); URINE UROBILINOGEN 0.2 mg/dL (0.2 - 1)
[2020-09-30 02:02] LABS: BACTERIA,URINE MANY /HPF; EPITHELIAL CELLS,URINE FEW /LPF
[2020-09-30 02:08] LABS: ALBUMIN 4.1 g/dL (3.5-5.0); ALBUMIN/GLOBULIN RATIO 0.9 (0.8-2.0); ANION GAP 22.9 mmol/L (8-16); CREATININE, SERUM 1.86 mg/dL (0.72-1.25); POTASSIUM 3.9 mmol/L (3.5-5.1)
[2020-09-30 02:15] LABS: CREATINE KINASE MB 7.8 ng/mL (0-5.0)
[2020-09-30] MEDS ORDERED: SODIUM CHLORIDE 0.9% 1000ML 1,000 ML IV SCH (03:00)
[2020-09-30] MEDS ORDERED: ACETAMINOPHEN 325 MG TAB PO PRN (03:00)
[2020-09-30] MEDS ORDERED: LACTATED RINGER'S 1,000 ML INJ ONE (07:30)
[2020-09-30] MEDS ORDERED: REMDESIVIR 200MG/NS 100ML 200 MG IV ONE (08:00)
[2020-09-30] MEDS: ASCORBIC ACID 500 MG TAB PO SCH ×2 (08:26→08:43)
[2020-09-30] MEDS: ZINC SULFATE 220 MG CAP PO SCH (08:26)
[2020-09-30] MEDS ORDERED: ENOXAPARIN INJ 80 MG/0.8 ML SYR SC SCH (09:00)
[2020-09-30 10:02] LABS: BASOPHILS % 0.1 % (0.0-1.0); HEMATOCRIT 49.7 % (38.2-49.6); LYMPHOCYTES # (AUTO) 0.8 (1.0-3.2); LYMPHOCYTES % 10.4 % (18.0-39.1); MEAN CORPUSCULAR HEMOGLOBIN 32.4 pg (28-32); MEAN CORPUSCULAR HGB CONC 32.2 g/dL (31-35); MEAN CORPUSCULAR VOLUME 100.6 fL (81-99); MONOCYTES # (AUTO) 0.9 (0.2-0.8); MONOCYTES % 11.2 % (4.4-11.3); NEUTROPHILS # (AUTO) 5.9 (2.1-6.9); NEUTROPHILS % 77.6 % (38.7-80.0); PLATELET COUNT 109 x10e3/uL (140-360); RED BLOOD COUNT 4.94 x10e6/uL (4.3-5.7); RED CELL DISTRIBUTION WIDTH 13.2 % (11.7-14.4)
[2020-09-30 10:32] LABS: ALBUMIN 3.3 g/dL (3.5-5.0); ALBUMIN/GLOBULIN RATIO 0.9 (0.8-2.0); ANION GAP 17.7 mmol/L (8-16); CALCIUM 8.4 mg/dL (8.4-10.2); CREATININE, SERUM 1.59 mg/dL (0.72-1.25); POTASSIUM 3.7 mmol/L (3.5-5.1)
[2020-09-30] MEDS: ENOXAPARIN SOD INJ 40 MG/0.4 ML SYR SC SCH (16:00)
[2020-09-30 19:32] LABS: CREATINE KINASE MB 6.7 ng/mL (0-5.0)
[2020-09-30] MEDS ORDERED: ZOLPIDEM TARTRATE 5 MG TAB PO PRN (21:00)
[2020-09-30] MEDS: CEFTRIAXONE 2 GM in SODIUM CHLORIDE 0.9% 100 ML IV SCH (21:00)
[2020-10-01] VITALS (9 sets, daily range): BP systolic 121–148; BP diastolic 71–82
[2020-10-01 06:02] LABS: BASOPHILS % 0.4 % (0.0-1.0); HEMATOCRIT 47.4 % (38.2-49.6); LYMPHOCYTES # (AUTO) 0.9 (1.0-3.2); LYMPHOCYTES % 16.6 % (18.0-39.1); MEAN CORPUSCULAR HEMOGLOBIN 32.1 pg (28-32); MEAN CORPUSCULAR HGB CONC 31.6 g/dL (31-35); MEAN CORPUSCULAR VOLUME 101.3 fL (81-99); MONOCYTES # (AUTO) 0.5 (0.2-0.8); MONOCYTES % 9.1 % (4.4-11.3); NEUTROPHILS # (AUTO) 3.9 (2.1-6.9); NEUTROPHILS % 73.1 % (38.7-80.0); PLATELET COUNT 103 x10e3/uL (140-360); RED BLOOD COUNT 4.68 x10e6/uL (4.3-5.7); RED CELL DISTRIBUTION WIDTH 13.4 % (11.7-14.4)
[2020-10-01 06:30] LABS: ALBUMIN 3.2 g/dL (3.5-5.0); ALBUMIN/GLOBULIN RATIO 0.9 (0.8-2.0); ANION GAP 17.4 mmol/L (8-16); CALCIUM 8.5 mg/dL (8.4-10.2); CREATININE, SERUM 1.47 mg/dL (0.72-1.25); POTASSIUM 3.4 mmol/L (3.5-5.1)
[2020-10-01] MEDS ORDERED: REMDESIVIR 100MG/NS 100ML 100 MG IV SCH (08:00)
[2020-10-01] MEDS: ZINC SULFATE 220 MG CAP PO SCH (09:58)
[2020-10-01] MEDS: ASCORBIC ACID 500 MG TAB PO SCH ×2 (09:58→17:48)
[2020-10-01] MEDS: DEXAMETHASONE SOD PHOS 10 MG/1 ML VIAL IV SCH (11:44)
[2020-10-01] MEDS: REMDESIVIR 100MG/NS 100ML 100 MG IV SCH (11:45)
[2020-10-01] MEDS: ENOXAPARIN SOD INJ 40 MG/0.4 ML SYR SC SCH (17:48)
[2020-10-01] MEDS: CEFTRIAXONE 2 GM in SODIUM CHLORIDE 0.9% 100 ML IV SCH (20:35)
[2020-10-02] VITALS (8 sets, daily range): BP systolic 115–136; BP diastolic 69–98
[2020-10-02] MEDS: ONDANSETRON HCL INJ 2MG/ML 2ML 2 MG/ML VIAL IV PRN (04:29)
[2020-10-02 05:38] LABS: BASOPHILS % 0.2 % (0.0-1.0); HEMATOCRIT 46.1 % (38.2-49.6); HEMOGLOBIN 14.4 g/dL (14.0-18.0); LYMPHOCYTES # (AUTO) 1.1 (1.0-3.2); LYMPHOCYTES % 22.3 % (18.0-39.1); MEAN CORPUSCULAR HEMOGLOBIN 31.9 pg (28-32); MEAN CORPUSCULAR HGB CONC 31.2 g/dL (31-35); MONOCYTES # (AUTO) 0.5 (0.2-0.8); MONOCYTES % 9.8 % (4.4-11.3); NEUTROPHILS # (AUTO) 3.2 (2.1-6.9); NEUTROPHILS % 66.9 % (38.7-80.0); PLATELET COUNT 120 x10e3/uL (140-360); RED BLOOD COUNT 4.52 x10e6/uL (4.3-5.7); RED CELL DISTRIBUTION WIDTH 13.3 % (11.7-14.4)
[2020-10-02 06:08] LABS: ALBUMIN 3.1 g/dL (3.5-5.0); ALBUMIN/GLOBULIN RATIO 0.9 (0.8-2.0); ANION GAP 16.7 mmol/L (8-16); CALCIUM 8.7 mg/dL (8.4-10.2); CREATININE, SERUM 1.24 mg/dL (0.72-1.25); POTASSIUM 3.7 mmol/L (3.5-5.1)
[2020-10-02] MEDS: DEXAMETHASONE SOD PHOS 10 MG/1 ML VIAL IV SCH (09:00)
[2020-10-02] MEDS: ZINC SULFATE 220 MG CAP PO SCH (09:00)
[2020-10-02] MEDS: ASCORBIC ACID 500 MG TAB PO SCH ×2 (09:00→17:00)
[2020-10-02] MEDS: REMDESIVIR 100MG/NS 100ML 100 MG IV SCH (12:05)
[2020-10-02] MEDS: MEROPENEM 500 MG in SODIUM CHLORIDE 0.9% 50ML 50 ML IV SCH (16:00)
[2020-10-02] MEDS: ENOXAPARIN SOD INJ 40 MG/0.4 ML SYR SC SCH (17:00)
[2020-10-03] MEDS: MEROPENEM 500 MG in SODIUM CHLORIDE 0.9% 50ML 50 ML IV SCH ×3 (00:45→16:00)
[2020-10-03 01:07] VITALS: BP 123/70
[2020-10-03 05:01] VITALS: BP 132/65
[2020-10-03 07:06] LABS: BASOPHILS % 0.2 % (0.0-1.0); HEMATOCRIT 49.1 % (38.2-49.6); HEMOGLOBIN 15.7 g/dL (14.0-18.0); LYMPHOCYTES % 19.6 % (18.0-39.1); MEAN CORPUSCULAR HEMOGLOBIN 32.4 pg (28-32); MEAN CORPUSCULAR VOLUME 101.2 fL (81-99); MONOCYTES # (AUTO) 0.6 (0.2-0.8); MONOCYTES % 11.3 % (4.4-11.3); NEUTROPHILS # (AUTO) 3.5 (2.1-6.9); NEUTROPHILS % 67.4 % (38.7-80.0); PLATELET COUNT 139 x10e3/uL (140-360); RED BLOOD COUNT 4.85 x10e6/uL (4.3-5.7); RED CELL DISTRIBUTION WIDTH 12.9 % (11.7-14.4)
[2020-10-03 07:27] LABS: ALBUMIN 3.2 g/dL (3.5-5.0); ALBUMIN/GLOBULIN RATIO 0.9 (0.8-2.0); ANION GAP 12.7 mmol/L (8-16); CALCIUM 8.7 mg/dL (8.4-10.2); CREATININE, SERUM 1.3 mg/dL (0.72-1.25); POTASSIUM 3.7 mmol/L (3.5-5.1)
[2020-10-03 08:55] VITALS: BP 124/69
[2020-10-03 08:56] VITALS: BP 124/69
[2020-10-03] MEDS: ASCORBIC ACID 500 MG TAB PO SCH ×2 (09:00→16:57)
[2020-10-03] MEDS: ZINC SULFATE 220 MG CAP PO SCH (09:00)
[2020-10-03] MEDS: DEXAMETHASONE SOD PHOS 10 MG/1 ML VIAL IV SCH (09:00)
[2020-10-03 11:43] VITALS: BP 128/76
[2020-10-03] MEDS: REMDESIVIR 100MG/NS 100ML 100 MG IV SCH (12:00)
[2020-10-03] MEDS: ONDANSETRON HCL INJ 2MG/ML 2ML 2 MG/ML VIAL IV PRN (12:30)
[2020-10-03 15:43] VITALS: BP 122/76
[2020-10-03] MEDS: ENOXAPARIN SOD INJ 40 MG/0.4 ML SYR SC SCH (17:00)
== END 2020-10-03 18:19 | DRG 177 ==
LOC: ER 00:45 → ERHOLD 03:15 → MED/SURG3 03:48
PROC: XW033E5 Introduction of Remdesivir Anti-infective into Peripheral Vein, Percutaneous Approach, New Technology Group 5 (ICD-10-PCS; principal; 2020-10-01)
DX: U07.1 COVID-19 (principal); J96.01 Acute respiratory failure with hypoxia; J12.82 Pneumonia due to coronavirus disease 2019; J15.9 Unspecified bacterial pneumonia; N17.9 Acute kidney failure, unspecified; E87.2 Acidosis; N39.0 Urinary tract infection, site not specified; Z16.12 Extended spectrum beta lactamase (ESBL) resistance; D69.6 Thrombocytopenia, unspecified; G98.8 Other disorders of nervous system; B96.20 Unspecified Escherichia coli [E. coli] as the cause of diseases classified elsewhere; I12.9 Hypertensive chronic kidney disease with stage 1 through stage 4 chronic kidney disease, or unspecified chronic kidney disease; N18.9 Chronic kidney disease, unspecified; J44.9 Chronic obstructive pulmonary disease, unspecified; E11.22 Type 2 diabetes mellitus with diabetic chronic kidney disease; Z21 Asymptomatic human immunodeficiency virus [HIV] infection status
CPT/HCPCS: 36415; 71045; 80053; 81001; 82550; 82553; 83605; 84484; 85025; 87040; 87086; 87186; 93005; 99285; J0456; J0696; J1100; J1630; J1650; J2185; J2405; J7030; J7050; J7121; U0002

== ENCOUNTER 2022-04-05 10:13 | Inpatient (IN) | payer MEDICARE, OTHER ==
[~2022-04-05] VITALS: Ht 182.9 cm; Wt 93.0 kg
[2022-04-05 11:09] LABS: BASOPHILS # (AUTO) 0.1 (0.0-0.1); BASOPHILS % 0.7 % (0.0-1.0); EOSINOPHILS # (AUTO) 0.2 (0.0-0.4); EOSINOPHILS % 1.5 % (0.0-6.0); HEMOGLOBIN 18.2 g/dL (14.0-18.0); LYMPHOCYTES # (AUTO) 1.8 (1.0-3.2); LYMPHOCYTES % 18.1 % (18.0-39.1); MEAN CORPUSCULAR HEMOGLOBIN 36.8 pg (28-32); MEAN CORPUSCULAR HGB CONC 33.7 g/dL (31-35); MEAN CORPUSCULAR VOLUME 109.3 fL (81-99); MONOCYTES % 10.3 % (4.4-11.3); PLATELET COUNT 167 x10e3/uL (140-360); RED BLOOD COUNT 4.94 x10e6/uL (4.3-5.7); RED CELL DISTRIBUTION WIDTH 11.9 % (11.7-14.4)
[2022-04-05 11:14] LABS: CLARITY,URINE CLEAR (CLEAR); COLOR,URINE YELLOW (YELLOW); LEUKOCYTE ESTERASE ,URINE NEGATIVE (NEGATIVE); NITRITE,URINE NEGATIVE (NEGATIVE)
[2022-04-05 11:19] LABS: KETONES,URINE NEGATIVE (NEGATIVE); PROTEIN,URINE DIPSTICK 2+ (NEGATIVE); URINE UROBILINOGEN 0.2 mg/dL (0.2 - 1)
[2022-04-05 11:20] LABS: BACTERIA,URINE FEW /HPF; EPITHELIAL CELLS,URINE RARE /LPF; RBC,URINE 0-5 /HPF (0-5); WBC,URINE (MAN) 0-5 /HPF (0-5)
[2022-04-05 11:29] LABS: ALBUMIN 4.1 g/dL (3.5-5.0); ALBUMIN/GLOBULIN RATIO 1.2 (0.8-2.0); ANION GAP 14.5 mmol/L (8-16); CALCIUM 9.5 mg/dL (8.4-10.2); CREATININE, SERUM 1.73 mg/dL (0.72-1.25)
[2022-04-05 11:33] LABS: POTASSIUM 2.5 mmol/L (3.5-5.1)
[2022-04-05] MEDS: SODIUM CHLORIDE 0.9% 1000ML 1,000 ML IV SCH ×2 (12:16→20:27)
[2022-04-05] MEDS: POTASSIUM CHLORIDE 20MEQ/100ML 100 ML IV SCH ×2 (12:16→14:00)
[2022-04-05] MEDS ORDERED: SODIUM CHLORIDE 0.9% 1000ML 1,000 ML ONE (12:23)
[2022-04-05] MEDS ORDERED: BUTALB-ACETAMI1 EACH (16:09)
[2022-04-05] MEDS ORDERED: DOVATO 50-3001 EACH PO (16:10)
[2022-04-05] MEDS ORDERED: GABAPENTIN400 MG PO (16:11)
[2022-04-05] MEDS ORDERED: MUCINEX DM ER1 EACH PO (16:12)
[2022-04-05] MEDS ORDERED: ACETAMINOPHEN325 M1 PO (16:12)
[2022-04-05 17:28] VITALS: BP 101/85
[2022-04-05 18:03] LABS: ANION GAP 13.3 mmol/L (8-16); CALCIUM 8.7 mg/dL (8.4-10.2); CREATININE, SERUM 1.43 mg/dL (0.72-1.25); POTASSIUM 3.3 mmol/L (3.5-5.1)
[2022-04-05] MEDS ORDERED: ONDANSETRON HCL 4 MG ORAL DISINTEGRATING TAB PO PRN (18:45)
[2022-04-05 19:16] LABS: PHOSPHORUS 1.8 MG/DL (2.3-4.7)
[2022-04-05 19:52] LABS: AMPHETAMINES SCREEN,URINE NEGATIVE (NEGATIVE); BENZODIAZEPINES SCREEN,URINE NEGATIVE (NEGATIVE); PHENCYCLIDINE SCREEN,URINE NEGATIVE (NEGATIVE)
[2022-04-05 20:00] VITALS: BP 121/58
[2022-04-05] MEDS: HYDROMORPHONE 1MG/1ML INJ IV PRN (20:32)
[2022-04-05 20:38] VITALS: BP 121/58
[2022-04-05] MEDS ORDERED: POTASSIUM PHOSPHATE 15 MM in SODIUM CHLORIDE 0.9% 250ML 250 ML IV ONE (23:00)
[2022-04-06] VITALS (7 sets, daily range): BP systolic 126–144; BP diastolic 61–97
[2022-04-06 05:22] LABS: BASOPHILS # (AUTO) 0.1 (0.0-0.1); BASOPHILS % 0.7 % (0.0-1.0); EOSINOPHILS # (AUTO) 0.2 (0.0-0.4); EOSINOPHILS % 2.6 % (0.0-6.0); HEMATOCRIT 45.6 % (38.2-49.6); LYMPHOCYTES # (AUTO) 1.9 (1.0-3.2); LYMPHOCYTES % 25.3 % (18.0-39.1); MEAN CORPUSCULAR HEMOGLOBIN 36.7 pg (28-32); MEAN CORPUSCULAR HGB CONC 35.1 g/dL (31-35); MEAN CORPUSCULAR VOLUME 104.6 fL (81-99); MONOCYTES # (AUTO) 0.8 (0.2-0.8); NEUTROPHILS # (AUTO) 4.7 (2.1-6.9); NEUTROPHILS % 60.9 % (38.7-80.0); PLATELET COUNT 151 x10e3/uL (140-360); RED BLOOD COUNT 4.36 x10e6/uL (4.3-5.7); RED CELL DISTRIBUTION WIDTH 12.5 % (11.7-14.4)
[2022-04-06 05:51] LABS: ANION GAP 14.2 mmol/L (8-16); CALCIUM 8.7 mg/dL (8.4-10.2); CREATININE, SERUM 1.27 mg/dL (0.72-1.25); POTASSIUM 3.2 mmol/L (3.5-5.1)
[2022-04-06 06:07] LABS: PHOSPHORUS 1.4 MG/DL (2.3-4.7)
[2022-04-06 06:08] LABS: ALBUMIN 3.5 g/dL (3.5-5.0); BILIRUBIN,DIRECT 0.6 mg/dL (0.0-0.5)
[2022-04-06] MEDS: HYDROMORPHONE 1MG/1ML INJ IV PRN ×2 (06:45→18:20)
[2022-04-06] MEDS: SODIUM CHLORIDE 0.9% 1000ML 1,000 ML IV SCH ×2 (06:48→22:42)
[2022-04-06] MEDS ORDERED: ATORVASTATIN 40 MG TAB PO SCH (09:00)
[2022-04-06] MEDS ORDERED: POTASSIUM CHLORIDE 20 MEQ TAB CR PO ONE (09:00)
[2022-04-06] MEDS: [UNRECOGNIZED DRUG - OTHER] PO SCH (09:00)
[2022-04-06] MEDS: DOLUTEGRAVIR SODIUM PO SCH (09:00)
[2022-04-06] MEDS ORDERED: POTASSIUM PHOSPHATE 15 MM in SODIUM CHLORIDE 0.9% 250ML 250 ML IV ONE (09:00)
[2022-04-06] MEDS: LAMIVUDINE PO SCH (09:00)
[2022-04-06] MEDS: PANTOPRAZOLE SOD 40 MG TABEC PO SCH ×2 (09:34→17:47)
[2022-04-06 12:30] LABS: INR 0.96
[2022-04-06 12:31] LABS: PARTIAL THROMBOPLASTIN TIME 29.5 seconds (23.8-35.5)
[2022-04-06] MEDS: POLYETHYLENE GLYCOL 3350 17 GM PACK PO SCH ×2 (13:30→15:50)
[2022-04-06] MEDS: SENNOSIDES 8.6 MG TAB PO SCH ×2 (13:30→15:51)
[2022-04-06] MEDS ORDERED: LIDOCAINE 1% 10 ML MULTIDOSE VIAL IJ ONE (14:50)
[2022-04-06] MEDS: ATORVASTATIN 40 MG TAB PO SCH (21:00)
[2022-04-07] VITALS (8 sets, daily range): BP systolic 139–153; BP diastolic 87–96
[2022-04-07] MEDS: SODIUM CHLORIDE 0.9% 1000ML 1,000 ML IV SCH ×2 (04:00→09:23)
[2022-04-07 05:04] LABS: BASOPHILS % 0.4 % (0.0-1.0); EOSINOPHILS # (AUTO) 0.1 (0.0-0.4); EOSINOPHILS % 1.9 % (0.0-6.0); HEMATOCRIT 43.4 % (38.2-49.6); HEMOGLOBIN 14.9 g/dL (14.0-18.0); LYMPHOCYTES # (AUTO) 1.5 (1.0-3.2); LYMPHOCYTES % 21.8 % (18.0-39.1); MEAN CORPUSCULAR HEMOGLOBIN 36.9 pg (28-32); MEAN CORPUSCULAR HGB CONC 34.3 g/dL (31-35); MEAN CORPUSCULAR VOLUME 107.4 fL (81-99); MONOCYTES # (AUTO) 0.6 (0.2-0.8); MONOCYTES % 8.9 % (4.4-11.3); NEUTROPHILS # (AUTO) 4.6 (2.1-6.9); NEUTROPHILS % 66.4 % (38.7-80.0); PLATELET COUNT 147 x10e3/uL (140-360); RED BLOOD COUNT 4.04 x10e6/uL (4.3-5.7); RED CELL DISTRIBUTION WIDTH 12.4 % (11.7-14.4)
[2022-04-07 05:36] LABS: ALBUMIN 3.4 g/dL (3.5-5.0); ALBUMIN/GLOBULIN RATIO 1.3 (0.8-2.0); ANION GAP 12.8 mmol/L (8-16); CALCIUM 8.4 mg/dL (8.4-10.2); CREATININE, SERUM 1.13 mg/dL (0.72-1.25); POTASSIUM 3.8 mmol/L (3.5-5.1)
[2022-04-07] MEDS: ACETAMINOPHEN 325 MG TAB PO PRN (05:57)
[2022-04-07] MEDS: DOLUTEGRAVIR SODIUM PO SCH (09:00)
[2022-04-07] MEDS: LAMIVUDINE PO SCH (09:00)
[2022-04-07] MEDS: [UNRECOGNIZED DRUG - OTHER] PO SCH (09:00)
[2022-04-07] MEDS: PANTOPRAZOLE SOD 40 MG TABEC PO SCH ×2 (09:23→17:09)
[2022-04-07] MEDS: SENNOSIDES 8.6 MG TAB PO SCH ×2 (09:24→17:00)
[2022-04-07] MEDS: POLYETHYLENE GLYCOL 3350 17 GM PACK PO SCH ×2 (09:24→17:00)
[2022-04-07] MEDS: ASPIRIN 81 MG ENTERIC COATED PO SCH (09:45)
[2022-04-07] MEDS: HYDROMORPHONE 1MG/1ML INJ IV PRN (13:41)
[2022-04-07 14:54] LABS: APPEARANCE,CSF HAZY (CLEAR); COLOR,CSF XANTHOCHROMIC (COLORLESS); TUBE NUMBER 1; WHITE BLOOD CELL,CSF 40 cells/uL (0-5)
[2022-04-07 17:17] LABS: LYMPHOCYTES,CSF 8 % (40-80); MONOCYTES,CSF 4 %; NEUTROPHILS,CSF 88 % (0-6)
[2022-04-07] MEDS ORDERED: CEFTRIAXONE 2 GM in SODIUM CHLORIDE 0.9% 100 ML IV SCH (18:35)
[2022-04-07] MEDS: CEFTRIAXONE 2 GM in SODIUM CHLORIDE 0.9% 100 ML IV SCH (20:45)
[2022-04-07] MEDS: ATORVASTATIN 40 MG TAB PO SCH (22:17)
[2022-04-07] MEDS: Ampicillin INJ 2 GM in SODIUM CHLORIDE 0.9% 100 ML IV SCH (22:17)
[2022-04-08] VITALS (8 sets, daily range): BP systolic 130–159; BP diastolic 85–97
[2022-04-08] MEDS: HYDROMORPHONE 1MG/1ML INJ IV PRN (01:58)
[2022-04-08] MEDS: SODIUM CHLORIDE 0.9% 1000ML 1,000 ML IV SCH ×3 (02:04→22:00)
[2022-04-08] MEDS: Ampicillin INJ 2 GM in SODIUM CHLORIDE 0.9% 100 ML IV SCH ×2 (03:50→09:04)
[2022-04-08 05:28] LABS: BASOPHILS # (AUTO) 0.1 (0.0-0.1); BASOPHILS % 0.8 % (0.0-1.0); EOSINOPHILS # (AUTO) 0.1 (0.0-0.4); EOSINOPHILS % 1.7 % (0.0-6.0); HEMATOCRIT 43.5 % (38.2-49.6); HEMOGLOBIN 15.1 g/dL (14.0-18.0); LYMPHOCYTES # (AUTO) 1.7 (1.0-3.2); LYMPHOCYTES % 25.7 % (18.0-39.1); MEAN CORPUSCULAR HEMOGLOBIN 36.7 pg (28-32); MEAN CORPUSCULAR HGB CONC 34.7 g/dL (31-35); MEAN CORPUSCULAR VOLUME 105.8 fL (81-99); MONOCYTES # (AUTO) 0.7 (0.2-0.8); MONOCYTES % 10.1 % (4.4-11.3); NEUTROPHILS # (AUTO) 4.1 (2.1-6.9); NEUTROPHILS % 61.2 % (38.7-80.0); PLATELET COUNT 183 x10e3/uL (140-360); RED BLOOD COUNT 4.11 x10e6/uL (4.3-5.7); RED CELL DISTRIBUTION WIDTH 12.2 % (11.7-14.4)
[2022-04-08 06:18] LABS: ALBUMIN 3.6 g/dL (3.5-5.0); ALBUMIN/GLOBULIN RATIO 1.2 (0.8-2.0); ANION GAP 17.9 mmol/L (8-16); CALCIUM 8.7 mg/dL (8.4-10.2); CREATININE, SERUM 1.14 mg/dL (0.72-1.25); POTASSIUM 3.9 mmol/L (3.5-5.1)
[2022-04-08] MEDS ORDERED: IOPAMIDOL 370 MG/ML 100 ML INFUS..BTL INJ ONE (06:38)
[2022-04-08] MEDS: DOLUTEGRAVIR SODIUM PO SCH (09:00)
[2022-04-08] MEDS: POLYETHYLENE GLYCOL 3350 17 GM PACK PO SCH ×2 (09:00→17:26)
[2022-04-08] MEDS: [UNRECOGNIZED DRUG - OTHER] PO SCH (09:00)
[2022-04-08] MEDS: LAMIVUDINE PO SCH (09:00)
[2022-04-08] MEDS: CEFTRIAXONE 2 GM in SODIUM CHLORIDE 0.9% 100 ML IV SCH (09:04)
[2022-04-08] MEDS: PANTOPRAZOLE SOD 40 MG TABEC PO SCH ×2 (09:04→17:26)
[2022-04-08] MEDS: ASPIRIN 81 MG ENTERIC COATED PO SCH (09:04)
[2022-04-08] MEDS: SENNOSIDES 8.6 MG TAB PO SCH ×2 (09:04→17:26)
[2022-04-08] MEDS: ATORVASTATIN 40 MG TAB PO SCH (21:55)
[2022-04-09] VITALS (7 sets, daily range): BP systolic 105–150; BP diastolic 77–96
[2022-04-09] MEDS: HYDROMORPHONE 1MG/1ML INJ IV PRN (01:02)
[2022-04-09] MEDS: ACETAMINOPHEN 325 MG TAB PO PRN (05:06)
[2022-04-09] MEDS: SODIUM CHLORIDE 0.9% 1000ML 1,000 ML IV SCH ×2 (05:21→17:29)
[2022-04-09 05:29] LABS: BASOPHILS # (AUTO) 0.1 (0.0-0.1); BASOPHILS % 0.9 % (0.0-1.0); EOSINOPHILS # (AUTO) 0.1 (0.0-0.4); EOSINOPHILS % 2.2 % (0.0-6.0); HEMATOCRIT 43.6 % (38.2-49.6); HEMOGLOBIN 15.3 g/dL (14.0-18.0); LYMPHOCYTES # (AUTO) 1.3 (1.0-3.2); LYMPHOCYTES % 22.6 % (18.0-39.1); MEAN CORPUSCULAR HGB CONC 35.1 g/dL (31-35); MEAN CORPUSCULAR VOLUME 105.3 fL (81-99); MONOCYTES # (AUTO) 0.7 (0.2-0.8); MONOCYTES % 12.2 % (4.4-11.3); NEUTROPHILS # (AUTO) 3.4 (2.1-6.9); NEUTROPHILS % 61.6 % (38.7-80.0); PLATELET COUNT 208 x10e3/uL (140-360); RED BLOOD COUNT 4.14 x10e6/uL (4.3-5.7); RED CELL DISTRIBUTION WIDTH 12.2 % (11.7-14.4)
[2022-04-09 05:58] LABS: ALBUMIN 3.5 g/dL (3.5-5.0); ALBUMIN/GLOBULIN RATIO 1.3 (0.8-2.0); ANION GAP 14.6 mmol/L (8-16); CALCIUM 8.7 mg/dL (8.4-10.2); CREATININE, SERUM 1.13 mg/dL (0.72-1.25); POTASSIUM 3.6 mmol/L (3.5-5.1)
[2022-04-09] MEDS: [UNRECOGNIZED DRUG - OTHER] PO SCH (09:00)
[2022-04-09] MEDS: LAMIVUDINE PO SCH (09:00)
[2022-04-09] MEDS: DOLUTEGRAVIR SODIUM PO SCH (09:00)
[2022-04-09] MEDS: SENNOSIDES 8.6 MG TAB PO SCH ×2 (09:22→17:29)
[2022-04-09] MEDS: POLYETHYLENE GLYCOL 3350 17 GM PACK PO SCH ×2 (09:22→17:29)
[2022-04-09] MEDS: PANTOPRAZOLE SOD 40 MG TABEC PO SCH ×2 (09:22→17:29)
[2022-04-09] MEDS: ASPIRIN 81 MG ENTERIC COATED PO SCH (09:23)
[2022-04-09] MEDS: ATORVASTATIN 40 MG TAB PO SCH (20:12)
[2022-04-10] MEDS: HYDROMORPHONE 1MG/1ML INJ IV PRN ×3 (00:28→10:35)
[2022-04-10] MEDS: ATORVASTATIN 40 MG TAB PO SCH (00:29)
[2022-04-10] MEDS: SODIUM CHLORIDE 0.9% 1000ML 1,000 ML IV SCH ×3 (02:07→20:59)
[2022-04-10 04:53] LABS: BASOPHILS # (AUTO) 0.1 (0.0-0.1); EOSINOPHILS # (AUTO) 0.1 (0.0-0.4); EOSINOPHILS % 2.6 % (0.0-6.0); HEMATOCRIT 42.9 % (38.2-49.6); HEMOGLOBIN 14.9 g/dL (14.0-18.0); LYMPHOCYTES # (AUTO) 1.6 (1.0-3.2); LYMPHOCYTES % 32.3 % (18.0-39.1); MEAN CORPUSCULAR HEMOGLOBIN 36.4 pg (28-32); MEAN CORPUSCULAR HGB CONC 34.7 g/dL (31-35); MEAN CORPUSCULAR VOLUME 104.9 fL (81-99); MONOCYTES # (AUTO) 0.6 (0.2-0.8); MONOCYTES % 12.8 % (4.4-11.3); NEUTROPHILS # (AUTO) 2.5 (2.1-6.9); NEUTROPHILS % 50.5 % (38.7-80.0); PLATELET COUNT 190 x10e3/uL (140-360); RED BLOOD COUNT 4.09 x10e6/uL (4.3-5.7); RED CELL DISTRIBUTION WIDTH 11.9 % (11.7-14.4)
[2022-04-10 05:11] LABS: ANION GAP 12.6 mmol/L (8-16); CALCIUM 8.5 mg/dL (8.4-10.2); CREATININE, SERUM 1.04 mg/dL (0.72-1.25); POTASSIUM 3.6 mmol/L (3.5-5.1)
[2022-04-10] MEDS: DOLUTEGRAVIR SODIUM PO SCH (08:14)
[2022-04-10] MEDS: [UNRECOGNIZED DRUG - OTHER] PO SCH (08:14)
[2022-04-10] MEDS: LAMIVUDINE PO SCH (08:14)
[2022-04-10 08:59] VITALS: BP 130/90
[2022-04-10] MEDS: POLYETHYLENE GLYCOL 3350 17 GM PACK PO SCH ×3 (09:00→17:00)
[2022-04-10] MEDS: SENNOSIDES 8.6 MG TAB PO SCH ×2 (09:08→18:05)
[2022-04-10] MEDS: ASPIRIN 81 MG ENTERIC COATED PO SCH (09:08)
[2022-04-10] MEDS: PANTOPRAZOLE SOD 40 MG TABEC PO SCH ×2 (09:08→18:05)
[2022-04-10 10:06] VITALS: BP 130/90
[2022-04-10 12:12] VITALS: BP 151/81
[2022-04-10] MEDS: ACYCLOVIR SODIUM 700 MG in SODIUM CHLORIDE 0.9% 250ML 250 ML IV SCH ×2 (12:34→20:57)
[2022-04-10 16:37] VITALS: BP 142/85
[2022-04-10 20:00] VITALS: BP 129/78
[2022-04-10 21:00] VITALS: BP 129/78
[2022-04-11] VITALS (7 sets, daily range): BP systolic 130–159; BP diastolic 74–96
[2022-04-11] MEDS: ACYCLOVIR SODIUM 700 MG in SODIUM CHLORIDE 0.9% 250ML 250 ML IV SCH ×3 (06:28→21:34)
[2022-04-11 06:39] LABS: BASOPHILS # (AUTO) 0.1 (0.0-0.1); BASOPHILS % 1.1 % (0.0-1.0); EOSINOPHILS # (AUTO) 0.3 (0.0-0.4); EOSINOPHILS % 4.1 % (0.0-6.0); HEMATOCRIT 44.5 % (38.2-49.6); HEMOGLOBIN 15.6 g/dL (14.0-18.0); LYMPHOCYTES # (AUTO) 1.7 (1.0-3.2); LYMPHOCYTES % 26.3 % (18.0-39.1); MEAN CORPUSCULAR HEMOGLOBIN 36.8 pg (28-32); MEAN CORPUSCULAR HGB CONC 35.1 g/dL (31-35); MONOCYTES # (AUTO) 0.7 (0.2-0.8); MONOCYTES % 11.4 % (4.4-11.3); NEUTROPHILS # (AUTO) 3.6 (2.1-6.9); NEUTROPHILS % 56.5 % (38.7-80.0); PLATELET COUNT 208 x10e3/uL (140-360); RED BLOOD COUNT 4.24 x10e6/uL (4.3-5.7); RED CELL DISTRIBUTION WIDTH 11.9 % (11.7-14.4)
[2022-04-11 07:03] LABS: ALBUMIN 3.8 g/dL (3.5-5.0); ALBUMIN/GLOBULIN RATIO 1.4 (0.8-2.0); ANION GAP 19.7 mmol/L (8-16); CALCIUM 8.9 mg/dL (8.4-10.2); CREATININE, SERUM 1.17 mg/dL (0.72-1.25); POTASSIUM 3.7 mmol/L (3.5-5.1)
[2022-04-11] MEDS: SENNOSIDES 8.6 MG TAB PO SCH ×2 (09:04→16:02)
[2022-04-11] MEDS: ASPIRIN 81 MG ENTERIC COATED PO SCH (09:04)
[2022-04-11] MEDS: PANTOPRAZOLE SOD 40 MG TABEC PO SCH ×2 (09:04→16:02)
[2022-04-11] MEDS: SODIUM CHLORIDE 0.9% 1000ML 1,000 ML IV SCH ×2 (09:04→18:00)
[2022-04-11] MEDS: POLYETHYLENE GLYCOL 3350 17 GM PACK PO SCH ×2 (09:05→16:02)
[2022-04-11] MEDS: DOLUTEGRAVIR SODIUM PO SCH (09:06)
[2022-04-11] MEDS: LAMIVUDINE PO SCH (09:06)
[2022-04-11] MEDS: [UNRECOGNIZED DRUG - OTHER] PO SCH (09:06)
[2022-04-11] MEDS: ATORVASTATIN 40 MG TAB PO SCH (21:34)
[2022-04-12] VITALS (8 sets, daily range): BP systolic 125–163; BP diastolic 51–98
[2022-04-12] MEDS: ACYCLOVIR SODIUM 700 MG in SODIUM CHLORIDE 0.9% 250ML 250 ML IV SCH ×2 (05:01→14:00)
[2022-04-12] MEDS: HYDROMORPHONE 1MG/1ML INJ IV PRN (05:29)
[2022-04-12] MEDS: SODIUM CHLORIDE 0.9% 1000ML 1,000 ML IV SCH ×2 (05:34→20:43)
[2022-04-12 06:13] LABS: BASOPHILS # (AUTO) 0.1 (0.0-0.1); BASOPHILS % 0.7 % (0.0-1.0); EOSINOPHILS # (AUTO) 0.2 (0.0-0.4); EOSINOPHILS % 1.8 % (0.0-6.0); HEMATOCRIT 45.1 % (38.2-49.6); HEMOGLOBIN 15.9 g/dL (14.0-18.0); LYMPHOCYTES # (AUTO) 2.3 (1.0-3.2); MEAN CORPUSCULAR HEMOGLOBIN 36.8 pg (28-32); MEAN CORPUSCULAR HGB CONC 35.3 g/dL (31-35); MEAN CORPUSCULAR VOLUME 104.4 fL (81-99); MONOCYTES % 12.1 % (4.4-11.3); NEUTROPHILS # (AUTO) 4.9 (2.1-6.9); PLATELET COUNT 231 x10e3/uL (140-360); RED BLOOD COUNT 4.32 x10e6/uL (4.3-5.7); RED CELL DISTRIBUTION WIDTH 11.9 % (11.7-14.4)
[2022-04-12 06:39] LABS: ALBUMIN 3.8 g/dL (3.5-5.0); ALBUMIN/GLOBULIN RATIO 1.4 (0.8-2.0); ANION GAP 18.4 mmol/L (8-16); CALCIUM 8.8 mg/dL (8.4-10.2); CREATININE, SERUM 1.28 mg/dL (0.72-1.25); POTASSIUM 3.4 mmol/L (3.5-5.1)
[2022-04-12] MEDS: ASPIRIN 81 MG ENTERIC COATED PO SCH (08:44)
[2022-04-12] MEDS: PANTOPRAZOLE SOD 40 MG TABEC PO SCH ×2 (08:44→16:47)
[2022-04-12] MEDS: LAMIVUDINE PO SCH (08:45)
[2022-04-12] MEDS: SENNOSIDES 8.6 MG TAB PO SCH ×2 (08:45→16:47)
[2022-04-12] MEDS: DOLUTEGRAVIR SODIUM PO SCH (08:45)
[2022-04-12] MEDS: [UNRECOGNIZED DRUG - OTHER] PO SCH (08:45)
[2022-04-12] MEDS: POLYETHYLENE GLYCOL 3350 17 GM PACK PO SCH ×2 (08:45→16:47)
[2022-04-12] MEDS: ATORVASTATIN 40 MG TAB PO SCH ×2 (20:43→21:00)
[2022-04-13] VITALS (8 sets, daily range): BP systolic 117–150; BP diastolic 74–96
[2022-04-13] MEDS: SODIUM CHLORIDE 0.9% 1000ML 1,000 ML IV SCH ×2 (05:10→14:12)
[2022-04-13 06:11] LABS: BASOPHILS # (AUTO) 0.1 (0.0-0.1); BASOPHILS % 1.4 % (0.0-1.0); EOSINOPHILS # (AUTO) 0.2 (0.0-0.4); EOSINOPHILS % 3.3 % (0.0-6.0); HEMATOCRIT 43.4 % (38.2-49.6); HEMOGLOBIN 16.2 g/dL (14.0-18.0); LYMPHOCYTES % 34.1 % (18.0-39.1); MEAN CORPUSCULAR HGB CONC 37.3 g/dL (31-35); MEAN CORPUSCULAR VOLUME 107.2 fL (81-99); MONOCYTES # (AUTO) 0.8 (0.2-0.8); NEUTROPHILS # (AUTO) 2.8 (2.1-6.9); NEUTROPHILS % 47.7 % (38.7-80.0); PLATELET COUNT 161 x10e3/uL (140-360); RED BLOOD COUNT 4.05 x10e6/uL (4.3-5.7)
[2022-04-13] MEDS: ACETAMINOPHEN 325 MG TAB PO PRN ×3 (06:37→21:36)
[2022-04-13 06:43] LABS: ALBUMIN 3.6 g/dL (3.5-5.0); ALBUMIN/GLOBULIN RATIO 1.2 (0.8-2.0); ANION GAP 14.6 mmol/L (8-16); CALCIUM 9.1 mg/dL (8.4-10.2); CREATININE, SERUM 1.2 mg/dL (0.72-1.25); POTASSIUM 3.6 mmol/L (3.5-5.1)
[2022-04-13] MEDS: SENNOSIDES 8.6 MG TAB PO SCH ×2 (09:00→17:00)
[2022-04-13] MEDS: POLYETHYLENE GLYCOL 3350 17 GM PACK PO SCH ×2 (09:00→17:00)
[2022-04-13] MEDS: LAMIVUDINE PO SCH (09:00)
[2022-04-13] MEDS: DOLUTEGRAVIR SODIUM PO SCH (09:00)
[2022-04-13] MEDS: [UNRECOGNIZED DRUG - OTHER] PO SCH (09:00)
[2022-04-13] MEDS: PANTOPRAZOLE SOD 40 MG TABEC PO SCH ×2 (09:10→17:23)
[2022-04-13] MEDS: ASPIRIN 81 MG ENTERIC COATED PO SCH (09:10)
[2022-04-13] MEDS: ATORVASTATIN 40 MG TAB PO SCH (21:34)
[2022-04-14 00:15] VITALS: BP 115/71
[2022-04-14] MEDS: SODIUM CHLORIDE 0.9% 1000ML 1,000 ML IV SCH ×2 (00:18→09:09)
[2022-04-14] MEDS: HYDROMORPHONE 1MG/1ML INJ IV PRN ×2 (02:39→10:04)
[2022-04-14 04:40] VITALS: BP 125/65
[2022-04-14 05:47] LABS: BASOPHILS # (AUTO) 0.1 (0.0-0.1); BASOPHILS % 1.2 % (0.0-1.0); EOSINOPHILS # (AUTO) 0.2 (0.0-0.4); EOSINOPHILS % 4.2 % (0.0-6.0); HEMATOCRIT 43.2 % (38.2-49.6); HEMOGLOBIN 15.2 g/dL (14.0-18.0); LYMPHOCYTES # (AUTO) 1.9 (1.0-3.2); LYMPHOCYTES % 38.9 % (18.0-39.1); MEAN CORPUSCULAR HEMOGLOBIN 36.8 pg (28-32); MEAN CORPUSCULAR HGB CONC 35.2 g/dL (31-35); MEAN CORPUSCULAR VOLUME 104.6 fL (81-99); MONOCYTES # (AUTO) 0.4 (0.2-0.8); MONOCYTES % 8.8 % (4.4-11.3); NEUTROPHILS # (AUTO) 2.3 (2.1-6.9); NEUTROPHILS % 46.5 % (38.7-80.0); PLATELET COUNT 164 x10e3/uL (140-360); RED BLOOD COUNT 4.13 x10e6/uL (4.3-5.7); RED CELL DISTRIBUTION WIDTH 11.9 % (11.7-14.4)
[2022-04-14 06:14] LABS: ALBUMIN 3.4 g/dL (3.5-5.0); ALBUMIN/GLOBULIN RATIO 1.4 (0.8-2.0); ANION GAP 13.3 mmol/L (8-16); CALCIUM 8.4 mg/dL (8.4-10.2); CREATININE, SERUM 1.1 mg/dL (0.72-1.25); MAGNESIUM 1.8 MG/DL (1.3-2.1); POTASSIUM 3.3 mmol/L (3.5-5.1)
[2022-04-14 08:05] VITALS: BP 141/74
[2022-04-14 08:30] VITALS: BP 141/74
[2022-04-14] MEDS: ASPIRIN 81 MG ENTERIC COATED PO SCH (09:06)
[2022-04-14] MEDS: POLYETHYLENE GLYCOL 3350 17 GM PACK PO SCH (09:06)
[2022-04-14] MEDS: PANTOPRAZOLE SOD 40 MG TABEC PO SCH (09:06)
[2022-04-14] MEDS: SENNOSIDES 8.6 MG TAB PO SCH (09:06)
[2022-04-14] MEDS: LAMIVUDINE PO SCH (09:09)
[2022-04-14] MEDS: [UNRECOGNIZED DRUG - OTHER] PO SCH (09:09)
[2022-04-14] MEDS: DOLUTEGRAVIR SODIUM PO SCH (09:09)
[2022-04-14] MEDS ORDERED: ASPIRIN EC81 MG PO (09:24)
[2022-04-14] MEDS ORDERED: B-1100 MG PO (09:25)
[2022-04-14] MEDS ORDERED: POTASSIUM CHLORIDE 10MEQ EA PO ONE ×2 (11:15→11:30)
[2022-04-14 12:00] VITALS: BP 117/71
[2022-04-14 16:00] VITALS: BP 122/60
[2022-04-15] MEDS ORDERED: THIAMINE HCL 100 MG TAB PO SCH (09:00)
== END 2022-04-14 15:45 | disposition home or self-care (01) | DRG 640 ==
LOC: ER 10:29 → ERHOLD 11:56 → MED/SURG 14:50 → MED/SURG3 04-10 18:21
PROVIDERS: ADMIT Internal Medicine; ATTEND Internal Medicine
PROC: 009U3ZX Drainage of Spinal Canal, Percutaneous Approach, Diagnostic (ICD-10-PCS; principal; 2022-04-07)
DX: E87.5 Hyperkalemia (principal); G93.41 Metabolic encephalopathy; B20 Human immunodeficiency virus [HIV] disease; R17 Unspecified jaundice; E72.20 Disorder of urea cycle metabolism, unspecified; E87.6 Hypokalemia; R74.01 Elevation of levels of liver transaminase levels; D75.89 Other specified diseases of blood and blood-forming organs; E03.9 Hypothyroidism, unspecified; G89.4 Chronic pain syndrome; G80.9 Cerebral palsy, unspecified; D75.1 Secondary polycythemia; N18.31 Chronic kidney disease, stage 3a; I13.10 Hypertensive heart and chronic kidney disease without heart failure, with stage 1 through stage 4 chronic kidney disease, or unspecified chronic kidney disease; E78.5 Hyperlipidemia, unspecified; Z88.0 Allergy status to penicillin; Z88.8 Allergy status to other drugs, medicaments and biological substances; K59.00 Constipation, unspecified; G93.89 Other specified disorders of brain; G47.00 Insomnia, unspecified; J44.9 Chronic obstructive pulmonary disease, unspecified; K22.2 Esophageal obstruction; K44.9 Diaphragmatic hernia without obstruction or gangrene; K21.9 Gastro-esophageal reflux disease without esophagitis
CPT/HCPCS: 36415; 62328; 70450; 70496; 71045; 71250; 74176; 74230; 74470; 80048; 80053; 80076; 80307; 81001; 82140; 82550; 82607; 82948; 83735; 84100; 84157; 84443; 84484; 85025; 85610; 85730; 86592; 87070; 87205; 87536; 89051; 93005; 94799; 95819; 96361; 99252; 99284; J0696; J1170; J3411; J7030; J7050; Q0162; Q9967

== ENCOUNTER 2023-06-11 10:15 | Inpatient (IN) | payer MEDICARE, OTHER ==
[2023-06-11] VITALS (10 sets, daily range): BP systolic 96–135; BP diastolic 55–74; PULSE 66–122; RESP 11–19; TEMP 97.8–98; O2SAT 93–98
[~2023-06-11] VITALS: Ht 182.9 cm; Wt 93.0 kg
[~2023-06-11 10:15] MED LIST changes: +ACETAMINOPHEN325 M1 PO; +ASPIRIN EC81 MG PO; +B-1100 MG PO; +DOVATO 50-3001 EACH PO; +GABAPENTIN400 MG PO; +MUCINEX DM ER1 EACH PO
[2023-06-11] MEDS ORDERED: Azithromycin IV 500 MG 10 ML VIAL ONE (10:41)
[2023-06-11] MEDS ORDERED: METHYLPREDNISOLONE SOD SUCC 125 MG/2ML VIAL ONE (10:41)
[2023-06-11] MEDS ORDERED: CEFTRIAXONE 1 GM VIAL ONE (10:42)
[2023-06-11] MEDS ORDERED: SODIUM CHLORIDE 0.9% 250ML 250 ML ONE ×2 (10:42→14:02)
[2023-06-11] MEDS ORDERED: ACETAMINOPHEN 1000 MG/100 ML 100 ML IV ONE (10:42)
[2023-06-11] MEDS ORDERED: SODIUM CHLORIDE 0.9% 1000ML 1,000 ML ONE (10:44)
[2023-06-11] MEDS: METHYLPREDNISOLONE SOD SUCC 125 MG/2ML VIAL IV STA (10:45)
[2023-06-11] MEDS: ACETAMINOPHEN 1000 MG/100 ML IV STA (10:46)
[2023-06-11] MEDS: SODIUM CHLORIDE 0.9% 1000ML 1,000 ML IV STA ×2 (10:46→14:11)
[2023-06-11] MEDS: DILTIAZEM HCL 5 MG/ML 5 ML VIAL IV STA (10:51)
[2023-06-11 10:52] LABS: BASOPHILS # (AUTO) 0.1 (0.0-0.1); BASOPHILS % 0.4 % (0.0-1.0); EOSINOPHILS # (AUTO) 0.1 (0.0-0.4); EOSINOPHILS % 0.4 % (0.0-6.0); HEMATOCRIT 56.1 % (38.2-49.6); LYMPHOCYTES # (AUTO) 0.8 (1.0-3.2); LYMPHOCYTES % 4.8 % (18.0-39.1); MEAN CORPUSCULAR HEMOGLOBIN 34.7 pg (28-32); MEAN CORPUSCULAR HGB CONC 33.9 g/dL (31-35); MEAN CORPUSCULAR VOLUME 102.6 fL (81-99); MONOCYTES # (AUTO) 1.2 (0.2-0.8); MONOCYTES % 7.2 % (4.4-11.3); NEUTROPHILS # (AUTO) 14.3 (2.1-6.9); NEUTROPHILS % 86.5 % (38.7-80.0); PLATELET COUNT 150 x10e3/uL (140-360); RED BLOOD COUNT 5.47 x10e6/uL (4.3-5.7); RED CELL DISTRIBUTION WIDTH 12.6 % (11.7-14.4); WHITE BLOOD COUNT 16.49 x10e3/uL (4.8-10.8)
[2023-06-11] MEDS ORDERED: ONDANSETRON HCL INJ 2MG/ML 2ML 2 MG/ML VIAL ONE (10:52)
[2023-06-11] MEDS: ONDANSETRON HCL INJ 2MG/ML 2ML 2 MG/ML VIAL IV STA (10:52)
[2023-06-11] MEDS ORDERED: DILTIAZEM HCL VIAL 5 ML ONE (10:52)
[2023-06-11 11:02] LABS: INR 0.92
[2023-06-11 11:03] LABS: PARTIAL THROMBOPLASTIN TIME 25.8 seconds (23.8-35.5)
[2023-06-11 11:08] LABS: ALBUMIN 4.3 g/dL (3.5-5.0); ALBUMIN/GLOBULIN RATIO 1.2 (0.8-2.0); BILIRUBIN,TOTAL 0.6 mg/dL (0.2-1.2); CALCIUM 9.1 mg/dL (8.4-10.2); CREATININE, SERUM 1.88 mg/dL (0.72-1.25); TOTAL PROTEIN 7.8 g/dL (6.5-8.1)
[2023-06-11 11:14] LABS: TROPONIN I 0.005 ng/mL (0-0.300)
[2023-06-11 11:29] LABS: B-TYPE NATRIURETIC PEPTIDE2 < 10.0 pg/mL (0-100)
[2023-06-11] MEDS: ALBUTEROL/IPRATROPIUM 3 ML NEB NEB ONE (11:37)
[2023-06-11] MEDS ORDERED: ALBUTEROL/IPRATROPIUM 3 ML NEB ONE ×2 (11:38→14:10)
[2023-06-11] MEDS ORDERED: ACETAMINOPHEN 325 MG TAB PO PRN ×2 (11:45→14:15)
[2023-06-11] MEDS ORDERED: MEROPENEM 1 GM VIAL ONE (14:01)
[2023-06-11] MEDS ORDERED: SODIUM CHLORIDE 0.9% 100 ML ONE (14:01)
[2023-06-11] MEDS ORDERED: Vancomycin IV 1 GM VIAL ONE (14:02)
[2023-06-11] MEDS ORDERED: SODIUM CHLORIDE 0.9% 1000ML 2,000 ML ONE (14:02)
[2023-06-11] MEDS: Vancomycin IV 1 GM in SODIUM CHLORIDE 0.9% 250ML 250 ML IV ONE (14:11)
[2023-06-11] MEDS: SODIUM CHLORIDE 0.9% 1000ML 1,000 ML IV SCH (14:12)
[2023-06-11] MEDS: MEROPENEM 1 GM in SODIUM CHLORIDE 0.9% 100 ML IV SCH (14:12)
[2023-06-11] MEDS ORDERED: ONDANSETRON HCL INJ 2MG/ML 2ML 2 MG/ML VIAL IV PRN (14:15)
[2023-06-11] MEDS ORDERED: LIDOCAINE 4% PATCH TP PRN (14:15)
[2023-06-11] MEDS ORDERED: DIPHENHYDRAMINE HCL 25 MG CAP PO PRN (14:15)
[2023-06-11] MEDS ORDERED: DEXTROSE 50% SYRINGE 50 ML IV PRN (14:15)
[2023-06-11] MEDS ORDERED: HYDRALAZINE HCL 20 MG/ML VIAL IV PRN (14:15)
[2023-06-11] MEDS ORDERED: POTASSIUM CHLORIDE 20 MEQ TAB CR PO PRN (14:15)
[2023-06-11] MEDS ORDERED: SIMETHICONE 80 MG CHEW PO PRN (14:15)
[2023-06-11] MEDS ORDERED: DOCUSATE SODIUM 100 MG CAP PO PRN (14:15)
[2023-06-11] MEDS: ALBUTEROL/IPRATROPIUM 3 ML NEB NEB SCH (14:23)
[2023-06-11] MEDS ORDERED: ENOXAPARIN SOD INJ 40 MG/0.4 ML SYR SC SCH (17:00)
[2023-06-11] MEDS: ATORVASTATIN 40 MG TAB PO SCH (19:52)
[2023-06-11 20:45] LABS: TROPONIN I 0.011 ng/mL (0-0.300)
[2023-06-12] VITALS (22 sets, daily range): BP systolic 96–131; BP diastolic 60–72; PULSE 59–86; RESP 10–22; TEMP 97.9–98.3; O2SAT 93–100
[2023-06-12 06:17] LABS: HEMATOCRIT 42.4 % (38.2-49.6); HEMOGLOBIN 14.3 g/dL (14.0-18.0); LYMPHOCYTES # (AUTO) 0.7 (1.0-3.2); MEAN CORPUSCULAR HEMOGLOBIN 35.2 pg (28-32); MEAN CORPUSCULAR HGB CONC 33.7 g/dL (31-35); MEAN CORPUSCULAR VOLUME 104.4 fL (81-99); MONOCYTES # (AUTO) 0.7 (0.2-0.8); MONOCYTES % 6.8 % (4.4-11.3); NEUTROPHILS # (AUTO) 8.5 (2.1-6.9); NEUTROPHILS % 85.9 % (38.7-80.0); PLATELET COUNT 92 x10e3/uL (140-360); RED BLOOD COUNT 4.06 x10e6/uL (4.3-5.7); RED CELL DISTRIBUTION WIDTH 12.6 % (11.7-14.4); WHITE BLOOD COUNT 9.86 x10e3/uL (4.8-10.8)
[2023-06-12 06:22] LABS: ALBUMIN 2.9 g/dL (3.5-5.0); ALBUMIN/GLOBULIN RATIO 1.2 (0.8-2.0); ANION GAP 13.4 mmol/L (8-16); BILIRUBIN,TOTAL 0.5 mg/dL (0.2-1.2); CALCIUM 7.6 mg/dL (8.4-10.2); CREATININE, SERUM 1.2 mg/dL (0.72-1.25); POTASSIUM 4.4 mmol/L (3.5-5.1); TOTAL PROTEIN 5.4 g/dL (6.5-8.1)
[2023-06-12 07:13] LABS: TROPONIN I 0.009 ng/mL (0-0.300)
[2023-06-12] MEDS ORDERED: DOCUSATE SODIUM 100 MG CAP ONE (08:49)
[2023-06-12] MEDS ORDERED: Vancomycin IV 1 GM VIAL ONE (08:50)
[2023-06-12] MEDS ORDERED: PANTOPRAZOLE SOD 40 MG TABEC ONE (08:50)
[2023-06-12] MEDS ORDERED: SODIUM CHLORIDE 0.9% 250ML 250 ML ONE ×2 (08:51→10:39)
[2023-06-12] MEDS: PANTOPRAZOLE SOD 40 MG TABEC PO SCH (08:52)
[2023-06-12] MEDS: DOCUSATE SODIUM 100 MG CAP PO SCH (08:52)
[2023-06-12] MEDS: Vancomycin IV 1 GM in SODIUM CHLORIDE 0.9% 250ML 250 ML IV SCH (08:52)
[2023-06-12] MEDS ORDERED: SODIUM CHLORIDE 0.9% 100 ML ONE (10:38)
[2023-06-12] MEDS ORDERED: CEFTRIAXONE 1 GM VIAL ONE (10:38)
[2023-06-12] MEDS ORDERED: MEROPENEM 500 MG VIAL ONE (10:38)
[2023-06-12] MEDS ORDERED: Azithromycin IV 500 MG 10 ML VIAL ONE (10:39)
[2023-06-12] MEDS ORDERED: LACTATED RINGER'S 1,000 ML ONE (10:39)
[2023-06-12] MEDS ORDERED: ALBUTEROL/IPRATROPIUM 3 ML NEB ONE (11:11)
[2023-06-12] MEDS: LACTATED RINGER'S 1,000 ML INJ ONE (11:13)
[2023-06-12] MEDS ORDERED: MEROPENEM 1 GM VIAL ONE (12:51)
[2023-06-12] MEDS: SODIUM CHLORIDE 0.9% 1000ML 500 ML IV ONE (17:04)
[2023-06-12] MEDS: ENOXAPARIN SOD INJ 40 MG/0.4 ML SYR SC SCH (18:11)
[2023-06-12 23:59] LABS: CLARITY,URINE CLEAR (CLEAR); COLOR,URINE YELLOW (YELLOW); LEUKOCYTE ESTERASE ,URINE NEGATIVE (NEGATIVE); NITRITE,URINE NEGATIVE (NEGATIVE); PH,URINE 7 (5 - 7)
[2023-06-13] VITALS (26 sets, daily range): BP systolic 112–168; BP diastolic 61–100; PULSE 68–115; RESP 7–24; TEMP 97.9–99.3; O2SAT 90–100
[2023-06-13] LABS: BILIRUBIN,URINE NEGATIVE (NEGATIVE); GLUCOSE, URINE 500 (NEGATIVE); KETONES,URINE NEGATIVE (NEGATIVE); PROTEIN,URINE DIPSTICK 1+ (NEGATIVE); URINE UROBILINOGEN 0.2 mg/dL (0.2 - 1)
[2023-06-13 00:20] LABS: BACTERIA,URINE FEW /HPF; EPITHELIAL CELLS,URINE FEW /LPF; RBC,URINE 0-5 /HPF (0-5)
[2023-06-13 05:43] LABS: BASOPHILS % 0.1 % (0.0-1.0); EOSINOPHILS # (AUTO) 0.1 (0.0-0.4); EOSINOPHILS % 1.4 % (0.0-6.0); HEMATOCRIT 43.5 % (38.2-49.6); HEMOGLOBIN 14.4 g/dL (14.0-18.0); LYMPHOCYTES # (AUTO) 0.9 (1.0-3.2); MEAN CORPUSCULAR HEMOGLOBIN 34.8 pg (28-32); MEAN CORPUSCULAR HGB CONC 33.1 g/dL (31-35); MEAN CORPUSCULAR VOLUME 105.1 fL (81-99); MONOCYTES # (AUTO) 0.5 (0.2-0.8); MONOCYTES % 6.3 % (4.4-11.3); NEUTROPHILS # (AUTO) 5.7 (2.1-6.9); NEUTROPHILS % 79.9 % (38.7-80.0); PLATELET COUNT 73 x10e3/uL (140-360); RED BLOOD COUNT 4.14 x10e6/uL (4.3-5.7); RED CELL DISTRIBUTION WIDTH 12.6 % (11.7-14.4); WHITE BLOOD COUNT 7.11 x10e3/uL (4.8-10.8)
[2023-06-13 06:20] LABS: CALCIUM 8.3 mg/dL (8.4-10.2); CREATININE, SERUM 1.02 mg/dL (0.72-1.25)
[2023-06-13] MEDS ORDERED: ALBUTEROL/IPRATROPIUM 3 ML NEB ONE ×2 (07:06→13:35)
[2023-06-13] MEDS: BENZONATATE 100 MG CAP PO PRN ×2 (07:28→12:15)
[2023-06-13] MEDS ORDERED: BENZONATATE 100 MG CAP ONE ×3 (07:29→13:35)
[2023-06-13] MEDS ORDERED: GUAIFENESIN/CODEINE 5 ML LIQD PO PRN (08:00)
[2023-06-13] MEDS ORDERED: PANTOPRAZOLE SOD 40 MG TABEC ONE ×2 (09:04→13:35)
[2023-06-13] MEDS ORDERED: DOCUSATE SODIUM 100 MG CAP ONE ×2 (09:04→13:35)
[2023-06-13] MEDS ORDERED: ASPIRIN 81 MG ENTERIC COATED PO ONE ×2 (09:05→13:35)
[2023-06-13] MEDS ORDERED: METHYLPREDNISOLONE SOD SUCC 125 MG/2ML VIAL ONE ×2 (09:05→13:35)
[2023-06-13] MEDS ORDERED: Vancomycin IV 1 GM VIAL ONE ×2 (09:05→13:35)
[2023-06-13] MEDS ORDERED: Azithromycin IV 500 MG 10 ML VIAL ONE ×2 (09:06→13:35)
[2023-06-13] MEDS: ASPIRIN 81 MG ENTERIC COATED PO SCH (09:13)
[2023-06-13] MEDS: METHYLPREDNISOLONE SOD SUCC 125 MG/2ML VIAL IV ONE (09:13)
[2023-06-13] MEDS: CEFTRIAXONE 2 GM in SODIUM CHLORIDE 0.9% 100 ML IV SCH (14:45)
[2023-06-13] MEDS ORDERED: ATORVASTATIN 40 MG TAB PO SCH (21:00)
[2023-06-13] MEDS: ATORVASTATIN 40 MG TAB PO SCH (21:50)
[2023-06-14] VITALS (23 sets, daily range): BP systolic 128–167; BP diastolic 76–104; PULSE 72–116; RESP 12–23; TEMP 98–99; O2SAT 92–100
[2023-06-14] MEDS ORDERED: BENZONATATE 100 MG CAP ONE ×4 (06:08→23:30)
[2023-06-14] MEDS ORDERED: CODEINE SULFATE 15 MG TAB PO ONE (08:00)
[2023-06-14] MEDS ORDERED: PANTOPRAZOLE SOD 40 MG TABEC ONE ×2 (10:50→14:03)
[2023-06-14] MEDS ORDERED: ASPIRIN 81 MG ENTERIC COATED PO ONE ×2 (10:50→14:03)
[2023-06-14] MEDS ORDERED: SODIUM CHLORIDE 0.9% 250ML 250 ML ONE (10:52)
[2023-06-14] MEDS ORDERED: Azithromycin IV 500 MG 10 ML VIAL ONE ×2 (10:52→14:03)
[2023-06-14] MEDS ORDERED: CODEINE SULFATE 30 MG TAB ONE (11:20)
[2023-06-14] MEDS: CODEINE SULFATE 30 MG TAB PO PRN (11:21)
[2023-06-14] MEDS ORDERED: ATORVASTATIN 40 MG TAB ONE ×2 (14:00→21:21)
[2023-06-14] MEDS ORDERED: Sodium Chloride 0.9% 50ML Bag ONE (14:00)
[2023-06-14] MEDS ORDERED: ENOXAPARIN SOD INJ 40 MG/0.4 ML SYR SC ONE ×2 (14:00→17:27)
[2023-06-14] MEDS ORDERED: CEFTRIAXONE 2 GM VIAL ONE ×2 (14:00→14:28)
[2023-06-14] MEDS ORDERED: SODIUM CHLORIDE 0.9% INJ 250 ML BAG ONE (14:03)
[2023-06-15] VITALS (12 sets, daily range): BP systolic 111–126; BP diastolic 74–84; PULSE 82–100; RESP 18–22; TEMP 98.2–98.8; O2SAT 83–95
[2023-06-15] MEDS: TRAMADOL HCL 50 MG TAB PO PRN (05:41)
[2023-06-15] MEDS ORDERED: ALBUTEROL/IPRATROPIUM 3 ML NEB ONE ×2 (09:42→17:31)
[2023-06-15] MEDS: ALBUTEROL/IPRATROPIUM 3 ML NEB NEB PRN (09:42)
[2023-06-15] MEDS ORDERED: Azithromycin IV 500 MG 10 ML VIAL ONE ×2 (10:27→17:31)
[2023-06-15] MEDS ORDERED: SODIUM CHLORIDE 0.9% 250ML 250 ML ONE (10:27)
[2023-06-15] MEDS ORDERED: CODEINE SULFATE 30 MG TAB ONE ×4 (11:48→17:31)
[2023-06-15] MEDS ORDERED: CEFTRIAXONE 1 GM VIAL ONE (13:23)
[2023-06-15] MEDS ORDERED: SODIUM CHLORIDE 0.9% 100 ML ONE (13:30)
[2023-06-15] MEDS ORDERED: CEFTRIAXONE 2 GM VIAL ONE (13:30)
[2023-06-15] MEDS ORDERED: BIKTARVY 50-201 EACH PO (14:51)
[2023-06-15] MEDS ORDERED: ENOXAPARIN SOD INJ 40 MG/0.4 ML SYR SC ONE (17:00)
[2023-06-15] MEDS ORDERED: TRAMADOL HCL 50 MG TAB ONE ×2 (17:02→17:31)
[2023-06-15] MEDS ORDERED: ASPIRIN 81 MG ENTERIC COATED PO ONE (17:31)
[2023-06-15] MEDS ORDERED: BENZONATATE 100 MG CAP ONE (17:31)
[2023-06-15] MEDS ORDERED: DOCUSATE SODIUM 100 MG CAP ONE (17:31)
[2023-06-15] MEDS ORDERED: SODIUM CHLORIDE 0.9% INJ 250 ML BAG ONE (17:31)
[2023-06-15] MEDS ORDERED: PANTOPRAZOLE SOD 40 MG TABEC ONE (17:31)
[2023-06-15] MEDS ORDERED: ATORVASTATIN 40 MG TAB ONE (20:14)
[2023-06-16 00:23] VITALS: BP 124/77; PULSE 82; RESP 20; TEMP 98.4; O2SAT 94
[2023-06-16 04:00] VITALS: BP 119/89; PULSE 74; RESP 19; TEMP 98.2; O2SAT 96
[2023-06-16 06:04] LABS: BASOPHILS % 0.3 % (0.0-1.0); EOSINOPHILS # (AUTO) 0.1 (0.0-0.4); EOSINOPHILS % 2.3 % (0.0-6.0); HEMATOCRIT 43.6 % (38.2-49.6); HEMOGLOBIN 15.2 g/dL (14.0-18.0); LYMPHOCYTES # (AUTO) 1.3 (1.0-3.2); LYMPHOCYTES % 20.2 % (18.0-39.1); MEAN CORPUSCULAR HEMOGLOBIN 34.8 pg (28-32); MEAN CORPUSCULAR HGB CONC 34.9 g/dL (31-35); MEAN CORPUSCULAR VOLUME 99.8 fL (81-99); MONOCYTES # (AUTO) 0.8 (0.2-0.8); MONOCYTES % 12.8 % (4.4-11.3); NEUTROPHILS # (AUTO) 3.9 (2.1-6.9); NEUTROPHILS % 63.8 % (38.7-80.0); PLATELET COUNT 122 x10e3/uL (140-360); RED BLOOD COUNT 4.37 x10e6/uL (4.3-5.7); RED CELL DISTRIBUTION WIDTH 11.9 % (11.7-14.4); WHITE BLOOD COUNT 6.18 x10e3/uL (4.8-10.8)
[2023-06-16 06:50] VITALS: PULSE 85; RESP 18; O2SAT 96
[2023-06-16 06:53] LABS: ALBUMIN 3.2 g/dL (3.5-5.0); ANION GAP 13.5 mmol/L (8-16); BILIRUBIN,TOTAL 0.6 mg/dL (0.2-1.2); CALCIUM 8.9 mg/dL (8.4-10.2); CREATININE, SERUM 1.35 mg/dL (0.72-1.25); POTASSIUM 3.5 mmol/L (3.5-5.1); TOTAL PROTEIN 6.4 g/dL (6.5-8.1)
[2023-06-16] MEDS ORDERED: PANTOPRAZOLE SOD 40 MG TABEC ONE (07:44)
[2023-06-16] MEDS ORDERED: DOCUSATE SODIUM 100 MG CAP ONE (07:44)
[2023-06-16] MEDS ORDERED: ASPIRIN 81 MG ENTERIC COATED PO ONE (07:44)
[2023-06-16] MEDS ORDERED: TRAMADOL HCL 50 MG TAB ONE (07:59)
[2023-06-16 08:33] VITALS: BP 106/75; PULSE 79; RESP 19; TEMP 98.4; O2SAT 94
[2023-06-16 08:45] VITALS: BP 106/75; PULSE 79; RESP 19; TEMP 98.4; O2SAT 94
[2023-06-16] MEDS ORDERED: AMOX TR-K CLV1 EAC2 PO (10:13)
[2023-06-16] MEDS ORDERED: BENZONATATE100 MG PO (10:13)
[2023-06-16] MEDS ORDERED: ONDANSETRON HCL 4 MG ORAL DISINTEGRATING TAB PO PRN (11:45)
[2023-06-16 12:01] VITALS: BP 120/83; PULSE 90; RESP 17; TEMP 98.4; O2SAT 92
[2023-06-17] MEDS ORDERED: AZITHROMYCIN 250 MG TAB PO SCH (10:30)
== END 2023-06-16 13:17 | disposition home or self-care (01) | DRG 974 ==
LOC: ER 10:21 → ERHOLD 11:46 → ICU 17:49 → MED/SURG2 06-15 01:10
PROVIDERS: ADMIT Internal Medicine; ATTEND Internal Medicine
PROC: 02HV33Z Insertion of Infusion Device into Superior Vena Cava, Percutaneous Approach (ICD-10-PCS; principal; 2023-06-11)
PROC: B548ZZA Ultrasonography of Superior Vena Cava, Guidance (ICD-10-PCS; 2023-06-11)
PROC: 3E03329 Introduction of Other Anti-infective into Peripheral Vein, Percutaneous Approach (ICD-10-PCS; 2023-06-11)
DX: A41.89 Other specified sepsis (principal); J96.01 Acute respiratory failure with hypoxia; B20 Human immunodeficiency virus [HIV] disease; N17.9 Acute kidney failure, unspecified; J12.9 Viral pneumonia, unspecified; G93.41 Metabolic encephalopathy; R65.20 Severe sepsis without septic shock; D75.1 Secondary polycythemia; E86.0 Dehydration; B97.4 Respiratory syncytial virus as the cause of diseases classified elsewhere; N18.30 Chronic kidney disease, stage 3 unspecified; J44.9 Chronic obstructive pulmonary disease, unspecified; G89.4 Chronic pain syndrome; Z97.8 Presence of other specified devices; E03.9 Hypothyroidism, unspecified; R13.10 Dysphagia, unspecified; G80.9 Cerebral palsy, unspecified; Z71.3 Dietary counseling and surveillance; Z68.27 Body mass index [BMI] 27.0-27.9, adult; Z11.52 Encounter for screening for COVID-19; Z99.81 Dependence on supplemental oxygen; Z79.899 Other long term (current) drug therapy
CPT/HCPCS: 36415; 36569; 71045; 74230; 80048; 80053; 81001; 82550; 82948; 83605; 83735; 83880; 84484; 85025; 85610; 85730; 87040; 87400; 87420; 93005; 93306; 94640; 94799; 99285; J0696; J1650; J2185; J2405; J2919; J7030; J7050; U0002